=== PATIENT | female | born 1990 | race African-American/Black ===

== ENCOUNTER 2016-10-05 17:41 | Emergency (ER) | payer MEDICAID ==
[~2016-10-05] VITALS: Ht 167.6 cm; Wt 59.9 kg
[~2016-10-05 17:41] MED LIST: ACETAMINOPHEN-1 EAC2 ORAL; ACYCLOVIR30 GM TP; BACTRIM DS TAB1 EAC1 ORAL; CALCIUM500 M3 PO; CLINDAMYCIN HC150 MG ORAL; DIFLUCAN100 MG ORAL; FOLIC ACID1 M1 PO; HIBICLENS118 ML TP; HYDRALAZINE HCL10 MG ORAL; HYDROCODON-ACE1 EA15 ORAL; IBUPROFEN600 MG PO; LEVAQUIN500 MG ORAL; NKM; NORCO 5-325 TA1 EAC1 ORAL; NORCO 5-325 TA1 EACH ORAL; PERCOCET 7.5-31 EACH ORAL; TYLENOL EXTRA500 MG ORAL; VICODIN 5-5001 EACH PO
[2016-10-05 18:00] VITALS: BP 110/72
[2016-10-05 18:57] LABS: MEAN CORPUSCULAR HEMOGLOBIN 33.9 PG (27.0-31.0); MEAN CORPUSCULAR HGB CONC 33.4 G/DL (32.0-36.0); MEAN CORPUSCULAR VOLUME 101 FL (80-99); MEAN PLATELET VOLUME 6.3 FL (6.5-10.1); PLATELET COUNT 393 K/UL (150-450); RED BLOOD COUNT 2.73 M/UL (4.20-5.40); RED CELL DISTRIBUTION WIDTH 15.2 % (11.6-14.8); WHITE BLOOD COUNT 19.6 K/UL (4.8-10.8)
[2016-10-05 19:25] LABS: ANION GAP 15 (5-15); CALCIUM 9.2 mg/dL (8.6-10.2); CARBON DIOXIDE 24 mEQ/L (20-30); CHLORIDE 100 mEQ/L (98-107); CREATININE 0.4 mg/dL (0.5-0.9); GLOMERULAR FILTRATION RATE > 60 mL/min (>60); HEMOLYSIS 10; POTASSIUM 4.1 mEQ/L (3.4-4.9); SODIUM 139 mEQ/L (135-145)
[2016-10-05] MEDS ORDERED: Morphine Sulfate 4mg/ml Inj IVP ONE (19:45)
[2016-10-05 19:58] VITALS: BP 114/76
[2016-10-05] MEDS ORDERED: DiphenhydrAMINE 50mg/ml Inj IVP ONE (21:45)
[2016-10-05] MEDS ORDERED: HYDROmorphone 1mg/ml Carpuject IVP ONE (22:00)
--- NOTE | 2016-10-05 22:08 | Emergency Room Report ---
History of Present Illness General Chief Complaint: Pain Source: Patient Present Illness HPI 26-year-old female presents to emergency Department complaining of a sickle cell crisis. Patient reports 8/10 in severity pain in the right hips bilaterally x 5 days. 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 Home medications are not providing relief. Patient denies chest pain denies shortness of breath denies abdominal pain denies nausea, vomiting, fevers, chills. Patient states that she may be partially dehydrated which could be exacerbating her pain. Denies CP, Palpitations, LOC, AMS, dizziness, Changes in Vision, Sensation, paresthesias, or a sudden severe headache. Allergies: Coded Allergies: No Known Allergies (Unverified , 11/18/12) Patient History Past Medical History: see triage record Past Surgical History: none Pertinent Family History: none Last Menstrual Period: 09/26/16 Now: No Immunizations: UTD Reviewed Nursing Documentation: PMH: Agreed, PSxH: Agreed Nursing Documentation-PMH Past Medical History: No History, Except For Hx Cardiac Problems: No - sickle cell Hx Hypertension: No Hx Pacemaker: No Hx Cancer: No Hx Gastrointestinal Problems: No Hx Neurological Problems: No Hx Cerebrovascular Accident: No Hx Transient Ischemic Attacks: No Hx Dementia: No Hx Alzheimer's Disease: No Hx Parkinson's Disease: No Hx Meningitis: Yes Hx Encephalitis: No Hx Seizures: No Hx Epilepsy: No Hx Multiple Sclerosis: No Hx Cerebral Palsy: No Hx Amyotrophic Lat Sclerosis: No Hx Guillian-[place] Syndrome: No Hx Paralysis: No Hx Peripheral Neuropathy: No Hx Spinal Cord Injury: No Hx Head Trauma: No Hx Traumatic Brain Injury: No Hx Memory Loss: No Hx Concentration Difficulty: No Hx Speech Problem: No Hx Tremors: No Hx Vertigo: No Hx Dizziness: No Hx Syncope: No Hx Headaches: No Hx Aphasia: No Hx Dysphasia: No Hx Numbness: Yes Hx Weakness: No Hx Fatigue: No Hx Neurologic Surgery: No Hx Brain Shunt: No Review of Systems All Other Systems: negative except mentioned in HPI Physical Exam Vital Signs Date Time Temp Pulse Resp B/P Pulse Ox O2 Delivery O2 Flow Rate FiO2 10/05/16 17:55 98.4 88 14 110/72 99 Room Air Sp02 EP Interpretation: reviewed, normal General Appearance: no apparent distress, alert, GCS 15, non-toxic Head: normocephalic, atraumatic Eyes: bilateral eye PERRL, bilateral eye normal inspection ENT: hearing grossly normal, normal pharynx, no angioedema, normal voice Neck: full range of motion, supple/symm/no masses Respiratory: chest non-tender, lungs clear, normal breath sounds, speaking full sentences Cardiovascular #1: regular rate, rhythm, no edema Gastrointestinal: normal bowel sounds, non tender, soft, no guarding, no rebound Rectal: deferred Genitourinary: normal inspection, no CVA tenderness Musculoskeletal: back normal, gait/station normal, normal range of motion, non- tender, no calf tenderness Neurologic: alert, oriented x3, responsive, motor strength/tone normal, sensory intact, speech normal Psychiatric: judgement/insight normal, memory normal, mood/affect normal, no suicidal/homicidal ideation Reflexes: 4+ bicep (R), 4+ bicep (L), 4+ tricep (R), 4+ tricep (L), 4+ knee (R) , 4+ knee (L) Skin: normal color, no rash, warm/dry, well hydrated Lymphatic: no adenopathy Medical Decision Making PA Attestation Dr. Guidry is my supervising Physician whom patient management has been discussed with. Diagnostic Impression: Primary Impression: Sickle cell crisis ER Course Pt. presents to the ED c/o sickle cell pain in the bilateral hips x 5 Day(s) 05/04 in severity, sickle cell crisis. home medications are not working. Ddx considered but are not limited to Sickle cell crisis, Infection, Cardiac pathology, DVT, Fracture, Dislocation Vital signs: are WNL, pt. is afebrile H&PE are most consistent with Sickle cell crisis ORDERS: -CMP:see results attached. -CBC: elevated WBC at 19, however reviewed pt. previous laboratory results and this appears to be close to her baseline. -Reticulocyte count 7.6% ED INTERVENTIONS: - 2 liters NS for hydration. -6mg IV Morphine for pain - 1mg + 25mg benadryl / Dilaudid for pain DISCHARGE: At this time pt. is stable for d/c to home. Will provide printed patient care instructions, and any necessary prescriptions. Care plan and follow up instructions have been discussed with the patient prior to discharge. Labs Test 10/05/16 18:25 White Blood Count 19.6 K/UL (4.8-10.8) Red Blood Count 2.73 M/UL (4.20-5.40) Hemoglobin 9.2 G/DL (12.0-16.0) Hematocrit 27.7 % (37.0-47.0) Mean Corpuscular Volume 101 FL (80-99) Mean Corpuscular Hemoglobin 33.9 PG (27.0-31.0) Mean Corpuscular Hemoglobin Concent 33.4 G/DL (32.0-36.0) Red Cell Distribution Width 15.2 % (11.6-14.8) Platelet Count 393 K/UL (150-450) Mean Platelet Volume 6.3 FL (6.5-10.1) Neutrophils (%) (Auto) % (45.0-75.0) Lymphocytes (%) (Auto) % (20.0-45.0) Monocytes (%) (Auto) % (1.0-10.0) Eosinophils (%) (Auto) % (0.0-3.0) Basophils (%) (Auto) % (0.0-2.0) Erythrocyte Sedimentation Rate 31 MM/HR (0-20) Reticulocyte Count 7.6 % (0.0-2.0) Sodium Level 139 mEQ/L (135-145) Potassium Level 4.1 mEQ/L (3.4-4.9) Chloride Level 100 mEQ/L (98-107) Carbon Dioxide Level 24 mEQ/L (20-30) Anion Gap 15 (5-15) Blood Urea Nitrogen 5 mg/dL (7-23) Creatinine 0.4 mg/dL (0.5-0.9) Estimat Glomerular Filtration Rate > 60 mL/min (>60) Glucose Level 89 mg/dL (74-106) Calcium Level 9.2 mg/dL (8.6-10.2) Last Vital Signs Date Time Temp Pulse Resp B/P Pulse Ox O2 Delivery O2 Flow Rate FiO2 10/05/16 19:58 98.3 89 16 114/76 99 Room Air Disposition: HOME, SELF-CARE Condition: Stable Referrals: BELEN ALLEN M.D. (PCP) Additional Instructions: Take medications as directed. Follow up with PCP in 3-5 days Return sooner to ED if new symptoms occur, or current symptoms become worse. Nathaly Stewart Oct 05, 2016 22:08
[2016-10-05 22:41] LABS: BAND NEUTROPHILS % (MANUAL) 2 % (0-8); EOSINOPHILS % (MANUAL) 5 % (0-3); LYMPHOCYTES % (MANUAL) 31 % (20-45); NEUTROPHILS % (MANUAL) 55 % (45-75); TOTAL CELLS COUNTED 100
[2016-10-05 22:42] LABS: ANISOCYTOSIS 2+; BASOPHILS % (MANUAL) 0 % (0-2); HYPOCHROMASIA 2+; PLATELET ESTIMATE ADEQUATE; PLATELET MORPHOLOGY NORMAL; POLYCHROMASIA 1+
[2016-10-05 22:43] LABS: SCHISTOCYTES 1+; SICKLE CELLS 2+; TARGET CELLS 1+
[2016-10-05 23:13] VITALS: BP 109/71
[2016-10-05 23:40] VITALS: BP 109/71
== END 2016-10-05 23:40 | disposition home or self-care (01) ==
LOC: EMR 18:46
DX: D57.00 Hb-SS disease with crisis, unspecified (principal)
CPT/HCPCS: 36415; 80048; 85007; 85025; 85044; 85651; 96361; 96374; 96375; 99284; J1170; J1200; J2270

== ENCOUNTER 2016-10-17 01:25 | Emergency (ER) | payer MEDICAID ==
[~2016-10-17] VITALS: Ht 167.6 cm; Wt 59.9 kg
[2016-10-17 01:35] VITALS: BP 118/80
[2016-10-17] MEDS ORDERED: DiphenhydrAMINE 50mg/ml Inj IM ONE (01:45)
[2016-10-17 01:48] LABS: KETONES,URINE NEGATIVE (NEGATIVE); LEUKOCYTE ESTERASE ,URINE 3+ (NEGATIVE); NITRITE,URINE NEGATIVE (NEGATIVE); PH,URINE 8 (4.5-8.0); PROTEIN,URINE NEGATIVE (NEGATIVE); UROBILINOGEN,URINE 1 MG/DL (0.0-1.0)
[2016-10-17 01:55] LABS: APPEARANCE,URINE SLIGHTLY CLOUDY
[2016-10-17 01:56] LABS: BACTERIA,URINE MANY /HPF; RBC,URINE 0-2 /HPF (0 - 2); SQUAMOUS EPITHELIAL CELL,UR MANY /LPF (NONE/OCC); WBC,URINE 15-20 /HPF (0 - 2)
[2016-10-17] MEDS ORDERED: NITROFURANTOIN100 M2 ORAL (02:02)
[2016-10-17 02:11] VITALS: BP 122/83
--- NOTE | 2016-10-17 02:36 | Emergency Room Report ---
History of Present Illness General Chief Complaint: Pain Source: Patient Present Illness HPI 26 YO F endorses dysuria, polyuria for 2 days. Denies fever/chills, abd pain, nausea/vomiting, diarrhea, past surgical history. Endorses frequent UTI. Denies flank pain. Also c/o "whole body pain" and "I have sickle cell disease." She denies chest pain, SOB, fever/chills. States hasnt needed transfusion in a "long time." Per review of EMR, multiple visits to ED for similar complaints of "pain." Last was most recently a few weeks ago. Labs done showed stable H&H, stable retic count and elevated Leuks however patient appears to have chronically elevated leukocytosis on review of labs back a few years. Patient refused further lab tests and left ER per review of EMR from that note/visit. Allergies: Coded Allergies: No Known Allergies (Unverified , 11/18/12) Patient History Past Medical History: other - sickle cell disease Past Surgical History: none Pertinent Family History: none Social History: Denies: alcohol use, drug use, smoking Last Menstrual Period: Sep Now: No Immunizations: UTD Reviewed Nursing Documentation: PMH: Agreed, PSxH: Agreed Nursing Documentation-PMH Hx Cardiac Problems: No - sickle cell Hx Hypertension: No Hx Pacemaker: No Hx Cancer: No Hx Gastrointestinal Problems: No Hx Neurological Problems: No Hx Cerebrovascular Accident: No Hx Transient Ischemic Attacks: No Hx Dementia: No Hx Alzheimer's Disease: No Hx Parkinson's Disease: No Hx Meningitis: Yes Hx Encephalitis: No Hx Seizures: No Hx Epilepsy: No Hx Multiple Sclerosis: No Hx Cerebral Palsy: No Hx Amyotrophic Lat Sclerosis: No Hx Guillian-[place] Syndrome: No Hx Paralysis: No Hx Peripheral Neuropathy: No Hx Spinal Cord Injury: No Hx Head Trauma: No Hx Traumatic Brain Injury: No Hx Memory Loss: No Hx Concentration Difficulty: No Hx Speech Problem: No Hx Tremors: No Hx Vertigo: No Hx Dizziness: No Hx Syncope: No Hx Headaches: No Hx Aphasia: No Hx Dysphasia: No Hx Numbness: Yes Hx Weakness: No Hx Fatigue: No Hx Neurologic Surgery: No Hx Brain Shunt: No Review of Systems All Other Systems: negative except mentioned in HPI Physical Exam Vital Signs Date Time Temp Pulse Resp B/P Pulse Ox O2 Delivery O2 Flow Rate FiO2 10/17/16 01:27 98.8 96 19 112/79 96 Room Air Sp02 EP Interpretation: reviewed, normal General Appearance: normal inspection, well appearing, no apparent distress, alert Head: atraumatic ENT: normal ENT inspection, hearing grossly normal, normal voice Neck: normal inspection, full range of motion, supple, no bony tend Respiratory: normal inspection, lungs clear, normal breath sounds, no respiratory distress, no retraction, no wheezing Cardiovascular #1: regular rate, rhythm, no edema Gastrointestinal: normal inspection, normal bowel sounds, non tender, soft, no guarding, no hernia Genitourinary: no CVA tenderness Musculoskeletal: normal inspection, back normal, normal range of motion, Neil' s Sign negative Neurologic: normal inspection, alert, oriented x3, responsive, clinical education manager III-XII nml as tested, motor strength/tone normal, speech normal Psychiatric: normal inspection, judgement/insight normal, mood/affect normal Skin: normal inspection, normal color, no rash Medical Decision Making Diagnostic Impression: Primary Impression: UTI (urinary tract infection) Qualified Codes: N30.00 - Acute cystitis without hematuria Additional Impression: Pain ER Course 26 YO F with dysuria found to have UTI on UA. Not . VSS. Afebrile. No CVAT. Unlikely systemic infection/pyelo given well appearance. Patient states she has norco and PO dilaudid at home but doesnt take because "they make me feel nauseated" and "they are different from injected dialudid." Given multiple visits here for similar complaints and persistently stable laboratory analysis including recently I do not feel additional lab testing is warranted at this time. I also do not believe patient has acute chest syndrome given VSS, no systemic symptoms and lungs are CTAB Patient is amenable to IM dilaudid/benadryl with improvement in symptoms DC home with Rx Macrobid after initial dose given in ED Last Vital Signs Date Time Temp Pulse Resp B/P Pulse Ox O2 Delivery O2 Flow Rate FiO2 10/17/16 02:11 98.3 82 18 122/83 100 Room Air Status: improved Disposition: HOME, SELF-CARE Condition: Improved Scripts Nitrofurantoin Monohyd/M-Cryst* (MACROBID 100 MG*) 100 Mg Capsule 100 MG ORAL EVERY 12 HOURS for 7 Days, #13 CAP Prov: JOSE RIDLEY M.D. 1/23/17 Patient Instructions: Dysuria JOSE RIDLEY M.D. Oct 17, 2016 02:36
== END 2016-10-17 02:11 | disposition home or self-care (01) ==
LOC: EMR 01:53
DX: N30.00 Acute cystitis without hematuria (principal); Z86.61 Personal history of infections of the central nervous system; D57.1 Sickle-cell disease without crisis
CPT/HCPCS: 81003; 81025; 87086; 96372; 99283; J1170; J1200

== ENCOUNTER 2016-10-31 14:56 | Inpatient (IN) | payer MEDICAID ==
[~2016-10-31] VITALS: Ht 167.6 cm; Wt 60.3 kg
[~2016-10-31 14:56] MED LIST changes: +NITROFURANTOIN100 M2 ORAL
[2016-10-31] MEDS ORDERED: HYDREA500 MG PO (15:08)
--- NOTE | 2016-10-31 15:32 | Emergency Room Report ---
History of Present Illness General Chief Complaint: Pain Source: Patient Present Illness HPI Patient presents with complaints of total body pain Reports that she is having a'sickle flare' Denies any vomiting or diarrhea She has had decreased oral intake Pain is 8/10 diffuse in her arms legs Denies any fevers or chills as any photophobia Denies any recent trauma Allergies: Coded Allergies: No Known Allergies (Unverified , 11/18/12) Patient History Past Medical History: see triage record Pertinent Family History: none Last Menstrual Period: 10/28/2016 Reviewed Nursing Documentation: PMH: Agreed, PSxH: Agreed Nursing Documentation-PMH Past Medical History: No History, Except For Hx Hypertension: No Hx Pacemaker: No Hx Cancer: No Hx Gastrointestinal Problems: No Hx Neurological Problems: No Hx Cerebrovascular Accident: No Hx Transient Ischemic Attacks: No Hx Dementia: No Hx Alzheimer's Disease: No Hx Parkinson's Disease: No Hx Meningitis: Yes Hx Encephalitis: No Hx Seizures: No Hx Epilepsy: No Hx Multiple Sclerosis: No Hx Cerebral Palsy: No Hx Amyotrophic Lat Sclerosis: No Hx Guillian-[place] Syndrome: No Hx Paralysis: No Hx Peripheral Neuropathy: No Hx Spinal Cord Injury: No Hx Head Trauma: No Hx Traumatic Brain Injury: No Hx Memory Loss: No Hx Concentration Difficulty: No Hx Speech Problem: No Hx Tremors: No Hx Vertigo: No Hx Dizziness: No Hx Syncope: No Hx Headaches: No Hx Aphasia: No Hx Dysphasia: No Hx Numbness: Yes Hx Weakness: No Hx Fatigue: No Hx Neurologic Surgery: No Hx Brain Shunt: No Review of Systems All Other Systems: negative except mentioned in HPI Physical Exam Vital Signs Date Time Temp Pulse Resp B/P Pulse Ox O2 Delivery O2 Flow Rate FiO2 10/31/16 15:04 98.8 84 14 122/72 96 Room Air Sp02 EP Interpretation: reviewed, normal General Appearance: well appearing, no apparent distress Head: normocephalic, atraumatic Eyes: bilateral eye EOMI, bilateral eye PERRL ENT: hearing grossly normal, normal pharynx, TMs + canals normal, uvula midline Neck: full range of motion, supple, no meningismus, no bony tend Respiratory: lungs clear, normal breath sounds, no rhonchi, no respiratory distress, no retraction, no accessory muscle use Cardiovascular #1: normal peripheral pulses, regular rate, rhythm, no edema, no gallop, no JVD, no murmur Gastrointestinal: normal bowel sounds, non tender, soft, no mass, no organomegaly, non-distended, no guarding, no hernia, no pulsatile mass, no rebound Genitourinary: no CVA tenderness Musculoskeletal: normal inspection Neurologic: oriented x3, responsive, workers compensation claims analyst III-XII nml as tested, motor strength/ tone normal, sensory intact Psychiatric: mood/affect normal Skin: normal color, no rash, warm/dry, palpation normal Lymphatic: normal inspection, no adenopathy Medical Decision Making Diagnostic Impression: Primary Impression: Sickle cell disease Additional Impression: Sickle cell crisis ER Course Multiple differentials considered Patient has had previous sickle cell crisis and therefore blood work was initiated IV hydration Patient was provided with pain medication Patient's reticulocyte count is significantly elevated compared to previous And given the general evaluation and the patient's discomfort was admitted for further inpatient care Labs Test 10/31/16 15:27 11/01/16 05:35 White Blood Count 19.8 K/UL (4.8-10.8) 15.4 K/UL (4.8-10.8) Red Blood Count 2.35 M/UL (4.20-5.40) 1.93 M/UL (4.20-5.40) Hemoglobin 8.5 G/DL (12.0-16.0) 6.9 G/DL (12.0-16.0) Hematocrit 24.4 % (37.0-47.0) 19.7 % (37.0-47.0) Mean Corpuscular Volume 104 FL (80-99) 102 FL (80-99) Mean Corpuscular Hemoglobin 35.9 PG (27.0-31.0) 35.4 PG (27.0-31.0) Mean Corpuscular Hemoglobin Concent 34.7 G/DL (32.0-36.0) 34.9 G/DL (32.0-36.0) Red Cell Distribution Width 18.3 % (11.6-14.8) 19.1 % (11.6-14.8) Platelet Count 432 K/UL (150-450) 328 K/UL (150-450) Mean Platelet Volume 6.5 FL (6.5-10.1) 7.0 FL (6.5-10.1) Neutrophils (%) (Auto) % (45.0-75.0) % (45.0-75.0) Lymphocytes (%) (Auto) % (20.0-45.0) % (20.0-45.0) Monocytes (%) (Auto) % (1.0-10.0) % (1.0-10.0) Eosinophils (%) (Auto) % (0.0-3.0) % (0.0-3.0) Basophils (%) (Auto) % (0.0-2.0) % (0.0-2.0) Differential Total Cells Counted 100 100 Neutrophils % (Manual) 53 % (45-75) 57 % (45-75) Lymphocytes % (Manual) 33 % (20-45) 30 % (20-45) Monocytes % (Manual) 4 % (1-10) 6 % (1-10) Eosinophils % (Manual) 10 % (0-3) 7 % (0-3) Basophils % (Manual) 0 % (0-2) 0 % (0-2) Band Neutrophils 0 % (0-8) 0 % (0-8) Platelet Estimate Adequate Adequate Platelet Morphology Normal Normal Poikilocytosis 1+ 1+ Anisocytosis 2+ 2+ Macrocytosis 2+ 1+ Reticulocyte Count 14.1 % (0.0-2.0) Sodium Level 143 mEQ/L (135-145) 143 mEQ/L (135-145) Potassium Level 3.9 mEQ/L (3.4-4.9) 3.9 mEQ/L (3.4-4.9) Chloride Level 104 mEQ/L (98-107) 105 mEQ/L (98-107) Carbon Dioxide Level 25 mEQ/L (20-30) 26 mEQ/L (20-30) Anion Gap 14 (5-15) 12 (5-15) Blood Urea Nitrogen 4 mg/dL (7-23) 3 mg/dL (7-23) Creatinine 0.4 mg/dL (0.5-0.9) 0.5 mg/dL (0.5-0.9) Estimat Glomerular Filtration Rate > 60 mL/min (>60) > 60 mL/min (>60) Glucose Level 98 mg/dL (74-106) 108 mg/dL (74-106) Calcium Level 8.6 mg/dL (8.6-10.2) 8.1 mg/dL (8.6-10.2) Polychromasia 1+ Sickle Cells 1+ Total Bilirubin 1.9 mg/dL (0.0-1.2) Direct Bilirubin 0.3 mg/dL (0.1-0.3) Aspartate Amino Transf (AST/SGOT) 38 U/L (5-40) Alanine Aminotransferase (ALT/SGPT) 23 U/L (3-33) Alkaline Phosphatase 55 U/L (35-104) Lactate Dehydrogenase 276 U/L (135-230) Total Protein 6.0 g/dL (6.6-8.7) Albumin 3.7 g/dL (3.5-5.2) Globulin 2.3 g/dL Albumin/Globulin Ratio 1.6 (1.0-2.7) Rhythm Strip Diag. Results Rate: 77 Last Vital Signs Date Time Temp Pulse Resp B/P Pulse Ox O2 Delivery O2 Flow Rate FiO2 10/31/16 15:04 98.8 84 14 122/72 96 Room Air Status: improved Disposition: ADMITTED INPATIENT Condition: Serious REDDY AKERS D.O. Oct 31, 2016 15:32
[2016-10-31 15:47] LABS: MEAN CORPUSCULAR HEMOGLOBIN 35.9 PG (27.0-31.0); MEAN CORPUSCULAR HGB CONC 34.7 G/DL (32.0-36.0); MEAN CORPUSCULAR VOLUME 104 FL (80-99); MEAN PLATELET VOLUME 6.5 FL (6.5-10.1); PLATELET COUNT 432 K/UL (150-450); RED BLOOD COUNT 2.35 M/UL (4.20-5.40); RED CELL DISTRIBUTION WIDTH 18.3 % (11.6-14.8); WHITE BLOOD COUNT 19.8 K/UL (4.8-10.8)
[2016-10-31 16:00] LABS: ANION GAP 14 (5-15); CALCIUM 8.6 mg/dL (8.6-10.2); CARBON DIOXIDE 25 mEQ/L (20-30); CHLORIDE 104 mEQ/L (98-107); CREATININE 0.4 mg/dL (0.5-0.9); GLOMERULAR FILTRATION RATE > 60 mL/min (>60); HEMOLYSIS 34; POTASSIUM 3.9 mEQ/L (3.4-4.9); SODIUM 143 mEQ/L (135-145)
[2016-10-31 16:09] VITALS: BP 111/64
[2016-10-31] MEDS ORDERED: HYDROmorphone 1mg/NS 50ml IVPB 50 ML IV ONE (16:15)
[2016-10-31 17:47] LABS: RETICULOCYTE COUNT 14.1 % (0.0-2.0)
[2016-10-31 18:03] LABS: EOSINOPHILS % (MANUAL) 10 % (0-3); LYMPHOCYTES % (MANUAL) 33 % (20-45); NEUTROPHILS % (MANUAL) 53 % (45-75); TOTAL CELLS COUNTED 100
[2016-10-31 18:04] LABS: ANISOCYTOSIS 2+; MACROCYTES 2+; PLATELET MORPHOLOGY NORMAL; POIKILOCYTOSIS 1+
[2016-10-31 18:06] LABS: BAND NEUTROPHILS % (MANUAL) 0 % (0-8); BASOPHILS % (MANUAL) 0 % (0-2); PLATELET ESTIMATE ADEQUATE
[2016-10-31 19:57] VITALS: BP 122/72
[2016-10-31 20:00] VITALS: BP 122/72
[2016-10-31] MEDS ORDERED: Zolpidem 5mg tab ORAL PRN (20:45)
[2016-10-31] MEDS ORDERED: LORazepam Inj 2mg/ml 1ml IV PRN (20:45)
[2016-10-31] MEDS ORDERED: Miralax 17gm pkt ORAL PRN (20:45)
[2016-10-31] MEDS ORDERED: Mylanta II UD 30ml ORAL PRN (20:45)
[2016-10-31] MEDS: Heparin 5000 units/ml inj SUBQ SCH (21:14)
[2016-10-31] MEDS: DiphenhydrAMINE 50mg/ml Inj IVP PRN (22:11)
[2016-11-01] VITALS: BP 116/57
[2016-11-01] MEDS: DiphenhydrAMINE 50mg/ml Inj IVP PRN ×2 (03:18→07:52)
[2016-11-01 04:00] VITALS: BP 119/61
[2016-11-01 07:10] LABS: ALANINE AMINOTRANSFERASE 23 U/L (3-33); ALBUMIN/GLOBULIN RATIO 1.6 (1.0-2.7); ANION GAP 12 (5-15); ASPARTATE AMINO TRANSFERASE 38 U/L (5-40); CALCIUM 8.1 mg/dL (8.6-10.2); CARBON DIOXIDE 26 mEQ/L (20-30); CHLORIDE 105 mEQ/L (98-107); CREATININE 0.5 mg/dL (0.5-0.9); GLOMERULAR FILTRATION RATE > 60 mL/min (>60); HEMOLYSIS 12; LACTATE DEHYDROGENASE 276 U/L (135-230); POTASSIUM 3.9 mEQ/L (3.4-4.9); SODIUM 143 mEQ/L (135-145)
[2016-11-01 07:14] LABS: MEAN CORPUSCULAR HEMOGLOBIN 35.4 PG (27.0-31.0); MEAN CORPUSCULAR HGB CONC 34.9 G/DL (32.0-36.0); MEAN CORPUSCULAR VOLUME 102 FL (80-99); PLATELET COUNT 328 K/UL (150-450); RED BLOOD COUNT 1.93 M/UL (4.20-5.40); RED CELL DISTRIBUTION WIDTH 19.1 % (11.6-14.8); WHITE BLOOD COUNT 15.4 K/UL (4.8-10.8)
[2016-11-01 07:27] LABS: BILIRUBIN,DIRECT 0.3 mg/dL (0.1-0.3)
[2016-11-01] MEDS: Heparin 5000 units/ml inj SUBQ SCH ×2 (07:40→20:55)
[2016-11-01 08:00] LABS: BAND NEUTROPHILS % (MANUAL) 0 % (0-8); BASOPHILS % (MANUAL) 0 % (0-2); EOSINOPHILS % (MANUAL) 7 % (0-3); LYMPHOCYTES % (MANUAL) 30 % (20-45); MACROCYTES 1+; NEUTROPHILS % (MANUAL) 57 % (45-75); PLATELET ESTIMATE ADEQUATE; PLATELET MORPHOLOGY NORMAL; POLYCHROMASIA 1+; TOTAL CELLS COUNTED 100
[2016-11-01 08:01] LABS: ANISOCYTOSIS 2+; POIKILOCYTOSIS 1+
[2016-11-01 08:03] LABS: SICKLE CELLS 1+
[2016-11-01 08:30] VITALS: BP 119/68
--- NOTE | 2016-11-01 09:13 | General Progress Note ---
Assessment/Plan Assessment/Plan (1) Intractable pain (2) Sickle cell disease (3) Sickle cell crisis Assessment & Plan: We will continue Dilaudid 2-3mg IV Q3H PRN pain. Pt was d/w Dr. Acevedo and he concurred. Thank you for the courtesy of this consultation. Subjective Date patient seen: Nov 01, 2016 Time patient seen: 07:15 - am Allergies: Coded Allergies: No Known Allergies (Unverified , 11/18/12) Subjective Constitutional: Reports: weakness, Denies: chills, diaphoresis, fever, malaise , no symptoms, other HEENT: Denies: blurred vision, double vision, ear discharge, ear pain, eye pain , mouth pain, mouth swelling, no symptoms, nose congestion, nose pain, other, tearing, throat pain, throat swelling Cardiovascular: Denies: chest pain, edema, irregular heart rate, lightheadedness, no symptoms, other, palpitations, syncope Respiratory: Denies: SOB at rest, SOB with excertion, cough, no symptoms, orthopnea, other, shortness of breath, sputum, stridor, wheezing Gastrointestinal/Abdominal: Denies: abdomen distended, abdominal pain, black stools, blood in stool, constipated, diarrhea, difficulty swallowing, nausea, no symptoms, other, poor appetite, poor fluid intake, rectal bleeding, tarry stools, vomiting Genitourinary: Denies: burning, discharge, flank pain, frequency, hematuria, incontinence, no symptoms, other, pain, urgency Neurologic/Psychiatric: Reports: weakness, Denies: anxiety, depressed, emotional problems, headache, no symptoms, numbness, other, paresthesia, pre- existing deficit, seizure, tingling, tremors Endocrine: Denies: excessive sweating, flushing, increased hunger, increased thirst, increased urine, intolerance to cold, intolerance to heat, no symptoms, other, unexplained weight gain, unexplained weight loss Hematologic/Lymphatic: Denies: anemia, easy bleeding, easy bruising, no symptoms, other Subjective Pt is a known pt from prior admission with sickle cell disease in a crisis causing severe pain. The pt has been on Percocet as a outpt with no pain relief at home. Admitted under the care of Dr. Tim. Pain is severe and has been reduced with the Dilaudid 2-3mg IV Q3H PRN mod to severe pain. Objective Last 24 Hour Vital Signs Date Time Temp Pulse Resp B/P Pulse Ox O2 Delivery O2 Flow Rate FiO2 11/01/16 06:49 97.6 11/01/16 04:00 97.6 70 18 119/61 97 Room Air 11/01/16 00:00 97.7 72 18 116/57 96 Room Air 10/31/16 20:00 98.1 70 18 122/72 98 Room Air 10/31/16 19:57 98.1 70 18 122/72 98 Room Air 10/31/16 19:39 98.2 82 19 106/70 97 Room Air 10/31/16 16:56 98.2 10/31/16 16:09 98.2 81 17 111/64 96 Room Air 10/31/16 15:04 98.8 84 14 122/72 96 Room Air Intake and Output 10/31/16 11/01/16 19:00 07:00 Intake Total 2000 ml 875 ml Balance 2000 ml 875 ml Intake Oral 200 ml IV Total 2000 ml 675 ml # Voids 1 1 Laboratory Tests 10/31/16 15:27: White Blood Count 19.8H, Red Blood Count 2.35L, Hemoglobin 8.5L, Hematocrit 24.4L, Mean Corpuscular Volume 104H, Mean Corpuscular Hemoglobin 35.9H, Mean Corpuscular Hemoglobin Concent 34.7, Red Cell Distribution Width 18.3H, Platelet Count 432, Mean Platelet Volume 6.5, Neutrophils (%) (Auto) , Lymphocytes (%) (Auto) , Monocytes (%) (Auto) , Eosinophils (%) (Auto) , Basophils (%) (Auto) , Differential Total Cells Counted 100, Neutrophils % ( Manual) 53, Lymphocytes % (Manual) 33, Monocytes % (Manual) 4, Eosinophils % ( Manual) 10H, Basophils % (Manual) 0, Band Neutrophils 0, Platelet Estimate Adequate, Platelet Morphology Normal, Poikilocytosis 1+, Anisocytosis 2+, Macrocytosis 2+, Reticulocyte Count 14.1H, Sodium Level 143, Potassium Level 3.9 , Chloride Level 104, Carbon Dioxide Level 25, Anion Gap 14, Blood Urea Nitrogen 4L, Creatinine 0.4L, Estimat Glomerular Filtration Rate > 60, Glucose Level 98, Calcium Level 8.6 11/01/16 05:35: White Blood Count 15.4H, Red Blood Count 1.93L, Hemoglobin 6.9*L, Hematocrit 19.7L, Mean Corpuscular Volume 102H, Mean Corpuscular Hemoglobin 35.4H, Mean Corpuscular Hemoglobin Concent 34.9, Red Cell Distribution Width 19.1H, Platelet Count 328, Mean Platelet Volume 7.0, Neutrophils (%) (Auto) , Lymphocytes (%) (Auto) , Monocytes (%) (Auto) , Eosinophils (%) (Auto) , Basophils (%) (Auto) , Differential Total Cells Counted 100, Neutrophils % ( Manual) 57, Lymphocytes % (Manual) 30, Monocytes % (Manual) 6, Eosinophils % ( Manual) 7H, Basophils % (Manual) 0, Band Neutrophils 0, Platelet Estimate Adequate, Platelet Morphology Normal, Poikilocytosis 1+, Anisocytosis 2+, Macrocytosis 1+, Sodium Level 143, Potassium Level 3.9, Chloride Level 105, Carbon Dioxide Level 26, Anion Gap 12, Blood Urea Nitrogen 3L, Creatinine 0.5, Estimat Glomerular Filtration Rate > 60, Glucose Level 108H, Calcium Level 8.1L , Polychromasia 1+, Sickle Cells 1+H, Total Bilirubin 1.9H, Direct Bilirubin 0.3 , Aspartate Amino Transf (AST/SGOT) 38, Alanine Aminotransferase (ALT/SGPT) 23, Alkaline Phosphatase 55, Lactate Dehydrogenase 276H, Total Protein 6.0L, Albumin 3.7, Globulin 2.3, Albumin/Globulin Ratio 1.6 Height (Feet): 5 Height (Inches): 6.00 Weight (Pounds): 133 Objective General Appearance: no apparent distress, alert EENT: PERRL/EOMI, normal ENT inspection Neck: normal alignment, supple Cardiovascular: normal rate, regular rhythm Abdomen: non tender, soft Edema: no edema noted Arm (L), no edema noted Arm (R), no edema noted Leg (L), no edema noted Leg (R), no edema noted Pedal (L), no edema noted Pedal (R), no edema noted Generalized Neurologic: alert, oriented x 3 KOFFI JARA Nov 01, 2016 09:13
[2016-11-01 12:00] VITALS: BP 112/62
--- NOTE | 2016-11-01 15:19 | History and Physical ---
History of Present Illness General Date patient seen: Nov 01, 2016 Reason for Hospitalization: Pain Present Illness HPI 26 year old female with hx of sickle cell disease presented with complaints of total body pain Pain is 8/10 diffuse in her arms legs. she was anemic and admitted for treatment of her sickle cell crisis. Allergies: Coded Allergies: No Known Allergies (Unverified , 11/18/12) Medication History Scheduled Hydralazine Hcl* (Hydralazine Hcl*), 10 MG ORAL EVERY 8 HOURS, (Reported) Hydroxyurea* (Hydrea*), 500 MG PO DAILY, (Reported) Nitrofurantoin Monohyd/M-Cryst* (Macrobid 100 Mg*), 100 MG ORAL EVERY 12 HOURS No Known Medications* (NKM - No Known Medications*), 0 ., (Reported) No Known Medications* (NKM - No Known Medications*), 0 ., (Reported) Trimethoprim/Sulfamethoxazole 160/800* (Bactrim Ds Tablet*), 1 TAB ORAL TWICE A DAY Scheduled PRN Acetaminophen With Codeine (T#4) (Tylenol #4 Tab*), 1 TAB ORAL Q6H PRN for For Pain, (Reported) Acetaminophen With Codeine (T#4) (Tylenol #4 Tab*), 1 TAB ORAL Q6H PRN for For Pain Acetaminophen* (Tylenol Extra Strength*), 500 MG ORAL Q4HR PRN for Mild Pain/ Temp > 100.5, (Reported) Oxycodone Hcl/Acetaminophen 7.5-325 Mg (Percocet 7.5-325 Mg Tablet), 1 TAB ORAL Q4H PRN for For Pain, (Reported) Miscellaneous Medications Calcium Carbonate (Calcium), 500 MG PO, (Reported) Folic Acid (Folic Acid), 1 MG PO, (Reported) Patient History Healthcare decision maker Resuscitation status Full Code Advanced Directive on File Past Medical/Surgical History Past Medical/Surgical History: (1) Sickle cell disease (2) UTI (urinary tract infection) Review of Systems All Other Systems: negative except mentioned in HPI Physical Exam Lines, tubes and drains: peripheral HEENT: normocephalic, atraumatic Neck: non-tender, normal alignment Respiratory/Chest: chest wall non-tender, lungs clear Breasts: no masses Cardiovascular/Chest: normal peripheral pulses Abdomen: normal bowel sounds, non tender Last 24 Hour Vital Signs Date Time Temp Pulse Resp B/P Pulse Ox O2 Delivery O2 Flow Rate FiO2 11/01/16 12:58 97.6 11/01/16 12:00 97.7 99 19 112/62 91 Room Air 11/01/16 08:30 97.9 88 20 119/68 91 Room Air 11/01/16 06:49 97.6 11/01/16 04:00 97.6 70 18 119/61 97 Room Air 11/01/16 00:00 97.7 72 18 116/57 96 Room Air 10/31/16 20:00 98.1 70 18 122/72 98 Room Air 10/31/16 19:57 98.1 70 18 122/72 98 Room Air 10/31/16 19:39 98.2 82 19 106/70 97 Room Air 10/31/16 16:56 98.2 10/31/16 16:09 98.2 81 17 111/64 96 Room Air Intake and Output 10/31/16 11/01/16 19:00 07:00 Intake Total 2000 ml 875 ml Balance 2000 ml 875 ml Intake Oral 200 ml IV Total 2000 ml 675 ml # Voids 1 1 Laboratory Tests Test 10/31/16 15:27 11/01/16 05:35 White Blood Count 19.8 K/UL (4.8-10.8) H 15.4 K/UL (4.8-10.8) H Red Blood Count 2.35 M/UL (4.20-5.40) L 1.93 M/UL (4.20-5.40) L Hemoglobin 8.5 G/DL (12.0-16.0) L 6.9 G/DL (12.0-16.0) *L Hematocrit 24.4 % (37.0-47.0) L 19.7 % (37.0-47.0) L Mean Corpuscular Volume 104 FL (80-99) H 102 FL (80-99) H Mean Corpuscular Hemoglobin 35.9 PG (27.0-31.0) H 35.4 PG (27.0-31.0) H Mean Corpuscular Hemoglobin Concent 34.7 G/DL (32.0-36.0) 34.9 G/DL (32.0-36.0) Red Cell Distribution Width 18.3 % (11.6-14.8) H 19.1 % (11.6-14.8) H Platelet Count 432 K/UL (150-450) 328 K/UL (150-450) Mean Platelet Volume 6.5 FL (6.5-10.1) 7.0 FL (6.5-10.1) Neutrophils (%) (Auto) % (45.0-75.0) % (45.0-75.0) Lymphocytes (%) (Auto) % (20.0-45.0) % (20.0-45.0) Monocytes (%) (Auto) % (1.0-10.0) % (1.0-10.0) Eosinophils (%) (Auto) % (0.0-3.0) % (0.0-3.0) Basophils (%) (Auto) % (0.0-2.0) % (0.0-2.0) Differential Total Cells Counted 100 100 Neutrophils % (Manual) 53 % (45-75) 57 % (45-75) Lymphocytes % (Manual) 33 % (20-45) 30 % (20-45) Monocytes % (Manual) 4 % (1-10) 6 % (1-10) Eosinophils % (Manual) 10 % (0-3) H 7 % (0-3) H Basophils % (Manual) 0 % (0-2) 0 % (0-2) Band Neutrophils 0 % (0-8) 0 % (0-8) Platelet Estimate Adequate Adequate Platelet Morphology Normal Normal Poikilocytosis 1+ 1+ Anisocytosis 2+ 2+ Macrocytosis 2+ 1+ Reticulocyte Count 14.1 % (0.0-2.0) H Sodium Level 143 mEQ/L (135-145) 143 mEQ/L (135-145) Potassium Level 3.9 mEQ/L (3.4-4.9) 3.9 mEQ/L (3.4-4.9) Chloride Level 104 mEQ/L (98-107) 105 mEQ/L (98-107) Carbon Dioxide Level 25 mEQ/L (20-30) 26 mEQ/L (20-30) Anion Gap 14 (5-15) 12 (5-15) Blood Urea Nitrogen 4 mg/dL (7-23) L 3 mg/dL (7-23) L Creatinine 0.4 mg/dL (0.5-0.9) L 0.5 mg/dL (0.5-0.9) Estimat Glomerular Filtration Rate > 60 mL/min (>60) > 60 mL/min (>60) Glucose Level 98 mg/dL (74-106) 108 mg/dL (74-106) H Calcium Level 8.6 mg/dL (8.6-10.2) 8.1 mg/dL (8.6-10.2) L Polychromasia 1+ Sickle Cells 1+ H Total Bilirubin 1.9 mg/dL (0.0-1.2) H Direct Bilirubin 0.3 mg/dL (0.1-0.3) Aspartate Amino Transf (AST/SGOT) 38 U/L (5-40) Alanine Aminotransferase (ALT/SGPT) 23 U/L (3-33) Alkaline Phosphatase 55 U/L (35-104) Lactate Dehydrogenase 276 U/L (135-230) H Total Protein 6.0 g/dL (6.6-8.7) L Albumin 3.7 g/dL (3.5-5.2) Globulin 2.3 g/dL Albumin/Globulin Ratio 1.6 (1.0-2.7) Height (Feet): 5 Height (Inches): 6.00 Weight (Pounds): 133 Medications Current Medications Medications (Trade) Dose Ordered Sig/Marcellus Route PRN Reason Start Time Stop Time Status Last Admin Dose Admin Acetaminophen (Tylenol) 650 mg Q4H PRN ORAL fever 10/31/16 20:45 11/30/16 20:44 Al Hydroxide/Mg Hydroxide (Mylanta II) 30 ml Q6H PRN ORAL dyspepsia 10/31/16 20:45 11/30/16 20:44 Dextrose (Dextrose 50%) STAT PRN IV Hypoglycemia 10/31/16 20:45 11/30/16 20:44 Diphenhydramine HCl (Benadryl) 50 mg Q3H PRN IVP Itching 10/31/16 22:00 11/30/16 21:59 11/01/16 07:52 Heparin Sodium (Porcine) (Heparin 5000 units/ml) 5,000 units EVERY 12 HOURS SUBQ 10/31/16 21:00 11/30/16 20:59 2/6/17 21:14 Hydromorphone HCl (Dilaudid) 2 mg Q3H PRN IV pain 4-6 10/31/16 20:45 11/07/16 20:44 11/01/16 06:19 Hydromorphone HCl 3 mg 3 mg Q3H PRN IVP For Pain 7-10 10/31/16 20:45 11/07/16 20:44 11/01/16 12:28 Lorazepam (Ativan 2mg/ml 1ml) 0.5 mg Q4H PRN IV For Anxiety 10/31/16 20:45 11/07/16 20:44 Ondansetron HCl (Zofran) 4 mg Q6H PRN IVP Nausea & Vomiting 10/31/16 20:45 11/30/16 20:44 11/01/16 08:28 Polyethylene Glycol (Miralax) 17 gm HSPRN PRN ORAL Constipation 10/31/16 20:45 11/30/16 20:44 Sodium Chloride (0.45% NS 1000ml) 1,000 ml @ 75 mls/hr [id number] IV 10/31/16 21:30 11/30/16 21:29 11/01/16 12:00 Zolpidem Tartrate (Ambien) 5 mg HSPRN PRN ORAL Insomnia 10/31/16 20:45 11/30/16 20:44 Assessment/Plan Problem List: (1) Sickle cell crisis ICD Codes: D57.00 - Hb-SS disease with crisis, unspecified SNOMED: 402069495 (2) Intractable pain ICD Codes: R52 - Pain, unspecified SNOMED: 32804269 (3) Severe anemia ICD Codes: D64.9 - Anemia, unspecified SNOMED: 074907076 Assessment/Plan iv fluids pain management prbc prn check ldh BERNARDO YATES Nov 01, 2016 15:19
[2016-11-01 16:00] VITALS: BP 126/73
--- NOTE | 2016-11-01 18:31 | Consultation ---
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 Will follow HERMINIO HEADLEY Nov 01, 2016 18:31
[2016-11-01 20:00] VITALS: BP 125/68
[2016-11-01] MEDS ORDERED: Cefepime HCl 1 GM in D5W 55 ML IVPB SCH (20:00)
[2016-11-01] MEDS: Vancomycin 750mg/D5W 275ml IVPB SCH ×2 (22:35)
--- NOTE | 2016-11-01 22:37 | Consultation ---
DATE OF CONSULTATION: 11/01/2016 INFECTIOUS DISEASE CONSULTATION REQUESTING PHYSICIAN: Jt Tim M.D. REASON FOR CONSULTATION: Fever and leukocytosis. HISTORY OF PRESENT ILLNESS: This is a 26-year-old female with a history of sickle cell anemia admitted today with crisis, complaints of pain all over. Denies urinary symptoms, upper respiratory or lower respiratory symptoms. She has a history of recurrent skin infections, but denies active lesions, but she has evidence of low-grade fevers and leukocytosis. She is anemic at 6.9 with elevated LDH and total bilirubin. Blood cultures are pending as her chest x-ray. She is currently not receiving any antibiotics and ID now consulted to assist in management. PAST MEDICAL HISTORY: 1. Sickle cell disease. 2. History of recurrent UTIs. 3. History of recurrent staph infections. 4. Chronic leukocytosis. 5. Functional asplenia. PAST SURGICAL HISTORY: None. MEDICATIONS: 1. No antibiotics. 2. Subcutaneous heparin. 3. Intravenous fluids. ALLERGIES: No known drug allergies. SOCIAL HISTORY: The patient lives locally with family. FAMILY HISTORY: Noncontributory. REVIEW OF SYSTEMS: As per history of present illness. Ten systems reviewed, all pertinent positives and negatives noted. PHYSICAL EXAMINATION: GENERAL: No apparent distress. Nontoxic appearing. VITAL SIGNS: Maximum temperature 100.4 degrees, blood pressure 126/73, heart rate in the 90s, respiratory rate 22, and saturating 100% on room air. HEENT: No thrush. CARDIOVASCULAR: Regular rate and rhythm. No murmurs. PULMONARY: Clear to auscultation bilaterally. ABDOMEN: Bowel sounds present. Soft, nondistended, and nontender. EXTREMITIES: No edema. SKIN: No rash. NEUROLOGICAL: Alert and oriented x3, nonfocal. LABORATORY AND DIAGNOSTIC DATA: White blood cell count 15.4 decreased from 19.8 with a normal differential, hemoglobin 6.9, and platelets 328,000. Sodium 143, potassium 3.9, chloride 105, bicarbonate 26, BUN 30, and creatinine 0.5. AST 38, ALT 23, and alkaline phosphatase 55. Total bilirubin 1.9. Albumin 3.7. LDH 276. Microbiology, 11/01/2016, blood culture pending. Imaging, 11/01/2016, chest x-ray pending. ASSESSMENT: 1. Fever. 2. History of recurrent urinary tract infections, rule out recurrence. 3. History of right thigh methicillin resistant Staphylococcus aureus cellulitis and recurrent skin infections with no active lesions. 4. Chronic leukocytosis secondary to functional asplenia with no normal values and [employer]. 5. Sickle cell crisis, rule out infectious trigger. No localizing signs or symptoms of infection. LDH and total bilirubin were elevated. She is pending blood transfusion. 6. Functional asplenia. 7. No known drug allergies. 8. Full Code. PLAN: 1. Start empiric IV vancomycin and cefepime day #1. 2. Check urinalysis, urine culture and influenza screen. 3. Followup blood cultures. 4. Followup chest x-ray. 5. Monitor CBC and temperatures. 6. Monitor BMP. 7. Transfuse as needed and supportive care. Thank you. We will follow. Jaime Hearn M.D. DR: MARYA JOB#: [id number] CC: Rosa Murillo M.D. Arash Alborzi, M.D
[2016-11-01] MEDS: Cefepime HCl 1 GM in D5W 55 ML IVPB SCH (23:51)
[2016-11-02] VITALS: BP 118/65
[2016-11-02 00:23] LABS: APPEARANCE,URINE CLEAR; KETONES,URINE NEGATIVE (NEGATIVE); LEUKOCYTE ESTERASE ,URINE 2+ (NEGATIVE); NITRITE,URINE NEGATIVE (NEGATIVE); PH,URINE 6.5 (4.5-8.0); PROTEIN,URINE 2+ (NEGATIVE); UROBILINOGEN,URINE 1 MG/DL (0.0-1.0)
[2016-11-02 00:34] LABS: BACTERIA,URINE MODERATE /HPF; RBC,URINE 0-2 /HPF (0 - 2); SQUAMOUS EPITHELIAL CELL,UR FEW /LPF (NONE/OCC); WBC,URINE 0-2 /HPF (0 - 2)
[2016-11-02] MEDS: DiphenhydrAMINE 50mg/ml Inj IVP PRN ×2 (02:39→16:04)
[2016-11-02 04:00] VITALS: BP 114/61
[2016-11-02] MEDS: Vancomycin 750mg/D5W 275ml IVPB SCH ×4 (06:14→13:46)
[2016-11-02 08:25] VITALS: BP 128/72
--- NOTE | 2016-11-02 08:47 | Diagnostic Imaging Report ---
Indication: SOB, cough Technique: One view of the chest Comparison: May 20, 2016 Findings: There is right basilar and left retrocardiac consolidation. There is slight blunting of the right costophrenic angle, suspect small pleural effusion. The heart is borderline enlarged. Parenchymal findings are new since the prior study Impression: Bilateral basilar infiltrates versus edema Suspect small right-sided pleural effusion Borderline cardiomegaly
[2016-11-02] MEDS: Heparin 5000 units/ml inj SUBQ SCH ×2 (09:32→22:29)
[2016-11-02] MEDS ORDERED: 1/2 NS 1000ml IV ONE (11:16)
[2016-11-02 11:48] LABS: OTHERS PATHOLOGIST COMMENT
[2016-11-02] MEDS: Cefepime HCl 1 GM in D5W 55 ML IVPB SCH (11:54)
[2016-11-02 12:10] VITALS: BP 123/70
[2016-11-02 16:00] VITALS: BP 141/90
--- NOTE | 2016-11-02 17:23 | Pulmonology Progress Note ---
Assessment/Plan Problems: (1) Sickle cell crisis (2) Intractable pain (3) Severe anemia Assessment/Plan s/p blood transfusion feeling better ok to dc home Subjective ROS Limited/Unobtainable: No HEENT: Repors: no symptoms Allergies: Coded Allergies: No Known Allergies (Unverified , 11/18/12) Objective Last 24 Hour Vital Signs Date Time Temp Pulse Resp B/P Pulse Ox O2 Delivery O2 Flow Rate FiO2 11/02/16 16:00 99.3 115 23 141/90 100 Nasal Cannula 2.0 11/02/16 12:10 99.2 107 20 123/70 95 Room Air 11/02/16 08:25 97.7 105 20 128/72 95 Nasal Cannula 2.0 11/02/16 07:23 99.0 11/02/16 04:40 98.8 11/02/16 04:00 99.8 79 18 114/61 96 Room Air 11/02/16 00:00 100.2 118 18 118/65 96 Room Air 11/01/16 20:00 98.4 112 22 125/68 97 Nasal Cannula 2.0 Intake and Output 11/01/16 11/02/16 19:00 07:00 Intake Total 1185 ml 845 ml Balance 1185 ml 845 ml Intake Oral 360 ml 340 ml IV Total 825 ml 505 ml # Voids 1 1 General Appearance: WD/WN HEENT: normocephalic Respiratory/Chest: chest wall non-tender, lungs clear Cardiovascular: normal peripheral pulses, normal rate Abdomen: normal bowel sounds, soft, non tender Microbiology Date/Time Source Procedure Growth Status 11/02/16 00:00 Nasopharynx Influenza Types A,B Antigen (SHAWNA) - Final Complete Laboratory Tests 11/02/16 00:00: Urine Color Yellow, Urine Appearance Clear, Urine pH 6.5, Urine Specific [place] 1.005, Urine Protein 2+H, Urine Glucose (UA) Negative, Urine Ketones Negative, Urine Occult Blood 2+H, Urine Nitrite Negative, Urine Bilirubin Negative, Urine Urobilinogen 1H, Urine Leukocyte Esterase 2+H, Urine RBC 0-2, Urine WBC 0-2, Urine Squamous Epithelial Cells Few, Urine Bacteria ModerateH 11/02/16 05:50: Lactate Dehydrogenase 380H Current Medications Medications (Trade) Dose Ordered Sig/Marcellus Route PRN Reason Start Time Stop Time Status Last Admin Dose Admin Acetaminophen (Tylenol) 650 mg Q4H PRN ORAL fever 10/31/16 20:45 11/30/16 20:44 11/02/16 06:24 Al Hydroxide/Mg Hydroxide (Mylanta II) 30 ml Q6H PRN ORAL dyspepsia 10/31/16 20:45 11/30/16 20:44 Cefepime HCl/ Dextrose (Maxipime/D5W) 55 ml @ 110 mls/hr Q12HR@0000,1200 IVPB 11/02/16 00:00 11/09/16 00:00 11/02/16 11:54 Dextrose (Dextrose 50%) STAT PRN IV Hypoglycemia 10/31/16 20:45 11/30/16 20:44 Diphenhydramine HCl (Benadryl) 50 mg Q3H PRN IVP Itching 10/31/16 22:00 11/30/16 21:59 11/02/16 16:04 Heparin Sodium (Porcine) (Heparin 5000 units/ml) 5,000 units EVERY 12 HOURS SUBQ 10/31/16 21:00 11/30/16 20:59 11/02/16 09:32 Hydromorphone HCl (Dilaudid) 2 mg Q3H PRN IV pain 4-6 10/31/16 20:45 11/07/16 20:44 11/02/16 16:00 Hydromorphone HCl 3 mg 3 mg Q3H PRN IVP For Pain 7-10 10/31/16 20:45 11/07/16 20:44 11/02/16 06:15 Lorazepam (Ativan 2mg/ml 1ml) 0.5 mg Q4H PRN IV For Anxiety 10/31/16 20:45 11/07/16 20:44 Ondansetron HCl (Zofran) 4 mg Q6H PRN IVP Nausea & Vomiting 10/31/16 20:45 11/30/16 20:44 11/01/16 23:15 Polyethylene Glycol (Miralax) 17 gm HSPRN PRN ORAL Constipation 10/31/16 20:45 11/30/16 20:44 Sodium Chloride (0.45% NS 1000ml) 1,000 ml @ 75 mls/hr [id number] IV 10/31/16 21:30 11/30/16 21:29 11/02/16 06:14 Vancomycin HCl 750 mg/Dextrose 275 ml @ 183.708 mls/hr Q8HR IVPB 11/01/16 22:00 11/06/16 21:59 11/02/16 13:46 Vancomycin HCl 1 ea 1 ea DAILY PRN MISC Per rx protocol 11/01/16 18:45 12/01/16 18:44 Zolpidem Tartrate (Ambien) 5 mg HSPRN PRN ORAL Insomnia 10/31/16 20:45 11/30/16 20:44 BERNARDO YATES Nov 02, 2016 17:23
--- NOTE | 2016-11-02 18:18 | Infectious Diseases Prog Note ---
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 Will continue empiric IV vancomycin, cefepime d# 2 while still inpt pending final cultures - f/u cultures - monitor CBC, temperatures - monitor BMP - transfuse prn, supportive care Subjective Allergies: Coded Allergies: No Known Allergies (Unverified , 11/18/12) Subjective low grade fevers resolved. feels better for possible DC Objective Vital Signs Last 24 Hour Vital Signs Date Time Temp Pulse Resp B/P Pulse Ox O2 Delivery O2 Flow Rate FiO2 11/02/16 16:00 99.3 115 23 141/90 100 Nasal Cannula 2.0 11/02/16 12:10 99.2 107 20 123/70 95 Room Air 11/02/16 08:25 97.7 105 20 128/72 95 Nasal Cannula 2.0 11/02/16 07:23 99.0 11/02/16 04:40 98.8 11/02/16 04:00 99.8 79 18 114/61 96 Room Air 11/02/16 00:00 100.2 118 18 118/65 96 Room Air 11/01/16 20:00 98.4 112 22 125/68 97 Nasal Cannula 2.0 Height (Feet): 5 Height (Inches): 6.00 Weight (Pounds): 133 General Appearance: no acute distress Respiratory/Chest: no respiratory distress Cardiovascular: normal rate, regular rhythm Abdomen: normal bowel sounds, soft, non tender, non distended Microbiology Date/Time Source Procedure Growth Status 11/02/16 00:00 Nasopharynx Influenza Types A,B Antigen (SHAWNA) - Final Complete Laboratory Tests Test 11/02/16 00:00 11/02/16 05:50 Urine Color Yellow Urine Appearance Clear Urine pH 6.5 (4.5-8.0) Urine Specific [place] 1.005 (1.005-1.035) Urine Protein 2+ (NEGATIVE) H Urine Glucose (UA) Negative (NEGATIVE) Urine Ketones Negative (NEGATIVE) Urine Occult Blood 2+ (NEGATIVE) H Urine Nitrite Negative (NEGATIVE) Urine Bilirubin Negative (NEGATIVE) Urine Urobilinogen 1 MG/DL (0.0-1.0) H Urine Leukocyte Esterase 2+ (NEGATIVE) H Urine RBC 0-2 /HPF (0 - 2) Urine WBC 0-2 /HPF (0 - 2) Urine Squamous Epithelial Cells Few /LPF (NONE/OCC) Urine Bacteria Moderate /HPF (NONE) H Lactate Dehydrogenase 380 U/L (135-230) H Current Medications Medications (Trade) Dose Ordered Sig/Marcellus Route PRN Reason Start Time Stop Time Status Last Admin Dose Admin Acetaminophen (Tylenol) 650 mg Q4H PRN ORAL fever 10/31/16 20:45 11/30/16 20:44 11/02/16 06:24 Al Hydroxide/Mg Hydroxide (Mylanta II) 30 ml Q6H PRN ORAL dyspepsia 10/31/16 20:45 11/30/16 20:44 Cefepime HCl/ Dextrose (Maxipime/D5W) 55 ml @ 110 mls/hr Q12HR@0000,1200 IVPB 11/02/16 00:00 11/09/16 00:00 11/02/16 11:54 Dextrose (Dextrose 50%) STAT PRN IV Hypoglycemia 10/31/16 20:45 11/30/16 20:44 Diphenhydramine HCl (Benadryl) 50 mg Q3H PRN IVP Itching 10/31/16 22:00 11/30/16 21:59 11/02/16 16:04 Heparin Sodium (Porcine) (Heparin 5000 units/ml) 5,000 units EVERY 12 HOURS SUBQ 10/31/16 21:00 11/30/16 20:59 11/02/16 09:32 Hydromorphone HCl (Dilaudid) 2 mg Q3H PRN IV pain 4-6 10/31/16 20:45 11/07/16 20:44 11/02/16 16:00 Hydromorphone HCl 3 mg 3 mg Q3H PRN IVP For Pain 7-10 10/31/16 20:45 11/07/16 20:44 11/02/16 06:15 Lorazepam (Ativan 2mg/ml 1ml) 0.5 mg Q4H PRN IV For Anxiety 10/31/16 20:45 11/07/16 20:44 Ondansetron HCl (Zofran) 4 mg Q6H PRN IVP Nausea & Vomiting 10/31/16 20:45 11/30/16 20:44 11/01/16 23:15 Polyethylene Glycol (Miralax) 17 gm HSPRN PRN ORAL Constipation 10/31/16 20:45 11/30/16 20:44 Sodium Chloride (0.45% NS 1000ml) 1,000 ml @ 75 mls/hr [id number] IV 10/31/16 21:30 11/30/16 21:29 11/02/16 06:14 Vancomycin HCl 750 mg/Dextrose 275 ml @ 183.708 mls/hr Q8HR IVPB 11/01/16 22:00 11/06/16 21:59 11/02/16 13:46 Vancomycin HCl 1 ea 1 ea DAILY PRN MISC Per rx protocol 11/01/16 18:45 12/01/16 18:44 Zolpidem Tartrate (Ambien) 5 mg HSPRN PRN ORAL Insomnia 10/31/16 20:45 11/30/16 20:44 HERMINIO HEADLEY Nov 02, 2016 18:18
[2016-11-02 20:00] VITALS: BP 130/75
[2016-11-03] MEDS: Cefepime HCl 1 GM in D5W 55 ML IVPB SCH ×3 (00:06→23:47)
[2016-11-03] MEDS: DiphenhydrAMINE 50mg/ml Inj IVP PRN ×5 (00:33→20:31)
[2016-11-03 04:00] VITALS: BP 131/75
[2016-11-03 08:22] VITALS: BP 141/76
[2016-11-03] MEDS: Vancomycin 1250mg/D5W 275ml IVPB SCH ×6 (08:37→16:41)
[2016-11-03] MEDS: Heparin 5000 units/ml inj SUBQ SCH ×2 (08:42→20:32)
[2016-11-03 11:53] VITALS: BP 126/64
[2016-11-03 16:00] VITALS: BP 126/68
--- NOTE | 2016-11-03 18:02 | Infectious Diseases Prog Note ---
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 - no normal values in [employer] // Sickle cell crisis r/o infectious trigger - no localizing s/sx infection - elevated LDH, total bilirubin // hx of CT: ?Liver Masses and Rt Adnexal complex cystic mass // Functional asplenia // NKDA // Full Code PLAN: - continue empiric IV vancomycin, cefepime d# 3 - f/u cultures - monitor CBC, temperatures - CBC AM - monitor BMP - transfuse prn, supportive care Subjective Allergies: Coded Allergies: No Known Allergies (Unverified , 11/18/12) Subjective fevers improved, cultures NGTD Objective Vital Signs Last 24 Hour Vital Signs Date Time Temp Pulse Resp B/P Pulse Ox O2 Delivery O2 Flow Rate FiO2 11/03/16 16:00 99.5 108 18 126/68 94 Nasal Cannula 3.0 11/03/16 13:57 98.1 11/03/16 11:53 98.1 102 20 126/64 95 Nasal Cannula 2.0 11/03/16 10:26 99.5 11/03/16 08:22 99.5 119 20 141/76 95 Nasal Cannula 2.0 11/03/16 04:00 97.5 110 18 131/75 93 Nasal Cannula 2.0 11/02/16 20:46 99.2 11/02/16 20:00 101.7 126 18 130/75 80 Nasal Cannula 2.0 Height (Feet): 5 Height (Inches): 6.00 Weight (Pounds): 133 General Appearance: no acute distress Respiratory/Chest: no respiratory distress Cardiovascular: regular rhythm, tachycardia Abdomen: normal bowel sounds, soft, non tender, non distended Microbiology Date/Time Source Procedure Growth Status 11/01/16 16:15 Blood Blood Culture - Preliminary NO GROWTH AFTER 24 HOURS Resulted 11/01/16 16:00 Blood Blood Culture - Preliminary NO GROWTH AFTER 24 HOURS Resulted 11/02/16 00:00 Nasopharynx Influenza Types A,B Antigen (SHAWNA) - Final Complete 2/8/17 00:00 Urine,Clean Catch Urine Culture - Preliminary NO GROWTH AFTER 24 HOURS Resulted Laboratory Tests Test 11/02/16 21:00 11/03/16 05:45 Vancomycin Level Trough 3.6 ug/mL (5.0-12.0) L Lactate Dehydrogenase 555 U/L (135-230) H Current Medications Medications (Trade) Dose Ordered Sig/Marcellus Route PRN Reason Start Time Stop Time Status Last Admin Dose Admin Acetaminophen (Tylenol) 650 mg Q4H PRN ORAL fever 10/31/16 20:45 11/30/16 20:44 11/02/16 19:47 Al Hydroxide/Mg Hydroxide (Mylanta II) 30 ml Q6H PRN ORAL dyspepsia 10/31/16 20:45 11/30/16 20:44 Cefepime HCl 1 gm/ Dextrose 55 ml @ 110 mls/hr Q12HR@0000,1200 IVPB 11/02/16 00:00 11/09/16 00:00 11/03/16 11:39 Dextrose (Dextrose 50%) STAT PRN IV Hypoglycemia 10/31/16 20:45 11/30/16 20:44 Diphenhydramine HCl (Benadryl) 50 mg Q3H PRN IVP Itching 10/31/16 22:00 11/30/16 21:59 11/03/16 16:42 Heparin Sodium (Porcine) (Heparin 5000 units/ml) 5,000 units EVERY 12 HOURS SUBQ 10/31/16 21:00 11/30/16 20:59 11/03/16 08:42 Hydromorphone HCl (Dilaudid) 2 mg Q3H PRN IV pain 4-6 10/31/16 20:45 11/07/16 20:44 11/03/16 16:42 Hydromorphone HCl 3 mg 3 mg Q3H PRN IVP For Pain 7-10 10/31/16 20:45 11/07/16 20:44 11/03/16 09:56 Lorazepam (Ativan 2mg/ml 1ml) 0.5 mg Q4H PRN IV For Anxiety 10/31/16 20:45 11/07/16 20:44 Ondansetron HCl (Zofran) 4 mg Q6H PRN IVP Nausea & Vomiting 10/31/16 20:45 3/8/17 20:44 11/01/16 23:15 Polyethylene Glycol (Miralax) 17 gm HSPRN PRN ORAL Constipation 10/31/16 20:45 11/30/16 20:44 Sodium Chloride (0.45% NS 1000ml) 1,000 ml @ 75 mls/hr [id number] IV 10/31/16 21:30 11/30/16 21:29 11/03/16 14:00 Vancomycin HCl 1 ea 1 ea DAILY PRN MISC Per rx protocol 11/01/16 18:45 12/01/16 18:44 Vancomycin HCl/ Dextrose (Vancomycin/D5W) 275 ml @ 183.333 mls/hr Q8H IVPB 11/03/16 00:00 11/08/16 00:00 11/03/16 16:41 Zolpidem Tartrate (Ambien) 5 mg HSPRN PRN ORAL Insomnia 10/31/16 20:45 11/30/16 20:44 HERMINIO HEADLEY Nov 03, 2016 18:02
[2016-11-03 20:01] VITALS: BP 124/72
--- NOTE | 2016-11-03 23:27 | Pulmonology Progress Note ---
Assessment/Plan Problems: (1) Sickle cell crisis (2) Intractable pain (3) Severe anemia Assessment/Plan s/p blood transfusion feeling better ok to dc home Subjective ROS Limited/Unobtainable: No Constitutional: Reports: anorexia, fatigue Neurologic: Reports: weakness Allergies: Coded Allergies: No Known Allergies (Unverified , 11/18/12) Objective Last 24 Hour Vital Signs Date Time Temp Pulse Resp B/P Pulse Ox O2 Delivery O2 Flow Rate FiO2 11/03/16 20:01 99.1 111 19 124/72 93 Nasal Cannula 3.0 11/03/16 16:00 99.5 108 18 126/68 94 Nasal Cannula 3.0 11/03/16 13:57 98.1 11/03/16 11:53 98.1 102 20 126/64 95 Nasal Cannula 2.0 11/03/16 10:26 99.5 11/03/16 08:22 99.5 119 20 141/76 95 Nasal Cannula 2.0 11/03/16 04:00 97.5 110 18 131/75 93 Nasal Cannula 2.0 Intake and Output 11/02/16 11/03/16 19:00 07:00 Intake Total 1228 ml 1700 ml Balance 1228 ml 1700 ml Intake Oral 240 ml 950 ml IV Total 988 ml 750 ml # Voids 2 4 General Appearance: no acute distress HEENT: normocephalic, atraumatic, PERRL Respiratory/Chest: chest wall non-tender, decreased breath sounds Breasts: no masses Cardiovascular: normal peripheral pulses, normal rate, regular rhythm Abdomen: normal bowel sounds, soft, non tender, no organomegaly Genitourinary: normal external genitalia Skin: rash 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, no motor/sensory deficits Microbiology Date/Time Source Procedure Growth Status 11/01/16 16:15 Blood Blood Culture - Preliminary NO GROWTH AFTER 24 HOURS Resulted 11/01/16 16:00 Blood Blood Culture - Preliminary NO GROWTH AFTER 24 HOURS Resulted 11/02/16 00:00 Nasopharynx Influenza Types A,B Antigen (SHAWNA) - Final Complete 11/02/16 00:00 Urine,Clean Catch Urine Culture - Preliminary NO GROWTH AFTER 24 HOURS Resulted Laboratory Tests 11/03/16 05:45: Lactate Dehydrogenase 555H Current Medications Medications (Trade) Dose Ordered Sig/Marcellus Route PRN Reason Start Time Stop Time Status Last Admin Dose Admin Acetaminophen (Tylenol) 650 mg Q4H PRN ORAL fever 10/31/16 20:45 11/30/16 20:44 11/02/16 19:47 Al Hydroxide/Mg Hydroxide (Mylanta II) 30 ml Q6H PRN ORAL dyspepsia 10/31/16 20:45 11/30/16 20:44 Cefepime HCl 1 gm/ Dextrose 55 ml @ 110 mls/hr Q12HR@0000,1200 IVPB 11/02/16 00:00 11/09/16 00:00 11/03/16 11:39 Dextrose (Dextrose 50%) STAT PRN IV Hypoglycemia 10/31/16 20:45 11/30/16 20:44 Diphenhydramine HCl (Benadryl) 50 mg Q3H PRN IVP Itching 10/31/16 22:00 11/30/16 21:59 11/03/16 20:31 Heparin Sodium (Porcine) (Heparin 5000 units/ml) 5,000 units EVERY 12 HOURS SUBQ 10/31/16 21:00 11/30/16 20:59 11/03/16 20:32 Hydromorphone HCl (Dilaudid) 2 mg Q3H PRN IV pain 4-6 10/31/16 20:45 11/07/16 20:44 11/03/16 20:31 Hydromorphone HCl 3 mg 3 mg Q3H PRN IVP For Pain 7-10 10/31/16 20:45 11/07/16 20:44 11/03/16 09:56 Lorazepam (Ativan 2mg/ml 1ml) 0.5 mg Q4H PRN IV For Anxiety 10/31/16 20:45 11/07/16 20:44 Ondansetron HCl (Zofran) 4 mg Q6H PRN IVP Nausea & Vomiting 10/31/16 20:45 11/30/16 20:44 11/01/16 23:15 Polyethylene Glycol (Miralax) 17 gm HSPRN PRN ORAL Constipation 10/31/16 20:45 11/30/16 20:44 Sodium Chloride (0.45% NS 1000ml) 1,000 ml @ 75 mls/hr [id number] IV 10/31/16 21:30 11/30/16 21:29 11/03/16 20:17 Vancomycin HCl 1 ea 1 ea DAILY PRN MISC Per rx protocol 11/01/16 18:45 12/01/16 18:44 Vancomycin HCl/ Dextrose (Vancomycin/D5W) 275 ml @ 183.333 mls/hr Q8H IVPB 11/03/16 00:00 11/08/16 00:00 11/03/16 16:41 Zolpidem Tartrate (Ambien) 5 mg HSPRN PRN ORAL Insomnia 10/31/16 20:45 11/30/16 20:44 BERNARDO YATES Nov 03, 2016 23:27
[2016-11-04] VITALS: BP 114/67
[2016-11-04] MEDS: DiphenhydrAMINE 50mg/ml Inj IVP PRN ×5 (00:38→22:41)
[2016-11-04] MEDS: Vancomycin 1250mg/D5W 275ml IVPB SCH ×6 (01:24→18:38)
[2016-11-04 04:00] VITALS: BP 121/73
[2016-11-04 07:25] LABS: ALANINE AMINOTRANSFERASE 30 U/L (3-33); ALBUMIN/GLOBULIN RATIO 1.3 (1.0-2.7); ANION GAP 14 (5-15); ASPARTATE AMINO TRANSFERASE 38 U/L (5-40); CALCIUM 8.6 mg/dL (8.6-10.2); CARBON DIOXIDE 27 mEQ/L (20-30); CHLORIDE 101 mEQ/L (98-107); CREATININE 0.4 mg/dL (0.5-0.9); GLOMERULAR FILTRATION RATE > 60 mL/min (>60); HEMOLYSIS 12; MAGNESIUM 1.9 mg/dL (1.7-2.5); PHOSPHORUS 2.7 mg/dL (2.5-4.8); POTASSIUM 3.1 mEQ/L (3.4-4.9); SODIUM 142 mEQ/L (135-145); TOTAL PROTEIN 6.5 g/dL (6.6-8.7)
[2016-11-04 07:41] LABS: BILIRUBIN,DIRECT 0.7 mg/dL (0.1-0.3)
[2016-11-04 07:47] LABS: MEAN CORPUSCULAR HGB CONC 35.4 G/DL (32.0-36.0); MEAN CORPUSCULAR VOLUME 99 FL (80-99); PLATELET COUNT 261 K/UL (150-450); RED BLOOD COUNT 1.89 M/UL (4.20-5.40); RED CELL DISTRIBUTION WIDTH 23.4 % (11.6-14.8); WHITE BLOOD COUNT 21.2 K/UL (4.8-10.8)
[2016-11-04 08:00] VITALS: BP 110/71
[2016-11-04 09:18] LABS: ACANTHOCYTES 1+; ANISOCYTOSIS 2+; BAND NEUTROPHILS % (MANUAL) 2 % (0-8); EOSINOPHILS % (MANUAL) 2 % (0-3); LYMPHOCYTES % (MANUAL) 20 % (20-45); NEUTROPHILS % (MANUAL) 65 % (45-75); TOTAL CELLS COUNTED 100
[2016-11-04 09:19] LABS: BASOPHILS % (MANUAL) 0 % (0-2); PLATELET ESTIMATE ADEQUATE; PLATELET MORPHOLOGY NORMAL; POLYCHROMASIA 1+; SCHISTOCYTES 1+
[2016-11-04] MEDS: Heparin 5000 units/ml inj SUBQ SCH ×2 (09:57→20:43)
[2016-11-04 12:00] VITALS: BP 121/70
[2016-11-04] MEDS: Cefepime HCl 1 GM in D5W 55 ML IVPB SCH (12:09)
--- NOTE | 2016-11-04 15:58 | Infectious Diseases Prog Note ---
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 - no normal values in [employer] // Sickle cell crisis r/o infectious trigger - no localizing s/sx infection, Cx NGTD - elevated LDH, total bilirubin // hx of CT: ?Liver Masses and Rt Adnexal complex cystic mass // Functional asplenia // NKDA // Full Code PLAN: - continue empiric IV vancomycin, cefepime d# 4 / 5-7 - f/u cultures - monitor CBC, temperatures - monitor BMP - transfuse prn, supportive care Subjective Allergies: Coded Allergies: No Known Allergies (Unverified , 11/18/12) Subjective fevers improved, cultures NGTD Objective Vital Signs Last 24 Hour Vital Signs Date Time Temp Pulse Resp B/P Pulse Ox O2 Delivery O2 Flow Rate FiO2 11/04/16 14:39 98.8 11/04/16 12:00 98.8 98 19 121/70 95 Nasal Cannula 11/04/16 08:00 98.1 85 19 110/71 100 Nasal Cannula 11/04/16 04:00 99.5 102 18 121/73 96 Nasal Cannula 2.0 11/04/16 00:00 99.0 92 18 114/67 96 Nasal Cannula 2.0 11/03/16 20:01 99.1 111 19 124/72 93 Nasal Cannula 3.0 11/03/16 16:00 99.5 108 18 126/68 94 Nasal Cannula 3.0 Height (Feet): 5 Height (Inches): 6.00 Weight (Pounds): 133 General Appearance: no acute distress Respiratory/Chest: no respiratory distress Cardiovascular: normal rate, regular rhythm Abdomen: normal bowel sounds, soft, non tender, non distended Microbiology Date/Time Source Procedure Growth Status 11/01/16 16:15 Blood Blood Culture - Preliminary NO GROWTH AFTER 48 HOURS Resulted 11/01/16 16:00 Blood Blood Culture - Preliminary NO GROWTH AFTER 48 HOURS Resulted 11/02/16 00:00 Nasopharynx Influenza Types A,B Antigen (SHAWNA) - Final Complete 11/02/16 00:00 Urine,Clean Catch Urine Culture - Final NO GROWTH AFTER 48 HOURS Complete Laboratory Tests Test 11/04/16 05:25 11/04/16 12:00 White Blood Count 21.2 K/UL (4.8-10.8) H Red Blood Count 1.89 M/UL (4.20-5.40) L Hemoglobin 6.6 G/DL (12.0-16.0) *L Hematocrit 18.6 % (37.0-47.0) L Mean Corpuscular Volume 99 FL (80-99) Mean Corpuscular Hemoglobin 35.0 PG (27.0-31.0) H Mean Corpuscular Hemoglobin Concent 35.4 G/DL (32.0-36.0) Red Cell Distribution Width 23.4 % (11.6-14.8) H Platelet Count 261 K/UL (150-450) Mean Platelet Volume 6.0 FL (6.5-10.1) L Neutrophils (%) (Auto) % (45.0-75.0) Lymphocytes (%) (Auto) % (20.0-45.0) Monocytes (%) (Auto) % (1.0-10.0) Eosinophils (%) (Auto) % (0.0-3.0) Basophils (%) (Auto) % (0.0-2.0) Differential Total Cells Counted 100 Neutrophils % (Manual) 65 % (45-75) Lymphocytes % (Manual) 20 % (20-45) Monocytes % (Manual) 11 % (1-10) H Eosinophils % (Manual) 2 % (0-3) Basophils % (Manual) 0 % (0-2) Band Neutrophils 2 % (0-8) Platelet Estimate Adequate Platelet Morphology Normal Polychromasia 1+ Anisocytosis 2+ Acanthocytes 1+ Schistocytes 1+ Sodium Level 142 mEQ/L (135-145) Potassium Level 3.1 mEQ/L (3.4-4.9) L Chloride Level 101 mEQ/L (98-107) Carbon Dioxide Level 27 mEQ/L (20-30) Anion Gap 14 (5-15) Blood Urea Nitrogen 3 mg/dL (7-23) L Creatinine 0.4 mg/dL (0.5-0.9) L Estimat Glomerular Filtration Rate > 60 mL/min (>60) Glucose Level 87 mg/dL (74-106) Calcium Level 8.6 mg/dL (8.6-10.2) Phosphorus Level 2.7 mg/dL (2.5-4.8) Magnesium Level 1.9 mg/dL (1.7-2.5) Total Bilirubin 3.7 mg/dL (0.0-1.2) H Direct Bilirubin 0.7 mg/dL (0.1-0.3) H Aspartate Amino Transf (AST/SGOT) 38 U/L (5-40) Alanine Aminotransferase (ALT/SGPT) 30 U/L (3-33) Alkaline Phosphatase 71 U/L (35-104) Total Protein 6.5 g/dL (6.6-8.7) L Albumin 3.7 g/dL (3.5-5.2) Globulin 2.8 g/dL Albumin/Globulin Ratio 1.3 (1.0-2.7) Vancomycin Level Trough 45.6 ug/mL (5.0-12.0) H Current Medications Medications (Trade) Dose Ordered Sig/Marcellus Route PRN Reason Start Time Stop Time Status Last Admin Dose Admin Acetaminophen (Tylenol) 650 mg Q4H PRN ORAL fever 10/31/16 20:45 11/30/16 20:44 11/02/16 19:47 Al Hydroxide/Mg Hydroxide (Mylanta II) 30 ml Q6H PRN ORAL dyspepsia 10/31/16 20:45 11/30/16 20:44 Cefepime HCl 1 gm/ Dextrose 55 ml @ 110 mls/hr Q12HR@0000,1200 IVPB 11/02/16 00:00 11/09/16 00:00 11/04/16 12:09 Dextrose (Dextrose 50%) STAT PRN IV Hypoglycemia 10/31/16 20:45 11/30/16 20:44 Diphenhydramine HCl (Benadryl) 50 mg Q3H PRN IVP Itching 10/31/16 22:00 11/30/16 21:59 11/04/16 09:56 Heparin Sodium (Porcine) (Heparin 5000 units/ml) 5,000 units EVERY 12 HOURS SUBQ 10/31/16 21:00 11/30/16 20:59 11/04/16 09:57 Hydromorphone HCl (Dilaudid) 2 mg Q3H PRN IV pain 4-6 10/31/16 20:45 11/07/16 20:44 11/04/16 14:09 Hydromorphone HCl 3 mg 3 mg Q3H PRN IVP For Pain 7-10 10/31/16 20:45 11/07/16 20:44 11/04/16 06:46 Lorazepam (Ativan 2mg/ml 1ml) 0.5 mg Q4H PRN IV For Anxiety 10/31/16 20:45 11/07/16 20:44 Ondansetron HCl (Zofran) 4 mg Q6H PRN IVP Nausea & Vomiting 10/31/16 20:45 11/30/16 20:44 11/01/16 23:15 Polyethylene Glycol (Miralax) 17 gm HSPRN PRN ORAL Constipation 10/31/16 20:45 11/30/16 20:44 11/04/16 06:51 Sodium Chloride (0.45% NS 1000ml) 1,000 ml @ 75 mls/hr [id number] IV 10/31/16 21:30 11/30/16 21:29 11/03/16 20:17 Vancomycin HCl 1 ea 1 ea DAILY PRN MISC Per rx protocol 11/01/16 18:45 12/01/16 18:44 Vancomycin HCl/ Dextrose (Vancomycin/D5W) 275 ml @ 183.333 mls/hr Q8H IVPB 11/03/16 00:00 11/08/16 00:00 11/04/16 09:56 Zolpidem Tartrate (Ambien) 5 mg HSPRN PRN ORAL Insomnia 10/31/16 20:45 11/30/16 20:44 HERMINIO HEADLEY Nov 04, 2016 15:58
[2016-11-04 16:00] VITALS: BP 125/67
[2016-11-04 19:00] VITALS: BP 116/68
[2016-11-04] MEDS ORDERED: 1/2 NS 1000ml IV ONE (20:57)
[2016-11-04] MEDS ORDERED: Tubing Blood Filter IV ONE (20:57)
[2016-11-04] MEDS ORDERED: NS 550ML IV ONE (20:57)
[2016-11-04] MEDS ORDERED: Tubing IV Secondary IV ONE (20:57)
[2016-11-04] MEDS ORDERED: NS 275ml ONE (21:15)
--- NOTE | 2016-11-05 00:03 | Pulmonology Progress Note ---
Assessment/Plan Problems: (1) Sickle cell crisis (2) Intractable pain (3) Severe anemia Assessment/Plan s/p blood transfusion feeling better ok to dc home Subjective ROS Limited/Unobtainable: No Constitutional: Reports: anorexia, fatigue Neurologic: Reports: weakness Allergies: Coded Allergies: No Known Allergies (Unverified , 11/18/12) Objective Last 24 Hour Vital Signs Date Time Temp Pulse Resp B/P Pulse Ox O2 Delivery O2 Flow Rate FiO2 11/04/16 19:00 99.1 98 20 116/68 89 Room Air 11/04/16 16:00 98.2 105 20 125/67 87 Room Air 11/04/16 14:39 98.8 11/04/16 12:00 98.8 98 19 121/70 95 Nasal Cannula 11/04/16 08:00 98.1 85 19 110/71 100 Nasal Cannula 11/04/16 04:00 99.5 102 18 121/73 96 Nasal Cannula 2.0 Intake and Output 11/04/16 11/05/16 19:00 07:00 Intake Total 1095.0 ml 590.000 ml Balance 1095.0 ml 590.000 ml Intake Oral 240 ml 240 ml IV Total 855.0 ml 350.000 ml # Voids 1 4 General Appearance: no acute distress HEENT: normocephalic, atraumatic, PERRL Respiratory/Chest: chest wall non-tender, lungs clear, normal breath sounds Breasts: no masses Cardiovascular: normal peripheral pulses, normal rate, regular rhythm, no JVD Abdomen: normal bowel sounds, soft, non tender, no organomegaly Genitourinary: normal external genitalia Extremities: no cyanosis Skin: rash, lesions 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, no motor/sensory deficits Laboratory Tests 11/04/16 05:25: White Blood Count 21.2H, Red Blood Count 1.89L, Hemoglobin 6.6*L, Hematocrit 18.6L, Mean Corpuscular Volume 99, Mean Corpuscular Hemoglobin 35.0H, Mean Corpuscular Hemoglobin Concent 35.4, Red Cell Distribution Width 23.4H, Platelet Count 261, Mean Platelet Volume 6.0L, Neutrophils (%) (Auto) , Lymphocytes (%) (Auto) , Monocytes (%) (Auto) , Eosinophils (%) (Auto) , Basophils (%) (Auto) , Differential Total Cells Counted 100, Neutrophils % ( Manual) 65, Lymphocytes % (Manual) 20, Monocytes % (Manual) 11H, Eosinophils % ( Manual) 2, Basophils % (Manual) 0, Band Neutrophils 2, Platelet Estimate Adequate, Platelet Morphology Normal, Polychromasia 1+, Anisocytosis 2+, Acanthocytes 1+, Schistocytes 1+, Sodium Level 142, Potassium Level 3.1L, Chloride Level 101, Carbon Dioxide Level 27, Anion Gap 14, Blood Urea Nitrogen 3L, Creatinine 0.4L, Estimat Glomerular Filtration Rate > 60, Glucose Level 87, Calcium Level 8.6, Phosphorus Level 2.7, Magnesium Level 1.9, Total Bilirubin 3.7H, Direct Bilirubin 0.7H, Aspartate Amino Transf (AST/SGOT) 38, Alanine Aminotransferase (ALT/SGPT) 30, Alkaline Phosphatase 71, Total Protein 6.5L, Albumin 3.7, Globulin 2.8, Albumin/Globulin Ratio 1.3 11/04/16 12:00: Vancomycin Level Trough 45.6H Current Medications Medications (Trade) Dose Ordered Sig/Marcellus Route PRN Reason Start Time Stop Time Status Last Admin Dose Admin Acetaminophen (Tylenol) 650 mg Q4H PRN ORAL fever 10/31/16 20:45 11/30/16 20:44 11/02/16 19:47 Al Hydroxide/Mg Hydroxide (Mylanta II) 30 ml Q6H PRN ORAL dyspepsia 10/31/16 20:45 11/30/16 20:44 Cefepime HCl 1 gm/ Dextrose 55 ml @ 110 mls/hr Q12HR@0000,1200 IVPB 11/02/16 00:00 11/09/16 00:00 11/04/16 12:09 Dextrose (Dextrose 50%) STAT PRN IV Hypoglycemia 10/31/16 20:45 11/30/16 20:44 Diphenhydramine HCl (Benadryl) 50 mg Q3H PRN IVP Itching 10/31/16 22:00 11/30/16 21:59 11/04/16 22:41 Heparin Sodium (Porcine) (Heparin 5000 units/ml) 5,000 units EVERY 12 HOURS SUBQ 10/31/16 21:00 11/30/16 20:59 11/04/16 20:43 Hydromorphone HCl (Dilaudid) 2 mg Q3H PRN IV pain 4-6 10/31/16 20:45 11/07/16 20:44 11/04/16 14:09 Hydromorphone HCl 3 mg 3 mg Q3H PRN IVP For Pain 7-10 10/31/16 20:45 11/07/16 20:44 11/04/16 20:44 Lorazepam (Ativan 2mg/ml 1ml) 0.5 mg Q4H PRN IV For Anxiety 10/31/16 20:45 11/07/16 20:44 Ondansetron HCl (Zofran) 4 mg Q6H PRN IVP Nausea & Vomiting 10/31/16 20:45 11/30/16 20:44 11/01/16 23:15 Polyethylene Glycol (Miralax) 17 gm HSPRN PRN ORAL Constipation 10/31/16 20:45 11/30/16 20:44 11/04/16 06:51 Sodium Chloride (0.45% NS 1000ml) 1,000 ml @ 75 mls/hr [id number] IV 10/31/16 21:30 11/30/16 21:29 11/04/16 21:49 Vancomycin HCl 1 ea 1 ea DAILY PRN MISC Per rx protocol 11/01/16 18:45 12/01/16 18:44 Vancomycin HCl/ Dextrose (Vancomycin/D5W) 275 ml @ 183.333 mls/hr Q8H IVPB 11/03/16 00:00 11/08/16 00:00 11/04/16 18:38 Zolpidem Tartrate (Ambien) 5 mg HSPRN PRN ORAL Insomnia 10/31/16 20:45 11/30/16 20:44 BERNARDO YATES Nov 05, 2016 00:03
[2016-11-05 00:09] VITALS: BP 132/67
[2016-11-05] MEDS: Cefepime HCl 1 GM in D5W 55 ML IVPB SCH ×2 (00:13→11:16)
[2016-11-05 04:06] VITALS: BP 125/73
[2016-11-05] MEDS: DiphenhydrAMINE 50mg/ml Inj IVP PRN ×4 (05:30→20:52)
[2016-11-05] MEDS: Heparin 5000 units/ml inj SUBQ SCH ×2 (07:55→21:01)
[2016-11-05] MEDS: Vancomycin 1250mg/D5W 275ml IVPB SCH ×6 (07:56→17:47)
[2016-11-05 08:03] VITALS: BP 134/78
[2016-11-05 11:17] VITALS: BP 115/63
[2016-11-05 16:00] VITALS: BP 128/74
[2016-11-05 20:00] VITALS: BP 120/72
[2016-11-06] MEDS: Cefepime HCl 1 GM in D5W 55 ML IVPB SCH ×2 (00:01→12:09)
[2016-11-06] MEDS: DiphenhydrAMINE 50mg/ml Inj IVP PRN ×8 (00:01→22:51)
[2016-11-06 00:04] VITALS: BP 118/66
[2016-11-06 04:02] VITALS: BP 125/67
[2016-11-06] MEDS: Vancomycin 1250mg/D5W 275ml IVPB SCH ×4 (05:01→16:39)
[2016-11-06 06:33] LABS: MEAN CORPUSCULAR HEMOGLOBIN 33.7 PG (27.0-31.0); MEAN CORPUSCULAR HGB CONC 34.8 G/DL (32.0-36.0); MEAN CORPUSCULAR VOLUME 97 FL (80-99); MEAN PLATELET VOLUME 6.2 FL (6.5-10.1); PLATELET COUNT 315 K/UL (150-450); RED BLOOD COUNT 2.11 M/UL (4.20-5.40); RED CELL DISTRIBUTION WIDTH 22.6 % (11.6-14.8); WHITE BLOOD COUNT 19.2 K/UL (4.8-10.8)
[2016-11-06 06:51] LABS: ALANINE AMINOTRANSFERASE 26 U/L (3-33); ALBUMIN/GLOBULIN RATIO 1.2 (1.0-2.7); ASPARTATE AMINO TRANSFERASE 34 U/L (5-40); CALCIUM 8.4 mg/dL (8.6-10.2); CARBON DIOXIDE 28 mEQ/L (20-30); CHLORIDE 98 mEQ/L (98-107); CREATININE 0.4 mg/dL (0.5-0.9); CRP QUANT 6.5 mg/dL (< 0.5); GLOMERULAR FILTRATION RATE > 60 mL/min (>60); HEMOLYSIS 4; SODIUM 140 mEQ/L (135-145); TOTAL PROTEIN 6.4 g/dL (6.6-8.7)
[2016-11-06 06:57] LABS: ANION GAP 14 (5-15); POTASSIUM 2.8 mEQ/L (3.4-4.9)
[2016-11-06 07:15] LABS: BILIRUBIN,DIRECT 0.8 mg/dL (0.1-0.3)
[2016-11-06 08:00] VITALS: BP 118/67
[2016-11-06 08:40] LABS: ERYTHROCYTE SEDIMENTATION RATE 59 MM/HR (0-20)
[2016-11-06 09:50] LABS: ANISOCYTOSIS 2+; BAND NEUTROPHILS % (MANUAL) 0 % (0-8); BASOPHILS % (MANUAL) 0 % (0-2); EOSINOPHILS % (MANUAL) 2 % (0-3); HYPOCHROMASIA 1+; LYMPHOCYTES % (MANUAL) 17 % (20-45); NEUTROPHILS % (MANUAL) 71 % (45-75); NUCLEATED RED BLOOD CELLS 3 /100 WBC; PLATELET ESTIMATE ADEQUATE; PLATELET MORPHOLOGY NORMAL; POLYCHROMASIA 2+; TOTAL CELLS COUNTED 100
[2016-11-06 09:51] LABS: SICKLE CELLS 2+
[2016-11-06] MEDS: Heparin 5000 units/ml inj SUBQ SCH ×2 (09:59→20:32)
--- NOTE | 2016-11-06 10:42 | General Progress Note ---
Assessment/Plan Assessment/Plan (1) Intractable pain (2) Sickle cell disease (3) Sickle cell crisis Assessment & Plan: We will continue Dilaudid 2-3mg IV Q3H PRN pain. Pt was d/w Dr. Acevedo and he concurred. Subjective Date patient seen: Nov 06, 2016 Time patient seen: 08:45 - am Allergies: Coded Allergies: No Known Allergies (Unverified , 11/18/12) Subjective Constitutional: Reports: weakness, Denies: chills, diaphoresis, fever, malaise , no symptoms, other HEENT: Denies: blurred vision, double vision, ear discharge, ear pain, eye pain , mouth pain, mouth swelling, no symptoms, nose congestion, nose pain, other, tearing, throat pain, throat swelling Cardiovascular: Denies: chest pain, edema, irregular heart rate, lightheadedness, no symptoms, other, palpitations, syncope Respiratory: Denies: SOB at rest, SOB with excertion, cough, no symptoms, orthopnea, other, shortness of breath, sputum, stridor, wheezing Gastrointestinal/Abdominal: Denies: abdomen distended, abdominal pain, black stools, blood in stool, constipated, diarrhea, difficulty swallowing, nausea, no symptoms, other, poor appetite, poor fluid intake, rectal bleeding, tarry stools, vomiting Genitourinary: Denies: burning, discharge, flank pain, frequency, hematuria, incontinence, no symptoms, other, pain, urgency Neurologic/Psychiatric: Reports: weakness, Denies: anxiety, depressed, emotional problems, headache, no symptoms, numbness, other, paresthesia, pre- existing deficit, seizure, tingling, tremors Endocrine: Denies: excessive sweating, flushing, increased hunger, increased thirst, increased urine, intolerance to cold, intolerance to heat, no symptoms, other, unexplained weight gain, unexplained weight loss Hematologic/Lymphatic: Denies: anemia, easy bleeding, easy bruising, no symptoms, other Subjective Pt has been doing well tolerating the pain which has been reduced to a 5/10 in the medications. Objective Last 24 Hour Vital Signs Date Time Temp Pulse Resp B/P Pulse Ox O2 Delivery O2 Flow Rate FiO2 11/06/16 10:28 98.4 11/06/16 08:00 98.4 20 118/67 91 Room Air 11/06/16 06:37 98.7 11/06/16 04:02 98.7 98 20 125/67 97 Room Air 11/06/16 00:04 98.4 94 19 118/66 100 Room Air 11/05/16 20:00 99.1 104 20 120/72 91 Nasal Cannula 2.0 11/05/16 16:00 99.5 107 21 128/74 90 Nasal Cannula 2.0 11/05/16 11:17 99.3 105 18 115/63 95 Room Air Intake and Output 11/05/16 11/06/16 19:00 07:00 Intake Total 1435.0 ml 1850.000 ml Balance 1435.0 ml 1850.000 ml Intake Oral 480 ml 750 ml IV Total 955.0 ml 1100.000 ml # Voids 2 5 Laboratory Tests 11/05/16 23:35: Random Vancomycin Level 22.3 11/06/16 05:45: White Blood Count 19.2H, Red Blood Count 2.11L, Hemoglobin 7.1L, Hematocrit 20.4L, Mean Corpuscular Volume 97, Mean Corpuscular Hemoglobin 33.7H, Mean Corpuscular Hemoglobin Concent 34.8, Red Cell Distribution Width 22.6H, Platelet Count 315, Mean Platelet Volume 6.2L, Neutrophils (%) (Auto) , Lymphocytes (%) (Auto) , Monocytes (%) (Auto) , Eosinophils (%) (Auto) , Basophils (%) (Auto) , Differential Total Cells Counted 100, Neutrophils % ( Manual) 71, Lymphocytes % (Manual) 17L, Monocytes % (Manual) 10, Eosinophils % ( Manual) 2, Basophils % (Manual) 0, Band Neutrophils 0, Nucleated Red Blood Cells 3, Platelet Estimate Adequate, Platelet Morphology Normal, Polychromasia 2 +, Hypochromasia 1+, Anisocytosis 2+, Sickle Cells 2+H, Erythrocyte Sedimentation Rate 59H, Sodium Level 140, Potassium Level 2.8L, Chloride Level 98, Carbon Dioxide Level 28, Anion Gap 14, Blood Urea Nitrogen 3L, Creatinine 0.4L, Estimat Glomerular Filtration Rate > 60, Glucose Level 104, Calcium Level 8.4L, Phosphorus Level 4.0, Magnesium Level 2.0, Total Bilirubin 3.0H, Direct Bilirubin 0.8H, Aspartate Amino Transf (AST/SGOT) 34, Alanine Aminotransferase ( ALT/SGPT) 26, Alkaline Phosphatase 96, C-Reactive Protein, Quantitative 6.5H, Total Protein 6.4L, Albumin 3.5, Globulin 2.9, Albumin/Globulin Ratio 1.2 Height (Feet): 5 Height (Inches): 6.00 Weight (Pounds): 133 Objective General Appearance: no apparent distress, alert EENT: PERRL/EOMI, normal ENT inspection Neck: normal alignment, supple Cardiovascular: normal rate, regular rhythm Abdomen: non tender, soft Edema: no edema noted Arm (L), no edema noted Arm (R), no edema noted Leg (L), no edema noted Leg (R), no edema noted Pedal (L), no edema noted Pedal (R), no edema noted Generalized Neurologic: alert, oriented x 3 KOFFI JARA Nov 06, 2016 10:42
[2016-11-06 12:00] VITALS: BP 131/79
--- NOTE | 2016-11-06 12:16 | Infectious Diseases Prog Note ---
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 - no normal values in [employer] // Sickle cell crisis r/o infectious trigger - no localizing s/sx infection, Cx NGTD - elevated LDH, total bilirubin // hx of CT: ?Liver Masses and Rt Adnexal complex cystic mass // Functional asplenia // NKDA // Full Code PLAN: - continue empiric IV vancomycin, cefepime d# 6 / - f/u cultures - monitor CBC, temperatures - monitor BMP - transfuse prn, supportive care Subjective Allergies: Coded Allergies: No Known Allergies (Unverified , 11/18/12) Subjective feeling better Objective Vital Signs Last 24 Hour Vital Signs Date Time Temp Pulse Resp B/P Pulse Ox O2 Delivery O2 Flow Rate FiO2 11/06/16 10:28 98.4 11/06/16 08:00 98.4 20 118/67 91 Room Air 11/06/16 06:37 98.7 11/06/16 04:02 98.7 98 20 125/67 97 Room Air 11/06/16 00:04 98.4 94 19 118/66 100 Room Air 11/05/16 20:00 99.1 104 20 120/72 91 Nasal Cannula 2.0 11/05/16 16:00 99.5 107 21 128/74 90 Nasal Cannula 2.0 Height (Feet): 5 Height (Inches): 6.00 Weight (Pounds): 133 HEENT: anicteric Respiratory/Chest: chest wall non-tender Cardiovascular: regularly irregular Abdomen: no mass Laboratory Tests Test 11/05/16 23:35 11/06/16 05:45 Random Vancomycin Level 22.3 ug/mL White Blood Count 19.2 K/UL (4.8-10.8) H Red Blood Count 2.11 M/UL (4.20-5.40) L Hemoglobin 7.1 G/DL (12.0-16.0) L Hematocrit 20.4 % (37.0-47.0) L Mean Corpuscular Volume 97 FL (80-99) Mean Corpuscular Hemoglobin 33.7 PG (27.0-31.0) H Mean Corpuscular Hemoglobin Concent 34.8 G/DL (32.0-36.0) Red Cell Distribution Width 22.6 % (11.6-14.8) H Platelet Count 315 K/UL (150-450) Mean Platelet Volume 6.2 FL (6.5-10.1) L Neutrophils (%) (Auto) % (45.0-75.0) Lymphocytes (%) (Auto) % (20.0-45.0) Monocytes (%) (Auto) % (1.0-10.0) Eosinophils (%) (Auto) % (0.0-3.0) Basophils (%) (Auto) % (0.0-2.0) Differential Total Cells Counted 100 Neutrophils % (Manual) 71 % (45-75) Lymphocytes % (Manual) 17 % (20-45) L Monocytes % (Manual) 10 % (1-10) Eosinophils % (Manual) 2 % (0-3) Basophils % (Manual) 0 % (0-2) Band Neutrophils 0 % (0-8) Nucleated Red Blood Cells 3 /100 WBC Platelet Estimate Adequate Platelet Morphology Normal Polychromasia 2+ Hypochromasia 1+ Anisocytosis 2+ Sickle Cells 2+ H Erythrocyte Sedimentation Rate 59 MM/HR (0-20) H Sodium Level 140 mEQ/L (135-145) Potassium Level 2.8 mEQ/L (3.4-4.9) L Chloride Level 98 mEQ/L (98-107) Carbon Dioxide Level 28 mEQ/L (20-30) Anion Gap 14 (5-15) Blood Urea Nitrogen 3 mg/dL (7-23) L Creatinine 0.4 mg/dL (0.5-0.9) L Estimat Glomerular Filtration Rate > 60 mL/min (>60) Glucose Level 104 mg/dL (74-106) Calcium Level 8.4 mg/dL (8.6-10.2) L Phosphorus Level 4.0 mg/dL (2.5-4.8) Magnesium Level 2.0 mg/dL (1.7-2.5) Total Bilirubin 3.0 mg/dL (0.0-1.2) H Direct Bilirubin 0.8 mg/dL (0.1-0.3) H Aspartate Amino Transf (AST/SGOT) 34 U/L (5-40) Alanine Aminotransferase (ALT/SGPT) 26 U/L (3-33) Alkaline Phosphatase 96 U/L (35-104) C-Reactive Protein, Quantitative 6.5 mg/dL (< 0.5) H Total Protein 6.4 g/dL (6.6-8.7) L Albumin 3.5 g/dL (3.5-5.2) Globulin 2.9 g/dL Albumin/Globulin Ratio 1.2 (1.0-2.7) Current Medications Medications (Trade) Dose Ordered Sig/Marcellus Route PRN Reason Start Time Stop Time Status Last Admin Dose Admin Acetaminophen (Tylenol) 650 mg Q4H PRN ORAL fever 10/31/16 20:45 11/30/16 20:44 11/02/16 19:47 Al Hydroxide/Mg Hydroxide (Mylanta II) 30 ml Q6H PRN ORAL dyspepsia 10/31/16 20:45 11/30/16 20:44 Cefepime HCl 1 gm/ Dextrose 55 ml @ 110 mls/hr Q12HR@0000,1200 IVPB 11/02/16 00:00 11/09/16 00:00 11/06/16 12:09 Dextrose STAT PRN IV Hypoglycemia 10/31/16 20:45 11/30/16 20:44 Diphenhydramine HCl (Benadryl) 50 mg Q3H PRN IVP Itching 10/31/16 22:00 11/30/16 21:59 11/06/16 09:58 Heparin Sodium (Porcine) (Heparin 5000 units/ml) 5,000 units EVERY 12 HOURS SUBQ 10/31/16 21:00 11/30/16 20:59 11/06/16 09:59 Hydromorphone HCl (Dilaudid) 2 mg Q3H PRN IV pain 4-6 11/06/16 11:45 11/13/16 11:44 Hydromorphone HCl (Dilaudid) 3 mg Q3H PRN IVP For Pain 7-10 11/06/16 11:45 11/13/16 11:44 Lorazepam (Ativan 2mg/ml 1ml) 0.5 mg Q4H PRN IV For Anxiety 10/31/16 20:45 11/07/16 20:44 Ondansetron HCl (Zofran) 4 mg Q6H PRN IVP Nausea & Vomiting 10/31/16 20:45 11/30/16 20:44 11/01/16 23:15 Polyethylene Glycol (Miralax) 17 gm HSPRN PRN ORAL Constipation 10/31/16 20:45 11/30/16 20:44 11/04/16 06:51 Sodium Chloride (0.45% NS 1000ml) 1,000 ml @ 75 mls/hr [id number] IV 10/31/16 21:30 11/30/16 21:29 11/05/16 17:47 Vancomycin HCl 1 ea 1 ea DAILY PRN MISC Per rx protocol 11/01/16 18:45 12/01/16 18:44 Vancomycin HCl/ Dextrose (Vancomycin/D5W) 275 ml @ 183.333 mls/hr Q12H IVPB 11/06/16 05:00 11/08/16 04:59 11/06/16 05:01 Zolpidem Tartrate (Ambien) 5 mg HSPRN PRN ORAL Insomnia 10/31/16 20:45 11/30/16 20:44 RUI ROSS M.D. Nov 06, 2016 12:16
[2016-11-06 16:00] VITALS: BP_SYST 113; BP_SYST 118; BP_DIAS 58; BP_DIAS 67
[2016-11-06 20:00] VITALS: BP 124/73
[2016-11-07] VITALS: BP 125/74
[2016-11-07] MEDS: Cefepime HCl 1 GM in D5W 55 ML IVPB SCH ×3 (00:17→23:59)
[2016-11-07] MEDS: DiphenhydrAMINE 50mg/ml Inj IVP PRN ×6 (01:54→20:54)
[2016-11-07 04:00] VITALS: BP 122/73
[2016-11-07] MEDS: Vancomycin 1250mg/D5W 275ml IVPB SCH ×4 (05:00→17:12)
[2016-11-07 07:48] LABS: ALANINE AMINOTRANSFERASE 27 U/L (3-33); ANION GAP 13 (5-15); ASPARTATE AMINO TRANSFERASE 39 U/L (5-40); CALCIUM 8.6 mg/dL (8.6-10.2); CARBON DIOXIDE 29 mEQ/L (20-30); CHLORIDE 99 mEQ/L (98-107); CREATININE 0.5 mg/dL (0.5-0.9); GLOMERULAR FILTRATION RATE > 60 mL/min (>60); HEMOLYSIS 8; PHOSPHORUS 4.1 mg/dL (2.5-4.8); SODIUM 141 mEQ/L (135-145); TOTAL PROTEIN 6.7 g/dL (6.6-8.7)
[2016-11-07 07:53] LABS: MEAN CORPUSCULAR HEMOGLOBIN 32.7 PG (27.0-31.0); MEAN CORPUSCULAR HGB CONC 33.6 G/DL (32.0-36.0); MEAN CORPUSCULAR VOLUME 97 FL (80-99); MEAN PLATELET VOLUME 6.2 FL (6.5-10.1); PLATELET COUNT 315 K/UL (150-450); RED BLOOD COUNT 2.06 M/UL (4.20-5.40); RED CELL DISTRIBUTION WIDTH 21.5 % (11.6-14.8); WHITE BLOOD COUNT 14.8 K/UL (4.8-10.8)
[2016-11-07 07:59] LABS: BILIRUBIN,DIRECT 0.8 mg/dL (0.1-0.3)
[2016-11-07 08:00] VITALS: BP 112/56
[2016-11-07 08:02] LABS: INR 1.2 (0.9-1.1); PROTHROMBIN TIME 11.9 SEC (9.30-11.50)
[2016-11-07] MEDS: Heparin 5000 units/ml inj SUBQ SCH ×2 (08:07→21:00)
[2016-11-07 11:55] LABS: BASOPHILS % (MANUAL) 1 % (0-2); EOSINOPHILS % (MANUAL) 7 % (0-3); LYMPHOCYTES % (MANUAL) 20 % (20-45); NEUTROPHILS % (MANUAL) 62 % (45-75); NUCLEATED RED BLOOD CELLS 3 /100 WBC; TOTAL CELLS COUNTED 100
[2016-11-07 11:56] LABS: ANISOCYTOSIS 3+; BAND NEUTROPHILS % (MANUAL) 0 % (0-8); HYPOCHROMASIA 3+; PLATELET ESTIMATE ADEQUATE; PLATELET MORPHOLOGY NORMAL; POIKILOCYTOSIS 2+; POLYCHROMASIA 3+
[2016-11-07 12:00] VITALS: BP 114/52
--- NOTE | 2016-11-07 12:36 | Diagnostic Imaging Report ---
Indication: DYSPNEA Technique: One view of the chest Comparison: Q.2016 Findings: There is improved but persistent infiltrate at the right mid and lower lung. There is essentially resolved right-sided pleural effusion. Pleural fluid and atelectasis and consolidation all also improved on the left, although some disease persists. Impression: Improved but persistent bilateral pleural and parenchymal disease, as described, over 5 days
[2016-11-07] MEDS ORDERED: 1/2 NS 1000ml IV ONE (15:17)
[2016-11-07] MEDS ORDERED: Tubing IV Secondary IV ONE (15:17)
[2016-11-07 16:08] VITALS: BP 119/62
--- NOTE | 2016-11-07 16:25 | Infectious Diseases Prog Note ---
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 Ok to DC off of ABX from ID standpoint - monitor CBC, temperatures , re-culture if acute change - monitor BMP - transfuse prn, supportive care Subjective Allergies: Coded Allergies: No Known Allergies (Unverified , 11/18/12) Subjective fevers resolved, cultures negative Objective Vital Signs Last 24 Hour Vital Signs Date Time Temp Pulse Resp B/P Pulse Ox O2 Delivery O2 Flow Rate FiO2 11/07/16 16:08 98.4 91 22 119/62 90 Room Air 11/07/16 14:51 98.2 11/07/16 12:00 98.2 94 18 114/52 92 Room Air 11/07/16 08:00 98.4 99 18 112/56 95 Room Air 11/07/16 04:00 99.9 100 18 122/73 93 Nasal Cannula 2.0 11/07/16 00:00 99.1 99 18 125/74 93 Room Air 11/06/16 20:00 98.8 101 18 124/73 94 Nasal Cannula 2.0 Height (Feet): 5 Height (Inches): 6.00 Weight (Pounds): 133 General Appearance: no acute distress Respiratory/Chest: no respiratory distress Cardiovascular: normal rate, regular rhythm Abdomen: normal bowel sounds, soft, non tender, non distended Laboratory Tests Test 11/07/16 05:45 White Blood Count 14.8 K/UL (4.8-10.8) H Red Blood Count 2.06 M/UL (4.20-5.40) L Hemoglobin 6.7 G/DL (12.0-16.0) *L Hematocrit 20.0 % (37.0-47.0) L Mean Corpuscular Volume 97 FL (80-99) Mean Corpuscular Hemoglobin 32.7 PG (27.0-31.0) H Mean Corpuscular Hemoglobin Concent 33.6 G/DL (32.0-36.0) Red Cell Distribution Width 21.5 % (11.6-14.8) H Platelet Count 315 K/UL (150-450) Mean Platelet Volume 6.2 FL (6.5-10.1) L Neutrophils (%) (Auto) % (45.0-75.0) Lymphocytes (%) (Auto) % (20.0-45.0) Monocytes (%) (Auto) % (1.0-10.0) Eosinophils (%) (Auto) % (0.0-3.0) Basophils (%) (Auto) % (0.0-2.0) Differential Total Cells Counted 100 Neutrophils % (Manual) 62 % (45-75) Lymphocytes % (Manual) 20 % (20-45) Monocytes % (Manual) 10 % (1-10) Eosinophils % (Manual) 7 % (0-3) H Basophils % (Manual) 1 % (0-2) Band Neutrophils 0 % (0-8) Nucleated Red Blood Cells 3 /100 WBC Platelet Estimate Adequate Platelet Morphology Normal Polychromasia 3+ Hypochromasia 3+ Poikilocytosis 2+ Anisocytosis 3+ Prothrombin Time 11.9 SEC (9.30-11.50) H Prothromb Time International Ratio 1.2 (0.9-1.1) H Activated Partial Thromboplast Time 24 SEC (23-33) Sodium Level 141 mEQ/L (135-145) Potassium Level 3.0 mEQ/L (3.4-4.9) L Chloride Level 99 mEQ/L (98-107) Carbon Dioxide Level 29 mEQ/L (20-30) Anion Gap 13 (5-15) Blood Urea Nitrogen 3 mg/dL (7-23) L Creatinine 0.5 mg/dL (0.5-0.9) Estimat Glomerular Filtration Rate > 60 mL/min (>60) Glucose Level 102 mg/dL (74-106) Calcium Level 8.6 mg/dL (8.6-10.2) Phosphorus Level 4.1 mg/dL (2.5-4.8) Magnesium Level 2.0 mg/dL (1.7-2.5) Total Bilirubin 2.8 mg/dL (0.0-1.2) H Direct Bilirubin 0.8 mg/dL (0.1-0.3) H Aspartate Amino Transf (AST/SGOT) 39 U/L (5-40) Alanine Aminotransferase (ALT/SGPT) 27 U/L (3-33) Alkaline Phosphatase 108 U/L (35-104) H Total Protein 6.7 g/dL (6.6-8.7) Albumin 3.5 g/dL (3.5-5.2) Globulin 3.2 g/dL Albumin/Globulin Ratio 1.0 (1.0-2.7) Current Medications Medications (Trade) Dose Ordered Sig/Marcellus Route PRN Reason Start Time Stop Time Status Last Admin Dose Admin Acetaminophen (Tylenol) 650 mg Q4H PRN ORAL fever 10/31/16 20:45 11/30/16 20:44 11/02/16 19:47 Al Hydroxide/Mg Hydroxide (Mylanta II) 30 ml Q6H PRN ORAL dyspepsia 10/31/16 20:45 11/30/16 20:44 Cefepime HCl 1 gm/ Dextrose 55 ml @ 110 mls/hr Q12HR@0000,1200 IVPB 11/02/16 00:00 11/09/16 00:00 11/07/16 00:17 Dextrose STAT PRN IV Hypoglycemia 10/31/16 20:45 11/30/16 20:44 Diphenhydramine HCl (Benadryl) 50 mg Q3H PRN IVP Itching 10/31/16 22:00 11/30/16 21:59 11/07/16 14:21 Heparin Sodium (Porcine) (Heparin 5000 units/ml) 5,000 units EVERY 12 HOURS SUBQ 10/31/16 21:00 11/30/16 20:59 11/06/16 20:32 Hydromorphone HCl (Dilaudid) 2 mg Q3H PRN IV pain 4-6 11/06/16 11:45 11/13/16 11:44 Hydromorphone HCl (Dilaudid) 3 mg Q3H PRN IVP For Pain 7-10 11/06/16 11:45 11/13/16 11:44 11/07/16 14:21 Lorazepam (Ativan 2mg/ml 1ml) 0.5 mg Q4H PRN IV For Anxiety 10/31/16 20:45 11/07/16 20:44 Ondansetron HCl (Zofran) 4 mg Q6H PRN IVP Nausea & Vomiting 10/31/16 20:45 11/30/16 20:44 11/01/16 23:15 Polyethylene Glycol (Miralax) 17 gm HSPRN PRN ORAL Constipation 10/31/16 20:45 11/30/16 20:44 11/04/16 06:51 Sodium Chloride (0.45% NS 1000ml) 1,000 ml @ 75 mls/hr [id number] IV 10/31/16 21:30 11/30/16 21:29 11/07/16 00:17 Vancomycin HCl 1 ea 1 ea DAILY PRN MISC Per rx protocol 11/01/16 18:45 12/01/16 18:44 Vancomycin HCl/ Dextrose (Vancomycin/D5W) 275 ml @ 183.333 mls/hr Q12H IVPB 11/06/16 05:00 11/08/16 04:59 11/07/16 05:00 Zolpidem Tartrate (Ambien) 5 mg HSPRN PRN ORAL Insomnia 10/31/16 20:45 11/30/16 20:44 HERMINIO HEADLEY Nov 07, 2016 16:25
--- NOTE | 2016-11-07 17:41 | Pulmonology Progress Note ---
Assessment/Plan Problems: (1) Sickle cell crisis (2) Intractable pain (3) Severe anemia Assessment/Plan s/p blood transfusion feeling better ok to dc home Subjective ROS Limited/Unobtainable: No Constitutional: Reports: anorexia, fatigue Neurologic: Reports: weakness Musculoskeletal: Reports: pain, stiffness, swelling Allergies: Coded Allergies: No Known Allergies (Unverified , 11/18/12) Objective Last 24 Hour Vital Signs Date Time Temp Pulse Resp B/P Pulse Ox O2 Delivery O2 Flow Rate FiO2 11/07/16 16:08 98.4 91 22 119/62 90 Room Air 11/07/16 14:51 98.2 11/07/16 12:00 98.2 94 18 114/52 92 Room Air 11/07/16 08:00 98.4 99 18 112/56 95 Room Air 11/07/16 04:00 99.9 100 18 122/73 93 Nasal Cannula 2.0 11/07/16 00:00 99.1 99 18 125/74 93 Room Air 11/06/16 20:00 98.8 101 18 124/73 94 Nasal Cannula 2.0 Intake and Output 11/06/16 11/07/16 19:00 07:00 Intake Total 1410.000 ml 1562.333 ml Balance 1410.000 ml 1562.333 ml Intake Oral 480 ml 820 ml IV Total 930.000 ml 742.333 ml # Voids 2 4 General Appearance: no acute distress HEENT: normocephalic, atraumatic, PERRL Respiratory/Chest: chest wall non-tender, decreased breath sounds, accessory muscle use Breasts: no masses Cardiovascular: normal peripheral pulses, normal rate, regular rhythm, no JVD Abdomen: normal bowel sounds, soft, non tender, no organomegaly, non distended Genitourinary: normal external genitalia Extremities: no cyanosis Skin: no lesions, rash 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, no motor/sensory deficits Laboratory Tests 11/07/16 05:45: White Blood Count 14.8H, Red Blood Count 2.06L, Hemoglobin 6.7*L, Hematocrit 20.0L, Mean Corpuscular Volume 97, Mean Corpuscular Hemoglobin 32.7H, Mean Corpuscular Hemoglobin Concent 33.6, Red Cell Distribution Width 21.5H, Platelet Count 315, Mean Platelet Volume 6.2L, Neutrophils (%) (Auto) , Lymphocytes (%) (Auto) , Monocytes (%) (Auto) , Eosinophils (%) (Auto) , Basophils (%) (Auto) , Differential Total Cells Counted 100, Neutrophils % ( Manual) 62, Lymphocytes % (Manual) 20, Monocytes % (Manual) 10, Eosinophils % ( Manual) 7H, Basophils % (Manual) 1, Band Neutrophils 0, Nucleated Red Blood Cells 3, Platelet Estimate Adequate, Platelet Morphology Normal, Polychromasia 3 +, Hypochromasia 3+, Poikilocytosis 2+, Anisocytosis 3+, Prothrombin Time 11.9H , Prothromb Time International Ratio 1.2H, Activated Partial Thromboplast Time 24, Sodium Level 141, Potassium Level 3.0L, Chloride Level 99, Carbon Dioxide Level 29, Anion Gap 13, Blood Urea Nitrogen 3L, Creatinine 0.5, Estimat Glomerular Filtration Rate > 60, Glucose Level 102, Calcium Level 8.6, Phosphorus Level 4.1, Magnesium Level 2.0, Total Bilirubin 2.8H, Direct Bilirubin 0.8H, Aspartate Amino Transf (AST/SGOT) 39, Alanine Aminotransferase ( ALT/SGPT) 27, Alkaline Phosphatase 108H, Total Protein 6.7, Albumin 3.5, Globulin 3.2, Albumin/Globulin Ratio 1.0 Current Medications Medications (Trade) Dose Ordered Sig/Marcellus Route PRN Reason Start Time Stop Time Status Last Admin Dose Admin Acetaminophen (Tylenol) 650 mg Q4H PRN ORAL fever 10/31/16 20:45 11/30/16 20:44 11/02/16 19:47 Al Hydroxide/Mg Hydroxide (Mylanta II) 30 ml Q6H PRN ORAL dyspepsia 10/31/16 20:45 11/30/16 20:44 Cefepime HCl 1 gm/ Dextrose 55 ml @ 110 mls/hr Q12HR@0000,1200 IVPB 11/02/16 00:00 11/09/16 00:00 11/07/16 00:17 Dextrose STAT PRN IV Hypoglycemia 10/31/16 20:45 11/30/16 20:44 Diphenhydramine HCl (Benadryl) 50 mg Q3H PRN IVP Itching 10/31/16 22:00 11/30/16 21:59 11/07/16 14:21 Heparin Sodium (Porcine) (Heparin 5000 units/ml) 5,000 units EVERY 12 HOURS SUBQ 10/31/16 21:00 11/30/16 20:59 11/06/16 20:32 Hydromorphone HCl (Dilaudid) 2 mg Q3H PRN IV pain 4-6 11/06/16 11:45 11/13/16 11:44 Hydromorphone HCl (Dilaudid) 3 mg Q3H PRN IVP For Pain 7-10 11/06/16 11:45 11/13/16 11:44 11/07/16 14:21 Lorazepam (Ativan 2mg/ml 1ml) 0.5 mg Q4H PRN IV For Anxiety 10/31/16 20:45 11/07/16 20:44 Ondansetron HCl (Zofran) 4 mg Q6H PRN IVP Nausea & Vomiting 10/31/16 20:45 11/30/16 20:44 11/01/16 23:15 Polyethylene Glycol (Miralax) 17 gm HSPRN PRN ORAL Constipation 10/31/16 20:45 11/30/16 20:44 11/04/16 06:51 Sodium Chloride (0.45% NS 1000ml) 1,000 ml @ 75 mls/hr [id number] IV 10/31/16 21:30 11/30/16 21:29 11/07/16 00:17 Vancomycin HCl 1 ea 1 ea DAILY PRN MISC Per rx protocol 11/01/16 18:45 12/01/16 18:44 Vancomycin HCl/ Dextrose (Vancomycin/D5W) 275 ml @ 183.333 mls/hr Q12H IVPB 11/06/16 05:00 11/08/16 04:59 11/07/16 17:12 Zolpidem Tartrate (Ambien) 5 mg HSPRN PRN ORAL Insomnia 10/31/16 20:45 11/30/16 20:44 BERNARDO YATES Nov 07, 2016 17:41
[2016-11-07 20:10] VITALS: BP 123/73
[2016-11-08] VITALS: BP 121/70
[2016-11-08 04:00] VITALS: BP 123/72
[2016-11-08 08:34] VITALS: BP 128/73
[2016-11-08] MEDS: Heparin 5000 units/ml inj SUBQ SCH (09:00)
[2016-11-08 11:52] LABS: BASOPHILS % (AUTO) 0.6 % (0.0-2.0); EOSINOPHILS % (AUTO) 3.4 % (0.0-3.0); LYMPHOCYTES % (AUTO) 31.1 % (20.0-45.0); MEAN CORPUSCULAR HEMOGLOBIN 32.9 PG (27.0-31.0); MEAN CORPUSCULAR HGB CONC 35.1 G/DL (32.0-36.0); MEAN CORPUSCULAR VOLUME 94 FL (80-99); MEAN PLATELET VOLUME 6.3 FL (6.5-10.1); MONOCYTES % (AUTO) 8.4 % (1.0-10.0); NEUTROPHILS % (AUTO) 56.5 % (45.0-75.0); PLATELET COUNT 396 K/UL (150-450); RED BLOOD COUNT 2.57 M/UL (4.20-5.40); RED CELL DISTRIBUTION WIDTH 20.1 % (11.6-14.8); WHITE BLOOD COUNT 14.6 K/UL (4.8-10.8)
[2016-11-08 12:00] VITALS: BP 129/68
[2016-11-08] MEDS: Cefepime HCl 1 GM in D5W 55 ML IVPB SCH (12:31)
--- NOTE | 2016-11-08 13:24 | Infectious Diseases Prog Note ---
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 no new complaint Objective Vital Signs Last 24 Hour Vital Signs Date Time Temp Pulse Resp B/P Pulse Ox O2 Delivery O2 Flow Rate FiO2 11/08/16 12:00 98.6 88 18 129/68 94 Room Air 11/08/16 08:34 99.0 86 18 128/73 94 Room Air 11/08/16 04:00 98.4 93 18 123/72 90 Room Air 11/08/16 00:00 98.2 90 18 121/70 90 Room Air 11/07/16 20:10 98.4 90 22 123/73 94 Room Air 11/07/16 16:08 98.4 91 22 119/62 90 Room Air 11/07/16 14:51 98.2 Height (Feet): 5 Height (Inches): 6.00 Weight (Pounds): 133 General Appearance: no acute distress Respiratory/Chest: no respiratory distress Cardiovascular: normal rate, regular rhythm Abdomen: normal bowel sounds, soft, non tender, non distended Laboratory Tests Test 11/08/16 11:30 White Blood Count 14.6 K/UL (4.8-10.8) H Red Blood Count 2.57 M/UL (4.20-5.40) L Hemoglobin 8.4 G/DL (12.0-16.0) L Hematocrit 24.1 % (37.0-47.0) L Mean Corpuscular Volume 94 FL (80-99) Mean Corpuscular Hemoglobin 32.9 PG (27.0-31.0) H Mean Corpuscular Hemoglobin Concent 35.1 G/DL (32.0-36.0) Red Cell Distribution Width 20.1 % (11.6-14.8) H Platelet Count 396 K/UL (150-450) Mean Platelet Volume 6.3 FL (6.5-10.1) L Neutrophils (%) (Auto) 56.5 % (45.0-75.0) Lymphocytes (%) (Auto) 31.1 % (20.0-45.0) Monocytes (%) (Auto) 8.4 % (1.0-10.0) Eosinophils (%) (Auto) 3.4 % (0.0-3.0) H Basophils (%) (Auto) 0.6 % (0.0-2.0) Current Medications Medications (Trade) Dose Ordered Sig/Marcellus Route PRN Reason Start Time Stop Time Status Last Admin Dose Admin Acetaminophen (Tylenol) 650 mg Q4H PRN ORAL fever 10/31/16 20:45 11/30/16 20:44 11/02/16 19:47 Al Hydroxide/Mg Hydroxide (Mylanta II) 30 ml Q6H PRN ORAL dyspepsia 10/31/16 20:45 11/30/16 20:44 Cefepime HCl/ Dextrose (Maxipime/D5W) 55 ml @ 110 mls/hr Q12HR@0000,1200 IVPB 11/02/16 00:00 11/09/16 00:00 11/08/16 12:31 Dextrose STAT PRN IV Hypoglycemia 10/31/16 20:45 11/30/16 20:44 Diphenhydramine HCl 50 mg 50 mg Q3H PRN IVP Itching 10/31/16 22:00 11/30/16 21:59 11/07/16 20:54 Heparin Sodium (Porcine) (Heparin 5000 units/ml) 5,000 units EVERY 12 HOURS SUBQ 10/31/16 21:00 11/30/16 20:59 11/06/16 20:32 Hydromorphone HCl (Dilaudid) 2 mg Q3H PRN IV pain 4-6 11/06/16 11:45 11/13/16 11:44 11/08/16 11:05 Hydromorphone HCl (Dilaudid) 3 mg Q3H PRN IVP For Pain 7-10 11/06/16 11:45 11/13/16 11:44 11/08/16 00:01 Ondansetron HCl (Zofran) 4 mg Q6H PRN IVP Nausea & Vomiting 10/31/16 20:45 11/30/16 20:44 11/01/16 23:15 Polyethylene Glycol (Miralax) 17 gm HSPRN PRN ORAL Constipation 10/31/16 20:45 11/30/16 20:44 11/04/16 06:51 Sodium Chloride (0.45% NS 1000ml) 1,000 ml @ 75 mls/hr [id number] IV 10/31/16 21:30 11/30/16 21:29 11/07/16 18:47 Zolpidem Tartrate (Ambien) 5 mg HSPRN PRN ORAL Insomnia 10/31/16 20:45 11/30/16 20:44 HERMINIO HEADLEY Nov 08, 2016 13:24
[2016-11-08] MEDS: DiphenhydrAMINE 50mg/ml Inj IVP PRN (15:50)
[2016-11-08 16:00] VITALS: BP 124/68
--- NOTE | 2016-11-08 17:24 | Pulmonology Progress Note ---
Assessment/Plan Problems: (1) Sickle cell crisis (2) Intractable pain (3) Severe anemia Assessment/Plan s/p blood transfusion feeling better ok to dc home Subjective ROS Limited/Unobtainable: No Constitutional: Reports: anorexia, fatigue Neurologic: Reports: weakness Allergies: Coded Allergies: No Known Allergies (Unverified , 11/18/12) Objective Last 24 Hour Vital Signs Date Time Temp Pulse Resp B/P Pulse Ox O2 Delivery O2 Flow Rate FiO2 11/08/16 16:00 96.8 89 20 124/68 97 Room Air 11/08/16 12:00 98.6 88 18 129/68 94 Room Air 11/08/16 08:34 99.0 86 18 128/73 94 Room Air 11/08/16 04:00 98.4 93 18 123/72 90 Room Air 11/08/16 00:00 98.2 90 18 121/70 90 Room Air 11/07/16 20:10 98.4 90 22 123/73 94 Room Air Intake and Output 11/07/16 11/08/16 19:00 07:00 Intake Total 483.333 ml 1485 ml Balance 483.333 ml 1485 ml Intake Oral 780 ml IV Total 183.333 ml 705 ml Blood Product 300 ml # Voids 3 5 General Appearance: no acute distress HEENT: normocephalic, atraumatic, PERRL Respiratory/Chest: chest wall non-tender, lungs clear, normal breath sounds Breasts: no masses Cardiovascular: normal peripheral pulses, normal rate, regular rhythm, no gallop/murmur, no JVD Abdomen: normal bowel sounds, soft, non tender, no organomegaly, non distended Genitourinary: normal external genitalia Extremities: no cyanosis Skin: no rash, no ulcers 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, no motor/sensory deficits Laboratory Tests 11/08/16 11:30: White Blood Count 14.6H, Red Blood Count 2.57L, Hemoglobin 8.4L, Hematocrit 24.1L, Mean Corpuscular Volume 94, Mean Corpuscular Hemoglobin 32.9H, Mean Corpuscular Hemoglobin Concent 35.1, Red Cell Distribution Width 20.1H, Platelet Count 396, Mean Platelet Volume 6.3L, Neutrophils (%) (Auto) 56.5, Lymphocytes (%) (Auto) 31.1, Monocytes (%) (Auto) 8.4, Eosinophils (%) (Auto) 3.4H, Basophils (%) (Auto) 0.6 Current Medications Medications (Trade) Dose Ordered Sig/Marcellus Route PRN Reason Start Time Stop Time Status Last Admin Dose Admin Acetaminophen (Tylenol) 650 mg Q4H PRN ORAL fever 10/31/16 20:45 11/30/16 20:44 11/02/16 19:47 Al Hydroxide/Mg Hydroxide (Mylanta II) 30 ml Q6H PRN ORAL dyspepsia 10/31/16 20:45 11/30/16 20:44 Dextrose STAT PRN IV Hypoglycemia 10/31/16 20:45 11/30/16 20:44 Diphenhydramine HCl (Benadryl) 50 mg Q3H PRN IVP Itching 10/31/16 22:00 11/30/16 21:59 11/08/16 15:50 Heparin Sodium (Porcine) (Heparin 5000 units/ml) 5,000 units EVERY 12 HOURS SUBQ 10/31/16 21:00 11/30/16 20:59 11/06/16 20:32 Hydromorphone HCl (Dilaudid) 2 mg Q3H PRN IV pain 4-6 11/06/16 11:45 11/13/16 11:44 11/08/16 15:29 Hydromorphone HCl (Dilaudid) 3 mg Q3H PRN IVP For Pain 7-10 11/06/16 11:45 11/13/16 11:44 11/08/16 00:01 Ondansetron HCl (Zofran) 4 mg Q6H PRN IVP Nausea & Vomiting 10/31/16 20:45 11/30/16 20:44 11/01/16 23:15 Polyethylene Glycol (Miralax) 17 gm HSPRN PRN ORAL Constipation 10/31/16 20:45 11/30/16 20:44 11/04/16 06:51 Sodium Chloride (0.45% NS 1000ml) 1,000 ml @ 75 mls/hr [id number] IV 10/31/16 21:30 11/30/16 21:29 11/08/16 15:53 Zolpidem Tartrate (Ambien) 5 mg HSPRN PRN ORAL Insomnia 10/31/16 20:45 11/30/16 20:44 BERNARDO YATES Nov 08, 2016 17:24
[2016-11-08] MEDS ORDERED: 1/2 NS 1000ml IV ONE ×2 (17:56→19:19)
--- NOTE | 2016-11-10 13:26 | Discharge Summary ---
Discharge Summary Hospital Course Date of Admission Oct 31, 2016 at 18:37 Date of Discharge Nov 08, 2016 at 19:20 Admitting Diagnosis sickle cell crisis HPI Yudi Seals is a 26 year old female who was admitted on Oct 31, 2016 at 18: 37 for Sickle Cell Crisis Hospital Course [id number] Discharge Discharge Disposition Patient was discharged to Home (01) Discharge Diagnoses: Radha Morris NP Nov 10, 2016 13:26
--- NOTE | 2016-11-11 01:59 | Discharge Summary 2 SIG ---
DATE OF ADMISSION: 10/31/2016 DATE OF DISCHARGE: 11/08/2016 CONSULTANTS: 1. Jaime Hearn M.D. 2. Caity Acevedo M.D. BRIEF HOSPITAL COURSE: The patient is a 26-year-old female with history of sickle cell disease, presented with complaints of total body pain. She has diffuse pain 8/10 on her arms and legs. On evaluation, was found to be anemic and was admitted for the sickle cell crisis. She was given IV hydration and was given blood transfusion. Dr. Acevedo was consulted. The patient was given Dilaudid 2 to 3 mg IV q.[address] Hearn was consulted. The patient had fever and leukocytosis. She was given vancomycin and cefepime. Her fevers resolved. Urine and blood culture did not isolate any growth. Influenza A and B was negative. She received seven days of IV antibiotics and at the time of discharge, was taken off antibiotic treatment. She was eventually discharged home. FINAL DIAGNOSES: 1. Sickle cell crisis. 2. Acute anemia requiring blood transfusion. 3. Intractable pain. 4. Chronic leukocytosis secondary to functional asplenia. Jt Tim M.D. I have been assigned to dictate discharge summary on this account and I was not involved in the patient's management. Radha Morris N.P. DR: AMIE JOB#: [id number] CC:
--- NOTE | 2016-11-15 14:10 | Diagnostic Imaging Report ---
Indication: SOB Technique: One view of the chest Comparison: 11/01/2016 Findings: Interim increase in right basilar consolidation, now obscuring the right hemidiaphragm. Retrocardiac consolidation persists, is unchanged. Suspect small bilateral pleural effusions. Impression: Increasing right basilar infiltrate, consistent with pneumonia, over one day Persistent left retrocardiac consolidation Suspect small bilateral pleural effusions This agrees with the preliminary interpretation provided overnight by [facility] teleradiology service.
== END 2016-11-08 19:20 | disposition home or self-care (01) | DRG 662 ==
LOC: EMR 15:40 → 4W 18:37 → EDBEDREQ 18:55
PROC: 30233N1 Transfusion of Nonautologous Red Blood Cells into Peripheral Vein, Percutaneous Approach (ICD-10-PCS; principal; 2016-11-01)
DX: D57.00 Hb-SS disease with crisis, unspecified (principal); Q89.01 Asplenia (congenital); D64.9 Anemia, unspecified; Z87.440 Personal history of urinary (tract) infections; M79.605 Pain in left leg; M79.604 Pain in right leg; M79.602 Pain in left arm; M79.601 Pain in right arm; R50.9 Fever, unspecified; Z86.14 Personal history of Methicillin resistant Staphylococcus aureus infection; D72.829 Elevated white blood cell count, unspecified
CPT/HCPCS: 36415; 71010; 80048; 80053; 80202; 81001; 82248; 83615; 83735; 84100; 85007; 85025; 85044; 85610; 85651; 85730; 86140; 86710; 86850; 86900; 86901; 86920; 87040; 87086; J2405; J8499

== ENCOUNTER 2017-01-02 23:24 | Emergency (ER) | payer OTHER, MEDICAID ==
[~2017-01-02] VITALS: Ht 167.6 cm; Wt 57.2 kg
[~2017-01-02 23:24] MED LIST changes: +HYDREA500 MG PO
[2017-01-02] MEDS ORDERED: HYDROmorphone 1mg/ml Carpuject ONE (23:47)
[2017-01-02 23:52] VITALS: BP 113/58
[2017-01-02] MEDS ORDERED: AUGMENTIN 875-1 EAC1 ORAL (23:52)
--- NOTE | 2017-01-02 23:53 | Emergency Room Report ---
History of Present Illness General Chief Complaint: Pain Source: Patient Present Illness HPI Is a 26-year-old female with history of sickle cell. She presents with chief complaint of ear pain. Onset today. She also have congestion runny nose. Also for her sickle cell may be acting up because of it. Pain is 8/10. No fever or chills. Allergies: Coded Allergies: No Known Allergies (Unverified , 11/18/12) Patient History Past Medical History: see triage record, old chart reviewed Past Surgical History: other Pertinent Family History: none Social History: Denies: smoking Last Menstrual Period: 12/25/16 Now: No Immunizations: other Reviewed Nursing Documentation: PMH: Agreed, PSxH: Agreed Nursing Documentation-PMH Past Medical History: No History, Except For Hx Cardiac Problems: No - Sickle Cell Anemia Hx Hypertension: No Hx Pacemaker: No Hx Cancer: No Hx Gastrointestinal Problems: No Hx Neurological Problems: No Hx Cerebrovascular Accident: No Hx Transient Ischemic Attacks: No Hx Dementia: No Hx Alzheimer's Disease: No Hx Parkinson's Disease: No Hx Meningitis: No Hx Encephalitis: No Hx Seizures: No Hx Epilepsy: No Hx Multiple Sclerosis: No Hx Cerebral Palsy: No Hx Amyotrophic Lat Sclerosis: No Hx Guillian-Bartow Syndrome: No Hx Paralysis: No Hx Peripheral Neuropathy: No Hx Spinal Cord Injury: No Hx Head Trauma: No Hx Traumatic Brain Injury: No Hx Memory Loss: No Hx Concentration Difficulty: No Hx Speech Problem: No Hx Tremors: No Hx Vertigo: No Hx Dizziness: No Hx Syncope: No Hx Headaches: No Hx Aphasia: No Hx Dysphasia: No Hx Numbness: No Hx Weakness: No Hx Fatigue: No Hx Neurologic Surgery: No Hx Brain Shunt: No Review of Systems Eye: Denies: blurred vision, eye pain ENT: Reports: ear pain, Denies: nose congestion, throat swelling Respiratory: Denies: cough, shortness of breath Cardiovascular: Denies: chest pain, palpitations Gastrointestinal: Denies: abdominal pain, diarrhea, nausea, vomiting Musculoskeletal: Denies: back pain, joint pain Skin: Denies: rash Neurological: Denies: headache, numbness Endocrine: Denies: increased thirst, increased urine Hematologic/Lymphatic: Denies: easy bruising All Other Systems: negative except mentioned in HPI Physical Exam Vital Signs Date Time Temp Pulse Resp B/P Pulse Ox O2 Delivery O2 Flow Rate FiO2 01/02/17 23:28 98.1 93 16 113/58 97 Room Air vitals normal Sp02 EP Interpretation: reviewed, normal General Appearance: well appearing, no apparent distress, alert Head: normocephalic, atraumatic Eyes: bilateral eye EOMI, bilateral eye PERRL ENT: hearing grossly normal, normal pharynx, other - Left TM: She has bullous myringitis. Right TM dull. Neck: full range of motion, supple, no meningismus Respiratory: chest non-tender, lungs clear, normal breath sounds Cardiovascular #1: regular rate, rhythm, no murmur Gastrointestinal: normal bowel sounds, non tender, no mass, no organomegaly, no bruit, non-distended Musculoskeletal: back normal, gait/station normal, normal range of motion Psychiatric: mood/affect normal Skin: warm/dry Medical Decision Making Diagnostic Impression: Primary Impression: Sickle cell crisis Additional Impressions: URI (upper respiratory infection) Qualified Codes: J06.9 - Acute upper respiratory infection, unspecified; B97.89 - Other viral agents as the cause of diseases classified elsewhere Left otitis media with effusion ER Course Issue with viral illness competent by otitis media. She looks well. No evidence of sepsis, acute chest syndrome, pneumonia or other serious bacterial infection. We'll discharge home. Last Vital Signs Date Time Temp Pulse Resp B/P Pulse Ox O2 Delivery O2 Flow Rate FiO2 01/02/17 23:28 98.1 93 16 113/58 97 Room Air Status: improved Disposition: HOME, SELF-CARE Condition: Stable Scripts Amoxicillin/Potassium Clav 875-125* (AUGMENTIN 875-125 TABLET*) 1 Each Tablet 1 TAB ORAL TWICE A DAY, #14 TAB Prov: NENA PAT M.D. 01/02/17 Additional Instructions: Followup with your DrBrown in 2-3 days. Return if symptom worsen. NENA PAT M.D. Jan 02, 2017 23:53
[2017-01-03] MEDS ORDERED: HYDROmorphone 1mg/ml Carpuject IM ONE
[2017-01-03 00:05] VITALS: BP 110/54
== END 2017-01-03 00:06 | disposition home or self-care (01) ==
LOC: EMR 01-03 00:01
DX: H66.92 Otitis media, unspecified, left ear (principal); J06.9 Acute upper respiratory infection, unspecified; D57.00 Hb-SS disease with crisis, unspecified
CPT/HCPCS: 96372; 99283; J1170

== ENCOUNTER 2017-01-21 00:40 | Emergency (ER) | payer OTHER, MEDICAID ==
[~2017-01-21] VITALS: Ht 167.6 cm; Wt 57.6 kg
[~2017-01-21 00:40] MED LIST changes: +AUGMENTIN 875-1 EAC1 ORAL
[2017-01-21 00:58] VITALS: BP 116/73
[2017-01-21] MEDS ORDERED: HYDROmorphone 1 MG, DiphenhydrAMINE 25 MG in NS 55 ML IV ONE (01:15)
[2017-01-21] MEDS ORDERED: HYDROmorphone 1mg/ml Carpuject ONE (02:09)
[2017-01-21] MEDS ORDERED: DiphenhydrAMINE 50mg/ml Inj ONE (02:10)
[2017-01-21 02:58] VITALS: BP 112/69
[2017-01-21 02:59] LABS: BASOPHILS % (AUTO) 1.3 % (0.0-2.0); EOSINOPHILS % (AUTO) 4.3 % (0.0-3.0); LYMPHOCYTES % (AUTO) 37.7 % (20.0-45.0); MEAN CORPUSCULAR HEMOGLOBIN 34.3 PG (27.0-31.0); MEAN CORPUSCULAR HGB CONC 35.2 G/DL (32.0-36.0); MEAN CORPUSCULAR VOLUME 98 FL (80-99); MEAN PLATELET VOLUME 7.5 FL (6.5-10.1); NEUTROPHILS % (AUTO) 51.7 % (45.0-75.0); PLATELET COUNT 397 K/UL (150-450); RED CELL DISTRIBUTION WIDTH 17.8 % (11.6-14.8); WHITE BLOOD COUNT 17.6 K/UL (4.8-10.8)
[2017-01-21 03:13] LABS: ALANINE AMINOTRANSFERASE 24 U/L (3-33); ALBUMIN/GLOBULIN RATIO 1.3 (1.0-2.7); ANION GAP 18 (5-15); ASPARTATE AMINO TRANSFERASE 37 U/L (5-40); CALCIUM 9.1 mg/dL (8.6-10.2); CARBON DIOXIDE 21 mEQ/L (20-30); CHLORIDE 98 mEQ/L (98-107); CREATININE 0.5 mg/dL (0.5-0.9); GLOMERULAR FILTRATION RATE > 60 mL/min (>60); HEMOLYSIS 19; POTASSIUM 4.1 mEQ/L (3.4-4.9); SODIUM 137 mEQ/L (135-145); TOTAL PROTEIN 7.5 g/dL (6.6-8.7)
[2017-01-21 03:27] LABS: BILIRUBIN,DIRECT 0.3 mg/dL (0.1-0.3)
[2017-01-21] MEDS ORDERED: HYDROmorphone 2 MG, DiphenhydrAMINE 25 MG in NS 55 ML IV ONE (03:30)
--- NOTE | 2017-01-21 03:58 | Emergency Room Report ---
History of Present Illness General Chief Complaint: General Complaint Source: Patient Present Illness HPI Patient presents with complains of bodyache diffuse pain Reports history of sickle cell disease and feels she is having a flareup Denies any obvious chest pain she has increased nausea denies vomiting Denies any diarrhea Pain is 9/10 diffuse denies any focal findings denies any focal weakness Allergies: Coded Allergies: No Known Allergies (Unverified , 11/18/12) Patient History Past Medical History: see triage record Pertinent Family History: none Last Menstrual Period: 12/25/16 Now: No Reviewed Nursing Documentation: PMH: Agreed, PSxH: Agreed Nursing Documentation-PMH Past Medical History: No History, Except For Hx Hypertension: No Hx Pacemaker: No Hx Cancer: No Hx Gastrointestinal Problems: No Hx Neurological Problems: No Hx Cerebrovascular Accident: No Hx Transient Ischemic Attacks: No Hx Dementia: No Hx Alzheimer's Disease: No Hx Parkinson's Disease: No Hx Meningitis: No Hx Encephalitis: No Hx Seizures: No Hx Epilepsy: No Hx Multiple Sclerosis: No Hx Cerebral Palsy: No Hx Amyotrophic Lat Sclerosis: No Hx Guillian-[place] Syndrome: No Hx Paralysis: No Hx Peripheral Neuropathy: No Hx Spinal Cord Injury: No Hx Head Trauma: No Hx Traumatic Brain Injury: No Hx Memory Loss: No Hx Concentration Difficulty: No Hx Speech Problem: No Hx Tremors: No Hx Vertigo: No Hx Dizziness: No Hx Syncope: No Hx Headaches: No Hx Aphasia: No Hx Dysphasia: No Hx Numbness: No Hx Weakness: No Hx Fatigue: No Hx Neurologic Surgery: No Hx Brain Shunt: No Review of Systems All Other Systems: negative except mentioned in HPI Physical Exam Vital Signs Date Time Temp Pulse Resp B/P Pulse Ox O2 Delivery O2 Flow Rate FiO2 01/21/17 00:52 98.4 83 16 116/73 96 Room Air Sp02 EP Interpretation: reviewed, normal General Appearance: well appearing, no apparent distress Head: normocephalic, atraumatic Eyes: bilateral eye EOMI, bilateral eye PERRL ENT: hearing grossly normal, TMs + canals normal, uvula midline, dry mucus membranes Neck: full range of motion, supple, no meningismus, no bony tend Respiratory: lungs clear, normal breath sounds, no rhonchi, no respiratory distress, no retraction, no accessory muscle use Cardiovascular #1: normal peripheral pulses, regular rate, rhythm, no edema, no gallop, no JVD, no murmur Gastrointestinal: normal bowel sounds, non tender, soft, no mass, no organomegaly, non-distended, no guarding, no hernia, no pulsatile mass, no rebound Genitourinary: no CVA tenderness Musculoskeletal: normal inspection Neurologic: oriented x3, responsive, computer software engineer III-XII nml as tested, motor strength/ tone normal, sensory intact Psychiatric: mood/affect normal Skin: normal color, no rash, warm/dry, palpation normal Lymphatic: normal inspection, no adenopathy Medical Decision Making Diagnostic Impression: Primary Impression: Sickle cell crisis ER Course With the patient's history and examination, multiple differentials considered, including but not limited to , ectopic , ovarian torsion, gastritis, cholecystitis, pancreatitis, appendicitis Patient had IV hydration and pain medications provided At this time patient's reticulocyte count is elevated I felt the patient would benefit from further inpatient care however she reports that she feels significantly better does not want to be admitted to the hospital patient is fairly well into in with a diagnosis and past medical history at this time reports that she feels good enough to go home And will return with any changes Labs Test 01/21/17 02:07 White Blood Count 17.6 K/UL (4.8-10.8) Red Blood Count 2.70 M/UL (4.20-5.40) Hemoglobin 9.3 G/DL (12.0-16.0) Hematocrit 26.3 % (37.0-47.0) Mean Corpuscular Volume 98 FL (80-99) Mean Corpuscular Hemoglobin 34.3 PG (27.0-31.0) Mean Corpuscular Hemoglobin Concent 35.2 G/DL (32.0-36.0) Red Cell Distribution Width 17.8 % (11.6-14.8) Platelet Count 397 K/UL (150-450) Mean Platelet Volume 7.5 FL (6.5-10.1) Neutrophils (%) (Auto) 51.7 % (45.0-75.0) Lymphocytes (%) (Auto) 37.7 % (20.0-45.0) Monocytes (%) (Auto) 5.0 % (1.0-10.0) Eosinophils (%) (Auto) 4.3 % (0.0-3.0) Basophils (%) (Auto) 1.3 % (0.0-2.0) Reticulocyte Count 11.0 % (0.0-2.0) Sodium Level 137 mEQ/L (135-145) Potassium Level 4.1 mEQ/L (3.4-4.9) Chloride Level 98 mEQ/L (98-107) Carbon Dioxide Level 21 mEQ/L (20-30) Anion Gap 18 (5-15) Blood Urea Nitrogen 5 mg/dL (7-23) Creatinine 0.5 mg/dL (0.5-0.9) Estimat Glomerular Filtration Rate > 60 mL/min (>60) Glucose Level 88 mg/dL (74-106) Calcium Level 9.1 mg/dL (8.6-10.2) Total Bilirubin 1.9 mg/dL (0.0-1.2) Direct Bilirubin 0.3 mg/dL (0.1-0.3) Aspartate Amino Transf (AST/SGOT) 37 U/L (5-40) Alanine Aminotransferase (ALT/SGPT) 24 U/L (3-33) Alkaline Phosphatase 66 U/L (35-104) Total Protein 7.5 g/dL (6.6-8.7) Albumin 4.3 g/dL (3.5-5.2) Globulin 3.2 g/dL Albumin/Globulin Ratio 1.3 (1.0-2.7) Last Vital Signs Date Time Temp Pulse Resp B/P Pulse Ox O2 Delivery O2 Flow Rate FiO2 01/21/17 00:58 98.4 83 16 116/73 96 Room Air Status: improved Disposition: HOME, SELF-CARE Condition: Improved Referrals: [facility],REFERRING (PCP) Additional Instructions: Patient is provided with the discharge instructions notified to follow up with primary doctor in the next 2-3 days otherwise return to the er with any worsening symptoms. Please note that this report is being documented using DRAGON technology. This can lead to erroneous entry secondary to incorrect interpretation by the dictating instrument. REDDY AKERS D.O. Jan 21, 2017 03:58
[2017-01-21 04:58] VITALS: BP 105/73
[2017-01-21 05:13] VITALS: BP 105/73
== END 2017-01-21 05:13 | disposition home or self-care (01) ==
LOC: EMR 03:22
DX: D57.00 Hb-SS disease with crisis, unspecified (principal)
CPT/HCPCS: 36415; 80053; 82248; 85025; 85044; 96360; 96374; 96375; 99284; J1170; J1200

== ENCOUNTER 2017-01-31 06:48 | Emergency (ER) | payer OTHER, MEDICAID ==
[~2017-01-31] VITALS: Ht 167.6 cm; Wt 59.4 kg
--- NOTE | 2017-01-31 07:03 | Emergency Room Report ---
History of Present Illness General Chief Complaint: Pain Source: Patient Present Illness HPI Patient is a 27-year-old female with prior history of sickle cell disease. Patient presented for increased extremity pain. Patient had had similar symptoms with her previous exacerbations of sickle cell disease. The patient had been having pain for the past 3 days. Patient not been vomiting or having any fever.The patient reported having increased bilateral arm pain. She reports taking hydroxyurea as well as vitamins.Patient reported having been out of her medication for approximately 2 weeks. She reportedly had been to see pain management. Allergies: Coded Allergies: No Known Allergies (Unverified , 01/31/17) Patient History Past Medical History: see triage record Last Menstrual Period: 01/23/17 Now: No Reviewed Nursing Documentation: PMH: Agreed, PSxH: Agreed Nursing Documentation-PMH Past Medical History: No History, Except For Hx Hypertension: No Hx Pacemaker: No Hx Cancer: No Hx Gastrointestinal Problems: No Hx Neurological Problems: No Hx Cerebrovascular Accident: No Hx Transient Ischemic Attacks: No Hx Dementia: No Hx Alzheimer's Disease: No Hx Parkinson's Disease: No Hx Meningitis: No Hx Encephalitis: No Hx Seizures: No Hx Epilepsy: No Hx Multiple Sclerosis: No Hx Cerebral Palsy: No Hx Amyotrophic Lat Sclerosis: No Hx Guillian-[place] Syndrome: No Hx Paralysis: No Hx Peripheral Neuropathy: No Hx Spinal Cord Injury: No Hx Head Trauma: No Hx Traumatic Brain Injury: No Hx Memory Loss: No Hx Concentration Difficulty: No Hx Speech Problem: No Hx Tremors: No Hx Vertigo: No Hx Dizziness: No Hx Syncope: No Hx Headaches: No Hx Aphasia: No Hx Dysphasia: No Hx Numbness: No Hx Weakness: No Hx Fatigue: No Hx Neurologic Surgery: No Hx Brain Shunt: No Review of Systems All Other Systems: negative except mentioned in HPI Physical Exam Vital Signs Date Time Temp Pulse Resp B/P Pulse Ox O2 Delivery O2 Flow Rate FiO2 01/31/17 06:56 98.6 89 16 109/65 95 Room Air Sp02 EP Interpretation: reviewed, normal General Appearance: normal inspection, well appearing, no apparent distress, alert, GCS 15 Head: atraumatic ENT: normal ENT inspection, hearing grossly normal, normal voice Neck: normal inspection, full range of motion, supple, no bony tend Respiratory: normal inspection, lungs clear, normal breath sounds, no respiratory distress, no retraction, no wheezing Cardiovascular #1: regular rate, rhythm, no edema Gastrointestinal: normal inspection, normal bowel sounds, non tender, soft, no guarding, no hernia Genitourinary: no CVA tenderness Musculoskeletal: normal inspection, back normal, normal range of motion Neurologic: normal inspection, alert, oriented x3, responsive, investigative assistant III-XII nml as tested, speech normal Psychiatric: normal inspection, judgement/insight normal, mood/affect normal Skin: normal inspection, normal color, no rash Medical Decision Making Diagnostic Impression: Primary Impression: Sickle cell disease Additional Impression: UTI (urinary tract infection) ER Course Patient is a 27-year-old female presented after increased extremity pain. Patient prior history of sickle cell disease. Patient had been out of her pain medication for approximately 2 weeks. Patient was having increased pain to her extremities.Differential diagnosis included was not limited to sepsis, anemia, sickle cell crisis among others. The patient was noted to have some evidence of urinary tract infection on laboratory testing. She was given IV antibiotics for UTI. The patient was given pain medications and IV fluids with improvement in her pain. I laboratory testing showed improved white blood count from previous discharge. The patient is advised to follow up with primary care doctor in 1-2 days. Patient is advised to return if any worsening condition or if any changes in status that are concerning. Labs Test 01/31/17 07:10 White Blood Count 13.3 K/UL (4.8-10.8) Red Blood Count 2.75 M/UL (4.20-5.40) Hemoglobin 9.5 G/DL (12.0-16.0) Hematocrit 28.2 % (37.0-47.0) Mean Corpuscular Volume 102 FL (80-99) Mean Corpuscular Hemoglobin 34.4 PG (27.0-31.0) Mean Corpuscular Hemoglobin Concent 33.6 G/DL (32.0-36.0) Red Cell Distribution Width 19.9 % (11.6-14.8) Platelet Count 425 K/UL (150-450) Mean Platelet Volume 6.3 FL (6.5-10.1) Neutrophils (%) (Auto) 55.5 % (45.0-75.0) Lymphocytes (%) (Auto) 35.0 % (20.0-45.0) Monocytes (%) (Auto) 3.9 % (1.0-10.0) Eosinophils (%) (Auto) 4.6 % (0.0-3.0) Basophils (%) (Auto) 1.0 % (0.0-2.0) Reticulocyte Count 9.8 % (0.0-2.0) Urine Color Yellow Urine Appearance Clear Urine pH 7 (4.5-8.0) Urine Specific [place] 1.010 (1.005-1.035) Urine Protein Negative (NEGATIVE) Urine Glucose (UA) Negative (NEGATIVE) Urine Ketones Negative (NEGATIVE) Urine Occult Blood 1+ (NEGATIVE) Urine Nitrite Negative (NEGATIVE) Urine Bilirubin Negative (NEGATIVE) Urine Urobilinogen 4 MG/DL (0.0-1.0) Urine Leukocyte Esterase 1+ (NEGATIVE) Urine RBC 0-2 /HPF (0 - 2) Urine WBC 2-4 /HPF (0 - 2) Urine Squamous Epithelial Cells Few /LPF (NONE/OCC) Urine Bacteria Occasional /HPF (NONE) Urine HCG, Qualitative Negative Sodium Level 142 mEQ/L (135-145) Potassium Level 3.8 mEQ/L (3.4-4.9) Chloride Level 101 mEQ/L (98-107) Carbon Dioxide Level 26 mEQ/L (20-30) Anion Gap 15 (5-15) Blood Urea Nitrogen 3 mg/dL (7-23) Creatinine 0.5 mg/dL (0.5-0.9) Estimat Glomerular Filtration Rate > 60 mL/min (>60) Glucose Level 111 mg/dL (74-106) Calcium Level 9.2 mg/dL (8.6-10.2) Total Bilirubin 2.5 mg/dL (0.0-1.2) Direct Bilirubin 0.3 mg/dL (0.1-0.3) Aspartate Amino Transf (AST/SGOT) 25 U/L (5-40) Alanine Aminotransferase (ALT/SGPT) 17 U/L (3-33) Alkaline Phosphatase 67 U/L (35-104) Total Protein 7.3 g/dL (6.6-8.7) Albumin 4.3 g/dL (3.5-5.2) Globulin 3.0 g/dL Albumin/Globulin Ratio 1.4 (1.0-2.7) Last Vital Signs Date Time Temp Pulse Resp B/P Pulse Ox O2 Delivery O2 Flow Rate FiO2 01/31/17 06:56 98.6 89 16 109/65 95 Room Air Status: improved Disposition: HOME, SELF-CARE Condition: Stable Scripts Hydrocodone Bit/Acetaminophen 5-325* (NORCO 5-325 TABLET*) 1 Each Tablet 1 TAB ORAL Q4H Y for For Pain, #20 TAB Prov: Jr Kim 01/31/17 Cephalexin* (KEFLEX*) 500 Mg Capsule 500 MG ORAL Q6H, #20 CAP 0 Refills Prov: Jr Kim 01/31/17 Jr Kim January 31, 2017 07:03
[2017-01-31 07:13] VITALS: BP 111/67
[2017-01-31] MEDS ORDERED: Morphine Sulfate 4mg/ml Inj IVP ONE (07:15)
[2017-01-31 07:35] LABS: EOSINOPHILS % (AUTO) 4.6 % (0.0-3.0); MEAN CORPUSCULAR HEMOGLOBIN 34.4 PG (27.0-31.0); MEAN CORPUSCULAR HGB CONC 33.6 G/DL (32.0-36.0); MEAN CORPUSCULAR VOLUME 102 FL (80-99); MEAN PLATELET VOLUME 6.3 FL (6.5-10.1); MONOCYTES % (AUTO) 3.9 % (1.0-10.0); NEUTROPHILS % (AUTO) 55.5 % (45.0-75.0); PLATELET COUNT 425 K/UL (150-450); RED BLOOD COUNT 2.75 M/UL (4.20-5.40); RED CELL DISTRIBUTION WIDTH 19.9 % (11.6-14.8); WHITE BLOOD COUNT 13.3 K/UL (4.8-10.8)
[2017-01-31 07:46] LABS: KETONES,URINE NEGATIVE (NEGATIVE); LEUKOCYTE ESTERASE ,URINE 1+ (NEGATIVE); NITRITE,URINE NEGATIVE (NEGATIVE); PH,URINE 7 (4.5-8.0); PROTEIN,URINE NEGATIVE (NEGATIVE); UROBILINOGEN,URINE 4 MG/DL (0.0-1.0)
[2017-01-31 07:47] LABS: ALANINE AMINOTRANSFERASE 17 U/L (3-33); ALBUMIN/GLOBULIN RATIO 1.4 (1.0-2.7); ANION GAP 15 (5-15); ASPARTATE AMINO TRANSFERASE 25 U/L (5-40); CALCIUM 9.2 mg/dL (8.6-10.2); CARBON DIOXIDE 26 mEQ/L (20-30); CHLORIDE 101 mEQ/L (98-107); CREATININE 0.5 mg/dL (0.5-0.9); GLOMERULAR FILTRATION RATE > 60 mL/min (>60); HEMOLYSIS 22; POTASSIUM 3.8 mEQ/L (3.4-4.9); SODIUM 142 mEQ/L (135-145); TOTAL PROTEIN 7.3 g/dL (6.6-8.7)
[2017-01-31 07:53] LABS: APPEARANCE,URINE CLEAR
[2017-01-31 07:59] LABS: BILIRUBIN,DIRECT 0.3 mg/dL (0.1-0.3)
[2017-01-31 08:06] LABS: BACTERIA,URINE OCCASIONAL /HPF; RBC,URINE 0-2 /HPF (0 - 2); SQUAMOUS EPITHELIAL CELL,UR FEW /LPF (NONE/OCC)
[2017-01-31] MEDS ORDERED: Ketorolac 30mg Inj IV ONE (08:15)
[2017-01-31] MEDS ORDERED: cefTRIAXone 1 GM in NS 55 ML IVPB ONE (08:15)
[2017-01-31 08:20] LABS: RETICULOCYTE COUNT 9.8 % (0.0-2.0)
[2017-01-31 08:47] VITALS: BP 113/65
[2017-01-31] MEDS ORDERED: KEFLEX500 MG ORAL (08:48)
[2017-01-31] MEDS ORDERED: NORCO 5-325 TA1 EAC1 ORAL (08:48)
[2017-01-31 09:11] VITALS: BP 117/62
== END 2017-01-31 09:14 | disposition home or self-care (01) ==
LOC: EMR 07:09
DX: D57.00 Hb-SS disease with crisis, unspecified (principal); N39.0 Urinary tract infection, site not specified
CPT/HCPCS: 36415; 80053; 81001; 81025; 82248; 85025; 85044; 86850; 86900; 86901; 96374; 96375; 99284; J0696; J1885; J2270

== ENCOUNTER 2017-02-13 06:22 | Emergency (ER) | payer OTHER, MEDICAID ==
[~2017-02-13] VITALS: Ht 167.6 cm; Wt 59.4 kg
[~2017-02-13 06:22] MED LIST changes: +KEFLEX500 MG ORAL
--- NOTE | 2017-02-13 06:31 | Emergency Room Report ---
History of Present Illness General Chief Complaint: To Be Triaged Source: Patient, Medical Record Present Illness HPI 27YOF walk-in with 3 days of bilateral upper leg pain she associates with sickle cell pain. Denies associated fever/chills, rash, joint pain/swelling. Feels similar to previous sickle cell pain crises. Went to [facility] 3 days ago, "they didnt do anything." Has been taking 2x daily hydroxyurea and Mcdade PRN. Denies chest pain, SOB, cough, sick contacts. Has Digital Coordinator. Per EMR, multiple visits to ER for similar. Last few visits had stable labs, has not required admission. States last transfusion was October. Allergies: Coded Allergies: No Known Allergies (Unverified , 01/31/17) Patient History Past Medical History: other - sickle cell disease Past Surgical History: none Pertinent Family History: none Social History: Denies: alcohol use, drug use, smoking Now: No Immunizations: UTD Reviewed Nursing Documentation: PMH: Agreed, PSxH: Agreed Nursing Documentation-PMH Hx Hypertension: No Hx Pacemaker: No Hx Cancer: No Hx Gastrointestinal Problems: No Hx Neurological Problems: No Hx Cerebrovascular Accident: No Hx Transient Ischemic Attacks: No Hx Dementia: No Hx Alzheimer's Disease: No Hx Parkinson's Disease: No Hx Meningitis: No Hx Encephalitis: No Hx Seizures: No Hx Epilepsy: No Hx Multiple Sclerosis: No Hx Cerebral Palsy: No Hx Amyotrophic Lat Sclerosis: No Hx Guillian-[place] Syndrome: No Hx Paralysis: No Hx Peripheral Neuropathy: No Hx Spinal Cord Injury: No Hx Head Trauma: No Hx Traumatic Brain Injury: No Hx Memory Loss: No Hx Concentration Difficulty: No Hx Speech Problem: No Hx Tremors: No Hx Vertigo: No Hx Dizziness: No Hx Syncope: No Hx Headaches: No Hx Aphasia: No Hx Dysphasia: No Hx Numbness: No Hx Weakness: No Hx Fatigue: No Hx Neurologic Surgery: No Hx Brain Shunt: No Review of Systems All Other Systems: negative except mentioned in HPI Physical Exam Sp02 EP Interpretation: reviewed, abnormal General Appearance: normal inspection, well appearing, no apparent distress, alert, GCS 15, non-toxic, other - Well appearing, texting on cell phone Head: normocephalic, atraumatic Eyes: bilateral eye EOMI, bilateral eye PERRL ENT: normal ENT inspection, hearing grossly normal, normal voice Neck: normal inspection, full range of motion, supple, no bony tend Respiratory: normal inspection, lungs clear, normal breath sounds, no respiratory distress, no retraction, no wheezing Cardiovascular #1: normal peripheral pulses, no edema, tachycardia Gastrointestinal: normal inspection, normal bowel sounds, non tender, soft, no guarding, no hernia Genitourinary: no CVA tenderness Musculoskeletal: normal inspection, back normal, normal range of motion, Neil' s Sign negative Neurologic: normal inspection, alert, oriented x3, responsive, investment banking analyst III-XII nml as tested, motor strength/tone normal, speech normal Psychiatric: normal inspection, judgement/insight normal, mood/affect normal Skin: normal inspection, normal color, no rash Lymphatic: normal inspection, no adenopathy Medical Decision Making Diagnostic Impression: Primary Impression: Sickle cell crisis ER Course 27YOF presents with alleged painful crisis. VS notable for mild tachycardia, likely d/t pain Afebrile. No signs or symptoms of systemic illness CXR no infiltrate - low suspicion for acute chest syndrome Labs: Elevated Leuks - seen on every admission previously. Unlikely source of infection as no infiltrate/PNA on CXR, non-tender abdomen/pelvis. Patient refused to give urine for UA but asymptomatic. H&H stable. Retic count 9, lower than previous. LDH also c/w previous. Improved with IV analgesia Has Pain mgmt and Hem for followup Has enough Pain meds at home DC home Requested work note Rhythm Strip Diag. Results EP Interpretation: yes Rate: 93 Rhythm: NSR, no PVC's, no ectopy Chest X-Ray Diagnostic Results EP Interpretation: Yes Findings: no consolidation, no effusion, no pneumothorax, no acute cardiopulmonary disease Status: improved Disposition: HOME, SELF-CARE JOSE RIDLEY M.D. February 13, 2017 06:31
[2017-02-13] MEDS ORDERED: HYDROmorphone 1 MG, DiphenhydrAMINE 25 MG in NS 55 ML IVPB ONE (06:45)
[2017-02-13] MEDS ORDERED: NS 55 ML IV ONE (06:54)
[2017-02-13] MEDS ORDERED: HYDROmorphone 1mg/ml Carpuject ONE (06:54)
[2017-02-13] MEDS ORDERED: DiphenhydrAMINE 50mg/ml Inj ONE (06:54)
[2017-02-13 07:09] LABS: BASOPHILS % (AUTO) 1.6 % (0.0-2.0); EOSINOPHILS % (AUTO) 2.5 % (0.0-3.0); LYMPHOCYTES % (AUTO) 34.2 % (20.0-45.0); MEAN CORPUSCULAR HEMOGLOBIN 34.6 PG (27.0-31.0); MEAN CORPUSCULAR HGB CONC 35.3 G/DL (32.0-36.0); MEAN CORPUSCULAR VOLUME 98 FL (80-99); MEAN PLATELET VOLUME 6.7 FL (6.5-10.1); MONOCYTES % (AUTO) 7.1 % (1.0-10.0); NEUTROPHILS % (AUTO) 54.7 % (45.0-75.0); PLATELET COUNT 382 K/UL (150-450); RED BLOOD COUNT 2.62 M/UL (4.20-5.40); RED CELL DISTRIBUTION WIDTH 16.6 % (11.6-14.8); WHITE BLOOD COUNT 17.6 K/UL (4.8-10.8)
[2017-02-13 07:31] LABS: ALANINE AMINOTRANSFERASE 34 U/L (3-33); ALBUMIN/GLOBULIN RATIO 1.5 (1.0-2.7); ANION GAP 16 (5-15); ASPARTATE AMINO TRANSFERASE 43 U/L (5-40); CALCIUM 9.1 mg/dL (8.6-10.2); CARBON DIOXIDE 22 mEQ/L (20-30); CHLORIDE 101 mEQ/L (98-107); CREATININE 0.5 mg/dL (0.5-0.9); GLOMERULAR FILTRATION RATE > 60 mL/min (>60); HEMOLYSIS 9; POTASSIUM 3.8 mEQ/L (3.4-4.9); SODIUM 139 mEQ/L (135-145); TOTAL PROTEIN 7.5 g/dL (6.6-8.7)
[2017-02-13 07:58] LABS: RETICULOCYTE COUNT 9.3 % (0.0-2.0)
[2017-02-13 08:15] LABS: BILIRUBIN,DIRECT 0.3 mg/dL (0.1-0.3)
[2017-02-13 08:47] VITALS: BP 112/64
[2017-02-13 08:49] VITALS: BP 112/64
--- NOTE | 2017-02-13 10:49 | Diagnostic Imaging Report ---
Indication: PAIN Technique: One view of the chest Comparison: 11/07/2016 Findings: Lungs and pleural spaces are clear. Better inspiration currently. Normal heart size. Previously demonstrated perihilar opacities are no longer evident Impression: No acute process
== END 2017-02-13 08:49 | disposition home or self-care (01) ==
LOC: EMR 06:59
DX: D57.00 Hb-SS disease with crisis, unspecified (principal); R00.0 Tachycardia, unspecified; D72.829 Elevated white blood cell count, unspecified
CPT/HCPCS: 36415; 71010; 80053; 82248; 83615; 85025; 85044; 96374; 99284; J1170; J1200

== ENCOUNTER 2017-02-22 23:12 | Emergency (ER) | payer OTHER, MEDICAID ==
[~2017-02-22] VITALS: Ht 167.6 cm; Wt 57.6 kg
[2017-02-22] MEDS ORDERED: DILAUDID8 MG PO (23:35)
[2017-02-22] MEDS ORDERED: FOLIC ACID1 MG ORAL (23:37)
[2017-02-22] MEDS ORDERED: BENADRYL25 MG ORAL (23:37)
--- NOTE | 2017-02-22 23:52 | Emergency Room Report ---
History of Present Illness General Chief Complaint: Abdominal Pain Source: Patient Present Illness HPI Is a 27-year-old female with a history sickle cell with multiple and frequent ER visits for sickle cell crisis. She presents chief complaint abdominal pain and sickle cell crisis. Said she normally doesn't get abdominal pain. Pain is diffuse in nature. Onset was about 12 hours ago. One episode vomiting. No diarrhea. Pain is 10 out of 10. No fever or chills. Also with diffuse joint pain. Allergies: Coded Allergies: No Known Allergies (Unverified , 02/22/17) Patient History Past Medical History: see triage record, old chart reviewed Past Surgical History: other Pertinent Family History: none Social History: Denies: smoking Last Menstrual Period: 02/21/17 Now: No Immunizations: other Reviewed Nursing Documentation: PMH: Agreed, PSxH: Agreed Nursing Documentation-PMH Past Medical History: No History, Except For Hx Hypertension: No Hx Pacemaker: No Hx Cancer: No Hx Gastrointestinal Problems: No Hx Neurological Problems: No Hx Cerebrovascular Accident: No Hx Transient Ischemic Attacks: No Hx Dementia: No Hx Alzheimer's Disease: No Hx Parkinson's Disease: No Hx Meningitis: No Hx Encephalitis: No Hx Seizures: No Hx Epilepsy: No Hx Multiple Sclerosis: No Hx Cerebral Palsy: No Hx Amyotrophic Lat Sclerosis: No Hx Guillian-[place] Syndrome: No Hx Paralysis: No Hx Peripheral Neuropathy: No Hx Spinal Cord Injury: No Hx Head Trauma: No Hx Traumatic Brain Injury: No Hx Memory Loss: No Hx Concentration Difficulty: No Hx Speech Problem: No Hx Tremors: No Hx Vertigo: No Hx Dizziness: No Hx Syncope: No Hx Headaches: No Hx Aphasia: No Hx Dysphasia: No Hx Numbness: No Hx Weakness: No Hx Fatigue: No Hx Neurologic Surgery: No Hx Brain Shunt: No Review of Systems Eye: Denies: blurred vision, eye pain ENT: Denies: ear pain, nose congestion, throat swelling Respiratory: Denies: cough, shortness of breath Cardiovascular: Denies: chest pain, palpitations Gastrointestinal: Reports: abdominal pain, Denies: diarrhea, nausea, vomiting Musculoskeletal: Reports: back pain, joint pain Skin: Denies: rash Neurological: Denies: headache, numbness Endocrine: Denies: increased thirst, increased urine Hematologic/Lymphatic: Denies: easy bruising All Other Systems: negative except mentioned in HPI Physical Exam Vital Signs Date Time Temp Pulse Resp B/P Pulse Ox O2 Delivery O2 Flow Rate FiO2 02/22/17 23:31 98.1 84 16 105/63 96 vitals normal Sp02 EP Interpretation: reviewed, normal General Appearance: well appearing, no apparent distress, alert Head: normocephalic, atraumatic Eyes: bilateral eye EOMI, bilateral eye PERRL ENT: hearing grossly normal, normal pharynx Neck: full range of motion, supple, no meningismus Respiratory: chest non-tender, lungs clear, normal breath sounds Cardiovascular #1: regular rate, rhythm, no murmur Gastrointestinal: normal bowel sounds, no mass, no organomegaly, no bruit, non- distended, tenderness - Diffuse, decreased bowel sounds Musculoskeletal: back normal, gait/station normal, normal range of motion Neurologic: alert, oriented x3 Psychiatric: mood/affect normal Skin: warm/dry Medical Decision Making Diagnostic Impression: Primary Impression: Abdominal pain Qualified Codes: R10.84 - Generalized abdominal pain Additional Impressions: Opiate dependence Qualified Codes: F11.20 - Opioid dependence, uncomplicated Sickle cell crisis Severe anemia ER Course Patient with abdominal pain and sickle cell crisis. Hemoglobin is at baseline. She felt better now. No evidence of obstruction or acute abdomen. We'll discharge home. Lab Results Impression labs baseline CT/MRI/US Diagnostic Results CT/MRI/US Diagnostic Results : Imaging Test Ordered: ct abd/pelvis Impression Read by radiologist. No acute process. Last Vital Signs Date Time Temp Pulse Resp B/P Pulse Ox O2 Delivery O2 Flow Rate FiO2 02/22/17 23:31 98.1 84 16 105/63 96 Status: improved Disposition: HOME, SELF-CARE Condition: Stable Patient Instructions: Abdominal Pain, Adult Additional Instructions: Followup with your DrBrown in 7 days. Return if symptom worsen. NENA PAT M.D. February 22, 2017 23:52
[2017-02-22] MEDS ORDERED: Tubing IV Cassette IV ONE (23:59)
[2017-02-23] MEDS ORDERED: HYDROmorphone 1mg/ml Carpuject IVP ONE
[2017-02-23 00:27] LABS: BASOPHILS % (AUTO) 1.2 % (0.0-2.0); EOSINOPHILS % (AUTO) 4.2 % (0.0-3.0); LYMPHOCYTES % (AUTO) 44.1 % (20.0-45.0); MEAN CORPUSCULAR HGB CONC 34.9 G/DL (32.0-36.0); MEAN CORPUSCULAR VOLUME 100 FL (80-99); MEAN PLATELET VOLUME 7.3 FL (6.5-10.1); MONOCYTES % (AUTO) 5.5 % (1.0-10.0); PLATELET COUNT 351 K/UL (150-450); RED CELL DISTRIBUTION WIDTH 16.5 % (11.6-14.8); WHITE BLOOD COUNT 14.6 K/UL (4.8-10.8)
[2017-02-23 00:36] LABS: APPEARANCE,URINE CLEAR; KETONES,URINE NEGATIVE (NEGATIVE); LEUKOCYTE ESTERASE ,URINE 1+ (NEGATIVE); NITRITE,URINE NEGATIVE (NEGATIVE); PH,URINE 6.5 (4.5-8.0); PROTEIN,URINE NEGATIVE (NEGATIVE); UROBILINOGEN,URINE 4 MG/DL (0.0-1.0)
[2017-02-23 00:45] LABS: ALANINE AMINOTRANSFERASE 17 U/L (3-33); ALBUMIN/GLOBULIN RATIO 1.4 (1.0-2.7); ANION GAP 16 (5-15); ASPARTATE AMINO TRANSFERASE 29 U/L (5-40); CALCIUM 8.5 mg/dL (8.6-10.2); CARBON DIOXIDE 22 mEQ/L (20-30); CHLORIDE 106 mEQ/L (98-107); CREATININE 0.5 mg/dL (0.5-0.9); GLOMERULAR FILTRATION RATE > 60 mL/min (>60); HEMOLYSIS 16; LIPASE 34 U/L (< 60); POTASSIUM 3.7 mEQ/L (3.4-4.9); SODIUM 144 mEQ/L (135-145); TOTAL PROTEIN 6.7 g/dL (6.6-8.7)
[2017-02-23 00:48] VITALS: BP 101/61
[2017-02-23 00:55] LABS: RBC,URINE 0-2 /HPF (0 - 2); SQUAMOUS EPITHELIAL CELL,UR FEW /LPF (NONE/OCC); WBC,URINE 0-2 /HPF (0 - 2)
[2017-02-23 01:59] LABS: BILIRUBIN,DIRECT 0.3 mg/dL (0.1-0.3)
[2017-02-23 02:11] VITALS: BP 103/67
[2017-02-23 02:44] VITALS: BP 103/67
--- NOTE | 2017-02-23 11:09 | Diagnostic Imaging Report ---
Indication: Abdominal pain Technique: Spiral acquisitions obtained through the abdomen and pelvis. No oral contrast utilized, per emergency room physician request No IV contrast utilized, per referring physician request.. Multiplanar reconstructions were generated. Total dose length product 680 mGycm. CTDIvol(s) 12 mGy. Dose reduction achieved using automated exposure control Comparison: 02/09/2016 contrast study Findings: As previously, the liver is overall enlarged. It is diffusely hyperattenuating. Subtle areas of low attenuation are seen within the inferior right hepatic lobe. The largest of these measures approximately 3.2 cm in length, appears similar in size and shape to abnormality described on prior contrast CT. A second is seen slightly posterior and slightly lateral the larger lesion, measures approximately 15 mm diameter, and also evident previously and probably similar. Note that comparison is challenging, however, given the absence of IV contrast administration on the current exam. There is a 2.9 cm lesion in the lateral dome of the liver in segment 8, also similar to and corresponding to a lesion evident previously. There are scattered very subtle areas of hypoattenuation which are difficult compare on a lesion by lesion basis, again due to the lack of contrast currently and also the abundance of lesion seen on the previous study. The gallbladder is nondistended. There is no gross biliary ductal dilatation. No definite radiopaque gallstones. Lack of IV contrast limits assessment of the other solid organs. The pancreas is unremarkable. The spleen is small, perhaps even more so than on the prior study. Previously reported left adrenal nodule currently appears to be separate from the adrenal, perhaps slightly larger, currently measuring 12 mm long axis dimension, previously reported as 10 mm. Unremarkable right adrenal. The right kidney demonstrates multiple cysts, also evident previously. There are also subcentimeter low-attenuation right renal lesions which are too small to characterize.. There is a hyperdense lesion in the lower pole of the left kidney, measures approximately 13 mm in diameter. This demonstrates nonspecific attenuation. Review of prior MRI demonstrates that this does not enhance so most likely represents a hyperdense proteinaceous cyst. Previously demonstrated left upper pole cyst is much less conspicuous on current non-infused exam, may be slightly smaller. There are again demonstrated abundant prominent mesenteric root lymph nodes. Prominent para-aortic and pericaval nodes are again demonstrated, appearing less prominent than on the previous exam. Previously demonstrated complex right adnexal cystic mass is no longer evident. Lack of enteric contrast limits assessment of the GI tract. The appendix is normal. There is abundant retained fecal material. No evidence of diverticulosis or diverticulitis. No small bowel distention. No free or loculated intraperitoneal air is evident. There may be trace free pelvic cul-de-sac fluid again demonstrated, less abundant than previously. The distal esophagus, stomach, duodenum are unremarkable. The included lung bases are clear. A sclerotic focus is again demonstrated in the left sacral wing, appearing unchanged. Impression: Multiple low-attenuation liver lesions, not well characterized in the absence of IV contrast. These appear less abundant than on prior CT of 02/09/2016, although apparent decrease abundance could be related to the lack of IV contrast a few study. Lungs are visible appear comparable in size to the previous study. While possibly representing quiescent neoplastic deposits, and most likely represent either postinflammatory lesions or foci of active low-grade inflammation. Diffusely hypoattenuating liver, consistent with metal deposition, most likely hemachromatosis given history of sickle cell anemia 12 mm nodule, previously reported as coming off of the left ad -- renal, currently thought to be extra adrenal. There are slightly increased from prior study. Enlarging lymphadenopathy not excludable Note that the above findings were not described on the preliminary report. Dr. 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 Previously reported right adnexal cystic mass is no longer evident, most likely represented a cyst or follicle which has since involuted Bilateral renal cysts, also previously reported. Right renal low-attenuation lesions which are too small to characterize, most likely benign simple cyst. No further followup necessary Sclerotic left sacral wing lesion in retrospect evident previously and unchanged. Appearance consistent with a benign bone island. Given history of sickle cell anemia, old bone infarct is also a possibility Trace free pelvic fluid, most likely physiologic The remaining findings agree with the preliminary interpretation provided overnight by [facility] service. The CT scanner at [facility] is accredited by the [employer] and the scans are performed using protocols designed to limit radiation exposure to as low as reasonably achievable to attain images of sufficient resolution adequate for diagnostic evaluation.
== END 2017-02-23 02:45 | disposition home or self-care (01) ==
LOC: EMR 23:35
DX: R10.9 Unspecified abdominal pain (principal); F11.20 Opioid dependence, uncomplicated; D57.00 Hb-SS disease with crisis, unspecified
CPT/HCPCS: 36415; 74176; 80053; 80300; 81003; 81025; 82248; 83690; 85025; 96360; 96361; 96374; 96375; 99284; J1170; J2405

== ENCOUNTER 2017-02-25 20:26 | Emergency (ER) | payer OTHER, MEDICAID ==
[~2017-02-25] VITALS: Ht 167.6 cm; Wt 60.8 kg
[~2017-02-25 20:26] MED LIST changes: +BENADRYL25 MG ORAL; +DILAUDID8 MG PO; +FOLIC ACID1 MG ORAL
[2017-02-25] MEDS ORDERED: Morphine Sulfate 10mg/ml Inj IVP ONE (21:00)
[2017-02-25] MEDS ORDERED: DiphenhydrAMINE 50mg/ml Inj IVP ONE (21:00)
[2017-02-25 21:29] LABS: MEAN CORPUSCULAR HEMOGLOBIN 38.4 PG (27.0-31.0); MEAN CORPUSCULAR HGB CONC 38.7 G/DL (32.0-36.0); MEAN CORPUSCULAR VOLUME 99 FL (80-99); PLATELET COUNT 375 K/UL (150-450); RED BLOOD COUNT 2.19 M/UL (4.20-5.40); RED CELL DISTRIBUTION WIDTH 16.8 % (11.6-14.8)
[2017-02-25 21:30] LABS: WHITE BLOOD COUNT 23.3 K/UL (4.8-10.8)
[2017-02-25 21:34] LABS: ALANINE AMINOTRANSFERASE 20 U/L (3-33); ALBUMIN/GLOBULIN RATIO 1.5 (1.0-2.7); ANION GAP 15 (5-15); ASPARTATE AMINO TRANSFERASE 30 U/L (5-40); CARBON DIOXIDE 24 mEQ/L (20-30); CHLORIDE 103 mEQ/L (98-107); CREATININE 0.4 mg/dL (0.5-0.9); GLOMERULAR FILTRATION RATE > 60 mL/min (>60); HEMOLYSIS 4; POTASSIUM 3.9 mEQ/L (3.4-4.9); SODIUM 142 mEQ/L (135-145); TOTAL PROTEIN 6.9 g/dL (6.6-8.7)
[2017-02-25 21:48] LABS: RETICULOCYTE COUNT 7.6 % (0.0-2.0)
[2017-02-25 21:54] LABS: BILIRUBIN,DIRECT 0.3 mg/dL (0.1-0.3)
[2017-02-25 22:05] LABS: BASOPHILS % (MANUAL) 2 % (0-2); EOSINOPHILS % (MANUAL) 1 % (0-3); LYMPHOCYTES % (MANUAL) 16 % (20-45); NEUTROPHILS % (MANUAL) 79 % (45-75); NUCLEATED RED BLOOD CELLS 1 /100 WBC; TOTAL CELLS COUNTED 100
[2017-02-25 22:07] LABS: BAND NEUTROPHILS % (MANUAL) 0 % (0-8); PLATELET ESTIMATE ADEQUATE; POLYCHROMASIA 1+
[2017-02-25 22:08] LABS: ANISOCYTOSIS 2+; HYPOCHROMASIA 1+; PLATELET MORPHOLOGY NORMAL; SICKLE CELLS 1+
[2017-02-25] MEDS ORDERED: Albuterol ud Inhalation HHN ONE (22:30)
[2017-02-25 22:38] VITALS: BP 111/69
[2017-02-25] MEDS ORDERED: Ampicillin/Sulbactam Sod 3 GM in NS 110 ML IVPB ONE (23:00)
[2017-02-25] MEDS ORDERED: NS 110 ML ONE (23:05)
[2017-02-25] MEDS ORDERED: Unasyn 3gm Inj ONE (23:05)
[2017-02-25] MEDS ORDERED: Tubing IV Cassette IV ONE (23:05)
[2017-02-25] MEDS ORDERED: MULTIVITAMINS1 EAC2 ORAL (23:17)
[2017-02-25] MEDS ORDERED: CALCIUM500 M2 PO (23:17)
[2017-02-25 23:52] VITALS: BP 111/68
--- NOTE | 2017-02-26 00:35 | Emergency Room Report ---
History of Present Illness General Chief Complaint: Pain Present Illness HPI Patient is a 27-year-old female who presents after having increased bilateral arm pain. Patient stated that she was recently seen by Dr. neri Machado started on medications. Patient reported having increasedBilateral arm pain. The patient stated this did not feel like her usual sickle cell crisis. The patient had denied recent fever. Allergies: Coded Allergies: No Known Allergies (Unverified , 02/22/17) Patient History Last Menstrual Period: January Reviewed Nursing Documentation: PMH: Agreed, PSxH: Agreed Nursing Documentation-PMH Hx Hypertension: No Hx Pacemaker: No Hx Cancer: No Hx Gastrointestinal Problems: No Hx Neurological Problems: No Hx Cerebrovascular Accident: No Hx Transient Ischemic Attacks: No Hx Dementia: No Hx Alzheimer's Disease: No Hx Parkinson's Disease: No Hx Meningitis: No Hx Encephalitis: No Hx Seizures: No Hx Epilepsy: No Hx Multiple Sclerosis: No Hx Cerebral Palsy: No Hx Amyotrophic Lat Sclerosis: No Hx Guillian-[place] Syndrome: No Hx Paralysis: No Hx Peripheral Neuropathy: No Hx Spinal Cord Injury: No Hx Head Trauma: No Hx Traumatic Brain Injury: No Hx Memory Loss: No Hx Concentration Difficulty: No Hx Speech Problem: No Hx Tremors: No Hx Vertigo: No Hx Dizziness: No Hx Syncope: No Hx Headaches: No Hx Aphasia: No Hx Dysphasia: No Hx Numbness: No Hx Weakness: No Hx Fatigue: No Hx Neurologic Surgery: No Hx Brain Shunt: No Review of Systems All Other Systems: negative except mentioned in HPI Physical Exam Vital Signs Date Time Temp Pulse Resp B/P Pulse Ox O2 Delivery O2 Flow Rate FiO2 02/25/17 20:37 98.4 104 18 127/79 94 Room Air 02/25/17 22:55 21 Sp02 EP Interpretation: reviewed, normal General Appearance: normal inspection, well appearing, no apparent distress, alert, GCS 15 Head: atraumatic ENT: normal ENT inspection, hearing grossly normal, normal voice Neck: normal inspection, full range of motion, supple, no bony tend Respiratory: normal inspection, lungs clear, normal breath sounds, no respiratory distress, no retraction, no wheezing Cardiovascular #1: regular rate, rhythm, no edema Gastrointestinal: normal inspection, normal bowel sounds, non tender, soft, no guarding, no hernia Genitourinary: no CVA tenderness Musculoskeletal: normal inspection, back normal, normal range of motion Neurologic: normal inspection, alert, responsive, speech normal Psychiatric: normal inspection, judgement/insight normal, mood/affect normal Skin: normal inspection, normal color, no rash Medical Decision Making Diagnostic Impression: Primary Impression: Sickle cell crisis Additional Impression: Opiate dependence ER Course Patient presented for bilateral arm pain. Differential diagnoses included was not limited to sickle cell disease, pain crisis, severe anemia, aplastic crisis among others. Patient noted be afebrile. Patient was noted to have a markedly elevated white blood count compared to her baseline. Patient was empirically given IV antibiotics after blood cultures are obtained. Patient was discussed with Dr. Conteh at [facility] for transfer Labs Test 02/25/17 21:00 White Blood Count 23.3 K/UL (4.8-10.8) Red Blood Count 2.19 M/UL (4.20-5.40) Hemoglobin 8.4 G/DL (12.0-16.0) Hematocrit 21.7 % (37.0-47.0) Mean Corpuscular Volume 99 FL (80-99) Mean Corpuscular Hemoglobin 38.4 PG (27.0-31.0) Mean Corpuscular Hemoglobin Concent 38.7 G/DL (32.0-36.0) Red Cell Distribution Width 16.8 % (11.6-14.8) Platelet Count 375 K/UL (150-450) Mean Platelet Volume 6.0 FL (6.5-10.1) Neutrophils (%) (Auto) % (45.0-75.0) Lymphocytes (%) (Auto) % (20.0-45.0) Monocytes (%) (Auto) % (1.0-10.0) Eosinophils (%) (Auto) % (0.0-3.0) Basophils (%) (Auto) % (0.0-2.0) Differential Total Cells Counted 100 Neutrophils % (Manual) 79 % (45-75) Lymphocytes % (Manual) 16 % (20-45) Monocytes % (Manual) 2 % (1-10) Eosinophils % (Manual) 1 % (0-3) Basophils % (Manual) 2 % (0-2) Band Neutrophils 0 % (0-8) Nucleated Red Blood Cells 1 /100 WBC Platelet Estimate Adequate Platelet Morphology Normal Polychromasia 1+ Hypochromasia 1+ Anisocytosis 2+ Sickle Cells 1+ Reticulocyte Count 7.6 % (0.0-2.0) Sodium Level 142 mEQ/L (135-145) Potassium Level 3.9 mEQ/L (3.4-4.9) Chloride Level 103 mEQ/L (98-107) Carbon Dioxide Level 24 mEQ/L (20-30) Anion Gap 15 (5-15) Blood Urea Nitrogen 6 mg/dL (7-23) Creatinine 0.4 mg/dL (0.5-0.9) Estimat Glomerular Filtration Rate > 60 mL/min (>60) Glucose Level 94 mg/dL (74-106) Calcium Level 9.0 mg/dL (8.6-10.2) Total Bilirubin 1.6 mg/dL (0.0-1.2) Direct Bilirubin 0.3 mg/dL (0.1-0.3) Aspartate Amino Transf (AST/SGOT) 30 U/L (5-40) Alanine Aminotransferase (ALT/SGPT) 20 U/L (3-33) Alkaline Phosphatase 68 U/L (35-104) Total Protein 6.9 g/dL (6.6-8.7) Albumin 4.2 g/dL (3.5-5.2) Globulin 2.7 g/dL Albumin/Globulin Ratio 1.5 (1.0-2.7) Last Vital Signs Date Time Temp Pulse Resp B/P Pulse Ox O2 Delivery O2 Flow Rate FiO2 02/25/17 23:52 87 17 111/68 97 Room Air 02/25/17 22:55 21 02/25/17 22:38 98.8 Status: unchanged Disposition: XFER SHT-TRM HOSP Condition: Serious Referrals: NON PHYSICIAN (PCP) Jr Kim Feb 26, 2017 00:34
[2017-02-26 00:43] VITALS: BP 111/68
[2017-02-26 00:47] LABS: APPEARANCE,URINE CLEAR; KETONES,URINE NEGATIVE (NEGATIVE); LEUKOCYTE ESTERASE ,URINE NEGATIVE (NEGATIVE); NITRITE,URINE NEGATIVE (NEGATIVE); PH,URINE 7 (4.5-8.0); PROTEIN,URINE NEGATIVE (NEGATIVE); UROBILINOGEN,URINE NORMAL MG/DL (0.0-1.0)
[2017-02-26 01:20] LABS: BACTERIA,URINE OCCASIONAL /HPF; RBC,URINE 0-2 /HPF (0 - 2); SQUAMOUS EPITHELIAL CELL,UR FEW /LPF (NONE/OCC); WBC,URINE 0-2 /HPF (0 - 2)
--- NOTE | 2017-02-27 08:53 | Diagnostic Imaging Report ---
Indication: Dyspnea Comparison: 02/13/17 A single view chest radiograph was obtained. Findings: Cardiac silhouette is prominent. Pulmonary vascularity is appropriate. The diaphragmatic contour is smooth and costophrenic angles are sharp. No pleural effusions are identified. The bones are unremarkable. Impression: No acute findings. Cardiomegaly disproportionate to the patient's chronologic age. Further evaluation is recommended.
[2017-02-27 11:00] LABS: OTHERS PATHOLOGIST COMMENT
== END 2017-02-26 00:45 | disposition short-term general hospital (02) ==
LOC: EMR 21:00
DX: D57.00 Hb-SS disease with crisis, unspecified (principal); M79.601 Pain in right arm; F11.20 Opioid dependence, uncomplicated
CPT/HCPCS: 36415; 71010; 80053; 81001; 81003; 82248; 85007; 85025; 85044; 86850; 86900; 86901; 87040; 93005; 94640; 94664; 96360; 96374; 96375; 99285; J0295; J1200; J2270

== ENCOUNTER 2017-03-05 04:18 | Emergency (ER) | payer OTHER, MEDICAID ==
[~2017-03-05] VITALS: Ht 167.6 cm; Wt 60.8 kg
[~2017-03-05 04:18] MED LIST changes: +CALCIUM500 M2 PO; +MULTIVITAMINS1 EAC2 ORAL
--- NOTE | 2017-03-05 04:59 | Emergency Room Report ---
History of Present Illness General Chief Complaint: Pain Source: Patient Present Illness HPI Is a 27-year-old female with history sickle cell. She gets frequent sickle cell crisis. She comes here multiple time and of the hospital also. She presents with chief complaint of a rash to her lip. She was transferred from here to [facility] for pneumonia. After starting antibiotics she noticed a rash started 4 days ago. It was pimply nature and now is scabbed over. She also complaining of generalized pain from her sickle cell. pain is 8/10. Pain in her joints. And her back. No other complaint. Allergies: Coded Allergies: No Known Allergies (Unverified , 02/22/17) Patient History Past Medical History: see triage record, old chart reviewed Past Surgical History: other Pertinent Family History: none Social History: Denies: smoking Last Menstrual Period: 02/20/17 Now: No Immunizations: other Reviewed Nursing Documentation: PMH: Agreed, PSxH: Agreed Nursing Documentation-PM Past Medical History: No History, Except For Hx Hypertension: No Hx Pacemaker: No Hx Cancer: No Hx Gastrointestinal Problems: No Hx Neurological Problems: No Hx Cerebrovascular Accident: No Hx Transient Ischemic Attacks: No Hx Dementia: No Hx Alzheimer's Disease: No Hx Parkinson's Disease: No Hx Meningitis: No Hx Encephalitis: No Hx Seizures: No Hx Epilepsy: No Hx Multiple Sclerosis: No Hx Cerebral Palsy: No Hx Amyotrophic Lat Sclerosis: No Hx Guillian-[place] Syndrome: No Hx Paralysis: No Hx Peripheral Neuropathy: No Hx Spinal Cord Injury: No Hx Head Trauma: No Hx Traumatic Brain Injury: No Hx Memory Loss: No Hx Concentration Difficulty: No Hx Speech Problem: No Hx Tremors: No Hx Vertigo: No Hx Dizziness: No Hx Syncope: No Hx Headaches: No Hx Aphasia: No Hx Dysphasia: No Hx Numbness: No Hx Weakness: No Hx Fatigue: No Hx Neurologic Surgery: No Hx Brain Shunt: No Review of Systems Eye: Denies: blurred vision, eye pain ENT: Denies: ear pain, nose congestion, throat swelling Respiratory: Denies: cough, shortness of breath Cardiovascular: Denies: chest pain, palpitations Gastrointestinal: Denies: abdominal pain, diarrhea, nausea, vomiting Musculoskeletal: Denies: back pain, joint pain Skin: Denies: rash Neurological: Denies: headache, numbness Endocrine: Denies: increased thirst, increased urine Hematologic/Lymphatic: Denies: easy bruising All Other Systems: negative except mentioned in HPI Physical Exam Vital Signs Date Time Temp Pulse Resp B/P Pulse Ox O2 Delivery O2 Flow Rate FiO2 03/05/17 04:25 98.4 106 16 122/78 99 Room Air vitals unremarkable Sp02 EP Interpretation: reviewed, normal General Appearance: well appearing, no apparent distress, alert Head: normocephalic, atraumatic Eyes: bilateral eye EOMI, bilateral eye PERRL ENT: hearing grossly normal, normal pharynx, other - She has a cold sore to the left bottom lip medially. It started scabbed over. 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 No evidence of systemic spread. We'll discharge home. I see no need for IV or labs drawn this patient. She is walking around very comfortably. Chest X-Ray Diagnostic Results Chest X-Ray Ordered: No Last Vital Signs Date Time Temp Pulse Resp B/P Pulse Ox O2 Delivery O2 Flow Rate FiO2 03/05/17 04:25 98.4 106 16 122/78 99 Room Air Status: unchanged Disposition: HOME, SELF-CARE Condition: Stable Additional Instructions: Followup with your at [facility] within a week for medication and return if symptom worsen. NENA PAT M.D. Mar 05, 2017 04:59
[2017-03-05 05:00] VITALS: BP 111/65
[2017-03-05] MEDS ORDERED: Norco 5mg/325mg tab ORAL ONE (05:00)
[2017-03-05 05:08] VITALS: BP 111/65
== END 2017-03-05 05:08 | disposition home or self-care (01) ==
LOC: EMR 05:01
DX: D57.00 Hb-SS disease with crisis, unspecified (principal); B00.1 Herpesviral vesicular dermatitis
CPT/HCPCS: 99283

== ENCOUNTER 2017-03-31 11:31 | Emergency (ER) | payer OTHER, MEDICAID ==
[~2017-03-31] VITALS: Ht 167.6 cm; Wt 56.7 kg
[2017-03-31 11:50] VITALS: BP 120/70
[2017-03-31] MEDS ORDERED: HYDROmorphone 1mg/ml Carpuject IVP ONE ×2 (12:00→13:00)
[2017-03-31 12:10] LABS: MEAN CORPUSCULAR HEMOGLOBIN 35.1 PG (27.0-31.0); MEAN CORPUSCULAR HGB CONC 34.1 G/DL (32.0-36.0); MEAN CORPUSCULAR VOLUME 103 FL (80-99); MEAN PLATELET VOLUME 6.8 FL (6.5-10.1); PLATELET COUNT 330 K/UL (150-450); RED BLOOD COUNT 2.52 M/UL (4.20-5.40); RED CELL DISTRIBUTION WIDTH 15.1 % (11.6-14.8); WHITE BLOOD COUNT 20.6 K/UL (4.8-10.8)
[2017-03-31 12:23] LABS: INR 1.1 (0.9-1.1); PROTHROMBIN TIME 11.7 SEC (9.30-11.50)
--- NOTE | 2017-03-31 12:23 | Diagnostic Imaging Report ---
Indication: Dyspnea Comparison: 02/25/17 A single view chest radiograph was obtained. Findings: The heart is enlarged. Lungs are clear. Bones are unremarkable. Impression: Cardiomegaly.
[2017-03-31 12:27] LABS: TROPONIN I < 0.30 ng/mL (<=0.30)
[2017-03-31 12:30] LABS: ALANINE AMINOTRANSFERASE 32 U/L (3-33); ALBUMIN/GLOBULIN RATIO 1.6 (1.0-2.7); ANION GAP 12 (5-15); ASPARTATE AMINO TRANSFERASE 28 U/L (5-40); CALCIUM 9.3 mg/dL (8.6-10.2); CARBON DIOXIDE 24 mEQ/L (20-30); CHLORIDE 106 mEQ/L (98-107); CREATININE 0.5 mg/dL (0.5-0.9); GLOMERULAR FILTRATION RATE > 60 mL/min (>60); HEMOLYSIS 6; POTASSIUM 3.2 mEQ/L (3.4-4.9); SODIUM 142 mEQ/L (135-145); TOTAL PROTEIN 7.1 g/dL (6.6-8.7)
[2017-03-31] MEDS ORDERED: DiphenhydrAMINE 50mg/ml Inj IVP ONE ×2 (12:30→14:00)
[2017-03-31 12:41] LABS: CKMB < 1.5 ng/mL (< 3.8)
[2017-03-31 12:52] LABS: BILIRUBIN,DIRECT 0.3 mg/dL (0.1-0.3)
[2017-03-31 12:54] LABS: RETICULOCYTE COUNT 13.3 % (0.0-2.0)
--- NOTE | 2017-03-31 13:14 | Emergency Room Report ---
History of Present Illness General Chief Complaint: Pain Source: Patient Present Illness HPI 27-year-old female presents ED for evaluation. Patient states she's having pain in all of her extremities times one week. She went water skiing proximally one week ago and fell into the water. States she's been having persistent pain since. Has history of sickle cell. Believes she may be having a pain crisis. Pain is an 8/10, sharp, nonradiating. Did not have any medication at this time. Denies fevers or chills. Denies chest pain or shortness of breath. No other aggravating or relieving factors. Denies any other associated symptoms Allergies: Coded Allergies: No Known Allergies (Unverified , 02/22/17) Patient History Past Medical History: none Past Surgical History: none Pertinent Family History: none Social History: Denies: alcohol use, drug use, smoking Now: No Immunizations: UTD Reviewed Nursing Documentation: PMH: Agreed, PSxH: Agreed Nursing Documentation-PMH Hx Hypertension: No Hx Pacemaker: No Hx Cancer: No Hx Gastrointestinal Problems: No Hx Neurological Problems: No Hx Cerebrovascular Accident: No Hx Transient Ischemic Attacks: No Hx Dementia: No Hx Alzheimer's Disease: No Hx Parkinson's Disease: No Hx Meningitis: No Hx Encephalitis: No Hx Seizures: No Hx Epilepsy: No Hx Multiple Sclerosis: No Hx Cerebral Palsy: No Hx Amyotrophic Lat Sclerosis: No Hx Guillian-[place] Syndrome: No Hx Paralysis: No Hx Peripheral Neuropathy: No Hx Spinal Cord Injury: No Hx Head Trauma: No Hx Traumatic Brain Injury: No Hx Memory Loss: No Hx Concentration Difficulty: No Hx Speech Problem: No Hx Tremors: No Hx Vertigo: No Hx Dizziness: No Hx Syncope: No Hx Headaches: No Hx Aphasia: No Hx Dysphasia: No Hx Numbness: No Hx Weakness: No Hx Fatigue: No Hx Neurologic Surgery: No Hx Brain Shunt: No Review of Systems All Other Systems: negative except mentioned in HPI Physical Exam Vital Signs Date Time Temp Pulse Resp B/P Pulse Ox O2 Delivery O2 Flow Rate FiO2 03/31/17 11:36 98.2 98 20 120/70 95 Room Air Sp02 EP Interpretation: reviewed, normal General Appearance: no apparent distress, alert, GCS 15, non-toxic Head: normocephalic, atraumatic Eyes: bilateral eye PERRL, bilateral eye normal inspection ENT: hearing grossly normal, normal pharynx, no angioedema, normal voice Neck: full range of motion, supple/symm/no masses Respiratory: chest non-tender, lungs clear, normal breath sounds, speaking full sentences Cardiovascular #1: regular rate, rhythm, no edema Cardiovascular #2: 2+ carotid (R), 2+ carotid (L), 2+ radial (R), 2+ radial (L) , 2+ dorsalis pedis (R), 2+ dorsalis pedis (L) Gastrointestinal: normal bowel sounds, non tender, soft, non-distended, no guarding, no rebound Rectal: deferred Genitourinary: normal inspection, no CVA tenderness Musculoskeletal: back normal, gait/station normal, normal range of motion, non- tender Neurologic: alert, oriented x3, responsive, motor strength/tone normal, sensory intact, speech normal Psychiatric: judgement/insight normal, memory normal, mood/affect normal, no suicidal/homicidal ideation Reflexes: 3+ bicep (R), 3+ bicep (L), 3+ tricep (R), 3+ tricep (L), 3+ knee (R) , 3+ knee (L) Skin: normal color, no rash, warm/dry, well hydrated Lymphatic: no adenopathy Medical Decision Making Diagnostic Impression: Primary Impression: Sickle cell disease Qualified Codes: D57.00 - Hb-SS disease with crisis, unspecified Additional Impressions: Leukocytosis Qualified Codes: D72.829 - Elevated white blood cell count, unspecified Opiate dependence Qualified Codes: F11.29 - Opioid dependence with unspecified opioid-induced disorder ER Course Hospital Course 27-year-old F presents ED complaining of generalized body pain, h/o sickle cell Differential diagnoses include: AL/unstable angina, sickle cell crisis, sepsis, UTI, pneumonia Clinical course Patient placed on stretcher. 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 After initial history and physical I ordered labs, IV fluids and pain medications Labs-there is significant leukocytosis however unchanged from previous visits. Hemoglobin is stable. Electrolytes okay, retic count elevated On reassessment pain is improved. Given leukocytosis and elevated reticulocyte count I offered patient option for admission. Patient states she prefers to be discharged at this time Diagnosis - sickle cell disease, leukocytosis, opioid dependence Stable and discharged to home. Followup with PMD. Return to ED if symptoms recur or worsen Labs Test 03/31/17 11:55 White Blood Count 20.6 K/UL (4.8-10.8) Red Blood Count 2.52 M/UL (4.20-5.40) Hemoglobin 8.8 G/DL (12.0-16.0) Hematocrit 25.9 % (37.0-47.0) Mean Corpuscular Volume 103 FL (80-99) Mean Corpuscular Hemoglobin 35.1 PG (27.0-31.0) Mean Corpuscular Hemoglobin Concent 34.1 G/DL (32.0-36.0) Red Cell Distribution Width 15.1 % (11.6-14.8) Platelet Count 330 K/UL (150-450) Mean Platelet Volume 6.8 FL (6.5-10.1) Neutrophils (%) (Auto) % (45.0-75.0) Lymphocytes (%) (Auto) % (20.0-45.0) Monocytes (%) (Auto) % (1.0-10.0) Eosinophils (%) (Auto) % (0.0-3.0) Basophils (%) (Auto) % (0.0-2.0) Reticulocyte Count 13.3 % (0.0-2.0) Prothrombin Time 11.7 SEC (9.30-11.50) Prothromb Time International Ratio 1.1 (0.9-1.1) Activated Partial Thromboplast Time 23 SEC (23-33) Sodium Level 142 mEQ/L (135-145) Potassium Level 3.2 mEQ/L (3.4-4.9) Chloride Level 106 mEQ/L (98-107) Carbon Dioxide Level 24 mEQ/L (20-30) Anion Gap 12 (5-15) Blood Urea Nitrogen 3 mg/dL (7-23) Creatinine 0.5 mg/dL (0.5-0.9) Estimat Glomerular Filtration Rate > 60 mL/min (>60) Glucose Level 120 mg/dL (74-106) Calcium Level 9.3 mg/dL (8.6-10.2) Total Bilirubin 1.4 mg/dL (0.0-1.2) Direct Bilirubin 0.3 mg/dL (0.1-0.3) Aspartate Amino Transf (AST/SGOT) 28 U/L (5-40) Alanine Aminotransferase (ALT/SGPT) 32 U/L (3-33) Alkaline Phosphatase 68 U/L (35-104) Lactate Dehydrogenase 240 U/L (135-230) Total Creatine Kinase 58 U/L (26-140) Creatine Kinase MB < 1.5 ng/mL (< 3.8) Creatine Kinase MB Relative Index Troponin I < 0.30 ng/mL (<=0.30) Total Protein 7.1 g/dL (6.6-8.7) Albumin 4.4 g/dL (3.5-5.2) Globulin 2.7 g/dL Albumin/Globulin Ratio 1.6 (1.0-2.7) EKG Diagnostic Results Rate: normal Rhythm: NSR ST Segments: no acute changes ASA given to the pt in ED: No Rhythm Strip Diag. Results EP Interpretation: yes Rhythm: NSR, no PVC's, no ectopy Chest X-Ray Diagnostic Results Chest X-Ray Diagnostic Results : Chest X-Ray Ordered: Yes # of Views/Limited/Complete: 1 View Indication: Shortness of Breath EP Interpretation: No Interpretation: no consolidation, no effusion, no pneumothorax, no acute cardiopulmonary disease, other - cardiomegaly Impression: No acute disease Last Vital Signs Date Time Temp Pulse Resp B/P Pulse Ox O2 Delivery O2 Flow Rate FiO2 03/31/17 12:39 97.8 03/31/17 11:50 20 120/70 95 Room Air 03/31/17 11:36 98 Status: improved Disposition: HOME, SELF-CARE Condition: Stable Referrals: [facility] (PCP) SP HAMMOND M.D. Mar 31, 2017 13:14
[2017-03-31 13:39] LABS: ANISOCYTOSIS 1+; BAND NEUTROPHILS % (MANUAL) 0 % (0-8); BASOPHILS % (MANUAL) 0 % (0-2); EOSINOPHILS % (MANUAL) 5 % (0-3); LYMPHOCYTES % (MANUAL) 35 % (20-45); NEUTROPHILS % (MANUAL) 53 % (45-75); PLATELET ESTIMATE ADEQUATE; PLATELET MORPHOLOGY NORMAL; TOTAL CELLS COUNTED 100
[2017-03-31 13:40] LABS: HYPOCHROMASIA 1+; MACROCYTES 1+; POLYCHROMASIA 2+; SICKLE CELLS 1+
[2017-03-31 14:39] VITALS: BP 114/70
[2017-03-31 14:41] VITALS: BP 114/70
[2017-04-02 07:42] LABS: OTHERS PATHOLOGIST COMMENT
== END 2017-03-31 14:10 | disposition home or self-care (01) ==
LOC: EMR 12:15
DX: D57.00 Hb-SS disease with crisis, unspecified (principal); D72.829 Elevated white blood cell count, unspecified; F11.29 Opioid dependence with unspecified opioid-induced disorder; I51.7 Cardiomegaly
CPT/HCPCS: 36415; 71010; 80053; 82248; 82550; 82553; 83615; 84484; 85007; 85025; 85044; 85610; 85730; 86850; 86870; 86900; 86901; 93005; 96361; 96374; 96375; 99284; J1170; J1200

== ENCOUNTER 2017-04-18 13:26 | Inpatient (IN) | payer MEDICAID, OTHER ==
[~2017-04-18] VITALS: Ht 167.6 cm; Wt 56.7 kg
[2017-04-18 14:00] VITALS: BP 112/67
[2017-04-18] MEDS ORDERED: Morphine Sulfate 4mg/ml Inj IVP ONE (14:30)
[2017-04-18 14:55] LABS: BASOPHILS % (AUTO) 1.3 % (0.0-2.0); EOSINOPHILS % (AUTO) 5.5 % (0.0-3.0); LYMPHOCYTES % (AUTO) 37.6 % (20.0-45.0); MEAN CORPUSCULAR HEMOGLOBIN 33.7 PG (27.0-31.0); MEAN CORPUSCULAR HGB CONC 33.2 G/DL (32.0-36.0); MEAN CORPUSCULAR VOLUME 101 FL (80-99); MONOCYTES % (AUTO) 5.9 % (1.0-10.0); NEUTROPHILS % (AUTO) 49.7 % (45.0-75.0); PLATELET COUNT 454 K/UL (150-450); RED BLOOD COUNT 2.38 M/UL (4.20-5.40); RED CELL DISTRIBUTION WIDTH 15.1 % (11.6-14.8); WHITE BLOOD COUNT 16.5 K/UL (4.8-10.8)
[2017-04-18 14:58] LABS: APPEARANCE,URINE CLEAR; KETONES,URINE NEGATIVE (NEGATIVE); LEUKOCYTE ESTERASE ,URINE 1+ (NEGATIVE); NITRITE,URINE NEGATIVE (NEGATIVE); PH,URINE 6.5 (4.5-8.0); PROTEIN,URINE 2+ (NEGATIVE); UROBILINOGEN,URINE 1 MG/DL (0.0-1.0)
[2017-04-18 15:10] LABS: ALANINE AMINOTRANSFERASE 22 U/L (3-33); ALBUMIN/GLOBULIN RATIO 1.6 (1.0-2.7); ANION GAP 9 (5-15); ASPARTATE AMINO TRANSFERASE 40 U/L (5-40); CALCIUM 9.2 mg/dL (8.6-10.2); CARBON DIOXIDE 26 mEQ/L (20-30); CHLORIDE 104 mEQ/L (98-107); CREATININE 0.5 mg/dL (0.5-0.9); GLOMERULAR FILTRATION RATE > 60 mL/min (>60); HEMOLYSIS 13; POTASSIUM 3.9 mEQ/L (3.4-4.9); SODIUM 139 mEQ/L (135-145); TOTAL PROTEIN 6.9 g/dL (6.6-8.7); TROPONIN I < 0.30 ng/mL (<=0.30)
--- NOTE | 2017-04-18 15:15 | Emergency Room Report ---
History of Present Illness General Chief Complaint: Pain Source: Patient Present Illness HPI This patient has a history of sickle cell disease. The patient states that she developed allover body pain 6 days ago. She states that this is consistent with her sickle cell crises. She states that she was seen at an urgent care last night. She was going to be admitted and undergo blood transfusion but she declined and decided to come here for admission instead. He does not have localized pain. She states she is allover body pain. She denies fever or chills. She denies congestion or shortness of breath. She has no other complaints. Allergies: Coded Allergies: No Known Allergies (Unverified , 02/22/17) Patient History Past Medical History: see triage record, other - SCD Social History: Reports: drug use Last Menstrual Period: 03/25/17 Now: No : 0 Para: 0 Reviewed Nursing Documentation: PMH: Agreed, PSxH: Agreed Nursing Documentation-PMH Past Medical History: No History, Except For Hx Hypertension: No Hx Pacemaker: No Hx Cancer: No Hx Gastrointestinal Problems: No Hx Neurological Problems: No Hx Cerebrovascular Accident: No Hx Transient Ischemic Attacks: No Hx Dementia: No Hx Alzheimer's Disease: No Hx Parkinson's Disease: No Hx Meningitis: No Hx Encephalitis: No Hx Seizures: No Hx Epilepsy: No Hx Multiple Sclerosis: No Hx Cerebral Palsy: No Hx Amyotrophic Lat Sclerosis: No Hx [place] Syndrome: No Hx Paralysis: No Hx Peripheral Neuropathy: No Hx Spinal Cord Injury: No Hx Head Trauma: No Hx Traumatic Brain Injury: No Hx Memory Loss: No Hx Concentration Difficulty: No Hx Speech Problem: No Hx Tremors: No Hx Vertigo: No Hx Dizziness: No Hx Syncope: No Hx Headaches: No Hx Aphasia: No Hx Dysphasia: No Hx Numbness: No Hx Weakness: No Hx Fatigue: No Hx Neurologic Surgery: No Hx Brain Shunt: No Review of Systems All Other Systems: negative except mentioned in HPI Physical Exam Vital Signs Date Time Temp Pulse Resp B/P Pulse Ox O2 Delivery O2 Flow Rate FiO2 04/18/17 13:43 98.4 90 14 112/67 97 Room Air Sp02 EP Interpretation: reviewed, normal General Appearance: no apparent distress, alert, GCS 15, non-toxic Head: normocephalic, atraumatic Eyes: bilateral eye PERRL, bilateral eye normal inspection ENT: hearing grossly normal, normal pharynx, no angioedema, normal voice Neck: full range of motion, supple/symm/no masses Respiratory: chest non-tender, lungs clear, normal breath sounds, speaking full sentences Cardiovascular #1: regular rate, rhythm, no edema Gastrointestinal: normal bowel sounds, non tender, soft, non-distended, no guarding, no rebound Rectal: deferred Musculoskeletal: back normal, normal range of motion Neurologic: alert, oriented x3, responsive, motor strength/tone normal, sensory intact, speech normal Psychiatric: judgement/insight normal, memory normal, mood/affect normal, no suicidal/homicidal ideation Skin: normal color, no rash, warm/dry, well hydrated Medical Decision Making Diagnostic Impression: Primary Impression: Sickle cell crisis ER Course This patient presents with sickle cell crises. She was given IV fluids and pain medications and admitted for further evaluation and treatment. Labs Test 04/18/17 14:40 White Blood Count 16.5 K/UL (4.8-10.8) Red Blood Count 2.38 M/UL (4.20-5.40) Hemoglobin 8.0 G/DL (12.0-16.0) Hematocrit 24.1 % (37.0-47.0) Mean Corpuscular Volume 101 FL (80-99) Mean Corpuscular Hemoglobin 33.7 PG (27.0-31.0) Mean Corpuscular Hemoglobin Concent 33.2 G/DL (32.0-36.0) Red Cell Distribution Width 15.1 % (11.6-14.8) Platelet Count 454 K/UL (150-450) Mean Platelet Volume 6.0 FL (6.5-10.1) Neutrophils (%) (Auto) 49.7 % (45.0-75.0) Lymphocytes (%) (Auto) 37.6 % (20.0-45.0) Monocytes (%) (Auto) 5.9 % (1.0-10.0) Eosinophils (%) (Auto) 5.5 % (0.0-3.0) Basophils (%) (Auto) 1.3 % (0.0-2.0) Prothrombin Time 11.1 SEC (9.30-11.50) Prothromb Time International Ratio 1.1 (0.9-1.1) Activated Partial Thromboplast Time 22 SEC (23-33) Urine Color Yellow Urine Appearance Clear Urine pH 6.5 (4.5-8.0) Urine Specific [place] 1.010 (1.005-1.035) Urine Protein 2+ (NEGATIVE) Urine Glucose (UA) Negative (NEGATIVE) Urine Ketones Negative (NEGATIVE) Urine Occult Blood 4+ (NEGATIVE) Urine Nitrite Negative (NEGATIVE) Urine Bilirubin Negative (NEGATIVE) Urine Urobilinogen 1 MG/DL (0.0-1.0) Urine Leukocyte Esterase 1+ (NEGATIVE) Urine RBC 2-4 /HPF (0 - 2) Urine WBC 2-4 /HPF (0 - 2) Urine Squamous Epithelial Cells Few /LPF (NONE/OCC) Urine Bacteria Few /HPF (NONE) Sodium Level 139 mEQ/L (135-145) Potassium Level 3.9 mEQ/L (3.4-4.9) Chloride Level 104 mEQ/L (98-107) Carbon Dioxide Level 26 mEQ/L (20-30) Anion Gap 9 (5-15) Blood Urea Nitrogen 5 mg/dL (7-23) Creatinine 0.5 mg/dL (0.5-0.9) Estimat Glomerular Filtration Rate > 60 mL/min (>60) Glucose Level 89 mg/dL (74-106) Calcium Level 9.2 mg/dL (8.6-10.2) Total Bilirubin 1.5 mg/dL (0.0-1.2) Aspartate Amino Transf (AST/SGOT) 40 U/L (5-40) Alanine Aminotransferase (ALT/SGPT) 22 U/L (3-33) Alkaline Phosphatase 67 U/L (35-104) Total Creatine Kinase 857 U/L (26-140) Creatine Kinase MB 1.8 ng/mL (< 3.8) Creatine Kinase MB Relative Index 0.2 Troponin I < 0.30 ng/mL (<=0.30) Total Protein 6.9 g/dL (6.6-8.7) Albumin 4.3 g/dL (3.5-5.2) Globulin 2.6 g/dL Albumin/Globulin Ratio 1.6 (1.0-2.7) Urine Opiates Screen Positive (NEGATIVE) Urine Barbiturates Screen Negative (NEGATIVE) Phencyclidine (PCP) Screen Negative (NEGATIVE) Urine Amphetamines Screen Negative (NEGATIVE) Urine Benzodiazepines Screen Negative (NEGATIVE) Urine Cocaine Screen Negative (NEGATIVE) Urine Marijuana (THC) Screen Negative (NEGATIVE) EKG Diagnostic Results Rate: normal Rhythm: NSR ST Segments: other Other Impression NSST Rhythm Strip Diag. Results EP Interpretation: yes Rate: 70 Rhythm: NSR, no PVC's, no ectopy Last Vital Signs Date Time Temp Pulse Resp B/P Pulse Ox O2 Delivery O2 Flow Rate FiO2 04/18/17 14:00 98.4 14 112/67 97 Room Air 04/18/17 13:43 90 Referrals: IPA,REFERRING (PCP) PAL DURÁN D.O. Apr 18, 2017 15:15
[2017-04-18 15:16] LABS: BACTERIA,URINE FEW /HPF; INR 1.1 (0.9-1.1); PROTHROMBIN TIME 11.1 SEC (9.30-11.50); SQUAMOUS EPITHELIAL CELL,UR FEW /LPF (NONE/OCC)
[2017-04-18 15:20] LABS: CKMB 1.8 ng/mL (< 3.8)
[2017-04-18 15:41] LABS: BILIRUBIN,DIRECT 0.3 mg/dL (0.1-0.3)
[2017-04-18 16:14] VITALS: BP 97/64
[2017-04-18] MEDS ORDERED: Zolpidem 5mg tab ORAL PRN (16:15)
[2017-04-18] MEDS ORDERED: LORazepam Inj 2mg/ml 1ml IV PRN (16:15)
[2017-04-18] MEDS ORDERED: Mylanta II UD 30ml ORAL PRN (16:15)
[2017-04-18] MEDS ORDERED: Miralax 17gm pkt ORAL PRN (16:15)
[2017-04-18] MEDS: DiphenhydrAMINE 50mg/ml Inj IVP PRN (19:49)
[2017-04-18] MEDS: Heparin 5000 units/ml inj SUBQ SCH (20:34)
[2017-04-18 20:36] VITALS: BP 110/62
--- NOTE | 2017-04-18 22:57 | History and Physical ---
History of Present Illness General Date patient seen: Apr 18, 2017 Reason for Hospitalization: Pain Present Illness HPI 27 year old female with history of sickle cell disease presented to ER with CC of allover body pain 6 days ago, this is consistent with her sickle cell crises. She states that she was seen at an urgent care last night. She was going to be admitted and undergo blood transfusion but she declined and decided to come here for admission instead. He does not have localized pain. She states she is allover body pain. She denies fever or chills. She denies congestion or shortness of breath. She has no other complaints. Allergies: Coded Allergies: No Known Allergies (Unverified , 02/22/17) Medication History Scheduled Calcium Carbonate (Calcium), 500 MG PO DAILY, (Reported) Folic Acid* (Folic Acid*), 1 MG ORAL DAILY, (Reported) Hydralazine Hcl* (Hydralazine Hcl*), 10 MG ORAL EVERY 8 HOURS, (Reported) Hydroxyurea* (Hydrea*), 500 MG PO DAILY, (Reported) Multivitamins* (Multivitamins*), 1 TAB ORAL DAILY, (Reported) Scheduled PRN Diphenhydramine Hcl* (Benadryl*), 25 MG ORAL Q6H PRN for Itching, (Reported) Miscellaneous Medications Hydromorphone Hcl (Dilaudid), 2 MG PO, (Reported) Patient History Healthcare decision maker Resuscitation status Advanced Directive on File Past Medical/Surgical History Past Medical/Surgical History: (1) Sickle cell disease Review of Systems All Other Systems: negative except mentioned in HPI Physical Exam General Appearance: WD/WN Lines, tubes and drains: peripheral HEENT: normocephalic, atraumatic Neck: non-tender, normal alignment Respiratory/Chest: chest wall non-tender, lungs clear Breasts: no masses Cardiovascular/Chest: normal peripheral pulses, normal rate Abdomen: normal bowel sounds, non tender Genitourinary/Rectal: normal genital exam Extremities: normal range of motion Skin Exam: normal pigmentation Last 24 Hour Vital Signs Date Time Temp Pulse Resp B/P Pulse Ox O2 Delivery O2 Flow Rate FiO2 04/18/17 20:36 97.5 76 18 110/62 96 Room Air 04/18/17 20:19 97.8 04/18/17 17:16 97.8 75 14 97/64 97 Room Air 04/18/17 16:16 97.8 04/18/17 16:14 97.8 75 14 97 Room Air 04/18/17 14:00 98.4 14 97 Room Air 04/18/17 13:43 98.4 90 14 97 Room Air Laboratory Tests Test 04/18/17 14:40 White Blood Count 16.5 K/UL (4.8-10.8) H Red Blood Count 2.38 M/UL (4.20-5.40) L Hemoglobin 8.0 G/DL (12.0-16.0) L Hematocrit 24.1 % (37.0-47.0) L Mean Corpuscular Volume 101 FL (80-99) H Mean Corpuscular Hemoglobin 33.7 PG (27.0-31.0) H Mean Corpuscular Hemoglobin Concent 33.2 G/DL (32.0-36.0) Red Cell Distribution Width 15.1 % (11.6-14.8) H Platelet Count 454 K/UL (150-450) H Mean Platelet Volume 6.0 FL (6.5-10.1) L Neutrophils (%) (Auto) 49.7 % (45.0-75.0) Lymphocytes (%) (Auto) 37.6 % (20.0-45.0) Monocytes (%) (Auto) 5.9 % (1.0-10.0) Eosinophils (%) (Auto) 5.5 % (0.0-3.0) H Basophils (%) (Auto) 1.3 % (0.0-2.0) Prothrombin Time 11.1 SEC (9.30-11.50) Prothromb Time International Ratio 1.1 (0.9-1.1) Activated Partial Thromboplast Time 22 SEC (23-33) L Urine Color Yellow Urine Appearance Clear Urine pH 6.5 (4.5-8.0) Urine Specific [place] 1.010 (1.005-1.035) Urine Protein 2+ (NEGATIVE) H Urine Glucose (UA) Negative (NEGATIVE) Urine Ketones Negative (NEGATIVE) Urine Occult Blood 4+ (NEGATIVE) H Urine Nitrite Negative (NEGATIVE) Urine Bilirubin Negative (NEGATIVE) Urine Urobilinogen 1 MG/DL (0.0-1.0) H Urine Leukocyte Esterase 1+ (NEGATIVE) H Urine RBC 2-4 /HPF (0 - 2) H Urine WBC 2-4 /HPF (0 - 2) Urine Squamous Epithelial Cells Few /LPF (NONE/OCC) Urine Bacteria Few /HPF (NONE) Sodium Level 139 mEQ/L (135-145) Potassium Level 3.9 mEQ/L (3.4-4.9) Chloride Level 104 mEQ/L (98-107) Carbon Dioxide Level 26 mEQ/L (20-30) Anion Gap 9 (5-15) Blood Urea Nitrogen 5 mg/dL (7-23) L Creatinine 0.5 mg/dL (0.5-0.9) Estimat Glomerular Filtration Rate > 60 mL/min (>60) Glucose Level 89 mg/dL (74-106) Calcium Level 9.2 mg/dL (8.6-10.2) Total Bilirubin 1.5 mg/dL (0.0-1.2) H Direct Bilirubin 0.3 mg/dL (0.1-0.3) Aspartate Amino Transf (AST/SGOT) 40 U/L (5-40) Alanine Aminotransferase (ALT/SGPT) 22 U/L (3-33) Alkaline Phosphatase 67 U/L (35-104) Total Creatine Kinase 857 U/L (26-140) H Creatine Kinase MB 1.8 ng/mL (< 3.8) Creatine Kinase MB Relative Index 0.2 Troponin I < 0.30 ng/mL (<=0.30) Total Protein 6.9 g/dL (6.6-8.7) Albumin 4.3 g/dL (3.5-5.2) Globulin 2.6 g/dL Albumin/Globulin Ratio 1.6 (1.0-2.7) Urine Opiates Screen Positive (NEGATIVE) H Urine Barbiturates Screen Negative (NEGATIVE) Phencyclidine (PCP) Screen Negative (NEGATIVE) Urine Amphetamines Screen Negative (NEGATIVE) Urine Benzodiazepines Screen Negative (NEGATIVE) Urine Cocaine Screen Negative (NEGATIVE) Urine Marijuana (THC) Screen Negative (NEGATIVE) Height (Feet): 5 Height (Inches): 6.00 Weight (Pounds): 125 Medications Current Medications Medications (Trade) Dose Ordered Sig/Marcellus Route PRN Reason Start Time Stop Time Status Last Admin Dose Admin Acetaminophen (Tylenol) 650 mg Q4H PRN ORAL fever 04/18/17 16:15 05/18/17 16:14 Al Hydroxide/Mg Hydroxide (Mylanta II) 30 ml Q6H PRN ORAL dyspepsia 04/18/17 16:15 05/18/17 16:14 Dextrose (Dextrose 50%) STAT PRN IV Hypoglycemia 04/18/17 16:15 05/18/17 16:14 Diphenhydramine HCl (Benadryl) 25 mg Q6H PRN IVP Itching 04/18/17 19:30 05/18/17 19:29 04/18/17 19:49 Heparin Sodium (Porcine) (Heparin 5000 units/ml) 5,000 units EVERY 12 HOURS SUBQ 04/18/17 21:00 05/18/17 20:59 Hydromorphone HCl (Dilaudid) 2 mg Q3H PRN IV pain 4-6 04/18/17 16:15 04/25/17 16:14 04/18/17 22:51 Hydromorphone HCl 3 mg 3 mg Q3H PRN IVP For Pain 7-10 04/18/17 16:15 04/25/17 16:14 Lorazepam (Ativan 2mg/ml 1ml) 0.5 mg Q4H PRN IV For Anxiety 04/18/17 16:15 04/25/17 16:14 Ondansetron HCl (Zofran) 4 mg Q6H PRN IVP Nausea & Vomiting 04/18/17 16:15 05/18/17 16:14 Polyethylene Glycol (Miralax) 17 gm HSPRN PRN ORAL Constipation 04/18/17 16:15 05/18/17 16:14 Sodium Chloride (0.45% NS 1000ml) 1,000 ml @ 75 mls/hr [id number] IV 04/18/17 18:00 05/18/17 17:59 04/18/17 18:34 Zolpidem Tartrate (Ambien) 5 mg HSPRN PRN ORAL Insomnia 04/18/17 16:15 05/18/17 16:14 Assessment/Plan Problem List: (1) Severe anemia ICD Codes: D64.9 - Anemia, unspecified SNOMED: 313935979 (2) Sickle cell disease ICD Codes: D57.1 - Sickle-cell disease without crisis SNOMED: 403790417 Assessment/Plan iv fluids prn analgesics Hematology evaluation pain management f/u wbc, bilirubin and LDH BERNARDO YATES Apr 18, 2017 22:57
[2017-04-18 23:53] VITALS: BP 121/65
[2017-04-19] MEDS: DiphenhydrAMINE 50mg/ml Inj IVP PRN ×4 (03:21→21:24)
[2017-04-19 04:00] VITALS: BP 115/67
[2017-04-19 06:52] LABS: MEAN CORPUSCULAR HGB CONC 35.2 G/DL (32.0-36.0); MEAN CORPUSCULAR VOLUME 99 FL (80-99); PLATELET COUNT 402 K/UL (150-450); RED BLOOD COUNT 2.05 M/UL (4.20-5.40); RED CELL DISTRIBUTION WIDTH 17.4 % (11.6-14.8); WHITE BLOOD COUNT 18.7 K/UL (4.8-10.8)
[2017-04-19 07:10] LABS: ALANINE AMINOTRANSFERASE 18 U/L (3-33); ALBUMIN/GLOBULIN RATIO 1.4 (1.0-2.7); ANION GAP 9 (5-15); ASPARTATE AMINO TRANSFERASE 34 U/L (5-40); CALCIUM 8.7 mg/dL (8.6-10.2); CARBON DIOXIDE 26 mEQ/L (20-30); CHLORIDE 106 mEQ/L (98-107); CREATININE 0.4 mg/dL (0.5-0.9); GLOMERULAR FILTRATION RATE > 60 mL/min (>60); HEMOLYSIS 8; LACTATE DEHYDROGENASE 362 U/L (135-230); POTASSIUM 4.2 mEQ/L (3.4-4.9); SODIUM 141 mEQ/L (135-145); TOTAL PROTEIN 6.7 g/dL (6.6-8.7)
[2017-04-19 07:24] LABS: BILIRUBIN,DIRECT 0.3 mg/dL (0.1-0.3)
[2017-04-19 07:49] LABS: EOSINOPHILS % (MANUAL) 4 % (0-3); LYMPHOCYTES % (MANUAL) 37 % (20-45); NEUTROPHILS % (MANUAL) 54 % (45-75); TOTAL CELLS COUNTED 100
[2017-04-19 07:50] LABS: BAND NEUTROPHILS % (MANUAL) 0 % (0-8); BASOPHILS % (MANUAL) 0 % (0-2); PLATELET ESTIMATE ADEQUATE; PLATELET MORPHOLOGY NORMAL
[2017-04-19 07:51] LABS: MACROCYTES 1+; SICKLE CELLS 2+
[2017-04-19 08:00] VITALS: BP 113/67
--- NOTE | 2017-04-19 08:31 | General Progress Note ---
Assessment/Plan Assessment/Plan (1) Intractable pain (2) Sickle cell disease (3) Sickle cell crisis We will continue Dilaudid 2-3mg IV Q3H PRN pain. Pt was d/w Dr. Acevedo and he concurred. Subjective Date patient seen: Apr 19, 2017 Time patient seen: 07:30 - am Allergies: Coded Allergies: No Known Allergies (Unverified , 02/22/17) Subjective Constitutional: Reports: weakness, Denies: chills, diaphoresis, fever, malaise , no symptoms, other HEENT: Denies: blurred vision, double vision, ear discharge, ear pain, eye pain , mouth pain, mouth swelling, no symptoms, nose congestion, nose pain, other, tearing, throat pain, throat swelling Cardiovascular: Denies: chest pain, edema, irregular heart rate, lightheadedness, no symptoms, other, palpitations, syncope Respiratory: Denies: SOB at rest, SOB with excertion, cough, no symptoms, orthopnea, other, shortness of breath, sputum, stridor, wheezing Gastrointestinal/Abdominal: Denies: abdomen distended, abdominal pain, black stools, blood in stool, constipated, diarrhea, difficulty swallowing, nausea, no symptoms, other, poor appetite, poor fluid intake, rectal bleeding, tarry stools, vomiting Genitourinary: Denies: burning, discharge, flank pain, frequency, hematuria, incontinence, no symptoms, other, pain, urgency Neurologic/Psychiatric: Reports: weakness, Denies: anxiety, depressed, emotional problems, headache, no symptoms, numbness, other, paresthesia, pre- existing deficit, seizure, tingling, tremors Endocrine: Denies: excessive sweating, flushing, increased hunger, increased thirst, increased urine, intolerance to cold, intolerance to heat, no symptoms, other, unexplained weight gain, unexplained weight loss Hematologic/Lymphatic: Denies: anemia, easy bleeding, easy bruising, no symptoms, other Subjective Pt is a known patient from prior admission and was admitted under the care of Dr. Tim due to sickle cell crisis. She is on Dilaudid 2-3mg IV Q3H PRN and is tolerating pain well. Objective Last 24 Hour Vital Signs Date Time Temp Pulse Resp B/P Pulse Ox O2 Delivery O2 Flow Rate FiO2 04/19/17 06:55 97.6 04/19/17 04:00 97.6 98 20 115/67 96 Room Air 04/18/17 23:53 97.6 85 20 121/65 96 Room Air 04/18/17 20:36 97.5 76 18 110/62 96 Room Air 04/18/17 17:16 97.8 75 14 97/64 97 Room Air 04/18/17 16:16 97.8 04/18/17 16:14 97.8 75 14 97/64 97 Room Air 04/18/17 14:00 98.4 14 112/67 97 Room Air 04/18/17 13:43 98.4 90 14 112/67 97 Room Air Intake and Output 04/18/17 04/19/17 19:00 07:00 Intake Total 2000 ml 825 ml Balance 2000 ml 825 ml Intake IV Total 2000 ml 825 ml # Voids 3 Laboratory Tests 04/18/17 14:40: White Blood Count 16.5H, Red Blood Count 2.38L, Hemoglobin 8.0L, Hematocrit 24.1L, Mean Corpuscular Volume 101H, Mean Corpuscular Hemoglobin 33.7H, Mean Corpuscular Hemoglobin Concent 33.2, Red Cell Distribution Width 15.1H, Platelet Count 454H, Mean Platelet Volume 6.0L, Neutrophils (%) (Auto) 49.7, Lymphocytes (%) (Auto) 37.6, Monocytes (%) (Auto) 5.9, Eosinophils (%) (Auto) 5.5H, Basophils (%) (Auto) 1.3, Prothrombin Time 11.1, Prothromb Time International Ratio 1.1, Activated Partial Thromboplast Time 22L, Urine Color Yellow, Urine Appearance Clear, Urine pH 6.5, Urine Specific [place] 1.010, Urine Protein 2+H, Urine Glucose (UA) Negative, Urine Ketones Negative, Urine Occult Blood 4+H, Urine Nitrite Negative, Urine Bilirubin Negative, Urine Urobilinogen 1H, Urine Leukocyte Esterase 1+H, Urine RBC 2-4H, Urine WBC 2-4, Urine Squamous Epithelial Cells Few, Urine Bacteria Few, Sodium Level 139, Potassium Level 3.9, Chloride Level 104, Carbon Dioxide Level 26, Anion Gap 9, Blood Urea Nitrogen 5L, Creatinine 0.5, Estimat Glomerular Filtration Rate > 60 , Glucose Level 89, Calcium Level 9.2, Total Bilirubin 1.5H, Direct Bilirubin 0.3, Aspartate Amino Transf (AST/SGOT) 40, Alanine Aminotransferase (ALT/SGPT) 22, Alkaline Phosphatase 67, Total Creatine Kinase 857H, Creatine Kinase MB 1.8 , Creatine Kinase MB Relative Index 0.2, Troponin I < 0.30, Total Protein 6.9, Albumin 4.3, Globulin 2.6, Albumin/Globulin Ratio 1.6, Urine Opiates Screen PositiveH, Urine Barbiturates Screen Negative, Phencyclidine (PCP) Screen Negative, Urine Amphetamines Screen Negative, Urine Benzodiazepines Screen Negative, Urine Cocaine Screen Negative, Urine Marijuana (THC) Screen Negative 04/19/17 05:20: Sodium Level 141, Potassium Level 4.2, Chloride Level 106, Carbon Dioxide Level 26, Anion Gap 9, Blood Urea Nitrogen 4L, Creatinine 0.4L, Estimat Glomerular Filtration Rate > 60, Glucose Level 85, Calcium Level 8.7, Total Bilirubin 2.1H , Direct Bilirubin 0.3, Aspartate Amino Transf (AST/SGOT) 34, Alanine Aminotransferase (ALT/SGPT) 18, Alkaline Phosphatase 66, Total Protein 6.7, Albumin 4.0, Globulin 2.7, Albumin/Globulin Ratio 1.4, Lactate Dehydrogenase 362H 04/19/17 05:25: White Blood Count 18.7H, Red Blood Count 2.05L, Hemoglobin 7.2L, Hematocrit 20.3L, Mean Corpuscular Volume 99, Mean Corpuscular Hemoglobin 35.0H, Mean Corpuscular Hemoglobin Concent 35.2, Red Cell Distribution Width 17.4H, Platelet Count 402, Mean Platelet Volume 6.0L, Neutrophils (%) (Auto) , Lymphocytes (%) (Auto) , Monocytes (%) (Auto) , Eosinophils (%) (Auto) , Basophils (%) (Auto) , Differential Total Cells Counted 100, Neutrophils % ( Manual) 54, Lymphocytes % (Manual) 37, Monocytes % (Manual) 5, Eosinophils % ( Manual) 4H, Basophils % (Manual) 0, Band Neutrophils 0, Platelet Estimate Adequate, Platelet Morphology Normal, Macrocytosis 1+, Sickle Cells 2+H, Reticulocyte Count [Pending] Height (Feet): 5 Height (Inches): 6.00 Weight (Pounds): 125 Objective General Appearance: no apparent distress, alert EENT: PERRL/EOMI, normal ENT inspection Neck: normal alignment, supple Cardiovascular: normal rate, regular rhythm Abdomen: non tender, soft Edema: no edema noted Arm (L), no edema noted Arm (R), no edema noted Leg (L), no edema noted Leg (R), no edema noted Pedal (L), no edema noted Pedal (R), no edema noted Generalized Neurologic: alert, oriented x 3 KOFFI JARA Apr 19, 2017 08:31
[2017-04-19] MEDS: Heparin 5000 units/ml inj SUBQ SCH ×2 (09:00→20:07)
[2017-04-19 11:39] VITALS: BP 108/72
--- NOTE | 2017-04-19 14:43 | Cardiology Report ---
APPROVED REPORT EKG Measurement Heart [id number] Normal sinus rhythm Nonspecific ST abnormality Abnormal ECG
[2017-04-19 15:34] VITALS: BP 112/54
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
--- NOTE | 2017-04-19 18:39 | Pulmonology Progress Note ---
Assessment/Plan Problems: (1) Severe anemia (2) Sickle cell disease Assessment/Plan iv fluids check LDH, prbc today Subjective ROS Limited/Unobtainable: No Constitutional: Reports: no symptoms HEENT: Repors: no symptoms Respiratory: Reports: no symptoms Allergies: Coded Allergies: No Known Allergies (Unverified , 02/22/17) Objective Last 24 Hour Vital Signs Date Time Temp Pulse Resp B/P Pulse Ox O2 Delivery O2 Flow Rate FiO2 04/19/17 15:34 97.9 99 18 112/54 98 Nasal Cannula 2.0 04/19/17 11:39 98.1 87 20 108/72 88 Room Air 04/19/17 08:00 98.1 72 18 113/67 90 Room Air 04/19/17 06:55 97.6 04/19/17 04:00 97.6 98 20 115/67 96 Room Air 04/18/17 23:53 97.6 85 20 121/65 96 Room Air 04/18/17 20:36 97.5 76 18 110/62 96 Room Air Intake and Output 04/18/17 04/19/17 19:00 07:00 Intake Total 2000 ml 825 ml Balance 2000 ml 825 ml Intake IV Total 2000 ml 825 ml # Voids 3 General Appearance: WD/WN HEENT: normocephalic, atraumatic Respiratory/Chest: chest wall non-tender, lungs clear Breasts: no masses Cardiovascular: normal peripheral pulses Abdomen: normal bowel sounds, soft, non tender Genitourinary: normal external genitalia Extremities: no cyanosis Skin: no rash Neurologic/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 II-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 grossly normal Lymphatic: no neck adenopathy Laboratory Tests 04/19/17 05:20: Sodium Level 141, Potassium Level 4.2, Chloride Level 106, Carbon Dioxide Level 26, Anion Gap 9, Blood Urea Nitrogen 4L, Creatinine 0.4L, Estimat Glomerular Filtration Rate > 60, Glucose Level 85, Calcium Level 8.7, Total Bilirubin 2.1H , Direct Bilirubin 0.3, Aspartate Amino Transf (AST/SGOT) 34, Alanine Aminotransferase (ALT/SGPT) 18, Alkaline Phosphatase 66, Lactate Dehydrogenase 362H, Total Protein 6.7, Albumin 4.0, Globulin 2.7, Albumin/Globulin Ratio 1.4 04/19/17 05:25: White Blood Count 18.7H, Red Blood Count 2.05L, Hemoglobin 7.2L, Hematocrit 20.3L, Mean Corpuscular Volume 99, Mean Corpuscular Hemoglobin 35.0H, Mean Corpuscular Hemoglobin Concent 35.2, Red Cell Distribution Width 17.4H, Platelet Count 402, Mean Platelet Volume 6.0L, Neutrophils (%) (Auto) , Lymphocytes (%) (Auto) , Monocytes (%) (Auto) , Eosinophils (%) (Auto) , Basophils (%) (Auto) , Differential Total Cells Counted 100, Neutrophils % ( Manual) 54, Lymphocytes % (Manual) 37, Monocytes % (Manual) 5, Eosinophils % ( Manual) 4H, Basophils % (Manual) 0, Band Neutrophils 0, Platelet Estimate Adequate, Platelet Morphology Normal, Macrocytosis 1+, Sickle Cells 2+H, Reticulocyte Count 8.4H Current Medications Medications (Trade) Dose Ordered Sig/Marcellus Route PRN Reason Start Time Stop Time Status Last Admin Dose Admin Acetaminophen (Tylenol) 650 mg Q4H PRN ORAL fever 04/18/17 16:15 05/18/17 16:14 Al Hydroxide/Mg Hydroxide (Mylanta II) 30 ml Q6H PRN ORAL dyspepsia 04/18/17 16:15 05/18/17 16:14 Dextrose (Dextrose 50%) STAT PRN IV Hypoglycemia 04/18/17 16:15 05/18/17 16:14 Diphenhydramine HCl (Benadryl) 25 mg Q6H PRN IVP Itching 04/18/17 19:30 05/18/17 19:29 04/19/17 15:24 Heparin Sodium (Porcine) (Heparin 5000 units/ml) 5,000 units EVERY 12 HOURS SUBQ 04/18/17 21:00 05/18/17 20:59 Hydromorphone HCl (Dilaudid) 2 mg Q3H PRN IV pain 4-6 04/18/17 16:15 04/25/17 16:14 04/19/17 18:24 Hydromorphone HCl 3 mg 3 mg Q3H PRN IVP For Pain 7-10 04/18/17 16:15 04/25/17 16:14 Lorazepam (Ativan 2mg/ml 1ml) 0.5 mg Q4H PRN IV For Anxiety 04/18/17 16:15 04/25/17 16:14 Ondansetron HCl (Zofran) 4 mg Q6H PRN IVP Nausea & Vomiting 04/18/17 16:15 05/18/17 16:14 Polyethylene Glycol (Miralax) 17 gm HSPRN PRN ORAL Constipation 04/18/17 16:15 05/18/17 16:14 Sodium Chloride (0.45% NS 1000ml) 1,000 ml @ 75 mls/hr [id number] IV 04/18/17 18:00 05/18/17 17:59 04/19/17 15:24 Zolpidem Tartrate (Ambien) 5 mg HSPRN PRN ORAL Insomnia 04/18/17 16:15 05/18/17 16:14 BERNARDO YATES Apr 19, 2017 18:39
[2017-04-19 20:00] VITALS: BP 118/54
[2017-04-20] VITALS (10 sets, daily range): BP systolic 100–128; BP diastolic 55–74
--- NOTE | 2017-04-20 02:16 | Consultation ---
DATE OF CONSULTATION: 04/19/2017 ekHEMATOLOGY/ONCOLOGY CONSULTATION CONSULTING PHYSICIAN: Nakul Gonzalez M.D. REQUESTING PHYSICIAN: Jt Tim M.D. REASON FOR CONSULTATION: Evaluation of sickle cell disease. IDENTIFICATION DATA: Dear Dr. Tim, The patient is a pleasant 27-year-old female with past medical history significant for sickle cell disease with frequent exacerbations. Her account resolution analyst is at [facility] on Dr. [place]o [place]. Her presentation is consistent with sickle cell crisis. Usually, it is to several days, currently on Dilaudid and on spirometer, presented to the urgent care initially. Today slight improvement. PAST MEDICAL HISTORY: Sickle cell disease with crisis. PAST SURGICAL HISTORY: None noted. MEDICATIONS: , hydralazine, hydroxyurea, and multivitamin. ALLERGIES: No known drug allergies. FAMILY HISTORY: Noncontributory besides sickle cell disease. REVIEW OF SYSTEMS: Constitutional: No fevers, chills, or night sweats. Skin: No rashes, bumps, or itching. HEENT: No headache, hearing, or vision changes. Breasts: No lumps, pain, or discharge Pulmonary: No cough, sputum, or shortness of breath. Cardiovascular: No chest pain, tightness, or palpitations. Gastrointestinal: No nausea, vomiting, or diarrhea. Genitourinary: No dysuria, frequency, or urgency. Musculoskeletal: No joint swelling, muscle pain, or trauma. PHYSICAL EXAMINATION: GENERAL: The patient is in no distress. VITAL SIGNS: Temperature is 98 degrees Fahrenheit, pulse of 75, respiratory rate 12, blood pressure 110/62, and pulse oximetry 96% on room air. PULMONARY: Decreased breath sounds. CARDIOVASCULAR: Regular rate. No S3 or S4. ABDOMEN: Soft, nontender, and nondistended. EXTREMITIES: There is 1+ edema. LABORATORY DATA: WBC 18.7, hemoglobin 7.2, hematocrit 20, and platelet count 402,000 with reticulocyte count 8.4. BUN of 4 and creatinine 0.4. INR of 1.1. ASSESSMENT: 1. Sickle cell crisis. 2. Elevated LDH as well as reticulocyte count 8.4. 3. Elevated bilirubin of 2.1 today. Continue to closely monitor. I have started the patient on Dilaudid, spirometer, and pain medications. 4. 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 Continue to closely monitor. 5. Leukocytosis secondary to sickle cell inflammatory state. No evidence of infection at the moment. 6. History of sickle cell disease and is on hydroxyurea. She sees her primary account resolution analyst on the outside. 7. Reticulocytosis. 8. Pain management. I greatly appreciate consultation. Nakul Gonzalez M.D. DR: LILY JOB#: [id number] CC:
[2017-04-20] MEDS: DiphenhydrAMINE 50mg/ml Inj IVP PRN ×4 (03:29→23:51)
[2017-04-20 07:19] LABS: MEAN CORPUSCULAR HEMOGLOBIN 35.5 PG (27.0-31.0); MEAN CORPUSCULAR HGB CONC 35.2 G/DL (32.0-36.0); MEAN CORPUSCULAR VOLUME 101 FL (80-99); MEAN PLATELET VOLUME 6.3 FL (6.5-10.1); PLATELET COUNT 400 K/UL (150-450); RED BLOOD COUNT 1.95 M/UL (4.20-5.40); RED CELL DISTRIBUTION WIDTH 20.1 % (11.6-14.8); WHITE BLOOD COUNT 18.6 K/UL (4.8-10.8)
[2017-04-20 07:43] LABS: ALANINE AMINOTRANSFERASE 26 U/L (3-33); ALBUMIN/GLOBULIN RATIO 1.5 (1.0-2.7); ANION GAP 8 (5-15); ASPARTATE AMINO TRANSFERASE 50 U/L (5-40); CALCIUM 8.6 mg/dL (8.6-10.2); CARBON DIOXIDE 27 mEQ/L (20-30); CHLORIDE 103 mEQ/L (98-107); CREATININE 0.4 mg/dL (0.5-0.9); GLOMERULAR FILTRATION RATE > 60 mL/min (>60); HEMOLYSIS 17; LACTATE DEHYDROGENASE 325 U/L (135-230); POTASSIUM 4.1 mEQ/L (3.4-4.9); SODIUM 138 mEQ/L (135-145); TOTAL PROTEIN 6.5 g/dL (6.6-8.7)
[2017-04-20 07:44] LABS: MAGNESIUM 1.8 mg/dL (1.7-2.5); PHOSPHORUS 4.3 mg/dL (2.5-4.8)
[2017-04-20 07:55] LABS: BILIRUBIN,DIRECT 0.4 mg/dL (0.1-0.3)
--- NOTE | 2017-04-20 08:41 | General Progress Note ---
Assessment/Plan Assessment/Plan (1) Intractable pain (2) Sickle cell disease (3) Sickle cell crisis We will continue Dilaudid. Pt was d/w Dr. Acevedo and he concurred. Subjective Date patient seen: Apr 20, 2017 Time patient seen: 07:15 - am Allergies: Coded Allergies: No Known Allergies (Unverified , 02/22/17) Subjective Constitutional: Reports: weakness, Denies: chills, diaphoresis, fever, malaise , no symptoms, other HEENT: Denies: blurred vision, double vision, ear discharge, ear pain, eye pain , mouth pain, mouth swelling, no symptoms, nose congestion, nose pain, other, tearing, throat pain, throat swelling Cardiovascular: Denies: chest pain, edema, irregular heart rate, lightheadedness, no symptoms, other, palpitations, syncope Respiratory: Denies: SOB at rest, SOB with excertion, cough, no symptoms, orthopnea, other, shortness of breath, sputum, stridor, wheezing Gastrointestinal/Abdominal: Denies: abdomen distended, abdominal pain, black stools, blood in stool, constipated, diarrhea, difficulty swallowing, nausea, no symptoms, other, poor appetite, poor fluid intake, rectal bleeding, tarry stools, vomiting Genitourinary: Denies: burning, discharge, flank pain, frequency, hematuria, incontinence, no symptoms, other, pain, urgency Neurologic/Psychiatric: Reports: weakness, Denies: anxiety, depressed, emotional problems, headache, no symptoms, numbness, other, paresthesia, pre- existing deficit, seizure, tingling, tremors Endocrine: Denies: excessive sweating, flushing, increased hunger, increased thirst, increased urine, intolerance to cold, intolerance to heat, no symptoms, other, unexplained weight gain, unexplained weight loss Hematologic/Lymphatic: Denies: anemia, easy bleeding, easy bruising, no symptoms, other Subjective Pt continues to have pain tolerated on the medication. She is comfortable at this time. Objective Last 24 Hour Vital Signs Date Time Temp Pulse Resp B/P Pulse Ox O2 Delivery O2 Flow Rate FiO2 04/20/17 06:54 97.9 04/20/17 04:39 93 Nasal Cannula 04/20/17 04:00 97.9 102 20 110/59 91 Room Air 04/20/17 01:28 98 Room Air 04/20/17 00:00 98.2 103 18 103/55 90 Room Air 04/19/17 21:26 99.9 04/19/17 20:00 100.0 107 20 118/54 92 Room Air 04/19/17 15:34 97.9 99 18 112/54 98 Nasal Cannula 2.0 04/19/17 11:39 98.1 87 20 108/72 88 Room Air Intake and Output 04/19/17 04/20/17 19:00 07:00 Intake Total 1425 ml 1260 ml Balance 1425 ml 1260 ml Intake Oral 600 ml 360 ml IV Total 825 ml 900 ml # Voids 3 2 Laboratory Tests 04/20/17 06:25: White Blood Count 18.6H, Red Blood Count 1.95L, Hemoglobin 6.9*L, Hematocrit 19.7L, Mean Corpuscular Volume 101H, Mean Corpuscular Hemoglobin 35.5H, Mean Corpuscular Hemoglobin Concent 35.2, Red Cell Distribution Width 20.1H, Platelet Count 400, Mean Platelet Volume 6.3L, Neutrophils (%) (Auto) , Lymphocytes (%) (Auto) , Monocytes (%) (Auto) , Eosinophils (%) (Auto) , Basophils (%) (Auto) , Neutrophils % (Manual) [Pending], Lymphocytes % (Manual) [Pending], Platelet Estimate [Pending], Platelet Morphology [Pending], Sodium Level 138, Potassium Level 4.1, Chloride Level 103, Carbon Dioxide Level 27, Anion Gap 8, Blood Urea Nitrogen 4L, Creatinine 0.4L, Estimat Glomerular Filtration Rate > 60, Glucose Level 90, Calcium Level 8.6, Phosphorus Level 4.3 , Magnesium Level 1.8, Total Bilirubin 2.1H, Direct Bilirubin 0.4H, Aspartate Amino Transf (AST/SGOT) 50H, Alanine Aminotransferase (ALT/SGPT) 26, Alkaline Phosphatase 70, Lactate Dehydrogenase 325H, Total Protein 6.5L, Albumin 3.9, Globulin 2.6, Albumin/Globulin Ratio 1.5 Height (Feet): 5 Height (Inches): 6.00 Weight (Pounds): 125 Objective General Appearance: no apparent distress, alert EENT: PERRL/EOMI, normal ENT inspection Neck: normal alignment, supple Cardiovascular: normal rate, regular rhythm Abdomen: non tender, soft Edema: no edema noted Arm (L), no edema noted Arm (R), no edema noted Leg (L), no edema noted Leg (R), no edema noted Pedal (L), no edema noted Pedal (R), no edema noted Generalized Neurologic: alert, oriented x 3 KOFFI JARA Apr 20, 2017 08:41
[2017-04-20] MEDS: Heparin 5000 units/ml inj SUBQ SCH ×2 (09:00→20:54)
[2017-04-20 10:20] LABS: BASOPHILS % (MANUAL) 1 % (0-2); EOSINOPHILS % (MANUAL) 9 % (0-3); LYMPHOCYTES % (MANUAL) 25 % (20-45); NEUTROPHILS % (MANUAL) 60 % (45-75); NUCLEATED RED BLOOD CELLS 2 /100 WBC; TOTAL CELLS COUNTED 100
[2017-04-20 10:21] LABS: ANISOCYTOSIS 2+; BAND NEUTROPHILS % (MANUAL) 0 % (0-8); PLATELET ESTIMATE ADEQUATE; PLATELET MORPHOLOGY NORMAL; POIKILOCYTOSIS 2+
[2017-04-20 10:22] LABS: SICKLE CELLS 2+
[2017-04-20] MEDS ORDERED: NS 275ml ONE (17:29)
[2017-04-20] MEDS ORDERED: 1/2 NS 1000ml IV ONE (17:29)
[2017-04-20] MEDS ORDERED: Tubing Blood Filter IV ONE (17:29)
--- NOTE | 2017-04-20 18:52 | General Progress Note ---
Progress Note Progress Note Doctors Note for Yudi Seals has been hospitalized for an acute illness from 04-18 to 11/22. She might return to her work on 04/24/17. Bernardo Tim MD Attending Physician BERNARDO TIM Apr 20, 2017 18:52
--- NOTE | 2017-04-20 18:53 | Pulmonology Progress Note ---
Assessment/Plan Problems: (1) Severe anemia (2) Sickle cell disease Assessment/Plan received blood today iv fluids check LDH, dc home in am Subjective ROS Limited/Unobtainable: No Constitutional: Reports: no symptoms HEENT: Repors: no symptoms Respiratory: Reports: no symptoms Cardiovascular: Reports: no symptoms Allergies: Coded Allergies: No Known Allergies (Unverified , 02/22/17) Objective Last 24 Hour Vital Signs Date Time Temp Pulse Resp B/P Pulse Ox O2 Delivery O2 Flow Rate FiO2 04/20/17 16:38 99.0 98 21 112/69 90 Room Air 04/20/17 14:00 98.2 100 21 115/70 99 Nasal Cannula 2.0 04/20/17 12:00 98.4 93 20 114/64 98 Nasal Cannula 2.0 04/20/17 11:52 98.2 96 23 116/64 99 Nasal Cannula 2.0 04/20/17 11:45 98.2 04/20/17 11:45 18 110/63 100 Nasal Cannula 2.0 04/20/17 08:15 98.1 104 22 100/59 95 Nasal Cannula 2.0 04/20/17 06:54 97.9 04/20/17 04:39 93 Nasal Cannula 04/20/17 04:00 97.9 102 20 110/59 91 Room Air 04/20/17 01:28 98 Room Air 04/20/17 00:00 98.2 103 18 103/55 90 Room Air 04/19/17 21:26 99.9 04/19/17 20:00 100.0 107 20 118/54 92 Room Air Intake and Output 04/19/17 04/20/17 19:00 07:00 Intake Total 1425 ml 1260 ml Balance 1425 ml 1260 ml Intake Oral 600 ml 360 ml IV Total 825 ml 900 ml # Voids 3 2 General Appearance: WD/WN HEENT: normocephalic, mucous membranes moist Respiratory/Chest: chest wall non-tender, lungs clear Abdomen: normal bowel sounds, soft, non tender Genitourinary: normal external genitalia Laboratory Tests 04/20/17 06:25: White Blood Count 18.6H, Red Blood Count 1.95L, Hemoglobin 6.9*L, Hematocrit 19.7L, Mean Corpuscular Volume 101H, Mean Corpuscular Hemoglobin 35.5H, Mean Corpuscular Hemoglobin Concent 35.2, Red Cell Distribution Width 20.1H, Platelet Count 400, Mean Platelet Volume 6.3L, Neutrophils (%) (Auto) , Lymphocytes (%) (Auto) , Monocytes (%) (Auto) , Eosinophils (%) (Auto) , Basophils (%) (Auto) , Differential Total Cells Counted 100, Neutrophils % ( Manual) 60, Lymphocytes % (Manual) 25, Monocytes % (Manual) 5, Eosinophils % ( Manual) 9H, Basophils % (Manual) 1, Band Neutrophils 0, Nucleated Red Blood Cells 2, Platelet Estimate Adequate, Platelet Morphology Normal, Poikilocytosis 2+, Anisocytosis 2+, Sickle Cells 2+H, Sodium Level 138, Potassium Level 4.1, Chloride Level 103, Carbon Dioxide Level 27, Anion Gap 8, Blood Urea Nitrogen 4L , Creatinine 0.4L, Estimat Glomerular Filtration Rate > 60, Glucose Level 90, Calcium Level 8.6, Phosphorus Level 4.3, Magnesium Level 1.8, Total Bilirubin 2.1H, Direct Bilirubin 0.4H, Aspartate Amino Transf (AST/SGOT) 50H, Alanine Aminotransferase (ALT/SGPT) 26, Alkaline Phosphatase 70, Lactate Dehydrogenase 325H, Total Protein 6.5L, Albumin 3.9, Globulin 2.6, Albumin/Globulin Ratio 1.5 Current Medications Medications (Trade) Dose Ordered Sig/Marcellus Route PRN Reason Start Time Stop Time Status Last Admin Dose Admin Acetaminophen (Tylenol) 650 mg Q4H PRN ORAL fever 04/18/17 16:15 05/18/17 16:14 04/19/17 20:27 Al Hydroxide/Mg Hydroxide (Mylanta II) 30 ml Q6H PRN ORAL dyspepsia 04/18/17 16:15 05/18/17 16:14 Dextrose (Dextrose 50%) STAT PRN IV Hypoglycemia 04/18/17 16:15 05/18/17 16:14 Diphenhydramine HCl (Benadryl) 25 mg Q6H PRN IVP Itching 04/18/17 19:30 05/18/17 19:29 04/20/17 17:26 Heparin Sodium (Porcine) (Heparin 5000 units/ml) 5,000 units EVERY 12 HOURS SUBQ 04/18/17 21:00 05/18/17 20:59 Hydromorphone HCl (Dilaudid) 2 mg Q3H PRN IV pain 4-6 04/18/17 16:15 04/25/17 16:14 04/20/17 17:29 Hydromorphone HCl 3 mg 3 mg Q3H PRN IVP For Pain 7-10 04/18/17 16:15 04/25/17 16:14 Lorazepam (Ativan 2mg/ml 1ml) 0.5 mg Q4H PRN IV For Anxiety 04/18/17 16:15 04/25/17 16:14 Ondansetron HCl (Zofran) 4 mg Q6H PRN IVP Nausea & Vomiting 04/18/17 16:15 05/18/17 16:14 Polyethylene Glycol (Miralax) 17 gm HSPRN PRN ORAL Constipation 04/18/17 16:15 05/18/17 16:14 Sodium Chloride (0.45% NS 1000ml) 1,000 ml @ 75 mls/hr [id number] IV 04/18/17 18:00 05/18/17 17:59 04/20/17 04:36 Zolpidem Tartrate (Ambien) 5 mg HSPRN PRN ORAL Insomnia 04/18/17 16:15 05/18/17 16:14 BERNARDO YATES Apr 20, 2017 18:53
--- NOTE | 2017-04-20 22:29 | General Progress Note ---
Assessment/Plan Assessment/Plan #. Sickle cell crisis. Elevated LDH as well as reticulocyte count 8.4. #. Hyperbilirubinemia. Elevated bilirubin of 2.1 Continue to closely monitor. I have started the patient on Dilaudid, spirometer, and pain medications. #. 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 Continue to closely monitor. --> was transfused today, check hgb in am #. Leukocytosis secondary to sickle cell inflammatory state. No evidence of infection at the moment. --> pt had fevers today, continue to monitor. #. History of sickle cell disease and is on hydroxyurea. 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 #. Reticulocytosis. #. Pain management Subjective Constitutional: Reports: no symptoms HEENT: Reports: no symptoms Cardiovascular: Reports: no symptoms Respiratory: Reports: no symptoms Gastrointestinal/Abdominal: Reports: no symptoms Genitourinary: Reports: no symptoms Neurologic/Psychiatric: Reports: no symptoms Endocrine: Reports: no symptoms Hematologic/Lymphatic: Reports: anemia Allergies: Coded Allergies: No Known Allergies (Unverified , 02/22/17) Subjective s/p blood transfusion, had fevers today Objective Last 24 Hour Vital Signs Date Time Temp Pulse Resp B/P Pulse Ox O2 Delivery O2 Flow Rate FiO2 04/20/17 20:11 98.2 105 19 128/74 92 Room Air 04/20/17 16:38 99.0 98 21 112/69 90 Room Air 04/20/17 14:00 98.2 100 21 115/70 99 Nasal Cannula 2.0 04/20/17 12:00 98.4 93 20 114/64 98 Nasal Cannula 2.0 04/20/17 11:52 98.2 96 23 116/64 99 Nasal Cannula 2.0 04/20/17 11:45 98.2 04/20/17 11:45 18 110/63 100 Nasal Cannula 2.0 04/20/17 08:15 98.1 104 22 100/59 95 Nasal Cannula 2.0 04/20/17 06:54 97.9 04/20/17 04:39 93 Nasal Cannula 04/20/17 04:00 97.9 102 20 110/59 91 Room Air 04/20/17 01:28 98 Room Air 04/20/17 00:00 98.2 103 18 103/55 90 Room Air Intake and Output 04/19/17 04/20/17 19:00 07:00 Intake Total 1425 ml 1260 ml Balance 1425 ml 1260 ml Intake Oral 600 ml 360 ml IV Total 825 ml 900 ml # Voids 3 2 Laboratory Tests 04/20/17 06:25: White Blood Count 18.6H, Red Blood Count 1.95L, Hemoglobin 6.9*L, Hematocrit 19.7L, Mean Corpuscular Volume 101H, Mean Corpuscular Hemoglobin 35.5H, Mean Corpuscular Hemoglobin Concent 35.2, Red Cell Distribution Width 20.1H, Platelet Count 400, Mean Platelet Volume 6.3L, Neutrophils (%) (Auto) , Lymphocytes (%) (Auto) , Monocytes (%) (Auto) , Eosinophils (%) (Auto) , Basophils (%) (Auto) , Differential Total Cells Counted 100, Neutrophils % ( Manual) 60, Lymphocytes % (Manual) 25, Monocytes % (Manual) 5, Eosinophils % ( Manual) 9H, Basophils % (Manual) 1, Band Neutrophils 0, Nucleated Red Blood Cells 2, Platelet Estimate Adequate, Platelet Morphology Normal, Poikilocytosis 2+, Anisocytosis 2+, Sickle Cells 2+H, Sodium Level 138, Potassium Level 4.1, Chloride Level 103, Carbon Dioxide Level 27, Anion Gap 8, Blood Urea Nitrogen 4L , Creatinine 0.4L, Estimat Glomerular Filtration Rate > 60, Glucose Level 90, Calcium Level 8.6, Phosphorus Level 4.3, Magnesium Level 1.8, Total Bilirubin 2.1H, Direct Bilirubin 0.4H, Aspartate Amino Transf (AST/SGOT) 50H, Alanine Aminotransferase (ALT/SGPT) 26, Alkaline Phosphatase 70, Lactate Dehydrogenase 325H, Total Protein 6.5L, Albumin 3.9, Globulin 2.6, Albumin/Globulin Ratio 1.5 Height (Feet): 5 Height (Inches): 6.00 Weight (Pounds): 125 General Appearance: mild distress EENT: PERRL/EOMI Neck: non-tender Cardiovascular: normal rate Respiratory/Chest: chest wall non-tender Extremities: normal range of motion Edema: no edema noted Pedal (L), no edema noted Pedal (R) 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
[2017-04-21 04:00] VITALS: BP 118/66
[2017-04-21] MEDS: DiphenhydrAMINE 50mg/ml Inj IVP PRN ×3 (06:19→18:49)
[2017-04-21 08:00] VITALS: BP 115/64
[2017-04-21] MEDS: Heparin 5000 units/ml inj SUBQ SCH ×2 (08:41→21:00)
--- NOTE | 2017-04-21 08:54 | General Progress Note ---
Assessment/Plan Assessment/Plan (1) Intractable pain (2) Sickle cell disease (3) Sickle cell crisis We will continue Dilaudid. Pt was d/w Dr. Acevedo and he concurred. Subjective Date patient seen: Apr 21, 2017 Time patient seen: 07:15 - am Allergies: Coded Allergies: No Known Allergies (Unverified , 02/22/17) Subjective Constitutional: Reports: weakness, Denies: chills, diaphoresis, fever, malaise , no symptoms, other HEENT: Denies: blurred vision, double vision, ear discharge, ear pain, eye pain , mouth pain, mouth swelling, no symptoms, nose congestion, nose pain, other, tearing, throat pain, throat swelling Cardiovascular: Denies: chest pain, edema, irregular heart rate, lightheadedness, no symptoms, other, palpitations, syncope Respiratory: Denies: SOB at rest, SOB with excertion, cough, no symptoms, orthopnea, other, shortness of breath, sputum, stridor, wheezing Gastrointestinal/Abdominal: Denies: abdomen distended, abdominal pain, black stools, blood in stool, constipated, diarrhea, difficulty swallowing, nausea, no symptoms, other, poor appetite, poor fluid intake, rectal bleeding, tarry stools, vomiting Genitourinary: Denies: burning, discharge, flank pain, frequency, hematuria, incontinence, no symptoms, other, pain, urgency Neurologic/Psychiatric: Reports: weakness, Denies: anxiety, depressed, emotional problems, headache, no symptoms, numbness, other, paresthesia, pre- existing deficit, seizure, tingling, tremors Endocrine: Denies: excessive sweating, flushing, increased hunger, increased thirst, increased urine, intolerance to cold, intolerance to heat, no symptoms, other, unexplained weight gain, unexplained weight loss Hematologic/Lymphatic: Denies: anemia, easy bleeding, easy bruising, no symptoms, other Subjective Pt reports that her pain has been tolerated well on the Dilaudid and is at a moderate level. Objective Last 24 Hour Vital Signs Date Time Temp Pulse Resp B/P Pulse Ox O2 Delivery O2 Flow Rate FiO2 04/21/17 08:00 97.8 90 20 115/64 91 Room Air 04/21/17 04:00 98.2 88 18 118/66 95 Room Air 04/20/17 23:58 98.0 100 19 126/70 96 Nasal Cannula 2.0 04/20/17 20:11 98.2 105 19 128/74 92 Room Air 04/20/17 16:38 99.0 98 21 112/69 90 Room Air 04/20/17 14:00 98.2 100 21 115/70 99 Nasal Cannula 2.0 04/20/17 12:00 98.4 93 20 114/64 98 Nasal Cannula 2.0 04/20/17 11:52 98.2 96 23 116/64 99 Nasal Cannula 2.0 04/20/17 11:45 98.2 04/20/17 11:45 18 110/63 100 Nasal Cannula 2.0 Intake and Output 04/20/17 04/21/17 19:00 07:00 Intake Total 1200 ml 1350 ml Balance 1200 ml 1350 ml Intake Oral 200 ml 600 ml IV Total 750 ml 750 ml Blood Product 250 ml # Voids 3 3 Laboratory Tests 04/21/17 06:15: Lactate Dehydrogenase 344H Height (Feet): 5 Height (Inches): 6.00 Weight (Pounds): 125 Objective General Appearance: no apparent distress, alert EENT: PERRL/EOMI, normal ENT inspection Neck: normal alignment, supple Cardiovascular: normal rate, regular rhythm Abdomen: non tender, soft Edema: no edema noted Arm (L), no edema noted Arm (R), no edema noted Leg (L), no edema noted Leg (R), no edema noted Pedal (L), no edema noted Pedal (R), no edema noted Generalized Neurologic: alert, oriented x 3 KOFFI JARA Apr 21, 2017 08:54
[2017-04-21 11:22] LABS: WHITE BLOOD COUNT 11.1 K/UL (4.8-10.8)
[2017-04-21 11:23] LABS: MEAN CORPUSCULAR HGB CONC 34.2 G/DL (32.0-36.0); MEAN CORPUSCULAR VOLUME 97 FL (80-99); MEAN PLATELET VOLUME 6.3 FL (6.5-10.1); PLATELET COUNT 368 K/UL (150-450); RED BLOOD COUNT 2.13 M/UL (4.20-5.40); RED CELL DISTRIBUTION WIDTH 22.2 % (11.6-14.8)
[2017-04-21 11:53] LABS: ANISOCYTOSIS 2+; BAND NEUTROPHILS % (MANUAL) 0 % (0-8); BASOPHILS % (MANUAL) 0 % (0-2); EOSINOPHILS % (MANUAL) 4 % (0-3); HYPOCHROMASIA 1+; LYMPHOCYTES % (MANUAL) 37 % (20-45); NEUTROPHILS % (MANUAL) 51 % (45-75); NUCLEATED RED BLOOD CELLS 2 /100 WBC; PLATELET ESTIMATE ADEQUATE; PLATELET MORPHOLOGY NORMAL; POLYCHROMASIA 2+; SICKLE CELLS 2+; TOTAL CELLS COUNTED 100
[2017-04-21 12:00] VITALS: BP 125/66
[2017-04-21 16:00] VITALS: BP 116/62
--- NOTE | 2017-04-21 18:46 | General Progress Note ---
Assessment/Plan Assessment/Plan #. Sickle cell crisis. Elevated LDH as well as reticulocyte count 8.4. #. Hyperbilirubinemia. Elevated bilirubin of 2.1 Continue to closely monitor. I have started the patient on Dilaudid, spirometer, and pain medications. #. 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 Continue to closely monitor. --> pt is to receive another unit prbc later today #. Leukocytosis secondary to sickle cell inflammatory state. No evidence of infection at the moment. -->fevers have resolved #. History of sickle cell disease and is on hydroxyurea. 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 #. Reticulocytosis. #. Pain management Subjective Allergies: Coded Allergies: No Known Allergies (Unverified , 02/22/17) Subjective pain is better with dilaudid, pt needs blood, to receive later today Objective Last 24 Hour Vital Signs Date Time Temp Pulse Resp B/P Pulse Ox O2 Delivery O2 Flow Rate FiO2 04/21/17 16:00 98.6 88 18 116/62 97 Nasal Cannula 2.0 04/21/17 12:00 98.2 93 20 125/66 96 Nasal Cannula 2.0 04/21/17 08:00 97.8 90 20 115/64 91 Room Air 04/21/17 04:00 98.2 88 18 118/66 95 Room Air 04/20/17 23:58 98.0 100 19 126/70 96 Nasal Cannula 2.0 04/20/17 20:11 98.2 105 19 128/74 92 Room Air Intake and Output 04/20/17 04/21/17 19:00 07:00 Intake Total 1200 ml 1350 ml Balance 1200 ml 1350 ml Intake Oral 200 ml 600 ml IV Total 750 ml 750 ml Blood Product 250 ml # Voids 3 3 Laboratory Tests 04/21/17 06:15: White Blood Count 11.1H, Red Blood Count 2.13L, Hemoglobin 7.0L, Hematocrit 20.5L, Mean Corpuscular Volume 97, Mean Corpuscular Hemoglobin 33.0H, Mean Corpuscular Hemoglobin Concent 34.2, Red Cell Distribution Width 22.2H, Platelet Count 368, Mean Platelet Volume 6.3L, Neutrophils (%) (Auto) , Lymphocytes (%) (Auto) , Monocytes (%) (Auto) , Eosinophils (%) (Auto) , Basophils (%) (Auto) , Differential Total Cells Counted 100, Neutrophils % ( Manual) 51, Lymphocytes % (Manual) 37, Monocytes % (Manual) 8, Eosinophils % ( Manual) 4H, Basophils % (Manual) 0, Band Neutrophils 0, Nucleated Red Blood Cells 2, Platelet Estimate Adequate, Platelet Morphology Normal, Polychromasia 2 +, Hypochromasia 1+, Anisocytosis 2+, Sickle Cells 2+H, Lactate Dehydrogenase 344H Height (Feet): 5 Height (Inches): 6.00 Weight (Pounds): 125 General Appearance: no apparent distress EENT: PERRL/EOMI Neck: normal alignment Cardiovascular: normal peripheral pulses Respiratory/Chest: chest wall non-tender Edema: no edema noted Pedal (L), no edema noted Pedal (R) Edema: trace edema 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
--- NOTE | 2017-04-21 19:58 | Pulmonology Progress Note ---
Assessment/Plan Problems: (1) Severe anemia (2) Sickle cell disease Assessment/Plan received blood today iv fluids check LDH, dc home itoday after blood transfusion Subjective ROS Limited/Unobtainable: No Constitutional: Reports: no symptoms HEENT: Repors: no symptoms Respiratory: Reports: no symptoms Allergies: Coded Allergies: No Known Allergies (Unverified , 02/22/17) Objective Last 24 Hour Vital Signs Date Time Temp Pulse Resp B/P Pulse Ox O2 Delivery O2 Flow Rate FiO2 04/21/17 16:00 98.6 88 18 116/62 97 Nasal Cannula 2.0 04/21/17 12:00 98.2 93 20 125/66 96 Nasal Cannula 2.0 04/21/17 08:00 97.8 90 20 115/64 91 Room Air 04/21/17 04:00 98.2 88 18 118/66 95 Room Air 04/20/17 23:58 98.0 100 19 126/70 96 Nasal Cannula 2.0 04/20/17 20:11 98.2 105 19 128/74 92 Room Air Intake and Output 04/20/17 04/21/17 19:00 07:00 Intake Total 1200 ml 1350 ml Balance 1200 ml 1350 ml Intake Oral 200 ml 600 ml IV Total 750 ml 750 ml Blood Product 250 ml # Voids 3 3 Objective General Appearance: WD/WN HEENT: normocephalic Respiratory/Chest: chest wall non-tender, lungs clear Breasts: no masses Cardiovascular: normal peripheral pulses Abdomen: normal bowel sounds, soft, non tender Genitourinary: normal external genitalia Skin: no rash General Appearance: WD/WN HEENT: normocephalic Laboratory Tests 04/21/17 06:15: White Blood Count 11.1H, Red Blood Count 2.13L, Hemoglobin 7.0L, Hematocrit 20.5L, Mean Corpuscular Volume 97, Mean Corpuscular Hemoglobin 33.0H, Mean Corpuscular Hemoglobin Concent 34.2, Red Cell Distribution Width 22.2H, Platelet Count 368, Mean Platelet Volume 6.3L, Neutrophils (%) (Auto) , Lymphocytes (%) (Auto) , Monocytes (%) (Auto) , Eosinophils (%) (Auto) , Basophils (%) (Auto) , Differential Total Cells Counted 100, Neutrophils % ( Manual) 51, Lymphocytes % (Manual) 37, Monocytes % (Manual) 8, Eosinophils % ( Manual) 4H, Basophils % (Manual) 0, Band Neutrophils 0, Nucleated Red Blood Cells 2, Platelet Estimate Adequate, Platelet Morphology Normal, Polychromasia 2 +, Hypochromasia 1+, Anisocytosis 2+, Sickle Cells 2+H, Lactate Dehydrogenase 344H Current Medications Medications (Trade) Dose Ordered Sig/Marcellus Route PRN Reason Start Time Stop Time Status Last Admin Dose Admin Acetaminophen (Tylenol) 650 mg Q4H PRN ORAL fever 04/18/17 16:15 05/18/17 16:14 04/19/17 20:27 Al Hydroxide/Mg Hydroxide (Mylanta II) 30 ml Q6H PRN ORAL dyspepsia 04/18/17 16:15 05/18/17 16:14 Dextrose (Dextrose 50%) STAT PRN IV Hypoglycemia 04/18/17 16:15 05/18/17 16:14 Diphenhydramine HCl (Benadryl) 25 mg Q6H PRN IVP Itching 04/18/17 19:30 05/18/17 19:29 04/21/17 18:49 Heparin Sodium (Porcine) (Heparin 5000 units/ml) 5,000 units EVERY 12 HOURS SUBQ 04/18/17 21:00 05/18/17 20:59 Hydromorphone HCl (Dilaudid) 2 mg Q3H PRN IV pain 4-6 04/18/17 16:15 04/25/17 16:14 04/21/17 18:49 Hydromorphone HCl 3 mg 3 mg Q3H PRN IVP For Pain 7-10 04/18/17 16:15 04/25/17 16:14 Lorazepam (Ativan 2mg/ml 1ml) 0.5 mg Q4H PRN IV For Anxiety 04/18/17 16:15 04/25/17 16:14 Ondansetron HCl (Zofran) 4 mg Q6H PRN IVP Nausea & Vomiting 04/18/17 16:15 05/18/17 16:14 Polyethylene Glycol (Miralax) 17 gm HSPRN PRN ORAL Constipation 04/18/17 16:15 05/18/17 16:14 Sodium Chloride (0.45% NS 1000ml) 1,000 ml @ 75 mls/hr [id number] IV 04/18/17 18:00 05/18/17 17:59 04/21/17 18:50 Zolpidem Tartrate (Ambien) 5 mg HSPRN PRN ORAL Insomnia 04/18/17 16:15 05/18/17 16:14 BERNARDO YATES Apr 21, 2017 19:58
[2017-04-21 20:00] VITALS: BP 117/61
[2017-04-22] VITALS: BP 114/60
[2017-04-22] MEDS: DiphenhydrAMINE 50mg/ml Inj IVP PRN ×2 (01:56→08:36)
[2017-04-22 04:00] VITALS: BP 129/56
[2017-04-22 08:45] VITALS: BP 147/97
[2017-04-22] MEDS: Heparin 5000 units/ml inj SUBQ SCH (09:00)
[2017-04-22] MEDS ORDERED: NS 275ml ONE (09:46)
[2017-04-22] MEDS ORDERED: 1/2 NS 1000ml IV ONE (09:46)
[2017-04-22] MEDS ORDERED: Tubing Blood Filter IV ONE (09:46)
--- NOTE | 2017-04-22 16:48 | Pulmonology Progress Note ---
Assessment/Plan Problems: (1) Severe anemia (2) Sickle cell disease Assessment/Plan received blood yesterday iv fluid improving dc home i with f/u with primary Subjective ROS Limited/Unobtainable: No Allergies: Coded Allergies: No Known Allergies (Unverified , 02/22/17) Objective Last 24 Hour Vital Signs Date Time Temp Pulse Resp B/P Pulse Ox O2 Delivery O2 Flow Rate FiO2 04/22/17 09:06 98.2 04/22/17 08:45 98.2 95 22 147/97 98 Room Air 04/22/17 04:00 97.0 84 20 129/56 98 Nasal Cannula 2.0 04/22/17 00:00 98.2 88 19 114/60 96 Nasal Cannula 2.0 04/21/17 20:00 98.2 98 21 117/61 94 Nasal Cannula 2.0 Intake and Output 04/21/17 04/22/17 19:00 07:00 Intake Total 900 ml 1650 ml Balance 900 ml 1650 ml Intake Oral 500 ml IV Total 900 ml 750 ml Blood Product 250 ml Other 150 ml # Voids 3 6 Objective General Appearance: WD/WN HEENT: normocephalic Respiratory/Chest: chest wall non-tender, lungs clear Breasts: no masses Cardiovascular: normal peripheral pulses Abdomen: normal bowel sounds, soft, non tender Genitourinary: normal external genitalia Skin: no rash BERNARDO YATES Apr 22, 2017 16:48
--- NOTE | 2017-04-23 11:44 | General Progress Note ---
Assessment/Plan Assessment/Plan #. Sickle cell crisis. Elevated LDH as well as reticulocyte count 8.4. #. Hyperbilirubinemia. Elevated bilirubin of 2.1 Continue to closely monitor. I have started the patient on Dilaudid, spirometer, and pain medications. #. 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 Continue to closely monitor. --> received multiple tranfusions --> follow up with pcp #. Leukocytosis secondary to sickle cell inflammatory state. No evidence of infection at the moment. -->fevers have resolved #. History of sickle cell disease and is on hydroxyurea. 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 #. Reticulocytosis. #. Pain management Subjective Date patient seen: Apr 22, 2017 Constitutional: Reports: no symptoms HEENT: Reports: no symptoms Cardiovascular: Reports: no symptoms Respiratory: Reports: no symptoms Gastrointestinal/Abdominal: Reports: no symptoms Genitourinary: Reports: no symptoms Neurologic/Psychiatric: Reports: no symptoms Endocrine: Reports: no symptoms Hematologic/Lymphatic: Reports: no symptoms Allergies: Coded Allergies: No Known Allergies (Unverified , 02/22/17) Subjective received prbc, refused heparin, dc home Objective Intake and Output 04/22/17 04/23/17 19:00 07:00 Intake Total 410 ml Balance 410 ml Intake Oral 260 ml IV Total 150 ml # Voids 1 Height (Feet): 5 Height (Inches): 6.00 Weight (Pounds): 125 General Appearance: no apparent distress EENT: normal ENT inspection Neck: normal alignment Cardiovascular: normal peripheral pulses Respiratory/Chest: chest wall non-tender Neurologic: oriented x 3 Skin: warm/dry Nakul Gonzalez Apr 23, 2017 11:44
--- NOTE | 2017-04-25 06:58 | Discharge Summary ---
Discharge Summary Hospital Course Date of Admission Apr 18, 2017 at 16:02 Date of Discharge Apr 22, 2017 at 10:45 Admitting Diagnosis sickle cell crisis HPI Yudi Seals is a 27 year old female who was admitted on Apr 18, 2017 at 16: 02 for Sickle Cell Crisis Hospital Course dc summary #[id number] Discharge Medications Continued Medications: Calcium Carbonate (Calcium) 500 Mg Tablet 500 MG PO DAILY, TAB Diphenhydramine Hcl* (Benadryl*) 25 Mg Capsule 25 MG ORAL Q6H PRN for Itching, CAP Folic Acid* (Folic Acid*) 1 Mg Tablet 1 MG ORAL DAILY, TAB Hydralazine Hcl* (Hydralazine Hcl*) 10 Mg Tablet 10 MG ORAL EVERY 8 HOURS, TAB Hydromorphone Hcl (Dilaudid) 8 Mg Tablet 2 MG PO, TAB Hydroxyurea* (Hydrea*) 500 Mg Capsule 500 MG PO DAILY, CAP Multivitamins* (Multivitamins*) 1 Each Tablet 1 TAB ORAL DAILY, TAB 0 Refills Discharge Condition Upon Discharge: stable Discharge Disposition Patient was discharged to Home (01) Discharge Diagnoses: Discharge Instructions Discharge Instructions Special Instructions I have been assigned to complete a D/C Summary on this account. I was not involved in the patient management Reema Jewell NP ([facility]) Apr 25, 2017 06:58
--- NOTE | 2017-04-25 10:01 | Discharge Summary 2 SIG ---
DATE OF ADMISSION: 04/18/2017 DATE OF DISCHARGE: 04/22/2017 REASON FOR ADMISSION: 27-year-old female with known history of sickle cell disease, presented to emergency room with a complaint of generalized weakness and generalized body pain, started six days ago. The patient reported that her symptoms were consistent with those experienced with previous sickle cell crises The patient denied fever and chills. She denied chest pain, shortness of breath, congestion, or abdominal pain. Workup in the emergency room revealed WBC- 16.5. No fever. Pulse oximetry was stable on room air. Hemoglobin -8.0 and hematocrit-24.1. Total bilirubin - 1.5. The patient was admitted for further management. ADMITTING DIAGNOSES: 1. Sickle cell crisis. 2. 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 3. Pain. 4. Leukocytosis. HOSPITAL STAY: The patient was admitted. The patient was started on the generous IV fluids. Supplemental oxygen provided to keep oxygen saturation above 92%. Pulmonary toilet was provided as needed. Pain management was addressed, managed and controlled. Hematology evaluation was requested. According to loss prevention operations manager, the patient had sickle cell crisis. Continue hydroxyurea along with the folic acid. The patient was transfused with two units of packed red blood cells for hemoglobin -6.9 and hematocrit- 19.7. According to loss prevention operations manager, leukocytosis was secondary to sickle cell inflammatory state and there was no evidence of infection. Fever resolved. LDH, bilirubin, and WBC were closely monitored. WBC down to 11.1. LDH and bilirubin still elevated. Pain was controlled. The patient was stable fro discharge, follow up with outpatient loss prevention operations manager. DISCHARGE DIAGNOSES: 1. Sickle cell crisis. 2. Severe anemia secondary to sickle cell crisis. 3. Status post blood transfusion. 4. Leukocytosis (secondary to sickle cell inflammatory state). 5. Hyperbilirubinemia. DISCHARGE MEDICATIONS: See medication reconciliation list. DISCHARGE INSTRUCTIONS: The patient was discharged home. Follow up with outpatient loss prevention operations manager. Jt Tim M.D. I have been assigned to dictate discharge summary on this account and I was not involved in the patient's management. Reema Jewell N.P. ([place]anchtein) DR: NICOLÁS JOB#: [id number] CC: URBAN
== END 2017-04-22 10:45 | disposition home or self-care (01) | DRG 662 ==
LOC: EMR 14:53 → EDBEDREQ 15:17 → 4W 16:02 → EDBEDREQ 16:59
DX: D57.00 Hb-SS disease with crisis, unspecified (principal)
CPT/HCPCS: 36415; 71010; 80053; 80300; 81001; 82248; 82550; 82553; 83615; 83735; 84100; 84484; 85007; 85025; 85044; 85610; 85730; 86850; 86870; 86880; 86900; 86901; 86904; 86920; 93005

== ENCOUNTER 2017-05-13 23:47 | Emergency (ER) | payer MEDICAID, OTHER ==
[~2017-05-13] VITALS: Ht 165.1 cm; Wt 54.4 kg
[2017-05-14] MEDS ORDERED: DiphenhydrAMINE 50mg/ml Inj IVP ONE (00:30)
[2017-05-14 00:55] VITALS: BP 120/80
[2017-05-14 01:01] LABS: BASOPHILS % (AUTO) 1.3 % (0.0-2.0); EOSINOPHILS % (AUTO) 3.6 % (0.0-3.0); LYMPHOCYTES % (AUTO) 31.2 % (20.0-45.0); MEAN CORPUSCULAR HEMOGLOBIN 34.1 PG (27.0-31.0); MEAN CORPUSCULAR HGB CONC 35.7 G/DL (32.0-36.0); MEAN CORPUSCULAR VOLUME 96 FL (80-99); MEAN PLATELET VOLUME 6.9 FL (6.5-10.1); MONOCYTES % (AUTO) 5.3 % (1.0-10.0); NEUTROPHILS % (AUTO) 58.7 % (45.0-75.0); PLATELET COUNT 454 K/UL (150-450); RED BLOOD COUNT 2.86 M/UL (4.20-5.40); RED CELL DISTRIBUTION WIDTH 15.8 % (11.6-14.8); WHITE BLOOD COUNT 15.4 K/UL (4.8-10.8)
[2017-05-14 01:15] LABS: ALANINE AMINOTRANSFERASE 22 U/L (3-33); ALBUMIN/GLOBULIN RATIO 1.3 (1.0-2.7); ANION GAP 13 (5-15); ASPARTATE AMINO TRANSFERASE 32 U/L (5-40); CALCIUM 9.5 mg/dL (8.6-10.2); CARBON DIOXIDE 24 mEQ/L (20-30); CHLORIDE 105 mEQ/L (98-107); CREATININE 0.5 mg/dL (0.5-0.9); GLOMERULAR FILTRATION RATE > 60 mL/min (>60); HEMOLYSIS 3; POTASSIUM 3.7 mEQ/L (3.4-4.9); SODIUM 142 mEQ/L (135-145); TOTAL PROTEIN 7.8 g/dL (6.6-8.7)
[2017-05-14 01:34] LABS: BILIRUBIN,DIRECT 0.3 mg/dL (0.1-0.3)
[2017-05-14 02:06] VITALS: BP 110/70
[2017-05-14 02:06] LABS: RETICULOCYTE COUNT 5.9 % (0.0-2.0)
--- NOTE | 2017-05-14 04:05 | Emergency Room Report ---
History of Present Illness General Chief Complaint: General Complaint Source: Patient Present Illness [facility] This is a 27-year-old female who presented after increased generalized body pain. Patient prior history of sickle cell disease. Patient had been taking her medications reportedly. Patient usually takes hydroxyurea. Patient states she is followed by Dr. Baker. The patient had the recent hospitalization which was transfused 2 units of blood. She denies any fever. She had not been vomiting she reports having generalized body pain. Allergies: Coded Allergies: No Known Allergies (Unverified , 02/22/17) Patient History Past Medical History: see triage record Now: No Reviewed Nursing Documentation: PMH: Agreed, PSxH: Agreed Nursing Documentation-PMH Hx Cardiac Problems: No Hx Hypertension: No Hx Pacemaker: No Hx Cancer: No Hx Gastrointestinal Problems: No Hx Neurological Problems: No Hx Cerebrovascular Accident: No Hx Transient Ischemic Attacks: No Hx Dementia: No Hx Alzheimer's Disease: No Hx Parkinson's Disease: No Hx Meningitis: No Hx Encephalitis: No Hx Seizures: No Hx Epilepsy: No Hx Multiple Sclerosis: No Hx Cerebral Palsy: No Hx Amyotrophic Lat Sclerosis: No Hx [place] Syndrome: No Hx Paralysis: No Hx Peripheral Neuropathy: No Hx Spinal Cord Injury: No Hx Head Trauma: No Hx Traumatic Brain Injury: No Hx Memory Loss: No Hx Concentration Difficulty: No Hx Speech Problem: No Hx Tremors: No Hx Vertigo: No Hx Dizziness: No Hx Syncope: No Hx Headaches: No Hx Aphasia: No Hx Dysphasia: No Hx Numbness: No Hx Weakness: No Hx Fatigue: No Hx Neurologic Surgery: No Hx Brain Shunt: No Review of Systems All Other Systems: negative except mentioned in HPI Physical Exam Vital Signs Date Time Temp Pulse Resp B/P Pulse Ox O2 Delivery O2 Flow Rate FiO2 05/14/17 00:19 97.9 86 16 110/70 98 Room Air Sp02 EP Interpretation: reviewed, normal General Appearance: normal inspection, well appearing, no apparent distress, alert, GCS 15 Head: atraumatic ENT: normal ENT inspection, hearing grossly normal, normal voice Neck: normal inspection, full range of motion, supple, no bony tend Respiratory: normal inspection, lungs clear, normal breath sounds, no respiratory distress, no retraction, no wheezing Cardiovascular #1: regular rate, rhythm, no edema Gastrointestinal: normal inspection, normal bowel sounds, non tender, soft, no guarding, no hernia Genitourinary: no CVA tenderness Musculoskeletal: normal inspection, back normal, normal range of motion Neurologic: normal inspection, alert, oriented x3, responsive, acute care certified nursing assistant III-XII nml as tested, speech normal Psychiatric: normal inspection, judgement/insight normal, mood/affect normal Skin: normal inspection, normal color, no rash Medical Decision Making Diagnostic Impression: Primary Impression: Sickle cell disease ER Course Patient presented for sickle cell pain. Differential diagnosis included but was not limited to have sickle cell pain crisis, aplastic crisis, sequestration , osteomyelitis, acute chest syndrome among others. Because of complexity of patient's case laboratory testing and imaging studies were ordered. The patient does not appear in any acute distress. The patient given IV pain medications and IV fluids.The patient's hemoglobin is adequate. And patient's white blood count been chronically elevated. Patient was noted to have improvement in her pain. Patient was discharged home. She is advised followup with her primary care physician for further evaluation. Labs Test 05/14/17 00:35 White Blood Count 15.4 K/UL (4.8-10.8) Red Blood Count 2.86 M/UL (4.20-5.40) Hemoglobin 9.8 G/DL (12.0-16.0) Hematocrit 27.3 % (37.0-47.0) Mean Corpuscular Volume 96 FL (80-99) Mean Corpuscular Hemoglobin 34.1 PG (27.0-31.0) Mean Corpuscular Hemoglobin Concent 35.7 G/DL (32.0-36.0) Red Cell Distribution Width 15.8 % (11.6-14.8) Platelet Count 454 K/UL (150-450) Mean Platelet Volume 6.9 FL (6.5-10.1) Neutrophils (%) (Auto) 58.7 % (45.0-75.0) Lymphocytes (%) (Auto) 31.2 % (20.0-45.0) Monocytes (%) (Auto) 5.3 % (1.0-10.0) Eosinophils (%) (Auto) 3.6 % (0.0-3.0) Basophils (%) (Auto) 1.3 % (0.0-2.0) Reticulocyte Count 5.9 % (0.0-2.0) Sodium Level 142 mEQ/L (135-145) Potassium Level 3.7 mEQ/L (3.4-4.9) Chloride Level 105 mEQ/L (98-107) Carbon Dioxide Level 24 mEQ/L (20-30) Anion Gap 13 (5-15) Blood Urea Nitrogen 8 mg/dL (7-23) Creatinine 0.5 mg/dL (0.5-0.9) Estimat Glomerular Filtration Rate > 60 mL/min (>60) Glucose Level 103 mg/dL (74-106) Calcium Level 9.5 mg/dL (8.6-10.2) Total Bilirubin 1.5 mg/dL (0.0-1.2) Direct Bilirubin 0.3 mg/dL (0.1-0.3) Aspartate Amino Transf (AST/SGOT) 32 U/L (5-40) Alanine Aminotransferase (ALT/SGPT) 22 U/L (3-33) Alkaline Phosphatase 78 U/L (35-104) Total Protein 7.8 g/dL (6.6-8.7) Albumin 4.5 g/dL (3.5-5.2) Globulin 3.3 g/dL Albumin/Globulin Ratio 1.3 (1.0-2.7) Last Vital Signs Date Time Temp Pulse Resp B/P Pulse Ox O2 Delivery O2 Flow Rate FiO2 05/14/17 02:06 82 16 110/70 98 Room Air 05/14/17 00:55 97.8 Status: improved Disposition: HOME, SELF-CARE Condition: Stable Referrals: [facility] (PCP) Patient Instructions: Sickle Cell Anemia, Adult Jr Kim May 14, 2017 04:05
== END 2017-05-14 02:09 | disposition home or self-care (01) ==
LOC: EMR 05-14 00:35
DX: D57.00 Hb-SS disease with crisis, unspecified (principal)
CPT/HCPCS: 36415; 80053; 82248; 85025; 85044; 86850; 86870; 86900; 86901; 96374; 96375; 99284; J1170; J1200

== ENCOUNTER 2017-05-31 22:16 | Emergency (ER) | payer OTHER, MEDICAID ==
[~2017-05-31] VITALS: Ht 167.6 cm; Wt 61.2 kg
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
[2017-05-31 23:00] LABS: BASOPHILS % (AUTO) 0.9 % (0.0-2.0); EOSINOPHILS % (AUTO) 4.9 % (0.0-3.0); LYMPHOCYTES % (AUTO) 38.1 % (20.0-45.0); MEAN CORPUSCULAR HEMOGLOBIN 34.6 PG (27.0-31.0); MEAN CORPUSCULAR HGB CONC 35.1 G/DL (32.0-36.0); MEAN CORPUSCULAR VOLUME 99 FL (80-99); MEAN PLATELET VOLUME 6.1 FL (6.5-10.1); MONOCYTES % (AUTO) 5.8 % (1.0-10.0); NEUTROPHILS % (AUTO) 50.3 % (45.0-75.0); PLATELET COUNT 389 K/UL (150-450); RED BLOOD COUNT 2.59 M/UL (4.20-5.40); RED CELL DISTRIBUTION WIDTH 17.1 % (11.6-14.8); WHITE BLOOD COUNT 15.1 K/UL (4.8-10.8)
[2017-05-31 23:19] LABS: ANION GAP 12 (5-15); CALCIUM 9.1 mg/dL (8.6-10.2); CARBON DIOXIDE 23 mEQ/L (20-30); CHLORIDE 105 mEQ/L (98-107); CREATININE 0.5 mg/dL (0.5-0.9); GLOMERULAR FILTRATION RATE > 60 mL/min (>60); HEMOLYSIS 70; POTASSIUM 3.7 mEQ/L (3.4-4.9); SODIUM 140 mEQ/L (135-145)
[2017-05-31 23:45] VITALS: BP 108/69
[2017-05-31 23:47] LABS: RETICULOCYTE COUNT 2.5 % (0.0-2.0)
[2017-06-01] MEDS ORDERED: Norco 10mg/325mg tab ORAL ONE (00:15)
[2017-06-01 00:25] VITALS: BP 108/69
== END 2017-06-01 00:25 | disposition home or self-care (01) ==
LOC: EMR 22:40
DX: M79.1 Myalgia (principal); F11.20 Opioid dependence, uncomplicated
CPT/HCPCS: 36415; 80048; 85025; 85044; 99283

== ENCOUNTER 2017-06-14 06:51 | Emergency (ER) | payer MEDICAID ==
[~2017-06-14] VITALS: Ht 167.6 cm; Wt 59.0 kg
[2017-06-14 06:59] VITALS: BP 143/97
[2017-06-14] MEDS ORDERED: Morphine Sulfate 10mg/ml Inj IVP ONE (07:00)
[2017-06-14] MEDS ORDERED: DiphenhydrAMINE 50mg/ml Inj IVP ONE (07:00)
--- NOTE | 2017-06-14 07:07 | Emergency Room Report ---
History of Present Illness General Chief Complaint: Pain Source: Patient Present Illness HPI Patient is a 27-year-old female brought in myself after increased pain. Patient reported having increased pain to her extremities. Patient prior history of sickle cell disease she had been followed by hematology. Patient reports having severe pain. The patient reports being left-handed dominant. She states that she has been having increased pain to her upper extremities especially her right side. She denies any pain to her hands or numbness or weakness to her extremities. She denies recent trauma she denies drinking alcohol. Allergies: Coded Allergies: No Known Allergies (Unverified , 02/22/17) Patient History Past Medical History: see triage record Last Menstrual Period: May Reviewed Nursing Documentation: PMH: Agreed, PSxH: Agreed Nursing Documentation-PMH Hx Cardiac Problems: No - sickle cell Hx Hypertension: No Hx Pacemaker: No Hx Cancer: No Hx Gastrointestinal Problems: No Hx Neurological Problems: No Hx Cerebrovascular Accident: No Hx Transient Ischemic Attacks: No Hx Dementia: No Hx Alzheimer's Disease: No Hx Parkinson's Disease: No Hx Meningitis: No Hx Encephalitis: No Hx Seizures: No Hx Epilepsy: No Hx Multiple Sclerosis: No Hx Cerebral Palsy: No Hx Amyotrophic Lat Sclerosis: No Hx Guillian-[place] Syndrome: No Hx Paralysis: No Hx Peripheral Neuropathy: No Hx Spinal Cord Injury: No Hx Head Trauma: No Hx Traumatic Brain Injury: No Hx Memory Loss: No Hx Concentration Difficulty: No Hx Speech Problem: No Hx Tremors: No Hx Vertigo: No Hx Dizziness: No Hx Syncope: No Hx Headaches: No Hx Aphasia: No Hx Dysphasia: No Hx Numbness: No Hx Weakness: No Hx Fatigue: No Hx Neurologic Surgery: No Hx Brain Shunt: No Review of Systems All Other Systems: negative except mentioned in HPI Physical Exam Vital Signs Date Time Temp Pulse Resp B/P (MAP) Pulse Ox O2 Delivery O2 Flow Rate FiO2 06/14/17 06:59 98.4 97 18 143/97 96 Room Air Sp02 EP Interpretation: reviewed, normal General Appearance: normal inspection, well appearing, alert, GCS 15, non-toxic , mild distress Head: atraumatic ENT: normal ENT inspection, hearing grossly normal, normal voice Neck: normal inspection, full range of motion, supple, no bony tend Respiratory: normal inspection, lungs clear, normal breath sounds, no respiratory distress, no retraction, no wheezing Cardiovascular #1: regular rate, rhythm, no edema Gastrointestinal: normal inspection, normal bowel sounds, non tender, soft, no guarding, no hernia Genitourinary: no CVA tenderness Musculoskeletal: normal inspection, back normal, normal range of motion Neurologic: normal inspection, alert, oriented x3, responsive, water supply 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 Differential diagnosis included was not limited to sickle cell pain crisis, sepsis, aplastic crisis, osteomyelitis among others.Because of complexity of patient's case laboratory testing and imaging studies were ordered.I laboratory testing was notable for elevated white blood count. X-ray of the right upper extremity to use interpreted by me showed normal bony alignment without evident fracture or dislocation. The patient was given IV morphine for pain as well as IV fluids. Laboratory studies were notable for elevated white blood count white blood count 21,000. The patient was noted to have adequate hemoglobin. Patient was discussed with [facility]. The patient agreed to the transfer. The case number is [id number]. The patient currently stable for transfer Labs Test 06/14/17 07:10 White Blood Count 21.0 K/UL (4.8-10.8) Red Blood Count 2.69 M/UL (4.20-5.40) Hemoglobin 9.4 G/DL (12.0-16.0) Hematocrit 26.2 % (37.0-47.0) Mean Corpuscular Volume 98 FL (80-99) Mean Corpuscular Hemoglobin 35.1 PG (27.0-31.0) Mean Corpuscular Hemoglobin Concent 36.0 G/DL (32.0-36.0) Red Cell Distribution Width 16.9 % (11.6-14.8) Platelet Count 470 K/UL (150-450) Mean Platelet Volume 6.1 FL (6.5-10.1) Neutrophils (%) (Auto) % (45.0-75.0) Lymphocytes (%) (Auto) % (20.0-45.0) Monocytes (%) (Auto) % (1.0-10.0) Eosinophils (%) (Auto) % (0.0-3.0) Basophils (%) (Auto) % (0.0-2.0) Sodium Level 140 mEQ/L (135-145) Potassium Level 3.6 mEQ/L (3.4-4.9) Chloride Level 102 mEQ/L (98-107) Carbon Dioxide Level 26 mEQ/L (20-30) Anion Gap 12 (5-15) Blood Urea Nitrogen 3 mg/dL (7-23) Creatinine 0.4 mg/dL (0.5-0.9) Estimat Glomerular Filtration Rate > 60 mL/min (>60) Glucose Level 95 mg/dL (74-106) Calcium Level 8.8 mg/dL (8.6-10.2) Total Bilirubin 1.8 mg/dL (0.0-1.2) Direct Bilirubin 0.3 mg/dL (0.1-0.3) Aspartate Amino Transf (AST/SGOT) 14 U/L (5-40) Alanine Aminotransferase (ALT/SGPT) 12 U/L (3-33) Alkaline Phosphatase 62 U/L (35-104) Total Protein 6.8 g/dL (6.6-8.7) Albumin 4.3 g/dL (3.5-5.2) Globulin 2.5 g/dL Albumin/Globulin Ratio 1.7 (1.0-2.7) Last Vital Signs Date Time Temp Pulse Resp B/P (MAP) Pulse Ox O2 Delivery O2 Flow Rate FiO2 06/14/17 06:59 98.4 97 18 143/97 96 Room Air Status: improved Disposition: [facility] Condition: Serious Jr Kim Jun 14, 2017 07:07
[2017-06-14 07:22] LABS: MEAN CORPUSCULAR HEMOGLOBIN 35.1 PG (27.0-31.0); MEAN CORPUSCULAR VOLUME 98 FL (80-99); MEAN PLATELET VOLUME 6.1 FL (6.5-10.1); PLATELET COUNT 470 K/UL (150-450); RED BLOOD COUNT 2.69 M/UL (4.20-5.40); RED CELL DISTRIBUTION WIDTH 16.9 % (11.6-14.8)
[2017-06-14] MEDS ORDERED: HYDREA500 MG PO (07:24)
[2017-06-14 07:34] LABS: ALANINE AMINOTRANSFERASE 12 U/L (3-33); ALBUMIN/GLOBULIN RATIO 1.7 (1.0-2.7); ANION GAP 12 (5-15); ASPARTATE AMINO TRANSFERASE 14 U/L (5-40); CALCIUM 8.8 mg/dL (8.6-10.2); CARBON DIOXIDE 26 mEQ/L (20-30); CHLORIDE 102 mEQ/L (98-107); CREATININE 0.4 mg/dL (0.5-0.9); GLOMERULAR FILTRATION RATE > 60 mL/min (>60); HEMOLYSIS 4; POTASSIUM 3.6 mEQ/L (3.4-4.9); SODIUM 140 mEQ/L (135-145); TOTAL PROTEIN 6.8 g/dL (6.6-8.7)
[2017-06-14 07:52] LABS: BILIRUBIN,DIRECT 0.3 mg/dL (0.1-0.3)
[2017-06-14 08:33] LABS: BAND NEUTROPHILS % (MANUAL) 0 % (0-8); BASOPHILS % (MANUAL) 0 % (0-2); EOSINOPHILS % (MANUAL) 9 % (0-3); LYMPHOCYTES % (MANUAL) 46 % (20-45); NEUTROPHILS % (MANUAL) 39 % (45-75); PLATELET ESTIMATE ADEQUATE; TOTAL CELLS COUNTED 100
[2017-06-14 08:34] LABS: ANISOCYTOSIS 2+; PLATELET MORPHOLOGY NORMAL
[2017-06-14 08:35] LABS: MACROCYTES 1+; SICKLE CELLS 1+
[2017-06-14 08:53] VITALS: BP 120/81
[2017-06-14] MEDS ORDERED: Morphine Sulfate 4mg/ml Inj IVP ONE (09:00)
[2017-06-14 09:07] LABS: RETICULOCYTE COUNT 3.5 % (0.0-2.0)
[2017-06-14 09:46] VITALS: BP 120/81
--- NOTE | 2017-06-14 09:57 | Diagnostic Imaging Report ---
Indications: PAIN Technique: Two views of the right humerus Comparison: None Findings: No acute fractures. No dislocations. No radiopaque foreign body. Impression: Negative
== END 2017-06-14 09:46 | disposition short-term general hospital (02) ==
LOC: EMR 07:30
DX: D57.00 Hb-SS disease with crisis, unspecified (principal); F11.20 Opioid dependence, uncomplicated
CPT/HCPCS: 36415; 73060; 80053; 82248; 85007; 85025; 85044; 86850; 86900; 86901; 96361; 96374; 96375; 96376; 99285; J1200; J2270

== ENCOUNTER 2017-07-24 11:43 | Emergency (ER) | payer MEDICAID ==
[~2017-07-24] VITALS: Ht 167.6 cm; Wt 59.0 kg
[2017-07-24 11:53] VITALS: BP 125/69
[2017-07-24] MEDS ORDERED: DiphenhydrAMINE 50mg/ml Inj IVP ONE (12:00)
[2017-07-24] MEDS ORDERED: HYDROmorphone 1mg/ml Carpuject IVP ONE (12:00)
[2017-07-24 12:29] LABS: APPEARANCE,URINE SLIGHTLY CLOUDY; BILIRUBIN, URINE NEGATIVE (NEGATIVE); GLUCOSE, URINE (UA) NEGATIVE (NEGATIVE); KETONES,URINE NEGATIVE (NEGATIVE); LEUKOCYTE ESTERASE ,URINE 2+ (NEGATIVE); NITRITE,URINE NEGATIVE (NEGATIVE); PH,URINE 6 (4.5-8.0); PROTEIN,URINE 1+ (NEGATIVE); UROBILINOGEN,URINE 1 MG/DL (0.0-1.0)
[2017-07-24 12:37] LABS: BASOPHILS % (AUTO) 1.4 % (0.0-2.0); EOSINOPHILS % (AUTO) 3.3 % (0.0-3.0); HEMATOCRIT 23.4 % (37.0-47.0); HEMOGLOBIN 8.3 G/DL (12.0-16.0); LYMPHOCYTES % (AUTO) 26.1 % (20.0-45.0); MEAN CORPUSCULAR VOLUME 98 FL (80-99); MONOCYTES % (AUTO) 6.5 % (1.0-10.0); NEUTROPHILS % (AUTO) 62.7 % (45.0-75.0); PLATELET COUNT 436 K/UL (150-450); RED BLOOD COUNT 2.38 M/UL (4.20-5.40); RED CELL DISTRIBUTION WIDTH 17.1 % (11.6-14.8); WHITE BLOOD COUNT 13.4 K/UL (4.8-10.8)
[2017-07-24 12:38] LABS: COLOR,URINE YELLOW
[2017-07-24 12:48] LABS: INR 1.1 (0.9-1.1)
[2017-07-24 13:00] LABS: ALANINE AMINOTRANSFERASE 52 U/L (12-78); ALBUMIN 4.2 G/DL (3.4-5.0); ALBUMIN/GLOBULIN RATIO 1.2 (1.0-2.7); ALKALINE PHOSPHATASE 90 U/L (46-116); ANION GAP 10 mmol/L (5-15); ASPARTATE AMINO TRANSFERASE 40 U/L (15-37); BILIRUBIN,DIRECT 0.4 MG/DL (0.0-0.3); BILIRUBIN,TOTAL 2.3 MG/DL (0.2-1.0); BLOOD UREA NITROGEN 3 mg/dL (7-18); CARBON DIOXIDE 25 MMOL/L (21-32); CHLORIDE 104 MMOL/L (98-107); CREATININE 0.5 MG/DL (0.55-1.30); POTASSIUM 3.2 MMOL/L (3.5-5.1); SODIUM 139 MMOL/L (136-145)
[2017-07-24 13:04] VITALS: BP 117/70
[2017-07-24 13:56] VITALS: BP 117/70
--- NOTE | 2017-07-25 14:48 | Emergency Room Report ---
History of Present Illness General Chief Complaint: Pain Source: Patient Present Illness HPI 27-year-old female presents ED complaining of body pain and arm and leg pain times one day. Patient states she has history of sickle cell disease and states she is having a crisis. Pain is sharp, 10 out of 10, nonradiating. No fevers or chills. No cough. Denies chest pain or shortness of breath. No other aggravating relieving factors. Denies any other associated symptoms Allergies: Coded Allergies: No Known Allergies (Unverified , 02/22/17) Patient History Past Medical History: none Past Surgical History: none Pertinent Family History: none Social History: Denies: smoking, alcohol use, drug use Now: No Immunizations: UTD Reviewed Nursing Documentation: PMH: Agreed, PSxH: Agreed Nursing Documentation-PMH Past Medical History: No History, Except For Hx Cardiac Problems: No - sickle cell Hx Hypertension: No Hx Pacemaker: No Hx Cancer: No Hx Gastrointestinal Problems: No Hx Neurological Problems: No Hx Cerebrovascular Accident: No Hx Transient Ischemic Attacks: No Hx Dementia: No Hx Alzheimer's Disease: No Hx Parkinson's Disease: No Hx Meningitis: No Hx Encephalitis: No Hx Seizures: No Hx Epilepsy: No Hx Multiple Sclerosis: No Hx Cerebral Palsy: No Hx Amyotrophic Lat Sclerosis: No Hx Guillian-[place] Syndrome: No Hx Paralysis: No Hx Peripheral Neuropathy: No Hx Spinal Cord Injury: No Hx Head Trauma: No Hx Traumatic Brain Injury: No Hx Memory Loss: No Hx Concentration Difficulty: No Hx Speech Problem: No Hx Tremors: No Hx Vertigo: No Hx Dizziness: No Hx Syncope: No Hx Headaches: No Hx Aphasia: No Hx Dysphasia: No Hx Numbness: No Hx Weakness: No Hx Fatigue: No Hx Neurologic Surgery: No Hx Brain Shunt: No Review of Systems All Other Systems: negative except mentioned in HPI Physical Exam Vital Signs Date Time Temp Pulse Resp B/P (MAP) Pulse Ox O2 Delivery O2 Flow Rate FiO2 07/24/17 11:45 98.2 108 16 119/74 94 Room Air Sp02 EP Interpretation: reviewed, normal General Appearance: no apparent distress, alert, GCS 15, non-toxic Head: normocephalic, atraumatic Eyes: bilateral eye normal inspection, bilateral eye PERRL ENT: hearing grossly normal, normal pharynx, no angioedema, normal voice Neck: full range of motion, supple/symm/no masses Respiratory: chest non-tender, lungs clear, normal breath sounds, speaking full sentences Cardiovascular #1: regular rate, rhythm, no edema Cardiovascular #2: 2+ carotid (R), 2+ carotid (L), 2+ radial (R), 2+ radial (L) , 2+ dorsalis pedis (R), 2+ dorsalis pedis (L) Gastrointestinal: normal bowel sounds, non tender, soft, non-distended, no guarding, no rebound Rectal: deferred Genitourinary: normal inspection, no CVA tenderness Musculoskeletal: back normal, gait/station normal, normal range of motion, non- tender Neurologic: alert, oriented x3, responsive, motor strength/tone normal, sensory intact, speech normal Psychiatric: judgement/insight normal, memory normal, mood/affect normal, no suicidal/homicidal ideation Reflexes: 3+ bicep (R), 3+ bicep (L), 3+ tricep (R), 3+ tricep (L), 3+ knee (R) , 3+ knee (L) Skin: normal color, no rash, warm/dry, well hydrated Lymphatic: no adenopathy Medical Decision Making Diagnostic Impression: Primary Impression: Sickle cell disease Qualified Codes: D57.1 - Sickle-cell disease without crisis ER Course Hospital Course 27-year-old M presents ED complaining of generalized body pain, h/o sickle cell Differential diagnoses include: MT/unstable angina, sickle cell crisis, sepsis, UTI, pneumonia Clinical course Patient placed on stretcher. After initial history and physical I ordered labs , IV fluids, pain medications Labs-no leukocytosis noted, hemoglobin/hematocrit stable, electrolytes okay, retic count and LDH mildly elevated I reviewed labs from previous visits and labs were markedly improved. Patient states she feels better and wishes to be discharged Diagnosis - sickle cell anemia Stable and discharged to home. Followup with PMD. Return to ED if symptoms recur or worsen Labs Test 07/24/17 12:20 White Blood Count 13.4 K/UL (4.8-10.8) Red Blood Count 2.38 M/UL (4.20-5.40) Hemoglobin 8.3 G/DL (12.0-16.0) Hematocrit 23.4 % (37.0-47.0) Mean Corpuscular Volume 98 FL (80-99) Mean Corpuscular Hemoglobin 35.1 PG (27.0-31.0) Mean Corpuscular Hemoglobin Concent 35.6 G/DL (32.0-36.0) Red Cell Distribution Width 17.1 % (11.6-14.8) Platelet Count 436 K/UL (150-450) Mean Platelet Volume 6.6 FL (6.5-10.1) Neutrophils (%) (Auto) 62.7 % (45.0-75.0) Lymphocytes (%) (Auto) 26.1 % (20.0-45.0) Monocytes (%) (Auto) 6.5 % (1.0-10.0) Eosinophils (%) (Auto) 3.3 % (0.0-3.0) Basophils (%) (Auto) 1.4 % (0.0-2.0) Reticulocyte Count 13.9 % (0.0-2.0) Prothrombin Time 12.0 SEC (9.30-11.50) Prothromb Time International Ratio 1.1 (0.9-1.1) Activated Partial Thromboplast Time 23 SEC (23-33) Urine Color Yellow Urine Appearance Slightly cloudy Urine pH 6 (4.5-8.0) Urine Specific [place] 1.010 (1.005-1.035) Urine Protein 1+ (NEGATIVE) Urine Glucose (UA) Negative (NEGATIVE) Urine Ketones Negative (NEGATIVE) Urine Occult Blood Negative (NEGATIVE) Urine Nitrite Negative (NEGATIVE) Urine Bilirubin Negative (NEGATIVE) Urine Urobilinogen 1 MG/DL (0.0-1.0) Urine Leukocyte Esterase 2+ (NEGATIVE) Urine RBC 0-2 /HPF (0 - 2) Urine WBC 2-4 /HPF (0 - 2) Urine Squamous Epithelial Cells Moderate /LPF (NONE/OCC) Urine Bacteria Few /HPF (NONE) Urine HCG, Qualitative Negative Sodium Level 139 MMOL/L (136-145) Potassium Level 3.2 MMOL/L (3.5-5.1) Chloride Level 104 MMOL/L (98-107) Carbon Dioxide Level 25 MMOL/L (21-32) Anion Gap 10 mmol/L (5-15) Blood Urea Nitrogen 3 mg/dL (7-18) Creatinine 0.5 MG/DL (0.55-1.30) Estimat Glomerular Filtration Rate > 60 mL/min (>60) Glucose Level 117 MG/DL (74-106) Calcium Level 9.0 MG/DL (8.5-10.1) Total Bilirubin 2.3 MG/DL (0.2-1.0) Direct Bilirubin 0.4 MG/DL (0.0-0.3) Aspartate Amino Transf (AST/SGOT) 40 U/L (15-37) Alanine Aminotransferase (ALT/SGPT) 52 U/L (12-78) Alkaline Phosphatase 90 U/L (46-116) Lactate Dehydrogenase 314 U/L (81-234) Total Protein 7.6 G/DL (6.4-8.2) Albumin 4.2 G/DL (3.4-5.0) Globulin 3.4 g/dL Albumin/Globulin Ratio 1.2 (1.0-2.7) Last Vital Signs Date Time Temp Pulse Resp B/P (MAP) Pulse Ox O2 Delivery O2 Flow Rate FiO2 07/24/17 13:56 98.3 86 16 117/70 96 Room Air Status: improved Disposition: HOME, SELF-CARE Condition: Stable Referrals: [facility] (PCP) Patient Instructions: Sickle Cell Anemia, Adult, [id number] SP HAMMOND M.D. Jul 25, 2017 14:48
== END 2017-07-24 13:59 | disposition home or self-care (01) ==
LOC: EMR 12:36
DX: D57.00 Hb-SS disease with crisis, unspecified (principal)
CPT/HCPCS: 36415; 80053; 81003; 81025; 82248; 83615; 85025; 85044; 85610; 85730; 86850; 86900; 86901; 96361; 96374; 96375; 99284; J1170; J1200

== ENCOUNTER 2017-08-16 21:22 | Emergency (ER) | payer MEDICAID ==
[~2017-08-16] VITALS: Ht 167.6 cm; Wt 61.2 kg
[2017-08-16 21:40] VITALS: BP 117/72
[2017-08-16] MEDS ORDERED: KEFLEX500 MG ORAL (21:44)
[2017-08-16] MEDS ORDERED: PREDNISONE20 MG ORAL (21:44)
[2017-08-16] MEDS ORDERED: DIPHENHYDRAMINE25 M1 ORAL (21:44)
[2017-08-16] MEDS ORDERED: Cephalexin 500mg cap ORAL ONE (21:45)
[2017-08-16] MEDS ORDERED: DiphenhydrAMINE 50mg/ml Inj IM ONE (21:45)
[2017-08-16 23:00] VITALS: BP 125/78
--- NOTE | 2017-08-17 01:39 | Emergency Room Report ---
History of Present Illness General Chief Complaint: Allergic Reaction Source: Patient Present Illness HPI 27-year-old female presents ED for evaluation. Patient states she has swelling to her right arm x1 day. Believes she was bitten by an insect. Notes swelling. Denies any fevers or chills. Denies pain. Denies tongue swelling or throat swelling. Difficulty breathing. No other aggravating relieving factors. Denies any other associated symptoms Allergies: Coded Allergies: No Known Allergies (Unverified , 02/22/17) Patient History Past Medical History: none Past Surgical History: none Pertinent Family History: none Social History: Denies: smoking, alcohol use, drug use Last Menstrual Period: 08/04/17 Now: No : 0 Para: 0 Immunizations: UTD Reviewed Nursing Documentation: PMH: Agreed, PSxH: Agreed Nursing Documentation-PMH Hx Cardiac Problems: No - sickle cell Hx Hypertension: No Hx Pacemaker: No Hx Cancer: No Hx Gastrointestinal Problems: No Hx Neurological Problems: No Hx Cerebrovascular Accident: No Hx Transient Ischemic Attacks: No Hx Dementia: No Hx Alzheimer's Disease: No Hx Parkinson's Disease: No Hx Meningitis: No Hx Encephalitis: No Hx Seizures: No Hx Epilepsy: No Hx Multiple Sclerosis: No Hx Cerebral Palsy: No Hx Amyotrophic Lat Sclerosis: No Hx Guillian-[place] Syndrome: No Hx Paralysis: No Hx Peripheral Neuropathy: No Hx Spinal Cord Injury: No Hx Head Trauma: No Hx Traumatic Brain Injury: No Hx Memory Loss: No Hx Concentration Difficulty: No Hx Speech Problem: No Hx Tremors: No Hx Vertigo: No Hx Dizziness: No Hx Syncope: No Hx Headaches: No Hx Aphasia: No Hx Dysphasia: No Hx Numbness: No Hx Weakness: No Hx Fatigue: No Hx Neurologic Surgery: No Hx Brain Shunt: No Review of Systems All Other Systems: negative except mentioned in HPI Physical Exam Vital Signs Date Time Temp Pulse Resp B/P (MAP) Pulse Ox O2 Delivery O2 Flow Rate FiO2 08/16/17 21:23 98.1 92 14 126/86 96 Room Air Sp02 EP Interpretation: reviewed, normal General Appearance: no apparent distress, alert, GCS 15, non-toxic Head: normocephalic Eyes: bilateral eye normal inspection, bilateral eye PERRL ENT: hearing grossly normal, normal pharynx, no angioedema, normal voice Neck: full range of motion, supple/symm/no masses Respiratory: normal inspection Cardiovascular #1: normal inspection Gastrointestinal: normal inspection Rectal: deferred Genitourinary: no CVA tenderness Musculoskeletal: swelling - R arm Neurologic: alert, oriented x3, responsive, motor strength/tone normal, sensory intact, speech normal Psychiatric: normal inspection Skin: normal inspection Lymphatic: normal inspection Medical Decision Making Diagnostic Impression: Primary Impression: Allergic reaction Qualified Codes: T78.40XA - Allergy, unspecified, initial encounter Additional Impression: Insect bite Qualified Codes: W57.XXXA - Bitten or stung by nonvenomous insect and other nonvenomous arthropods, initial encounter ER Course Hospital Course 27-year-old female presents to ED with redness, swelling to right arm Differential diagnoses include: Cellulitis, dermatitis, insect bite, abscess Clinical course Patient placed on stretcher. After initial history, physical exam reveals a young female in no acute distress. On exam there is a site for mild erythema and induration to the right forearm. There is no fluctuance. There is no tenderness. There is no tongue swelling, no stridor, no signs of impending airway. Clinical findings consistent with a insect bite with the possible bacterial superinfection. reassurance given given benedryl, prednisone in ED. Diagnosis - bug bite, allergic reaction stable and discharged to home with prescription for prednisone, Benadryl, Keflex. Instructed to followup with PMD. Instructed return to ED if symptoms recur or worsen Last Vital Signs Date Time Temp Pulse Resp B/P (MAP) Pulse Ox O2 Delivery O2 Flow Rate FiO2 08/16/17 23:00 98.1 69 16 125/78 96 Room Air Status: improved Disposition: HOME, SELF-CARE Condition: Improved Scripts Diphenhydramine Hcl* (DIPHENHYDRAMINE HCL*) 25 Mg Capsule 25 MG ORAL Q6H Y for Itching, #30 CAP 0 Refills Prov: SP HAMMOND M.D. 08/16/17 Prednisone* (PREDNISONE*) 20 Mg Tablet 40 MG ORAL DAILY, #10 TAB Prov: SP HAMMOND M.D. 08/16/17 Cephalexin* (KEFLEX*) 500 Mg Capsule 500 MG ORAL Q6H, #28 CAP 0 Refills Prov: SP HAMMOND M.D. 08/16/17 Referrals: [facility] (PCP) Patient Instructions: Hammad [id number] SP HAMMOND M.D. Aug 17, 2017 01:39
== END 2017-08-16 23:00 | disposition home or self-care (01) ==
LOC: EMR 21:50
DX: T78.40XA Allergy, unspecified, initial encounter (principal); X58.XXXA Exposure to other specified factors, initial encounter; M79.89 Other specified soft tissue disorders; S40.861A Insect bite (nonvenomous) of right upper arm, initial encounter; W57.XXXA Bitten or stung by nonvenomous insect and other nonvenomous arthropods, initial encounter
CPT/HCPCS: 96372; 99284; J1200

== ENCOUNTER 2017-08-25 20:57 | Emergency (ER) | payer MEDICAID ==
[~2017-08-25] VITALS: Ht 167.6 cm; Wt 61.2 kg
[~2017-08-25 20:57] MED LIST changes: +DIPHENHYDRAMINE25 M1 ORAL; +PREDNISONE20 MG ORAL
[2017-08-25] MEDS: Morphine Sulfate 4mg/ml Inj IVP ONE ×2 (21:30→23:36)
[2017-08-25] MEDS: DiphenhydrAMINE 50mg/ml Inj IVP ONE (21:31)
[2017-08-25 21:38] VITALS: BP 118/66
[2017-08-25 21:40] LABS: BASOPHILS % (AUTO) 1.6 % (0.0-2.0); EOSINOPHILS % (AUTO) 3.6 % (0.0-3.0); LYMPHOCYTES % (AUTO) 45.6 % (20.0-45.0); MEAN CORPUSCULAR HEMOGLOBIN 35.7 PG (27.0-31.0); MEAN CORPUSCULAR HGB CONC 34.6 G/DL (32.0-36.0); MEAN CORPUSCULAR VOLUME 103 FL (80-99); MEAN PLATELET VOLUME 6.1 FL (6.5-10.1); MONOCYTES % (AUTO) 5.8 % (1.0-10.0); NEUTROPHILS % (AUTO) 43.4 % (45.0-75.0); PLATELET COUNT 429 K/UL (150-450); RED BLOOD COUNT 2.23 M/UL (4.20-5.40); RED CELL DISTRIBUTION WIDTH 16.2 % (11.6-14.8); WHITE BLOOD COUNT 17.1 K/UL (4.8-10.8)
[2017-08-25 21:54] LABS: ANION GAP 8 mmol/L (5-15); CALCIUM 8.6 MG/DL (8.5-10.1); CARBON DIOXIDE 25 MMOL/L (21-32); CHLORIDE 109 MMOL/L (98-107); CREATININE 0.5 MG/DL (0.55-1.30); GLOMERULAR FILTRATION RATE > 60 mL/min (>60); POTASSIUM 3.5 MMOL/L (3.5-5.1); SODIUM 142 MMOL/L (136-145)
[2017-08-25 22:04] LABS: ALANINE AMINOTRANSFERASE 50 U/L (12-78); ALBUMIN/GLOBULIN RATIO 1.3 (1.0-2.7); ASPARTATE AMINO TRANSFERASE 50 U/L (15-37); TOTAL PROTEIN 7.7 G/DL (6.4-8.2)
[2017-08-25 22:06] LABS: BILIRUBIN,DIRECT 0.4 MG/DL (0.0-0.3)
[2017-08-25 22:11] LABS: RETICULOCYTE COUNT 11.4 % (0.0-2.0)
[2017-08-25 23:27] LABS: APPEARANCE,URINE CLEAR; KETONES,URINE NEGATIVE (NEGATIVE); LEUKOCYTE ESTERASE ,URINE 1+ (NEGATIVE); NITRITE,URINE NEGATIVE (NEGATIVE); PH,URINE 6 (4.5-8.0); PROTEIN,URINE 1+ (NEGATIVE); UROBILINOGEN,URINE 1 MG/DL (0.0-1.0)
[2017-08-25 23:39] LABS: RBC,URINE 0-2 /HPF (0 - 2); SQUAMOUS EPITHELIAL CELL,UR OCCASIONAL /LPF (NONE/OCC)
[2017-08-25 23:50] VITALS: BP 115/54
[2017-08-25 23:53] VITALS: BP 115/54
--- NOTE | 2017-08-26 01:13 | Emergency Room Report ---
History of Present Illness General Chief Complaint: Pain Source: Patient Present Illness HPI Patient is a 27-year-old female who presented after increased upper extremity pain. The patient prior history of sickle cell disease. She had reportedly been taking her medications. Patient stated that she had not been having any fever. She denies any recent illness. Patient had been having intermittent episodes. The patient had multiple previous visits to this facility. Allergies: Coded Allergies: KETAMINE (Verified Allergy, Unknown, 08/25/17) Patient History Past Medical History: see triage record Last Menstrual Period: 3 weeks ago Now: No Reviewed Nursing Documentation: PMH: Agreed, PSxH: Agreed Nursing Documentation-PMH Past Medical History: No Stated History Hx Cardiac Problems: No - sickle cell Hx Hypertension: No Hx Pacemaker: No Hx Cancer: No Hx Gastrointestinal Problems: No Hx Neurological Problems: No Hx Cerebrovascular Accident: No Hx Transient Ischemic Attacks: No Hx Dementia: No Hx Alzheimer's Disease: No Hx Parkinson's Disease: No Hx Meningitis: No Hx Encephalitis: No Hx Seizures: No Hx Epilepsy: No Hx Multiple Sclerosis: No Hx Cerebral Palsy: No Hx Amyotrophic Lat Sclerosis: No Hx Guillian-[place] Syndrome: No Hx Paralysis: No Hx Peripheral Neuropathy: No Hx Spinal Cord Injury: No Hx Head Trauma: No Hx Traumatic Brain Injury: No Hx Memory Loss: No Hx Concentration Difficulty: No Hx Speech Problem: No Hx Tremors: No Hx Vertigo: No Hx Dizziness: No Hx Syncope: No Hx Headaches: No Hx Aphasia: No Hx Dysphasia: No Hx Numbness: No Hx Weakness: No Hx Fatigue: No Hx Neurologic Surgery: No Hx Brain Shunt: No Review of Systems All Other Systems: negative except mentioned in HPI Physical Exam Vital Signs Date Time Temp Pulse Resp B/P (MAP) Pulse Ox O2 Delivery O2 Flow Rate FiO2 08/25/17 21:04 98.2 109 15 121/73 98 08/25/17 21:38 Room Air Sp02 EP Interpretation: reviewed, normal General Appearance: normal inspection, well appearing, no apparent distress, alert, GCS 15 Head: atraumatic ENT: normal ENT inspection, hearing grossly normal, normal voice Neck: normal inspection, full range of motion, supple, no bony tend Respiratory: normal inspection, lungs clear, normal breath sounds, no respiratory distress, no retraction, no wheezing Cardiovascular #1: regular rate, rhythm, no edema Gastrointestinal: normal inspection, normal bowel sounds, non tender, soft, no guarding, no hernia Genitourinary: no CVA tenderness Musculoskeletal: normal inspection, back normal, normal range of motion Neurologic: normal inspection, alert, oriented x3, responsive, 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 Differential diagnosis included but was not limited to have sickle cell pain crisis, aplastic crisis, sequestration , osteomyelitis, acute chest syndrome among others. Because of complexity of patient's case laboratory testing and imaging studies were ordered. The patient noted to have adequate hemoglobin. Patient's white count is moderately elevated in this is consistent patient's previous episodes of sickle cell pain. The patient started on IV pain medications as well as IV fluids. She reports having improvement in her symptoms.The patient is advised to follow up with primary care doctor in 1-2 days. Patient is advised to return if any worsening condition or if any changes in status that are concerning. Labs Test 08/25/17 21:26 08/25/17 23:18 White Blood Count 17.1 K/UL (4.8-10.8) Red Blood Count 2.23 M/UL (4.20-5.40) Hemoglobin 8.0 G/DL (12.0-16.0) Hematocrit 23.0 % (37.0-47.0) Mean Corpuscular Volume 103 FL (80-99) Mean Corpuscular Hemoglobin 35.7 PG (27.0-31.0) Mean Corpuscular Hemoglobin Concent 34.6 G/DL (32.0-36.0) Red Cell Distribution Width 16.2 % (11.6-14.8) Platelet Count 429 K/UL (150-450) Mean Platelet Volume 6.1 FL (6.5-10.1) Neutrophils (%) (Auto) 43.4 % (45.0-75.0) Lymphocytes (%) (Auto) 45.6 % (20.0-45.0) Monocytes (%) (Auto) 5.8 % (1.0-10.0) Eosinophils (%) (Auto) 3.6 % (0.0-3.0) Basophils (%) (Auto) 1.6 % (0.0-2.0) Reticulocyte Count 11.4 % (0.0-2.0) Sodium Level 142 MMOL/L (136-145) Potassium Level 3.5 MMOL/L (3.5-5.1) Chloride Level 109 MMOL/L (98-107) Carbon Dioxide Level 25 MMOL/L (21-32) Anion Gap 8 mmol/L (5-15) Blood Urea Nitrogen 8 mg/dL (7-18) Creatinine 0.5 MG/DL (0.55-1.30) Estimat Glomerular Filtration Rate > 60 mL/min (>60) Glucose Level 106 MG/DL (74-106) Calcium Level 8.6 MG/DL (8.5-10.1) Total Bilirubin 1.9 MG/DL (0.2-1.0) Direct Bilirubin 0.4 MG/DL (0.0-0.3) Aspartate Amino Transf (AST/SGOT) 50 U/L (15-37) Alanine Aminotransferase (ALT/SGPT) 50 U/L (12-78) Alkaline Phosphatase 70 U/L (46-116) Total Protein 7.7 G/DL (6.4-8.2) Albumin 4.3 G/DL (3.4-5.0) Globulin 3.4 g/dL Albumin/Globulin Ratio 1.3 (1.0-2.7) Urine Color Yellow Urine Appearance Clear Urine pH 6 (4.5-8.0) Urine Specific [place] 1.010 (1.005-1.035) Urine Protein 1+ (NEGATIVE) Urine Glucose (UA) Negative (NEGATIVE) Urine Ketones Negative (NEGATIVE) Urine Occult Blood Negative (NEGATIVE) Urine Nitrite Negative (NEGATIVE) Urine Bilirubin Negative (NEGATIVE) Urine Urobilinogen 1 MG/DL (0.0-1.0) Urine Leukocyte Esterase 1+ (NEGATIVE) Urine RBC 0-2 /HPF (0 - 2) Urine WBC 2-4 /HPF (0 - 2) Urine Squamous Epithelial Cells Occasional /LPF Urine Bacteria None /HPF (NONE) Urine HCG, Qualitative Negative Last Vital Signs Date Time Temp Pulse Resp B/P (MAP) Pulse Ox O2 Delivery O2 Flow Rate FiO2 08/25/17 23:53 98.2 92 18 115/54 96 Room Air Status: improved Disposition: HOME, SELF-CARE Condition: Stable Referrals: [facility] (PCP) Patient Instructions: Sickle Cell Anemia, Adult Jr Kim Aug 26, 2017 01:13
== END 2017-08-25 23:53 | disposition home or self-care (01) ==
LOC: EMR 21:23
DX: D57.00 Hb-SS disease with crisis, unspecified (principal)
CPT/HCPCS: 36415; 80053; 81003; 81025; 82248; 85025; 85044; 86850; 86900; 86901; 96374; 96375; 99284; J1200; J2270

== ENCOUNTER 2017-09-05 16:04 | Emergency (ER) | payer MEDICAID ==
[~2017-09-05] VITALS: Ht 167.6 cm; Wt 61.2 kg
[2017-09-05] MEDS ORDERED: KEFLEX500 MG ORAL (16:56)
[2017-09-05 17:00] VITALS: BP 112/76
--- NOTE | 2017-09-05 17:05 | Emergency Room Report ---
History of Present Illness General Chief Complaint: Skin Rash/Abscess Source: Patient Present Illness HPI Patient is 27-year-old female with a prior history of sickle cell disease. Patient reported having increased pain and swollen area to the area below her chin. The patient had noticed a lesion below her lip which had become more uncomfortable. The patient had denies any fever. She denies any systemic pain this time. Patient has no allergies antibiotics Allergies: Coded Allergies: KETAMINE (Verified Allergy, Unknown, 08/25/17) Patient History Past Medical History: see triage record Last Menstrual Period: 08/28/17 Now: No : 0 Reviewed Nursing Documentation: PMH: Agreed, PSxH: Agreed Nursing Documentation-PMH Past Medical History: No History, Except For Hx Cardiac Problems: No - sickle cell Hx Hypertension: No Hx Pacemaker: No Hx Cancer: No Hx Gastrointestinal Problems: No Hx Neurological Problems: No Hx Cerebrovascular Accident: No Hx Transient Ischemic Attacks: No Hx Dementia: No Hx Alzheimer's Disease: No Hx Parkinson's Disease: No Hx Meningitis: No Hx Encephalitis: No Hx Seizures: No Hx Epilepsy: No Hx Multiple Sclerosis: No Hx Cerebral Palsy: No Hx Amyotrophic Lat Sclerosis: No Hx Guillian-[place] Syndrome: No Hx Paralysis: No Hx Peripheral Neuropathy: No Hx Spinal Cord Injury: No Hx Head Trauma: No Hx Traumatic Brain Injury: No Hx Memory Loss: No Hx Concentration Difficulty: No Hx Speech Problem: No Hx Tremors: No Hx Vertigo: No Hx Dizziness: No Hx Syncope: No Hx Headaches: No Hx Aphasia: No Hx Dysphasia: No Hx Numbness: No Hx Weakness: No Hx Fatigue: No Hx Neurologic Surgery: No Hx Brain Shunt: No Review of Systems All Other Systems: negative except mentioned in HPI Physical Exam Vital Signs Date Time Temp Pulse Resp B/P (MAP) Pulse Ox O2 Delivery O2 Flow Rate FiO2 09/05/17 16:20 98.2 92 18 110/72 95 Room Air General Appearance: well appearing, no apparent distress, alert, GCS 15 Head: normocephalic, atraumatic ENT: hearing grossly normal, normal voice Neck: full range of motion, supple Respiratory: no respiratory distress, speaking full sentences Cardiovascular #1: normal inspection Gastrointestinal: normal inspection Musculoskeletal: no calf tenderness Neurologic: normal gait Psychiatric: mood/affect normal Skin: other - small lesion to chin with honey colored crust Medical Decision Making Diagnostic Impression: Primary Impression: Skin infection ER Course Patient presented for skin rash. Differential diagnosis included was not limited to impetigo, herpes labialis, lymphoma, submandibular infection among others Patient's benign exam and does not appear to require any further imaging or laboratory testing at this time. The patient appears to have some lymphadenopathy. This is appears to be related to a skin infection. The patient was given prescription for Keflex. The patient is advised to follow up with primary care doctor in 1-2 days. Patient is advised to return if any worsening condition or if any changes in status that are concerning. Last Vital Signs Date Time Temp Pulse Resp B/P (MAP) Pulse Ox O2 Delivery O2 Flow Rate FiO2 09/05/17 16:20 98.2 92 18 110/72 95 Room Air Status: improved Disposition: HOME, SELF-CARE Condition: Stable Scripts Cephalexin* (KEFLEX*) 500 Mg Capsule 500 MG ORAL Q6H, #28 CAP 0 Refills Prov: Jr Kim 09/05/17 Patient Instructions: Impetigo, Adult Jr Kim Sep 05, 2017 17:05
== END 2017-09-05 17:00 | disposition home or self-care (01) ==
LOC: EMR 17:00
DX: L08.9 Local infection of the skin and subcutaneous tissue, unspecified (principal); D57.1 Sickle-cell disease without crisis
CPT/HCPCS: 99283

== ENCOUNTER 2017-09-09 02:01 | Emergency (ER) | payer MEDICAID ==
[~2017-09-09] VITALS: Ht 167.6 cm; Wt 61.2 kg
[2017-09-09 02:37] VITALS: BP 120/73
--- NOTE | 2017-09-09 02:44 | Emergency Room Report ---
History of Present Illness General Chief Complaint: Abdominal Pain Source: Patient Present Illness HPI Is a 27-year-old female with a history of sickle cell. She's been here numerous times for sickle cell disease in crisis. Patient is out of her Dilaudid. She presents with generalized body pain and joint pain. Is typical for her. No fever chills but no nausea no vomiting. Pain is 10 out of 10. No fever chills but no nausea no vomiting. Allergies: Coded Allergies: KETAMINE (Verified Allergy, Unknown, 08/25/17) Patient History Past Medical History: see triage record, old chart reviewed Past Surgical History: other Pertinent Family History: none Social History: Denies: smoking Last Menstrual Period: Aug Now: No Immunizations: other Reviewed Nursing Documentation: PMH: Agreed, PSxH: Agreed Nursing Documentation-PMH Hx Cardiac Problems: No - sickle cell Hx Hypertension: No Hx Pacemaker: No Hx Cancer: No Hx Gastrointestinal Problems: No Hx Neurological Problems: No Hx Cerebrovascular Accident: No Hx Transient Ischemic Attacks: No Hx Dementia: No Hx Alzheimer's Disease: No Hx Parkinson's Disease: No Hx Meningitis: No Hx Encephalitis: No Hx Seizures: No Hx Epilepsy: No Hx Multiple Sclerosis: No Hx Cerebral Palsy: No Hx Amyotrophic Lat Sclerosis: No Hx Guillian-[place] Syndrome: No Hx Paralysis: No Hx Peripheral Neuropathy: No Hx Spinal Cord Injury: No Hx Head Trauma: No Hx Traumatic Brain Injury: No Hx Memory Loss: No Hx Concentration Difficulty: No Hx Speech Problem: No Hx Tremors: No Hx Vertigo: No Hx Dizziness: No Hx Syncope: No Hx Headaches: No Hx Aphasia: No Hx Dysphasia: No Hx Numbness: No Hx Weakness: No Hx Fatigue: No Hx Neurologic Surgery: No Hx Brain Shunt: No Review of Systems Eye: Denies: eye pain, blurred vision ENT: Denies: ear pain, nose congestion, throat swelling Respiratory: Denies: cough, shortness of breath Cardiovascular: Denies: chest pain, palpitations Gastrointestinal: Denies: abdominal pain, diarrhea, nausea, vomiting Musculoskeletal: Denies: back pain, joint pain Skin: Denies: rash Neurological: Denies: headache, numbness Endocrine: Denies: increased thirst, increased urine Hematologic/Lymphatic: Denies: easy bruising All Other Systems: negative except mentioned in HPI Physical Exam Vital Signs Date Time Temp Pulse Resp B/P (MAP) Pulse Ox O2 Delivery O2 Flow Rate FiO2 09/09/17 02:06 97.9 87 16 120/73 96 Room Air vitals normal Sp02 EP Interpretation: reviewed, normal General Appearance: well appearing, no apparent distress, alert Head: normocephalic, atraumatic Eyes: bilateral eye PERRL, bilateral eye EOMI ENT: hearing grossly normal, normal pharynx Neck: full range of motion, supple, no meningismus Respiratory: chest non-tender, lungs clear, normal breath sounds Cardiovascular #1: regular rate, rhythm, no murmur Gastrointestinal: normal bowel sounds, non tender, no mass, no organomegaly, no bruit, non-distended Musculoskeletal: back normal, gait/station normal, normal range of motion Psychiatric: mood/affect normal Skin: warm/dry Medical Decision Making Diagnostic Impression: Primary Impression: Opiate dependence Qualified Codes: F11.20 - Opioid dependence, uncomplicated Additional Impression: Sickle cell crisis ER Course Patient with exacerbation of chronic pain. She looks well. We'll discharge home. Last Vital Signs Date Time Temp Pulse Resp B/P (MAP) Pulse Ox O2 Delivery O2 Flow Rate FiO2 09/09/17 02:37 97.9 87 16 120/73 96 Room Air Status: improved Disposition: HOME, SELF-CARE Condition: Stable Referrals: [facility] (PCP) Additional Instructions: Followup with your DrBrown for refill your medication. Followup within 2-3 days. Return if symptom worsen. NENA PAT M.D. Sep 09, 2017 02:44
[2017-09-09] MEDS ORDERED: HYDROmorphone 1mg/ml Carpuject IM ONE (02:45)
[2017-09-09 02:51] VITALS: BP 120/73
== END 2017-09-09 02:51 | disposition home or self-care (01) ==
LOC: EMR 02:33
DX: D57.00 Hb-SS disease with crisis, unspecified (principal); F11.20 Opioid dependence, uncomplicated
CPT/HCPCS: 96372; 99283; J1170

== ENCOUNTER 2017-09-19 03:21 | Emergency (ER) | payer MEDICAID ==
[~2017-09-19] VITALS: Ht 167.6 cm; Wt 61.2 kg
[2017-09-19] MEDS ORDERED: DiphenhydrAMINE 50mg/ml Inj IVP ONE ×2 (03:45→06:45)
[2017-09-19] MEDS ORDERED: HYDROmorphone 1mg/ml Carpuject IVP ONE (03:45)
--- NOTE | 2017-09-19 03:47 | Emergency Room Report ---
History of Present Illness General Chief Complaint: Pain Source: Patient Present Illness HPI The patient presents with bilateral leg pain. She was on a trampoline earlier. She has felt feverish. She has some diarrhea which has been brown in color without any blood or melena. She's not vomiting. She ran out of her Dilaudid 2 mg on [place]. The pain is 10/10 at this time, constant, more in joints , aching, not radiating. She is a history of sickle cell anemia. LNMP 08/28 - normal for her. No URI sy, cough, chest pain, dyspnea, headache, dizziness. She was last seen 09/09. She had also run out of her Dilaudid at that time. Allergies: Coded Allergies: KETAMINE (Verified Allergy, Unknown, 08/25/17) Patient History Past Medical History: see triage record, old chart reviewed Social History: Reports: smoking Social History Narrative lives at home Last Menstrual Period: 08/28/17 Now: No : 0 Para: 0 Reviewed Nursing Documentation: PMH: Agreed, PSxH: Agreed Nursing Documentation-PMH Hx Hypertension: No Hx Pacemaker: No Hx Cancer: No Hx Gastrointestinal Problems: No Hx Neurological Problems: No Hx Cerebrovascular Accident: No Hx Transient Ischemic Attacks: No Hx Dementia: No Hx Alzheimer's Disease: No Hx Parkinson's Disease: No Hx Meningitis: No Hx Encephalitis: No Hx Seizures: No Hx Epilepsy: No Hx Multiple Sclerosis: No Hx Cerebral Palsy: No Hx Amyotrophic Lat Sclerosis: No Hx Guillian-[place] Syndrome: No Hx Paralysis: No Hx Peripheral Neuropathy: No Hx Spinal Cord Injury: No Hx Head Trauma: No Hx Traumatic Brain Injury: No Hx Memory Loss: No Hx Concentration Difficulty: No Hx Speech Problem: No Hx Tremors: No Hx Vertigo: No Hx Dizziness: No Hx Syncope: No Hx Headaches: No Hx Aphasia: No Hx Dysphasia: No Hx Numbness: No Hx Weakness: No Hx Fatigue: No Hx Neurologic Surgery: No Hx Brain Shunt: No Review of Systems All Other Systems: negative except mentioned in HPI Physical Exam Vital Signs Date Time Temp Pulse Resp B/P (MAP) Pulse Ox O2 Delivery O2 Flow Rate FiO2 09/19/17 03:26 99.3 135 14 128/67 97 Room Air Sp02 EP Interpretation: reviewed, normal General Appearance: well appearing, no apparent distress, GCS 15 Head: normocephalic Eyes: bilateral eye normal inspection, bilateral eye scleral icterus ENT: moist mucus membranes Neck: supple Respiratory: lungs clear, normal breath sounds Cardiovascular #1: tachycardia Cardiovascular #2: 2+ radial (R) Gastrointestinal: normal inspection, normal bowel sounds, non tender, no mass, non-distended Musculoskeletal: back normal, gait/station normal, normal range of motion, tender - le Neurologic: alert, oriented x3, grossly normal Psychiatric: mood/affect normal Skin: normal inspection, warm/dry Medical Decision Making Diagnostic Impression: Primary Impression: Sickle-cell disease with pain Additional Impression: Opiate dependence Qualified Codes: F11.29 - Opioid dependence with unspecified opioid-induced disorder ER Course Patient with sickle cell presents with bilateral leg pain. She is also tachycardic. Differential includes acute sickle cell crisis, drug-seeking behavior, dehydration, chest crisis, sepsis amongst others. Evaluation with EKG , chest x-ray and labs. She will receive IV hydration and analgesia. Labs fairly consistent with prior. Leukocytosis, anemia, high retic, high bili. Patient resting well after doses of pain meds. Asking for more pain medicine. Tachycardia improved. Offered to either admit the patient or follow with her following up with her MD today. She will see her MD today. The patient is stable for outpatient observation and treatment. Laboratory Tests Test 09/19/17 04:30 White Blood Count 22.6 K/UL (4.8-10.8) *H Red Blood Count 2.30 M/UL (4.20-5.40) L Hemoglobin 7.9 G/DL (12.0-16.0) L Hematocrit 23.1 % (37.0-47.0) L Mean Corpuscular Volume 100 FL (80-99) H Mean Corpuscular Hemoglobin 34.4 PG (27.0-31.0) H Mean Corpuscular Hemoglobin Concent 34.3 G/DL (32.0-36.0) Red Cell Distribution Width 14.9 % (11.6-14.8) H Platelet Count 430 K/UL (150-450) Mean Platelet Volume 6.5 FL (6.5-10.1) Neutrophils (%) (Auto) % (45.0-75.0) Lymphocytes (%) (Auto) % (20.0-45.0) Monocytes (%) (Auto) % (1.0-10.0) Eosinophils (%) (Auto) % (0.0-3.0) Basophils (%) (Auto) % (0.0-2.0) Neutrophils % (Manual) Pending Lymphocytes % (Manual) Pending Platelet Estimate Pending Platelet Morphology Pending Reticulocyte Count 10.7 % (0.0-2.0) H Sodium Level 141 MMOL/L (136-145) Potassium Level 3.3 MMOL/L (3.5-5.1) L Chloride Level 105 MMOL/L (98-107) Carbon Dioxide Level 25 MMOL/L (21-32) Anion Gap 11 mmol/L (5-15) Blood Urea Nitrogen 3 mg/dL (7-18) L Creatinine 0.4 MG/DL (0.55-1.30) L Estimate Glomerular Filtration Rate > 60 mL/min (>60) Glucose Level 90 MG/DL (74-106) Calcium Level 7.7 MG/DL (8.5-10.1) L Total Bilirubin 2.5 MG/DL (0.2-1.0) H Direct Bilirubin 0.4 MG/DL (0.0-0.3) H Aspartate Amino Transferase (AST) 46 U/L (15-37) H Alanine Aminotransferase (ALT) 54 U/L (12-78) Alkaline Phosphatase 89 U/L (46-116) Lactate Dehydrogenase 357 U/L (81-234) H Total Creatine Kinase 39 U/L (26-308) Troponin I 0.000 ng/mL (0.000-0.056) Pro-B-Type Natriuretic Peptide 66 pg/mL (0-125) Total Protein 8.3 G/DL (6.4-8.2) H Albumin 4.2 G/DL (3.4-5.0) Globulin 4.1 g/dL Albumin/Globulin Ratio 1.0 (1.0-2.7) EKG Diagnostic Results Rate: tachycardiac ST Segments: no acute changes Rhythm Strip Diag. Results EP Interpretation: yes Rhythm: no PVC's, no ectopy, other - Sinus tachycardia Last Vital Signs Date Time Temp Pulse Resp B/P (MAP) Pulse Ox O2 Delivery O2 Flow Rate FiO2 09/19/17 08:04 98.5 82 17 111/70 99 Room Air Status: improved Disposition: HOME, SELF-CARE Condition: Improved Uziel Ruggiero M.D. Sep 19, 2017 03:47
[2017-09-19] MEDS ORDERED: Ketorolac 30mg Inj IV ONE (04:00)
[2017-09-19 04:51] LABS: MEAN CORPUSCULAR HEMOGLOBIN 34.4 PG (27.0-31.0); MEAN CORPUSCULAR HGB CONC 34.3 G/DL (32.0-36.0); MEAN CORPUSCULAR VOLUME 100 FL (80-99); MEAN PLATELET VOLUME 6.5 FL (6.5-10.1); PLATELET COUNT 430 K/UL (150-450); RED CELL DISTRIBUTION WIDTH 14.9 % (11.6-14.8)
[2017-09-19 05:02] LABS: WHITE BLOOD COUNT 22.6 K/UL (4.8-10.8)
[2017-09-19 05:07] LABS: ANION GAP 11 mmol/L (5-15); CALCIUM 7.7 MG/DL (8.5-10.1); CARBON DIOXIDE 25 MMOL/L (21-32); CHLORIDE 105 MMOL/L (98-107); CREATININE 0.4 MG/DL (0.55-1.30); GLOMERULAR FILTRATION RATE > 60 mL/min (>60); POTASSIUM 3.3 MMOL/L (3.5-5.1); SODIUM 141 MMOL/L (136-145)
[2017-09-19 05:49] LABS: ALANINE AMINOTRANSFERASE 54 U/L (12-78); ASPARTATE AMINO TRANSFERASE 46 U/L (15-37); LACTATE DEHYDROGENASE 357 U/L (81-234); TOTAL PROTEIN 8.3 G/DL (6.4-8.2)
[2017-09-19 06:00] LABS: BILIRUBIN,DIRECT 0.4 MG/DL (0.0-0.3)
[2017-09-19] MEDS ORDERED: Hydromorphone 0.5mg/0.5ml inj IVP ONE (06:45)
[2017-09-19 06:57] LABS: RETICULOCYTE COUNT 10.7 % (0.0-2.0)
[2017-09-19] MEDS ORDERED: oxyCODONE HCL/Acetaminophen 5/325mg ORAL ONE (07:30)
[2017-09-19 07:51] LABS: ANISOCYTOSIS 1+; BAND NEUTROPHILS % (MANUAL) 0 % (0-8); BASOPHILS % (MANUAL) 0 % (0-2); EOSINOPHILS % (MANUAL) 0 % (0-3); HYPOCHROMASIA 1+; LYMPHOCYTES % (MANUAL) 31 % (20-45); MACROCYTES 1+; NEUTROPHILS % (MANUAL) 61 % (45-75); PLATELET ESTIMATE ADEQUATE; PLATELET MORPHOLOGY NORMAL; POLYCHROMASIA 1+; SICKLE CELLS 1+; TOTAL CELLS COUNTED 100
[2017-09-19 08:04] VITALS: BP 111/70
--- NOTE | 2017-09-19 12:14 | Diagnostic Imaging Report ---
Indication: Dyspnea Comparison: 04/18/2017 A single view chest radiograph was obtained. Findings: Cardiomediastinal appearance is within normal limits for age. Pulmonary vascularity is appropriate. The diaphragmatic contour is smooth and costophrenic angles are sharp. No pleural effusions are identified. The bones are unremarkable. Impression: No acute findings
--- NOTE | 2017-10-03 00:23 | Cardiology Report ---
APPROVED REPORT EKG Measurement Heart [id number] N[address] and T wave abnormality Abnormal ECG
== END 2017-09-19 08:04 | disposition home or self-care (01) ==
LOC: EMR 03:35
DX: D57.00 Hb-SS disease with crisis, unspecified (principal); F11.20 Opioid dependence, uncomplicated; M79.605 Pain in left leg; M79.604 Pain in right leg; R00.0 Tachycardia, unspecified
CPT/HCPCS: 36415; 71010; 80053; 82248; 82550; 83615; 83880; 84484; 85007; 85025; 85044; 93005; 96361; 96374; 96375; 96376; 99284; J1170; J1200; J1885; J2405

== ENCOUNTER 2017-09-24 00:53 | Emergency (ER) | payer MEDICAID ==
[~2017-09-24] VITALS: Ht 167.6 cm; Wt 61.2 kg
[2017-09-24 01:05] VITALS: BP 123/68
[2017-09-24] MEDS ORDERED: Hydromorphone 0.5mg/0.5ml inj ONE (01:11)
[2017-09-24] MEDS ORDERED: HYDROmorphone 1mg/ml Carpuject IM ONE ×2 (01:15→01:30)
[2017-09-24] MEDS ORDERED: DiphenhydrAMINE 50mg/ml Inj IM ONE (01:30)
[2017-09-24] MEDS ORDERED: TAMIFLU75 MG ORAL (01:54)
[2017-09-24] MEDS ORDERED: HYDROCODON-ACE1 EA15 ORAL (01:54)
--- NOTE | 2017-09-24 01:55 | Emergency Room Report ---
History of Present Illness General Chief Complaint: Pain Source: Patient Present Illness HPI Is a 27-year-old female with history of sickle cell. She presents with chief complaint sickle cell crisis. Has been ongoing for 2 days. She also has a runny nose congestion and fever. She was here 4 days ago with sickle cell pain. Her sister is also here for the same thing. Allergies: Coded Allergies: KETAMINE (Verified Allergy, Unknown, 08/25/17) Patient History Past Medical History: see triage record, old chart reviewed Past Surgical History: other Pertinent Family History: none Social History: Denies: smoking Last Menstrual Period: 08/28/17 Now: No Immunizations: other Reviewed Nursing Documentation: PMH: Agreed, PSxH: Agreed Nursing Documentation-PMH Hx Hypertension: No Hx Pacemaker: No Hx Cancer: No Hx Gastrointestinal Problems: No Hx Neurological Problems: No Hx Cerebrovascular Accident: No Hx Transient Ischemic Attacks: No Hx Dementia: No Hx Alzheimer's Disease: No Hx Parkinson's Disease: No Hx Meningitis: No Hx Encephalitis: No Hx Seizures: No Hx Epilepsy: No Hx Multiple Sclerosis: No Hx Cerebral Palsy: No Hx Amyotrophic Lat Sclerosis: No Hx Guillian-[place] Syndrome: No Hx Paralysis: No Hx Peripheral Neuropathy: No Hx Spinal Cord Injury: No Hx Head Trauma: No Hx Traumatic Brain Injury: No Hx Memory Loss: No Hx Concentration Difficulty: No Hx Speech Problem: No Hx Tremors: No Hx Vertigo: No Hx Dizziness: No Hx Syncope: No Hx Headaches: No Hx Aphasia: No Hx Dysphasia: No Hx Numbness: No Hx Weakness: No Hx Fatigue: No Hx Neurologic Surgery: No Hx Brain Shunt: No Review of Systems Eye: Denies: eye pain, blurred vision ENT: Reports: nose congestion, throat pain, throat swelling, Denies: ear pain Respiratory: Reports: cough, Denies: shortness of breath Cardiovascular: Denies: chest pain, palpitations Gastrointestinal: Denies: abdominal pain, diarrhea, nausea, vomiting Musculoskeletal: Denies: back pain, joint pain Skin: Denies: rash Neurological: Denies: headache, numbness Endocrine: Denies: increased thirst, increased urine Hematologic/Lymphatic: Denies: easy bruising All Other Systems: negative except mentioned in HPI Physical Exam Vital Signs Date Time Temp Pulse Resp B/P (MAP) Pulse Ox O2 Delivery O2 Flow Rate FiO2 09/24/17 00:56 98.1 106 12 121/70 96 Room Air vitals normal Sp02 EP Interpretation: reviewed, normal General Appearance: well appearing, no apparent distress, alert Head: normocephalic, atraumatic Eyes: bilateral eye PERRL, bilateral eye EOMI ENT: hearing grossly normal, normal pharynx Neck: full range of motion, supple, no meningismus Respiratory: chest non-tender, lungs clear, normal breath sounds Cardiovascular #1: regular rate, rhythm, no murmur Gastrointestinal: normal bowel sounds, non tender, no mass, no organomegaly, no bruit, non-distended Musculoskeletal: back normal, gait/station normal, normal range of motion Psychiatric: mood/affect normal Skin: warm/dry Medical Decision Making Diagnostic Impression: Primary Impression: Sickle cell crisis Additional Impressions: Opiate dependence Qualified Codes: F11.20 - Opioid dependence, uncomplicated Influenza-like illness ER Course Patient with respiratory influenza-like illness exacerbating or sickle cell. She is otherwise stable. No evidence of blastic crisis. No evidence of bacterial infection. We'll discharge home. Last Vital Signs Date Time Temp Pulse Resp B/P (MAP) Pulse Ox O2 Delivery O2 Flow Rate FiO2 09/24/17 01:05 98.1 78 12 123/68 98 Room Air Status: improved Disposition: HOME, SELF-CARE Condition: Stable Scripts Hydrocodone/Acetaminophen 5-325* (HYDROCODONE/ACETAMINOPHEN 5-325*) 1 Each Tablet 1 TAB ORAL Q6H Y for For Pain, #15 TAB 0 Refills Prov: NENA PAT M.D. 09/24/17 Oseltamivir Phosphate (Tamiflu) 75 Mg Capsule 75 MG ORAL TWICE A DAY, #10 CAP Prov: NENA PAT M.D. 09/24/17 Additional Instructions: Followup with your DrBrown in 3-5 days for refill your medication. Return if symptom worsen. NENA PAT M.D. Sep 24, 2017 01:55
[2017-09-24 02:00] VITALS: BP 122/64
[2017-09-24 02:15] VITALS: BP 122/64
== END 2017-09-24 02:15 | disposition home or self-care (01) ==
LOC: EMR 01:30
DX: D57.00 Hb-SS disease with crisis, unspecified (principal); F11.20 Opioid dependence, uncomplicated; J11.1 Influenza due to unidentified influenza virus with other respiratory manifestations
CPT/HCPCS: 96372; 99284; J1170; J1200

== ENCOUNTER 2017-09-28 01:20 | Emergency (ER) | payer MEDICAID ==
[~2017-09-28] VITALS: Ht 167.6 cm; Wt 61.2 kg
[~2017-09-28 01:20] MED LIST changes: +TAMIFLU75 MG ORAL
--- NOTE | 2017-09-28 02:47 | Emergency Room Report ---
History of Present Illness General Chief Complaint: Pain Present Illness HPI Is a 27-year-old female well-known to me. She has a sickle cell with frequent ER visit. She came in complaining of generalized pain. She found out I was on and decided to leave without waiting too long. I did not see the patient. Allergies: Coded Allergies: KETAMINE (Verified Allergy, Unknown, 08/25/17) Patient History Last Menstrual Period: sep Nursing Documentation-PMH Hx Hypertension: No Hx Pacemaker: No Hx Cancer: No Hx Gastrointestinal Problems: No Hx Neurological Problems: No Hx Cerebrovascular Accident: No Hx Transient Ischemic Attacks: No Hx Dementia: No Hx Alzheimer's Disease: No Hx Parkinson's Disease: No Hx Meningitis: No Hx Encephalitis: No Hx Seizures: No Hx Epilepsy: No Hx Multiple Sclerosis: No Hx Cerebral Palsy: No Hx Amyotrophic Lat Sclerosis: No Hx Guillian-[place] Syndrome: No Hx Paralysis: No Hx Peripheral Neuropathy: No Hx Spinal Cord Injury: No Hx Head Trauma: No Hx Traumatic Brain Injury: No Hx Memory Loss: No Hx Concentration Difficulty: No Hx Speech Problem: No Hx Tremors: No Hx Vertigo: No Hx Dizziness: No Hx Syncope: No Hx Headaches: No Hx Aphasia: No Hx Dysphasia: No Hx Numbness: No Hx Weakness: No Hx Fatigue: No Hx Neurologic Surgery: No Hx Brain Shunt: No Physical Exam Vital Signs Date Time Temp Pulse Resp B/P (MAP) Pulse Ox O2 Delivery O2 Flow Rate FiO2 09/28/17 01:35 98.1 93 16 111/72 96 Room Air Medical Decision Making Diagnostic Impression: Primary Impression: Sickle cell crisis Additional Impression: Sickle-cell disease with pain ER Course I did not see the patient. Last Vital Signs Date Time Temp Pulse Resp B/P (MAP) Pulse Ox O2 Delivery O2 Flow Rate FiO2 09/28/17 01:35 98.1 93 16 111/72 96 Room Air Status: unchanged Disposition: LEFT W/OUT BEING SEEN NENA PAT M.D. Sep 28, 2017 02:47
[2017-09-28 05:05] VITALS: BP 111/72
== END 2017-09-28 05:05 | disposition left against medical advice (07) ==
LOC: EMR 02:50
DX: D57.00 Hb-SS disease with crisis, unspecified (principal); Z53.21 Procedure and treatment not carried out due to patient leaving prior to being seen by health care provider
CPT/HCPCS: 99281; 99283

== ENCOUNTER 2017-09-28 08:37 | Emergency (ER) | payer MEDICAID ==
[~2017-09-28] VITALS: Ht 167.6 cm; Wt 61.2 kg
[2017-09-28] MEDS ORDERED: Tylenol #3 tab (300mg/30mg) ORAL ONE (09:15)
[2017-09-28 09:28] VITALS: BP 113/71
--- NOTE | 2017-09-28 09:30 | Emergency Room Report ---
History of Present Illness General Chief Complaint: Pain Source: Patient Present Illness HPI [id number] walks in with 2-3 days of leg pain. States "im in Sickle cell painful crisis." She denies any trauma the legs. Denies any fever chills. States this is her usual pain from known sickle cell. Frequent visits here for similar complaint. The patient registered and came to ER at same time as her sister also for sickle cell pain Denies chest pain, shortness of breath, cough, fever chills patient requesting IV Dilaudid 8 she has Dilaudid and [place] at home but ran out of both. Next primary care followup is October 03. Allergies: Coded Allergies: KETAMINE (Verified Allergy, Unknown, 08/25/17) Patient History Past Medical History: other - SCD' Past Surgical History: none Pertinent Family History: none Social History: Denies: smoking, alcohol use, drug use Last Menstrual Period: 09/24/18 Now: No : 0 Immunizations: UTD Reviewed Nursing Documentation: PMH: Agreed, PSxH: Agreed Nursing Documentation-PMH Hx Hypertension: No Hx Pacemaker: No Hx Cancer: No Hx Gastrointestinal Problems: No Hx Neurological Problems: No Hx Cerebrovascular Accident: No Hx Transient Ischemic Attacks: No Hx Dementia: No Hx Alzheimer's Disease: No Hx Parkinson's Disease: No Hx Meningitis: No Hx Encephalitis: No Hx Seizures: No Hx Epilepsy: No Hx Multiple Sclerosis: No Hx Cerebral Palsy: No Hx Amyotrophic Lat Sclerosis: No Hx Guillian-[place] Syndrome: No Hx Paralysis: No Hx Peripheral Neuropathy: No Hx Spinal Cord Injury: No Hx Head Trauma: No Hx Traumatic Brain Injury: No Hx Memory Loss: No Hx Concentration Difficulty: No Hx Speech Problem: No Hx Tremors: No Hx Vertigo: No Hx Dizziness: No Hx Syncope: No Hx Headaches: No Hx Aphasia: No Hx Dysphasia: No Hx Numbness: No Hx Weakness: No Hx Fatigue: No Hx Neurologic Surgery: No Hx Brain Shunt: No Review of Systems All Other Systems: negative except mentioned in HPI Physical Exam Vital Signs Date Time Temp Pulse Resp B/P (MAP) Pulse Ox O2 Delivery O2 Flow Rate FiO2 09/28/17 08:51 98.2 92 18 113/71 98 Room Air Sp02 EP Interpretation: reviewed, normal General Appearance: normal inspection, well appearing, no apparent distress, alert, GCS 15, non-toxic Head: normocephalic, atraumatic Eyes: bilateral eye PERRL, bilateral eye EOMI ENT: normal ENT inspection, hearing grossly normal, normal pharynx, no angioedema, normal voice, TMs + canals normal, uvula midline, moist mucus membranes Neck: normal inspection, full range of motion, supple, thyroid normal, no meningismus, no bony tend Respiratory: normal inspection, lungs clear, normal breath sounds, no rhonchi, no respiratory distress, no retraction, no accessory muscle use, no wheezing, speaking full sentences Cardiovascular #1: regular rate, rhythm, no edema, no JVD, normal capillary refill Gastrointestinal: normal inspection, normal bowel sounds, non tender, soft, no mass, no peritonitis, non-distended, no guarding, no hernia, no pulsatile mass Genitourinary: no CVA tenderness Musculoskeletal: normal inspection, back normal, normal range of motion, no calf tenderness, pelvis stable, Neil's Sign negative Neurologic: normal inspection, alert, oriented x3, responsive, paid search analyst III-XII nml as tested, motor strength/tone normal, cerebellar normal, normal gait, speech normal Psychiatric: normal inspection, judgement/insight normal, mood/affect normal, no suicidal/homicidal ideation, no delusions Skin: normal inspection, normal color, no rash Lymphatic: normal inspection, no adenopathy Medical Decision Making Diagnostic Impression: Primary Impression: Sickle-cell disease with pain ER Course 27-year-old female with chronic leg pain Known sickle cell anemia. vital Signs stable, afebrile I offered Tylenol with Codeine, patient agreed however when nurse went to prescribe patient refused medication and walked out Patient did not sign discharge papers Last Vital Signs Date Time Temp Pulse Resp B/P (MAP) Pulse Ox O2 Delivery O2 Flow Rate FiO2 09/28/17 08:51 98.2 92 18 113/71 98 Room Air Status: improved Disposition: HOME, SELF-CARE Condition: Improved Referrals: NON PHYSICIAN (PCP) Patient Instructions: Chronic Pain Additional Instructions: - Follow up with your doctor on Oct 03 to ensure you have enough pain medication JOSE RIDLEY M.D. Sep 28, 2017 09:30
[2017-09-28 09:33] VITALS: BP 113/71
== END 2017-09-28 09:36 | disposition home or self-care (01) ==
LOC: EMR 09:10
DX: M79.605 Pain in left leg (principal); D57.1 Sickle-cell disease without crisis; G89.29 Other chronic pain
CPT/HCPCS: 99282

== ENCOUNTER 2017-12-02 07:54 | Emergency (ER) | payer MEDICAID ==
[~2017-12-02] VITALS: Ht 167.6 cm; Wt 61.2 kg
[2017-12-02 08:21] VITALS: BP 117/73
[2017-12-02] MEDS ORDERED: Aspirin Baby 81mg ORAL ONE (08:45)
[2017-12-02] MEDS ORDERED: oxyCODONE HCL/Acetaminophen 5/325mg ORAL ONE (08:45)
--- NOTE | 2017-12-02 09:06 | Emergency Room Report ---
History of Present Illness General Chief Complaint: Pain Source: Patient Present Illness HPI 27yo f complains of midsternal sharp nonradiating chest pain, with associated nausea but no vomiting She denies fevers, hemoptysis, syncope, but does report body aches all over as well that she attributes to her sickle cell pain crisis She reports she does not usually get chest pain with this however, she does request IV Dilaudid as that usually helps all of her pain anywhere She reports her symptoms started yesterday Allergies: Coded Allergies: KETAMINE (Verified Allergy, Unknown, 08/25/17) Patient History Past Medical History: see triage record Last Menstrual Period: 11/23/17 Now: No : 0 Para: 0 Reviewed Nursing Documentation: PMH: Agreed, PSxH: Agreed Nursing Documentation-PMH Hx Hypertension: No Hx Pacemaker: No Hx Cancer: No Hx Gastrointestinal Problems: No Hx Neurological Problems: No Hx Cerebrovascular Accident: No Hx Transient Ischemic Attacks: No Hx Dementia: No Hx Alzheimer's Disease: No Hx Parkinson's Disease: No Hx Meningitis: No Hx Encephalitis: No Hx Seizures: No Hx Epilepsy: No Hx Multiple Sclerosis: No Hx Cerebral Palsy: No Hx Amyotrophic Lat Sclerosis: No Hx Guillian-[place] Syndrome: No Hx Paralysis: No Hx Peripheral Neuropathy: No Hx Spinal Cord Injury: No Hx Head Trauma: No Hx Traumatic Brain Injury: No Hx Memory Loss: No Hx Concentration Difficulty: No Hx Speech Problem: No Hx Tremors: No Hx Vertigo: No Hx Dizziness: No Hx Syncope: No Hx Headaches: No Hx Aphasia: No Hx Dysphasia: No Hx Numbness: No Hx Weakness: No Hx Fatigue: No Hx Neurologic Surgery: No Hx Brain Shunt: No Review of Systems All Other Systems: negative except mentioned in HPI Physical Exam Vital Signs Date Time Temp Pulse Resp B/P (MAP) Pulse Ox O2 Delivery O2 Flow Rate FiO2 12/02/17 08:11 98.7 86 18 135/82 95 Room Air 98.8 Sp02 EP Interpretation: reviewed, normal General Appearance: no apparent distress, alert, non-toxic Head: normocephalic Eyes: bilateral eye normal inspection, bilateral eye PERRL, bilateral eye EOMI ENT: normal ENT inspection, hearing grossly normal, normal pharynx, no angioedema, normal voice, moist mucus membranes Neck: normal inspection, full range of motion, supple, supple/symm/no masses Respiratory: chest non-tender, lungs clear, normal breath sounds, chest symmetrical, palpation of chest normal Cardiovascular #1: normal peripheral pulses, regular rate, rhythm Cardiovascular #2: 2+ radial (R), 2+ radial (L) Gastrointestinal: normal inspection, non tender, soft, no mass, no guarding, no rebound Rectal: deferred Genitourinary: normal inspection, no CVA tenderness Musculoskeletal: back normal, gait/station normal, normal range of motion, non- tender, no calf tenderness, Neil's Sign negative Neurologic: alert, responsive, supervisor char house III-XII nml as tested, motor strength/tone normal, sensory intact, speech normal Psychiatric: judgement/insight normal, memory normal, mood/affect normal, no suicidal/homicidal ideation Skin: normal color, no rash, warm/dry, normal turgor Lymphatic: no adenopathy Medical Decision Making Reaction to Intervention: Improved Diagnostic Impression: Primary Impression: Sickle cell crisis ER Course 27yo f presented with sickle cell pain, as well as chest pain She had elevated d-dimer but normal labs otherwise other than leukocytosis Chest x-ray was clear EKG unremarkable, cardiac enzymes negative Her pain seemed to be more diffuse and more sickle cell type pain, I did not have a strong suspicion for ACS However I did want to complete the PE workup but patient decided that she did not want to get this study She requested IV Dilaudid, which I did not give her, but I offered her stronger pain meds in the form of morphine and more Percocet She already did received 2 Percocets here However she did not want to have any more tests and left AGAINST MEDICAL ADVICE after I explained the risks of pulmonary embolism Which include and permanent neurologic dysfunction secondary to cardiac arrest She understands that she is welcome to return if she changes her mind and wants to get further workup EKG Diagnostic Results EKG Time: 08:45 EP Interpretation: no st-t changes or TWI's Rate: normal Rhythm: NSR ST Segments: no acute changes ASA given to the pt in ED: Yes Rhythm Strip Diag. Results EP Interpretation: yes Rate: 75 Rhythm: NSR, no PVC's, no ectopy Chest X-Ray Diagnostic Results Chest X-Ray Diagnostic Results : Chest X-Ray Ordered: Yes # of Views/Limited/Complete: 1 View Indication: Chest Pain EP Interpretation: Yes PA Xray: Interpretation reviewed, by supervising MD Interpretation: no consolidation, no effusion, no pneumothorax, no acute cardiopulmonary disease Impression: No acute disease Electronically Signed by: John Paul Shelton MD Last Vital Signs Date Time Temp Pulse Resp B/P (MAP) Pulse Ox O2 Delivery O2 Flow Rate FiO2 12/02/17 08:59 98.7 12/02/17 08:21 88 19 117/73 100 Room Air Disposition: AGAINST MEDICAL ADVICE Condition: Stable Referrals: [facility] (PCP) JOHN PAUL SHELTON M.D Dec 02, 2017 09:06
[2017-12-02 09:11] LABS: BASOPHILS % (AUTO) 1.3 % (0.0-2.0); EOSINOPHILS % (AUTO) 4.6 % (0.0-3.0); HEMATOCRIT 27.6 % (37.0-47.0); HEMOGLOBIN 9.3 G/DL (12.0-16.0); LYMPHOCYTES % (AUTO) 37.7 % (20.0-45.0); MEAN CORPUSCULAR VOLUME 100 FL (80-99); MONOCYTES % (AUTO) 5.4 % (1.0-10.0); PLATELET COUNT 333 K/UL (150-450); RED BLOOD COUNT 2.76 M/UL (4.20-5.40); RED CELL DISTRIBUTION WIDTH 17.6 % (11.6-14.8); WHITE BLOOD COUNT 12.5 K/UL (4.8-10.8)
[2017-12-02 09:12] LABS: APPEARANCE,URINE CLEAR; BILIRUBIN, URINE NEGATIVE (NEGATIVE); COLOR,URINE PALE YELLOW; GLUCOSE, URINE (UA) NEGATIVE (NEGATIVE); KETONES,URINE NEGATIVE (NEGATIVE); LEUKOCYTE ESTERASE ,URINE 1+ (NEGATIVE); NITRITE,URINE NEGATIVE (NEGATIVE); PH,URINE 6.5 (4.5-8.0); PROTEIN,URINE 1+ (NEGATIVE); UROBILINOGEN,URINE NORMAL MG/DL (0.0-1.0)
[2017-12-02 09:21] LABS: ANION GAP 8 mmol/L (5-15); BLOOD UREA NITROGEN 4 mg/dL (7-18); CARBON DIOXIDE 27 MMOL/L (21-32); CHLORIDE 105 MMOL/L (98-107); CREATININE 0.5 MG/DL (0.55-1.30); POTASSIUM 3.5 MMOL/L (3.5-5.1); SODIUM 140 MMOL/L (136-145)
[2017-12-02 09:47] LABS: ALANINE AMINOTRANSFERASE 28 U/L (12-78); ALBUMIN/GLOBULIN RATIO 1.1 (1.0-2.7); ALKALINE PHOSPHATASE 73 U/L (46-116); ASPARTATE AMINO TRANSFERASE 21 U/L (15-37); BILIRUBIN,TOTAL 1.5 MG/DL (0.2-1.0)
[2017-12-02 09:50] LABS: BILIRUBIN,DIRECT 0.3 MG/DL (0.0-0.3)
--- NOTE | 2017-12-02 09:55 | Diagnostic Imaging Report ---
Indication: Chest pain Technique: AP chest Comparison: 09/19/2017 Findings: Cardiac silhouette appears prominent. There is no consolidation or pleural effusion. Osseous structures demonstrate no acute abnormality. Impression: No acute cardiopulmonary disease. Apparent cardiomegaly and further evaluation recommended.
[2017-12-02 10:00] VITALS: BP 104/61
[2017-12-02 11:40] VITALS: BP 115/68
--- NOTE | 2017-12-03 16:28 | Cardiology Report ---
APPROVED REPORT EKG Measurement Heart [id number] ID [id number] Normal sinus rhythm Nonspecific ST and T wave abnormality Inc RBBB Abnormal ECG
== END 2017-12-02 11:47 | disposition left against medical advice (07) ==
LOC: EMR 08:18
DX: D57.00 Hb-SS disease with crisis, unspecified (principal)
CPT/HCPCS: 36415; 71045; 80053; 81003; 81025; 82248; 84484; 85025; 85044; 85379; 93005; 99283

== ENCOUNTER 2017-12-28 21:32 | Emergency (ER) | payer MEDICAID ==
[~2017-12-28] VITALS: Ht 167.6 cm; Wt 61.2 kg
[2017-12-28] MEDS ORDERED: DILAUDID1 MG/1 ML PO (21:40)
--- NOTE | 2017-12-28 21:52 | Emergency Room Report ---
History of Present Illness General Chief Complaint: Pain Source: Patient Present Illness HPI 27-year-old female with sickle cell disease, multiple visits to the ER, presenting with generalized sickle cell pain, also right wrist swelling. States that she woke up the right wrist swollen 2 days ago. Slightly painful. Not warm. No fever no chills. No chest pain or shortness of breath. States that she takes pain medication at home and her next appointment with her PCP is on January 03 Allergies: Coded Allergies: KETAMINE (Verified Allergy, Unknown, 08/25/17) Patient History Past Medical History: see triage record Past Surgical History: none Pertinent Family History: none Last Menstrual Period: 11/22/17 Now: No : 0 Para: 0 Reviewed Nursing Documentation: PMH: Agreed; PSxH: Agreed Nursing Documentation-PMH Past Medical History: No History, Except For Hx Hypertension: No Hx Pacemaker: No Hx Cancer: No Hx Gastrointestinal Problems: No Hx Neurological Problems: No Hx Cerebrovascular Accident: No Hx Transient Ischemic Attacks: No Hx Dementia: No Hx Alzheimer's Disease: No Hx Parkinson's Disease: No Hx Meningitis: No Hx Encephalitis: No Hx Seizures: No Hx Epilepsy: No Hx Multiple Sclerosis: No Hx Cerebral Palsy: No Hx Amyotrophic Lat Sclerosis: No Hx Guillian-[place] Syndrome: No Hx Paralysis: No Hx Peripheral Neuropathy: No Hx Spinal Cord Injury: No Hx Head Trauma: No Hx Traumatic Brain Injury: No Hx Memory Loss: No Hx Concentration Difficulty: No Hx Speech Problem: No Hx Tremors: No Hx Vertigo: No Hx Dizziness: No Hx Syncope: No Hx Headaches: No Hx Aphasia: No Hx Dysphasia: No Hx Numbness: No Hx Weakness: No Hx Fatigue: No Hx Neurologic Surgery: No Hx Brain Shunt: No Review of Systems All Other Systems: negative except mentioned in HPI Physical Exam Vital Signs Date Time Temp Pulse Resp B/P (MAP) Pulse Ox O2 Delivery O2 Flow Rate FiO2 12/28/17 21:36 98.2 83 14 124/59 97 Room Air 98.2 Sp02 EP Interpretation: reviewed, normal General Appearance: normal inspection, well appearing, no apparent distress, alert, GCS 15, non-toxic, other - calm, Cooperative, speaking complete sentences , not in pain Head: normocephalic, atraumatic Eyes: bilateral eye normal inspection, bilateral eye PERRL, bilateral eye EOMI ENT: normal ENT inspection, normal pharynx, normal voice, moist mucus membranes Neck: normal inspection, full range of motion, supple Respiratory: normal inspection, lungs clear, normal breath sounds, no respiratory distress, no retraction, no wheezing, speaking full sentences, chest symmetrical Cardiovascular #1: normal inspection, regular rate, rhythm, no edema, normal capillary refill Cardiovascular #2: 2+ radial (R), 2+ radial (L) Gastrointestinal: normal inspection, non tender, soft, non-distended, no guarding Musculoskeletal: other - Right wrist with some mild edema, mildly tender to palpation, joint is not warm, full range of motion of extremities, medial ulnar radial nerve is intact Neurologic: normal inspection, alert, oriented x3, responsive, motor strength/ tone normal, sensory intact, normal gait, speech normal Psychiatric: normal inspection, judgement/insight normal, memory normal Skin: normal inspection, normal color, no rash, warm/dry, well hydrated, normal turgor Procedures Splinting Splinting : Consent: Verbal Location: R wrist Pre-Made Type: JOSHUA wrap Pre-Proc Neuro Vasc Exam: normal Post-Proc Neuro Vasc Exam: normal Patient Tolerated: Well Complications: None Medical Decision Making Diagnostic Impression: Primary Impression: Sickle-cell disease with pain Additional Impression: Wrist swelling ER Course 27-year-old female with history of sickle cell disease, multiple visits to the ER for sickle cell pain, also with right wrist swelling for 2 days DDX: Chronic sickle cell pain, also with right wrist swelling, contusion, fracture, sickle cell Plan: X-ray ER course: X-ray negative, patient place with Joshua wrap Patient is nontoxic-appearing, not in any pain, vital signs are normal Disposition: Patient is to be discharged home Patient has an appointment with her PCP on January 03 for follow-up for her pain medication Patient educated to rest, ice, and elevate extremity and to avoid vigorous activity. Strict precautions discussed with patient on when to return to the emergency room including increased redness or swelling joints, increased pain/swelling of extremity, fever or chills, which could indicate severe illness. Please note that this Emergency Department Report was dictated using [employer] wire drawer technology software, occasionally this can lead to erroneous entry secondary to interpretation by the dictation equipment. Xray ordered: Right wrist 3 view Indication: Pain EP Interpretation: Yes Interpretation: No dislocation, no soft tissue swelling, no fractures Impression: No acute disease Electronically signed by Clotilde Burgos MD Last Vital Signs Date Time Temp Pulse Resp B/P (MAP) Pulse Ox O2 Delivery O2 Flow Rate FiO2 12/28/17 21:36 98.2 83 14 124/59 97 Room Air 98.2 Disposition: HOME, SELF-CARE Condition: Improved Clotilde Burgos M.D. Dec 28, 2017 21:52
[2017-12-28 21:56] VITALS: BP 124/59
[2017-12-28 22:53] VITALS: BP 110/59
--- NOTE | 2017-12-29 11:16 | Diagnostic Imaging Report ---
Clinical Indication:Pain Technique: 3 views of the right wrist Comparison: None Findings: No acute fractures. No dislocations. The joint spaces are preserved. There is questionably a small cyst within the capitate. Impression: No acute process
== END 2017-12-28 22:52 | disposition home or self-care (01) ==
LOC: EMR 21:55
DX: D57.00 Hb-SS disease with crisis, unspecified (principal); M79.89 Other specified soft tissue disorders
CPT/HCPCS: 99283

== ENCOUNTER 2018-01-23 00:32 | Emergency (ER) | payer MEDICAID ==
[~2018-01-23] VITALS: Ht 167.6 cm; Wt 62.1 kg
[~2018-01-23 00:32] MED LIST changes: +DILAUDID1 MG/1 ML PO
[2018-01-23 00:52] VITALS: BP 122/78
--- NOTE | 2018-01-23 00:59 | Emergency Room Report ---
History of Present Illness General Chief Complaint: Chest Pain Source: Patient Present Illness HPI This is a 27-year-old female with a history of sickle cell. She comes here frequently as well as [place]. She was just at [place] was [place] 2 days ago. She presents with chief complaint of sickle cell pain. She is out of her Dilaudid at home. She scheduled to see her feed in worker next week. No nausea no vomiting. Pain is diffuse in nature. 10 out of 10. No fever or chills. She is being treated for UTI. Allergies: Coded Allergies: KETAMINE (Verified Allergy, Unknown, 08/25/17) Patient History Past Medical History: see triage record, old chart reviewed Past Surgical History: other Pertinent Family History: none Social History: Denies: smoking Last Menstrual Period: December Now: No Immunizations: other Reviewed Nursing Documentation: PMH: Agreed; PSxH: Agreed Nursing Documentation-PMH Hx Hypertension: No Hx Pacemaker: No Hx Cancer: No Hx Gastrointestinal Problems: No Hx Neurological Problems: No Hx Cerebrovascular Accident: No Hx Transient Ischemic Attacks: No Hx Dementia: No Hx Alzheimer's Disease: No Hx Parkinson's Disease: No Hx Meningitis: No Hx Encephalitis: No Hx Seizures: No Hx Epilepsy: No Hx Multiple Sclerosis: No Hx Cerebral Palsy: No Hx Amyotrophic Lat Sclerosis: No Hx Guillian-[place] Syndrome: No Hx Paralysis: No Hx Peripheral Neuropathy: No Hx Spinal Cord Injury: No Hx Head Trauma: No Hx Traumatic Brain Injury: No Hx Memory Loss: No Hx Concentration Difficulty: No Hx Speech Problem: No Hx Tremors: No Hx Vertigo: No Hx Dizziness: No Hx Syncope: No Hx Headaches: No Hx Aphasia: No Hx Dysphasia: No Hx Numbness: No Hx Weakness: No Hx Fatigue: No Hx Neurologic Surgery: No Hx Brain Shunt: No Review of Systems Eye: Denies: eye pain, blurred vision ENT: Denies: ear pain, nose congestion, throat swelling Respiratory: Denies: cough, shortness of breath Cardiovascular: Denies: chest pain, palpitations Gastrointestinal: Denies: abdominal pain, diarrhea, nausea, vomiting Musculoskeletal: Reports: back pain, joint pain Skin: Denies: rash Neurological: Denies: headache, numbness Endocrine: Denies: increased thirst, increased urine Hematologic/Lymphatic: Denies: easy bruising All Other Systems: negative except mentioned in HPI Physical Exam Vital Signs Date Time Temp Pulse Resp B/P (MAP) Pulse Ox O2 Delivery O2 Flow Rate FiO2 01/23/18 00:34 98.8 108 18 120/75 93 Room Air 98.8 vitals normal Sp02 EP Interpretation: reviewed, normal General Appearance: well appearing, no apparent distress, alert Head: normocephalic, atraumatic Eyes: bilateral eye PERRL, bilateral eye EOMI ENT: hearing grossly normal, normal pharynx Neck: full range of motion, supple, no meningismus Respiratory: chest non-tender, lungs clear, normal breath sounds Cardiovascular #1: regular rate, rhythm, no murmur Gastrointestinal: normal bowel sounds, non tender, no mass, no organomegaly, no bruit, non-distended Musculoskeletal: back normal, gait/station normal, normal range of motion Psychiatric: mood/affect normal Skin: warm/dry Medical Decision Making Diagnostic Impression: Primary Impression: Sickle-cell disease with pain Additional Impressions: Severe anemia Opiate dependence Qualified Codes: F11.20 - Opioid dependence, uncomplicated ER Course Patient presents with her typical sickle cell pain. No evidence of acute chest syndrome. No evidence of infection. We'll discharge home. Last Vital Signs Date Time Temp Pulse Resp B/P (MAP) Pulse Ox O2 Delivery O2 Flow Rate FiO2 01/23/18 00:52 108 18 Room Air 01/23/18 00:52 98.8 122/78 95 98.8 Status: improved Disposition: HOME, SELF-CARE Condition: Stable Additional Instructions: Follow-up with your feed in worker for refill on your pain medication. Return if symptom worsen. NENA PAT M.D. January 23, 2018 00:59
== END 2018-01-23 01:10 | disposition home or self-care (01) ==
LOC: EMR 00:45
DX: D57.00 Hb-SS disease with crisis, unspecified (principal); F11.20 Opioid dependence, uncomplicated; D64.9 Anemia, unspecified
CPT/HCPCS: 96372; 99283; J1170

== ENCOUNTER 2018-02-16 01:35 | Emergency (ER) | payer MEDICAID ==
[~2018-02-16] VITALS: Ht 167.6 cm; Wt 62.1 kg
[2018-02-16] MEDS ORDERED: DiphenhydrAMINE 50mg/ml Inj IVP ONE (02:00)
[2018-02-16] MEDS ORDERED: Morphine Sulfate 10mg/ml Inj IVP ONE (02:00)
[2018-02-16 02:22] LABS: BASOPHILS % (AUTO) 1.1 % (0.0-2.0); EOSINOPHILS % (AUTO) 3.8 % (0.0-3.0); LYMPHOCYTES % (AUTO) 35.7 % (20.0-45.0); MEAN CORPUSCULAR VOLUME 94 FL (80-99); MONOCYTES % (AUTO) 5.4 % (1.0-10.0); NEUTROPHILS % (AUTO) 54.1 % (45.0-75.0); PLATELET COUNT 496 K/UL (150-450); RED BLOOD COUNT 2.44 M/UL (4.20-5.40); RED CELL DISTRIBUTION WIDTH 14.8 % (11.6-14.8); WHITE BLOOD COUNT 17.2 K/UL (4.8-10.8)
[2018-02-16 02:34] LABS: ANION GAP 9 mmol/L (5-15); BLOOD UREA NITROGEN 1 mg/dL (7-18); CALCIUM 8.6 MG/DL (8.5-10.1); CARBON DIOXIDE 27 MMOL/L (21-32); CHLORIDE 107 MMOL/L (98-107); CREATININE 0.5 MG/DL (0.55-1.30); POTASSIUM 3.3 MMOL/L (3.5-5.1); SODIUM 143 MMOL/L (136-145)
[2018-02-16] MEDS ORDERED: DOXYCYCLINE MO100 MG ORAL (03:14)
[2018-02-16] MEDS ORDERED: Morphine Sulfate 4mg/ml Inj IVP ONE (03:15)
[2018-02-16] MEDS ORDERED: cefTRIAXone 1 GM in NS 55 ML IVPB ONE (03:15)
--- NOTE | 2018-02-16 03:15 | Emergency Room Report ---
History of Present Illness General Chief Complaint: Pain Source: Patient Present Illness HPI This is a 28-year-old female well-known to me. She has a history of sickle cell disease and has been here frequently as well as [place]. She presents with chief complaint of left knee pain. Onset tonight. She said she woke up with swelling and redness to her left knee. Painful to walk. Painful to move it. No trauma. No fever chills but no nausea no vomiting. Pain is 10 out of 10. Making her sickle cell worse. Allergies: Coded Allergies: KETAMINE (Verified Allergy, Unknown, 02/16/18) Patient History Past Medical History: see triage record, old chart reviewed Past Surgical History: other Pertinent Family History: none Social History: Denies: smoking Last Menstrual Period: 01/2018 Now: No Immunizations: UTD, other Reviewed Nursing Documentation: PMH: Agreed; PSxH: Agreed Nursing Documentation-PMH Hx Hypertension: No Hx Pacemaker: No Hx Cancer: No Hx Gastrointestinal Problems: No Hx Neurological Problems: No Hx Cerebrovascular Accident: No Hx Transient Ischemic Attacks: No Hx Dementia: No Hx Alzheimer's Disease: No Hx Parkinson's Disease: No Hx Meningitis: No Hx Encephalitis: No Hx Seizures: No Hx Epilepsy: No Hx Multiple Sclerosis: No Hx Cerebral Palsy: No Hx Amyotrophic Lat Sclerosis: No Hx Guillian-[place] Syndrome: No Hx Paralysis: No Hx Peripheral Neuropathy: No Hx Spinal Cord Injury: No Hx Head Trauma: No Hx Traumatic Brain Injury: No Hx Memory Loss: No Hx Concentration Difficulty: No Hx Speech Problem: No Hx Tremors: No Hx Vertigo: No Hx Dizziness: No Hx Syncope: No Hx Headaches: No Hx Aphasia: No Hx Dysphasia: No Hx Numbness: No Hx Weakness: No Hx Fatigue: No Hx Neurologic Surgery: No Hx Brain Shunt: No Review of Systems Eye: Denies: eye pain, blurred vision ENT: Denies: ear pain, nose congestion, throat swelling Respiratory: Denies: cough, shortness of breath Cardiovascular: Denies: chest pain, palpitations Gastrointestinal: Denies: abdominal pain, diarrhea, nausea, vomiting Musculoskeletal: Reports: joint pain; Denies: back pain Skin: Denies: rash Neurological: Denies: headache, numbness Endocrine: Denies: increased thirst, increased urine Hematologic/Lymphatic: Denies: easy bruising All Other Systems: negative except mentioned in HPI Physical Exam Vital Signs Date Time Temp Pulse Resp B/P (MAP) Pulse Ox O2 Delivery O2 Flow Rate FiO2 02/16/18 01:42 98.3 95 16 120/77 94 Room Air 98.2 vitals normal Sp02 EP Interpretation: reviewed, normal General Appearance: well appearing, no apparent distress, alert Head: normocephalic, atraumatic Eyes: bilateral eye PERRL, bilateral eye EOMI ENT: hearing grossly normal, normal pharynx Neck: full range of motion, supple, no meningismus Respiratory: chest non-tender, lungs clear, normal breath sounds Cardiovascular #1: regular rate, rhythm, no murmur Gastrointestinal: normal bowel sounds, non tender, no mass, no organomegaly, no bruit, non-distended Musculoskeletal: back normal, normal range of motion, tender - Left knee: There is diffuse tenderness with mild edema. She still able to bend her knee fully. Warm to the touch. Mild redness. No obvious trauma but there is a small puncture wound to the lateral aspect of the knee. No active bleeding. Pulses normal. Neurologic: alert, oriented x3 Psychiatric: mood/affect normal Skin: warm/dry Procedures Additional Procedure Procedure Narrative Procedure: Arthrocentesis Indication: Pain, rule out septic joint Description: I placed an Joshua wrap to her thigh. I put the knee at a 45 angle. Area cleaned with chlorhexidine and then Betadine. Local anesthetic with 1% lidocaine without epinephrine. Total of 2 mL injected. Using an 18-gauge needle I aspirated straw color synovial fluid from the knee. There was only small amount of fluid. No complications. Patient tolerated procedure without a problem. Medical Decision Making Diagnostic Impression: Primary Impression: Sickle cell crisis Additional Impressions: Cellulitis of left knee Severe anemia ER Course Patient presents with early cellulitis of the left knee. No evidence of any septic joint. Denies any abscess. Does appear to be superficial. The nidus may be a small puncture wound to the lateral aspect of the knee. Her white count is chronically elevated when she is in pain. Hemoglobin is stable We'll discharge home with antibiotics after dose given here. Lab Results Impression labs unremarkable Last Vital Signs Date Time Temp Pulse Resp B/P (MAP) Pulse Ox O2 Delivery O2 Flow Rate FiO2 02/16/18 02:14 98.3 02/16/18 01:42 95 16 120/77 94 Room Air Status: improved Disposition: HOME, SELF-CARE Condition: Stable Scripts Doxycycline Monohydrate* (DOXYCYCLINE MONOHYDRATE*) 100 Mg Capsule 100 MG ORAL Q12H, #14 CAP 0 Refills Prov: NENA PAT M.D. 02/16/18 Referrals: [facility] (PCP) Additional Instructions: Follow-up with your [place] doctor in 2 days for recheck. Return if symptom worsen. NENA PAT M.D. February 16, 2018 03:15
[2018-02-16 03:30] VITALS: BP 110/66
[2018-02-16 04:14] VITALS: BP 110/66
== END 2018-02-16 04:10 | disposition home or self-care (01) ==
LOC: EMR 01:40
DX: D57.00 Hb-SS disease with crisis, unspecified (principal); L03.116 Cellulitis of left lower limb; D64.9 Anemia, unspecified
CPT/HCPCS: 20610; 36415; 80048; 85025; 85044; 87070; 87205; 96374; 96375; 99283; J0696; J1200; J2270

== ENCOUNTER 2018-02-26 12:19 | Emergency (ER) | payer MEDICAID, OTHER ==
[~2018-02-26] VITALS: Ht 167.6 cm; Wt 62.1 kg
[~2018-02-26 12:19] MED LIST changes: +DOXYCYCLINE MO100 MG ORAL
[2018-02-26 12:49] VITALS: BP 118/77
[2018-02-26] MEDS ORDERED: DiphenhydrAMINE 50mg/ml Inj IVP ONE ×2 (13:00→15:45)
[2018-02-26] MEDS ORDERED: Hydromorphone 0.5mg/0.5ml inj IVP ONE ×2 (13:00→15:45)
[2018-02-26 13:46] LABS: APPEARANCE,URINE SLIGHTLY CLOUDY; BILIRUBIN, URINE NEGATIVE (NEGATIVE); COLOR,URINE PALE YELLOW; GLUCOSE, URINE (UA) NEGATIVE (NEGATIVE); KETONES,URINE NEGATIVE (NEGATIVE); LEUKOCYTE ESTERASE ,URINE 2+ (NEGATIVE); NITRITE,URINE NEGATIVE (NEGATIVE); PH,URINE 8 (4.5-8.0); PROTEIN,URINE NEGATIVE (NEGATIVE); UROBILINOGEN,URINE 1 MG/DL (0.0-1.0)
[2018-02-26 13:50] LABS: BASOPHILS % (AUTO) 1.2 % (0.0-2.0); EOSINOPHILS % (AUTO) 5.2 % (0.0-3.0); HEMATOCRIT 25.1 % (37.0-47.0); HEMOGLOBIN 8.5 G/DL (12.0-16.0); LYMPHOCYTES % (AUTO) 38.8 % (20.0-45.0); MEAN CORPUSCULAR VOLUME 98 FL (80-99); MONOCYTES % (AUTO) 4.5 % (1.0-10.0); NEUTROPHILS % (AUTO) 50.4 % (45.0-75.0); PLATELET COUNT 342 K/UL (150-450); RED BLOOD COUNT 2.55 M/UL (4.20-5.40); RED CELL DISTRIBUTION WIDTH 14.7 % (11.6-14.8); WHITE BLOOD COUNT 13.3 K/UL (4.8-10.8)
[2018-02-26 13:55] LABS: INR 1.1 (0.9-1.1)
--- NOTE | 2018-02-26 13:56 | Emergency Room Report ---
History of Present Illness General Chief Complaint: Pain Source: Patient Present Illness HPI Patient presents with increased right upper arm pain. She was working last night and the pain gradually increased through the night. She also has swelling in the upper arm in that area. She denies any numbness. She's had no fevers or chills. She does complain about generalized body aches which suggest exacerbation of sickle cell. She has Dilaudid at home. She denies any fevers or chills. She's not coughing. Pain in upper arm rated 9/10 aching and burning , constant and worse with palpation. No dysuria, vaginal bleeding. Her last period was normal. She denies any depression. She denies trauma or pressure injury. She had an IV there with recent treatment. No recent transfusions. 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) Last Menstrual Period: 02/12/18 Now: No : 0 Reviewed Nursing Documentation: PMH: Agreed; PSxH: Agreed Nursing Documentation-PMH Past Medical History: No History, Except For Hx Hypertension: No Hx Pacemaker: No Hx Cancer: No Hx Gastrointestinal Problems: No Hx Neurological Problems: No Hx Cerebrovascular Accident: No Hx Transient Ischemic Attacks: No Hx Dementia: No Hx Alzheimer's Disease: No Hx Parkinson's Disease: No Hx Meningitis: No Hx Encephalitis: No Hx Seizures: No Hx Epilepsy: No Hx Multiple Sclerosis: No Hx Cerebral Palsy: No Hx Amyotrophic Lat Sclerosis: No Hx Guillian-[place] Syndrome: No Hx Paralysis: No Hx Peripheral Neuropathy: No Hx Spinal Cord Injury: No Hx Head Trauma: No Hx Traumatic Brain Injury: No Hx Memory Loss: No Hx Concentration Difficulty: No Hx Speech Problem: No Hx Tremors: No Hx Vertigo: No Hx Dizziness: No Hx Syncope: No Hx Headaches: No Hx Aphasia: No Hx Dysphasia: No Hx Numbness: No Hx Weakness: No Hx Fatigue: No Hx Neurologic Surgery: No Hx Brain Shunt: No Review of Systems All Other Systems: negative except mentioned in HPI Physical Exam Vital Signs Date Time Temp Pulse Resp B/P (MAP) Pulse Ox O2 Delivery O2 Flow Rate FiO2 02/26/18 12:39 98.4 80 18 118/77 95 Room Air 98.4 Sp02 EP Interpretation: reviewed, normal General Appearance: well appearing, no apparent distress, GCS 15 Head: normocephalic Eyes: bilateral eye PERRL, bilateral eye scleral icterus ENT: moist mucus membranes Neck: supple Respiratory: chest non-tender, lungs clear, normal breath sounds Cardiovascular #1: regular rate, rhythm Cardiovascular #2: 2+ radial (R) Gastrointestinal: normal inspection, normal bowel sounds, non tender, no mass, non-distended Musculoskeletal: back normal, gait/station normal, normal range of motion Neurologic: alert, oriented x3, grossly normal Psychiatric: mood/affect normal Skin: normal color, other - erythema and warmth R upper arm with induration without abscess Medical Decision Making Diagnostic Impression: Primary Impression: Cellulitis of right upper arm Additional Impression: Sickle cell anemia 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 This is says site where she had an IV before. Differential is the DVT, cellulitis amongst others. She also has total body pain and frequently is here with exacerbation of sickle cell. Evaluation will be with labs and ultrasound of the upper arm. In addition a chest x-ray will be obtained. The patient be treated with IV analgesia. US without DVT. Edema seen. Labs with leukocytosis (usual for patient) anemia , elevated retic and LDH. Dx - cellulitis. Antibiotics ordered. Requested toradol. Due to co-morbidity, IV antibiotics indicated. Discussed with Dr. Novoa who accepts patient. Laboratory Tests Test 02/26/18 13:15 White Blood Count 13.3 K/UL (4.8-10.8) H Red Blood Count 2.55 M/UL (4.20-5.40) L Hemoglobin 8.5 G/DL (12.0-16.0) L Hematocrit 25.1 % (37.0-47.0) L Mean Corpuscular Volume 98 FL (80-99) Mean Corpuscular Hemoglobin 33.3 PG (27.0-31.0) H Mean Corpuscular Hemoglobin Concent 33.8 G/DL (32.0-36.0) Red Cell Distribution Width 14.7 % (11.6-14.8) Platelet Count 342 K/UL (150-450) Mean Platelet Volume 6.4 FL (6.5-10.1) L Neutrophils (%) (Auto) 50.4 % (45.0-75.0) Lymphocytes (%) (Auto) 38.8 % (20.0-45.0) Monocytes (%) (Auto) 4.5 % (1.0-10.0) Eosinophils (%) (Auto) 5.2 % (0.0-3.0) H Basophils (%) (Auto) 1.2 % (0.0-2.0) Reticulocyte Count 6.0 % (0.0-2.0) H Prothrombin Time 11.4 SEC (9.30-11.50) Prothrombin Time INR 1.1 (0.9-1.1) PTT 25 SEC (23-33) Urine Color Pale yellow Urine Appearance Slightly cloudy Urine pH 8 (4.5-8.0) Urine Specific [place] 1.010 (1.005-1.035) Urine Protein Negative (NEGATIVE) Urine Glucose (UA) Negative (NEGATIVE) Urine Ketones Negative (NEGATIVE) Urine Occult Blood Negative (NEGATIVE) Urine Nitrite Negative (NEGATIVE) Urine Bilirubin Negative (NEGATIVE) Urine Urobilinogen 1 MG/DL (0.0-1.0) H Urine Leukocyte Esterase 2+ (NEGATIVE) H Urine RBC 0-2 /HPF (0 - 2) Urine WBC 2-4 /HPF (0 - 2) Urine Squamous Epithelial Cells Few /LPF (NONE/OCC) Urine Bacteria Few /HPF (NONE) Urine HCG, Qualitative Negative (NEGATIVE) Sodium Level 142 MMOL/L (136-145) Potassium Level 4.3 MMOL/L (3.5-5.1) Chloride Level 106 MMOL/L (98-107) Carbon Dioxide Level 27 MMOL/L (21-32) Anion Gap 9 mmol/L (5-15) Blood Urea Nitrogen 3 mg/dL (7-18) L Creatinine 0.4 MG/DL (0.55-1.30) L Estimate Glomerular Filtration Rate > 60 mL/min (>60) Glucose Level 80 MG/DL (74-106) Calcium Level 8.8 MG/DL (8.5-10.1) Total Bilirubin 1.3 MG/DL (0.2-1.0) H Direct Bilirubin 0.3 MG/DL (0.0-0.3) Aspartate Amino Transferase (AST) 28 U/L (15-37) Alanine Aminotransferase (ALT) 30 U/L (12-78) Alkaline Phosphatase 68 U/L (46-116) Lactate Dehydrogenase 289 U/L (81-234) H Total Creatine Kinase 62 U/L (26-308) Troponin I 0.001 ng/mL (0.000-0.056) Pro-B-Type Natriuretic Peptide 49 pg/mL (0-125) Total Protein 7.1 G/DL (6.4-8.2) Albumin 3.9 G/DL (3.4-5.0) Globulin 3.2 g/dL Albumin/Globulin Ratio 1.2 (1.0-2.7) EKG Diagnostic Results Rate: normal Rhythm: NSR ST Segments: no acute changes Rhythm Strip Diag. Results EP Interpretation: yes Rhythm: NSR, no PVC's, no ectopy Chest X-Ray Diagnostic Results Chest X-Ray Diagnostic Results : Chest X-Ray Ordered: Yes # of Views/Limited/Complete: 1 View Indication: Other EP Interpretation: Yes Interpretation: no consolidation, no effusion, no pneumothorax, other - Slight cardiomegaly Impression: Other Electronically Signed by: Electronically signed by Uziel Ruggiero MD CT/MRI/US Diagnostic Results CT/MRI/US Diagnostic Results : Imaging Test Ordered: u/s Impression no DVT or RUE Last Vital Signs Date Time Temp Pulse Resp B/P (MAP) Pulse Ox O2 Delivery O2 Flow Rate FiO2 02/26/18 16:21 97.8 02/26/18 16:13 90 18 114/68 100 Room Air Status: improved Disposition: XFER SHT-TRM HOSP Condition: Serious Referrals: [facility] (PCP) Uziel Ruggiero M.D. Feb 26, 2018 13:56
[2018-02-26 14:04] LABS: ANION GAP 9 mmol/L (5-15); BLOOD UREA NITROGEN 3 mg/dL (7-18); CALCIUM 8.8 MG/DL (8.5-10.1); CARBON DIOXIDE 27 MMOL/L (21-32); CHLORIDE 106 MMOL/L (98-107); CREATININE 0.4 MG/DL (0.55-1.30); POTASSIUM 4.3 MMOL/L (3.5-5.1); SODIUM 142 MMOL/L (136-145)
[2018-02-26 14:14] LABS: ALANINE AMINOTRANSFERASE 30 U/L (12-78); ALBUMIN 3.9 G/DL (3.4-5.0); ALBUMIN/GLOBULIN RATIO 1.2 (1.0-2.7); ALKALINE PHOSPHATASE 68 U/L (46-116); ASPARTATE AMINO TRANSFERASE 28 U/L (15-37); BILIRUBIN,TOTAL 1.3 MG/DL (0.2-1.0); CREATINE KINASE 62 U/L (26-308); LACTATE DEHYDROGENASE 289 U/L (81-234)
[2018-02-26 14:15] LABS: BILIRUBIN,DIRECT 0.3 MG/DL (0.0-0.3)
[2018-02-26 14:43] VITALS: BP 117/57
[2018-02-26] MEDS ORDERED: Ketorolac 30mg Inj IV ONE (15:15)
[2018-02-26] MEDS ORDERED: cefTRIAXone 1 GM in NS 55 ML IVPB ONE (15:15)
[2018-02-26] MEDS ORDERED: Vancomycin 1 GM in D5W 275 ML IVPB ONE (15:15)
[2018-02-26 16:13] VITALS: BP 114/68
--- NOTE | 2018-02-26 16:49 | Diagnostic Imaging Report ---
Indication: Chest pain Technique: One view of the chest Comparison: 12/02/2017 Findings: The heart is borderline enlarged. Inspiration is suboptimal. Lungs and pleural spaces are clear Impression: No acute process. Borderline cardiomegaly
--- NOTE | 2018-02-27 13:54 | Cardiology Report ---
APPROVED REPORT EKG Measurement Heart [id number] Normal sinus rhythm T wave abnormality, consider inferior ischemia Abnormal ECG
== END 2018-02-26 16:09 | disposition short-term general hospital (02) ==
LOC: EMR 13:14
DX: L03.113 Cellulitis of right upper limb (principal); D57.00 Hb-SS disease with crisis, unspecified; Z88.8 Allergy status to other drugs, medicaments and biological substances; D72.829 Elevated white blood cell count, unspecified; I51.7 Cardiomegaly
CPT/HCPCS: 36415; 71045; 80053; 81003; 81025; 82248; 82550; 83615; 83880; 84484; 85025; 85044; 85610; 85730; 93005; 93971; 99285; J0696; J1170; J1200; J1885; J1956; J2405

== ENCOUNTER 2018-03-15 07:48 | Emergency (ER) | payer OTHER ==
[~2018-03-15] VITALS: Ht 167.6 cm; Wt 58.5 kg
[2018-03-15 08:02] VITALS: BP 120/77
[2018-03-15] MEDS ORDERED: DiphenhydrAMINE 50mg/ml Inj IVP ONE (08:15)
[2018-03-15] MEDS ORDERED: Morphine Sulfate 10mg/ml Inj IVP ONE (08:15)
--- NOTE | 2018-03-15 08:17 | Emergency Room Report ---
History of Present Illness General Chief Complaint: Pain Source: Patient Present Illness HPI Patient is a 28-year-old female who presented after increased the bilateral upper and lower extremity pain. The patient prior history of sickle cell disease. Patient reported having aching pain. She is followed by Dr. Baker. The patient stated that she had been having increased pain for one day. Patient had previously been taking hydroxyurea as well as folic acid. She denies any fever. She denies any dysuria. Allergies: Coded Allergies: KETAMINE (Verified Allergy, Unknown, 02/16/18) Patient History Last Menstrual Period: 02/18/18 Now: No : 0 Para: 0 Reviewed Nursing Documentation: PMH: Agreed; PSxH: Agreed Nursing Documentation-PMH Past Medical History: No History, Except For Hx Hypertension: No Hx Pacemaker: No Hx Cancer: No Hx Gastrointestinal Problems: No Hx Neurological Problems: No Hx Cerebrovascular Accident: No Hx Transient Ischemic Attacks: No Hx Dementia: No Hx Alzheimer's Disease: No Hx Parkinson's Disease: No Hx Meningitis: No Hx Encephalitis: No Hx Seizures: No Hx Epilepsy: No Hx Multiple Sclerosis: No Hx Cerebral Palsy: No Hx Amyotrophic Lat Sclerosis: No Hx Guillian-[place] Syndrome: No Hx Paralysis: No Hx Peripheral Neuropathy: No Hx Spinal Cord Injury: No Hx Head Trauma: No Hx Traumatic Brain Injury: No Hx Memory Loss: No Hx Concentration Difficulty: No Hx Speech Problem: No Hx Tremors: No Hx Vertigo: No Hx Dizziness: No Hx Syncope: No Hx Headaches: No Hx Aphasia: No Hx Dysphasia: No Hx Numbness: No Hx Weakness: No Hx Fatigue: No Hx Neurologic Surgery: No Hx Brain Shunt: No Review of Systems All Other Systems: negative except mentioned in HPI Physical Exam Vital Signs Date Time Temp Pulse Resp B/P (MAP) Pulse Ox O2 Delivery O2 Flow Rate FiO2 03/15/18 07:52 98.2 92 16 120/77 95 Room Air 98.2 Sp02 EP Interpretation: reviewed, normal General Appearance: normal inspection, well appearing, no apparent distress, alert, GCS 15, Chronically Ill Head: atraumatic ENT: normal ENT inspection, hearing grossly normal, normal voice Neck: normal inspection, full range of motion, supple, no bony tend Respiratory: normal inspection, lungs clear, normal breath sounds, no respiratory distress, no retraction, no wheezing Cardiovascular #1: regular rate, rhythm, no edema Gastrointestinal: normal inspection, normal bowel sounds, non tender, soft, no guarding, no hernia Genitourinary: no CVA tenderness Musculoskeletal: normal inspection, back normal, normal range of motion Neurologic: normal inspection, alert, responsive, speech normal Psychiatric: normal inspection, judgement/insight normal, mood/affect normal Skin: normal inspection, normal color, no rash Medical Decision Making Diagnostic Impression: Primary Impression: Sickle cell anemia ER Course Patient presented for sickle cell pain. Differential diagnosis included but was not limited to have sickle cell pain crisis, aplastic crisis, sequestration , osteomyelitis, acute chest syndrome among others. Because of complexity of patient's case laboratory testing and imaging studies were ordered.Laboratory testing was unremarkable. Patient was noted to have improvement in her symptoms after pain medications. Patient was advised follow-up with her primary care physician for reexamination medications.The patient is advised to follow up with primary care doctor in 1-2 days. Patient is advised to return if any worsening condition or if any changes in status that are concerning. This report is dictated with [employer]etoOnetext plug grower software which may occasionally lead to discrepancies related to use of this software. Labs Test 03/15/18 08:15 03/15/18 09:55 White Blood Count 15.1 K/UL (4.8-10.8) Red Blood Count 2.74 M/UL (4.20-5.40) Hemoglobin 8.9 G/DL (12.0-16.0) Hematocrit 26.9 % (37.0-47.0) Mean Corpuscular Volume 98 FL (80-99) Mean Corpuscular Hemoglobin 32.4 PG (27.0-31.0) Mean Corpuscular Hemoglobin Concent 33.0 G/DL (32.0-36.0) Red Cell Distribution Width 16.3 % (11.6-14.8) Platelet Count 469 K/UL (150-450) Mean Platelet Volume 6.2 FL (6.5-10.1) Neutrophils (%) (Auto) 51.9 % (45.0-75.0) Lymphocytes (%) (Auto) 40.1 % (20.0-45.0) Monocytes (%) (Auto) 4.1 % (1.0-10.0) Eosinophils (%) (Auto) 3.1 % (0.0-3.0) Basophils (%) (Auto) 0.8 % (0.0-2.0) Reticulocyte Count 9.1 % (0.0-2.0) Sodium Level 139 MMOL/L (136-145) Potassium Level 3.8 MMOL/L (3.5-5.1) Chloride Level 106 MMOL/L (98-107) Carbon Dioxide Level 25 MMOL/L (21-32) Anion Gap 8 mmol/L (5-15) Blood Urea Nitrogen 3 mg/dL (7-18) Creatinine 0.4 MG/DL (0.55-1.30) Estimat Glomerular Filtration Rate > 60 mL/min (>60) Glucose Level 89 MG/DL (74-106) Calcium Level 8.6 MG/DL (8.5-10.1) Total Bilirubin 1.8 MG/DL (0.2-1.0) Direct Bilirubin 0.4 MG/DL (0.0-0.3) Aspartate Amino Transf (AST/SGOT) 35 U/L (15-37) Alanine Aminotransferase (ALT/SGPT) 26 U/L (12-78) Alkaline Phosphatase 73 U/L (46-116) Total Protein 7.6 G/DL (6.4-8.2) Albumin 4.3 G/DL (3.4-5.0) Globulin 3.3 g/dL Albumin/Globulin Ratio 1.3 (1.0-2.7) Urine Color Pale yellow Urine Appearance Clear Urine pH 7 (4.5-8.0) Urine Specific [place] 1.005 (1.005-1.035) Urine Protein Negative (NEGATIVE) Urine Glucose (UA) Negative (NEGATIVE) Urine Ketones Negative (NEGATIVE) Urine Occult Blood Negative (NEGATIVE) Urine Nitrite Negative (NEGATIVE) Urine Bilirubin Negative (NEGATIVE) Urine Urobilinogen Normal MG/DL (0.0-1.0) Urine Leukocyte Esterase Negative (NEGATIVE) Urine HCG, Qualitative Negative (NEGATIVE) Last Vital Signs Date Time Temp Pulse Resp B/P (MAP) Pulse Ox O2 Delivery O2 Flow Rate FiO2 03/15/18 08:02 98.2 92 16 120/77 95 Room Air 98.2 Status: improved Disposition: HOME, SELF-CARE Condition: Stable Referrals: [facility] (PCP) Jr Kim MD Mar 15, 2018 08:17
[2018-03-15 08:30] LABS: BASOPHILS % (AUTO) 0.8 % (0.0-2.0); EOSINOPHILS % (AUTO) 3.1 % (0.0-3.0); HEMATOCRIT 26.9 % (37.0-47.0); HEMOGLOBIN 8.9 G/DL (12.0-16.0); LYMPHOCYTES % (AUTO) 40.1 % (20.0-45.0); MEAN CORPUSCULAR VOLUME 98 FL (80-99); MONOCYTES % (AUTO) 4.1 % (1.0-10.0); NEUTROPHILS % (AUTO) 51.9 % (45.0-75.0); PLATELET COUNT 469 K/UL (150-450); RED BLOOD COUNT 2.74 M/UL (4.20-5.40); RED CELL DISTRIBUTION WIDTH 16.3 % (11.6-14.8); WHITE BLOOD COUNT 15.1 K/UL (4.8-10.8)
[2018-03-15 08:38] LABS: ANION GAP 8 mmol/L (5-15); BLOOD UREA NITROGEN 3 mg/dL (7-18); CALCIUM 8.6 MG/DL (8.5-10.1); CARBON DIOXIDE 25 MMOL/L (21-32); CHLORIDE 106 MMOL/L (98-107); CREATININE 0.4 MG/DL (0.55-1.30); POTASSIUM 3.8 MMOL/L (3.5-5.1); SODIUM 139 MMOL/L (136-145)
[2018-03-15 08:49] LABS: ALANINE AMINOTRANSFERASE 26 U/L (12-78); ALBUMIN 4.3 G/DL (3.4-5.0); ALBUMIN/GLOBULIN RATIO 1.3 (1.0-2.7); ALKALINE PHOSPHATASE 73 U/L (46-116); ASPARTATE AMINO TRANSFERASE 35 U/L (15-37); BILIRUBIN,TOTAL 1.8 MG/DL (0.2-1.0)
[2018-03-15 08:51] LABS: BILIRUBIN,DIRECT 0.4 MG/DL (0.0-0.3)
[2018-03-15] MEDS ORDERED: Morphine Sulfate 4mg/ml Inj IVP ONE (10:00)
[2018-03-15 10:02] LABS: BILIRUBIN, URINE NEGATIVE (NEGATIVE); COLOR,URINE PALE YELLOW; GLUCOSE, URINE (UA) NEGATIVE (NEGATIVE); KETONES,URINE NEGATIVE (NEGATIVE); LEUKOCYTE ESTERASE ,URINE NEGATIVE (NEGATIVE); NITRITE,URINE NEGATIVE (NEGATIVE); PH,URINE 7 (4.5-8.0); PROTEIN,URINE NEGATIVE (NEGATIVE); UROBILINOGEN,URINE NORMAL MG/DL (0.0-1.0)
[2018-03-15 10:04] VITALS: BP 112/53
[2018-03-15 10:04] LABS: APPEARANCE,URINE CLEAR
[2018-03-15 10:54] VITALS: BP 112/53
== END 2018-03-15 10:54 | disposition home or self-care (01) ==
LOC: EMR 08:08
DX: D57.1 Sickle-cell disease without crisis (principal)
CPT/HCPCS: 36415; 80053; 81003; 81025; 82248; 85025; 85044; 86850; 86900; 86901; 96361; 96374; 96375; 99284; J1200; J2270; 96360

== ENCOUNTER 2018-04-09 00:55 | Emergency (ER) | payer MEDICAID, OTHER ==
[~2018-04-09] VITALS: Ht 167.6 cm; Wt 58.5 kg
[2018-04-09 01:05] VITALS: BP 115/74
[2018-04-09] MEDS ORDERED: Morphine Sulfate 4mg/ml Inj (IV USE ONLY) IVP ONE (02:00)
[2018-04-09] MEDS ORDERED: DiphenhydrAMINE 50mg/ml Inj IVP ONE (02:00)
[2018-04-09 02:09] LABS: BASOPHILS % (AUTO) 1.5 % (0.0-2.0); EOSINOPHILS % (AUTO) 4.2 % (0.0-3.0); HEMATOCRIT 25.5 % (37.0-47.0); HEMOGLOBIN 8.8 G/DL (12.0-16.0); LYMPHOCYTES % (AUTO) 40.4 % (20.0-45.0); MEAN CORPUSCULAR VOLUME 100 FL (80-99); MONOCYTES % (AUTO) 5.5 % (1.0-10.0); NEUTROPHILS % (AUTO) 48.4 % (45.0-75.0); PLATELET COUNT 348 K/UL (150-450); RED BLOOD COUNT 2.56 M/UL (4.20-5.40); RED CELL DISTRIBUTION WIDTH 18.6 % (11.6-14.8); WHITE BLOOD COUNT 8.8 K/UL (4.8-10.8)
[2018-04-09 02:19] LABS: ANION GAP 8 mmol/L (5-15); BLOOD UREA NITROGEN 4 mg/dL (7-18); CALCIUM 8.7 MG/DL (8.5-10.1); CARBON DIOXIDE 30 MMOL/L (21-32); CHLORIDE 104 MMOL/L (98-107); CREATININE 0.5 MG/DL (0.55-1.30); POTASSIUM 3.7 MMOL/L (3.5-5.1); SODIUM 142 MMOL/L (136-145)
[2018-04-09 02:32] LABS: INR 1.1 (0.9-1.1)
[2018-04-09 02:33] LABS: ALANINE AMINOTRANSFERASE 126 U/L (12-78); ALBUMIN 4.2 G/DL (3.4-5.0); ALBUMIN/GLOBULIN RATIO 1.2 (1.0-2.7); ALKALINE PHOSPHATASE 117 U/L (46-116); ASPARTATE AMINO TRANSFERASE 109 U/L (15-37); BILIRUBIN,TOTAL 1.7 MG/DL (0.2-1.0); CKMB < 0.5 NG/ML (0.0-3.6); CREATINE KINASE 45 U/L (26-308); LACTATE DEHYDROGENASE 428 U/L (81-234)
[2018-04-09 02:38] LABS: BILIRUBIN,DIRECT 0.4 MG/DL (0.0-0.3)
[2018-04-09 02:40] VITALS: BP 112/68
[2018-04-09 04:08] VITALS: BP 110/8
[2018-04-09 05:58] VITALS: BP 100/66
--- NOTE | 2018-04-09 06:12 | Emergency Room Report ---
History of Present Illness General Chief Complaint: Pain Source: Patient Present Illness HPI Patient presents with sickle cell pain. R leg. States constant and rated 10/ 10. No fevers. She feels this is her usual exacerbation pain. No chest pain, cough, dyspnea, calf pain, edema, back pain, NVD, dysuria. No rashes. She has dilaudid at home and took this without help. Recent blood transfusion. Has had menses with bleeding 2 weeks in the middle or her cycle. Not sexually active. Was on blood thinners in the hospital. She was transferred and hospitalized 02/26 for R arm cellulitis. She states this is better. Allergies: Coded Allergies: KETAMINE (Verified Allergy, Unknown, 02/16/18) Patient History Past Medical History: see triage record Social History: Denies: smoking, alcohol use, drug use Social History Narrative working at [employer], nights Last Menstrual Period: March 24 Now: No Nursing Documentation-PMH Hx Hypertension: No Hx Pacemaker: No Hx Cancer: No Hx Gastrointestinal Problems: No Hx Neurological Problems: No Hx Cerebrovascular Accident: No Hx Transient Ischemic Attacks: No Hx Dementia: No Hx Alzheimer's Disease: No Hx Parkinson's Disease: No Hx Meningitis: No Hx Encephalitis: No Hx Seizures: No Hx Epilepsy: No Hx Multiple Sclerosis: No Hx Cerebral Palsy: No Hx Amyotrophic Lat Sclerosis: No Hx Guillian-[place] Syndrome: No Hx Paralysis: No Hx Peripheral Neuropathy: No Hx Spinal Cord Injury: No Hx Head Trauma: No Hx Traumatic Brain Injury: No Hx Memory Loss: No Hx Concentration Difficulty: No Hx Speech Problem: No Hx Tremors: No Hx Vertigo: No Hx Dizziness: No Hx Syncope: No Hx Headaches: No Hx Aphasia: No Hx Dysphasia: No Hx Numbness: No Hx Weakness: No Hx Fatigue: No Hx Neurologic Surgery: No Hx Brain Shunt: No Review of Systems All Other Systems: negative except mentioned in HPI Physical Exam Vital Signs Date Time Temp Pulse Resp B/P (MAP) Pulse Ox O2 Delivery O2 Flow Rate FiO2 04/09/18 01:02 98.6 101 18 109/67 99 Room Air 98.6 Sp02 EP Interpretation: reviewed, normal General Appearance: well appearing, no apparent distress, GCS 15 Head: normocephalic Eyes: bilateral eye PERRL, bilateral eye conjunctivae pale, bilateral eye scleral icterus ENT: moist mucus membranes Neck: supple Respiratory: lungs clear, normal breath sounds Cardiovascular #1: regular rate, rhythm Cardiovascular #2: 2+ radial (R) Gastrointestinal: normal inspection, normal bowel sounds, non tender, no mass, non-distended Musculoskeletal: back normal, gait/station normal, normal range of motion, other - reported tenderness Neurologic: alert, oriented x3, grossly normal Psychiatric: mood/affect normal Skin: warm/dry, pallor Medical Decision Making Diagnostic Impression: Primary Impression: Sickle-cell disease with pain Additional Impressions: UTI (urinary tract infection) Qualified Codes: N30.00 - Acute cystitis without hematuria Irregular menstrual bleeding ER Course Patient presents with alleged sickle cell pain. DDX: sickle cell crisis, exacerbation of chronic pain, drug seek/dependence, occult infection, exacerbation of anemia amongst others. Evaluation with CXR, labs. Treated with IV hydration and analgesics. Labs with anemia and normal WBC (usually elevated). Elevated LDH and retic and LFTS. UA with pyuria. Anemia (usual Hgb - gets transfused when < 7). Antibiotics begun. Awakened -- stated then that still with significant pain. I discussed that I can't give large doses of analgesics to patients who are sleeping. Given percocet and discussed follow up and continued treatment. Patient stable for outpatient observation and treatment Laboratory Tests Test 04/09/18 01:40 04/09/18 06:35 White Blood Count 8.8 K/UL (4.8-10.8) Red Blood Count 2.56 M/UL (4.20-5.40) L Hemoglobin 8.8 G/DL (12.0-16.0) L Hematocrit 25.5 % (37.0-47.0) L Mean Corpuscular Volume 100 FL (80-99) H Mean Corpuscular Hemoglobin 34.6 PG (27.0-31.0) H Mean Corpuscular Hemoglobin Concent 34.7 G/DL (32.0-36.0) Red Cell Distribution Width 18.6 % (11.6-14.8) H Platelet Count 348 K/UL (150-450) Mean Platelet Volume 6.6 FL (6.5-10.1) Neutrophils (%) (Auto) 48.4 % (45.0-75.0) Lymphocytes (%) (Auto) 40.4 % (20.0-45.0) Monocytes (%) (Auto) 5.5 % (1.0-10.0) Eosinophils (%) (Auto) 4.2 % (0.0-3.0) H Basophils (%) (Auto) 1.5 % (0.0-2.0) Reticulocyte Count 6.5 % (0.0-2.0) H Prothrombin Time 11.9 SEC (9.30-11.50) H Prothrombin Time INR 1.1 (0.9-1.1) PTT 24 SEC (23-33) Sodium Level 142 MMOL/L (136-145) Potassium Level 3.7 MMOL/L (3.5-5.1) Chloride Level 104 MMOL/L (98-107) Carbon Dioxide Level 30 MMOL/L (21-32) Anion Gap 8 mmol/L (5-15) Blood Urea Nitrogen 4 mg/dL (7-18) L Creatinine 0.5 MG/DL (0.55-1.30) L Estimate Glomerular Filtration Rate > 60 mL/min (>60) Glucose Level 88 MG/DL (74-106) Calcium Level 8.7 MG/DL (8.5-10.1) Total Bilirubin 1.7 MG/DL (0.2-1.0) H Direct Bilirubin 0.4 MG/DL (0.0-0.3) H Aspartate Amino Transferase (AST) 109 U/L (15-37) H Alanine Aminotransferase (ALT) 126 U/L (12-78) H Alkaline Phosphatase 117 U/L (46-116) H Lactate Dehydrogenase 428 U/L (81-234) H Total Creatine Kinase 45 U/L (26-308) Creatine Kinase MB < 0.5 NG/ML (0.0-3.6) Creatine Kinase MB Relative Index 1.1 Troponin I 0.002 ng/mL (0.000-0.056) Total Protein 7.8 G/DL (6.4-8.2) Albumin 4.2 G/DL (3.4-5.0) Globulin 3.6 g/dL Albumin/Globulin Ratio 1.2 (1.0-2.7) Urine Color Yellow Urine Appearance Clear Urine pH 8 (4.5-8.0) Urine Specific [place] 1.010 (1.005-1.035) Urine Protein 2+ (NEGATIVE) H Urine Glucose (UA) Negative (NEGATIVE) Urine Ketones Negative (NEGATIVE) Urine Occult Blood 5+ (NEGATIVE) H Urine Nitrite Negative (NEGATIVE) Urine Bilirubin Negative (NEGATIVE) Urine Urobilinogen 4 MG/DL (0.0-1.0) H Urine Leukocyte Esterase 3+ (NEGATIVE) H Urine RBC 5-10 /HPF (0 - 2) H Urine WBC 5-10 /HPF (0 - 2) H Urine Squamous Epithelial Cells Moderate /LPF (NONE/OCC) H Urine Bacteria Moderate /HPF (NONE) H Urine HCG, Qualitative Negative (NEGATIVE) Urine Opiates Screen Positive (NEGATIVE) H Urine Barbiturates Screen Negative (NEGATIVE) Phencyclidine (PCP) Screen Negative (NEGATIVE) Urine Amphetamines Screen Negative (NEGATIVE) Urine Benzodiazepines Screen Negative (NEGATIVE) Urine Cocaine Screen Negative (NEGATIVE) Urine Marijuana (THC) Screen Negative (NEGATIVE) Chest X-Ray Diagnostic Results Chest X-Ray Diagnostic Results : Chest X-Ray Ordered: Yes # of Views/Limited/Complete: 1 View Indication: Other EP Interpretation: Yes Interpretation: no consolidation, no effusion, no pneumothorax, no acute cardiopulmonary disease Impression: No acute disease Electronically Signed by: Uziel Ruggiero MD Last Vital Signs Date Time Temp Pulse Resp B/P (MAP) Pulse Ox O2 Delivery O2 Flow Rate FiO2 04/09/18 07:45 98.2 68 18 104/68 98 Room Air 98.2 Status: improved Disposition: HOME, SELF-CARE Condition: Improved Scripts Nitrofurantoin Monohyd/M-Cryst* (MACROBID 100 MG*) 100 Mg Capsule 100 MG ORAL EVERY 12 HOURS, #14 CAP Prov: Uziel Ruggiero M.D. 04/09/18 Referrals: [facility] (PCP) Uziel Ruggiero M.D. Apr 09, 2018 06:12
[2018-04-09] MEDS ORDERED: oxyCODONE HCL/Acetaminophen 5/325mg ORAL ONE (06:15)
[2018-04-09 06:46] LABS: APPEARANCE,URINE CLEAR; BILIRUBIN, URINE NEGATIVE (NEGATIVE); COLOR,URINE YELLOW; GLUCOSE, URINE (UA) NEGATIVE (NEGATIVE); KETONES,URINE NEGATIVE (NEGATIVE); LEUKOCYTE ESTERASE ,URINE 3+ (NEGATIVE); NITRITE,URINE NEGATIVE (NEGATIVE); PH,URINE 8 (4.5-8.0); PROTEIN,URINE 2+ (NEGATIVE); UROBILINOGEN,URINE 4 MG/DL (0.0-1.0)
[2018-04-09 06:58] VITALS: BP 104/68
[2018-04-09] MEDS ORDERED: NITROFURANTOIN100 M2 ORAL (07:31)
[2018-04-09 07:45] VITALS: BP 104/68
--- NOTE | 2018-04-09 12:21 | Diagnostic Imaging Report ---
Indication: Chest pain Technique: One view of the chest Comparison: 02/26/2018 Findings: Lungs and pleural spaces are clear. Heart size is upper limits normal . No significant interim change Impression: No acute process
--- NOTE | 2018-04-13 16:28 | Cardiology Report ---
APPROVED REPORT EKG Measurement Heart [id number] [place] [id number] [id number] Normal sinus rhythm Normal ECG
== END 2018-04-09 07:45 | disposition home or self-care (01) ==
LOC: EMR 01:30
DX: N30.00 Acute cystitis without hematuria (principal); D57.1 Sickle-cell disease without crisis; Z88.8 Allergy status to other drugs, medicaments and biological substances
CPT/HCPCS: 36415; 71045; 80053; 80307; 81003; 81025; 82248; 82550; 82553; 83615; 84484; 85025; 85044; 85610; 85730; 87086; 87181; 93005; 99283; J1200; J2270

== ENCOUNTER 2018-06-02 15:41 | Emergency (ER) | payer MEDICAID ==
[~2018-06-02] VITALS: Ht 167.6 cm; Wt 58.5 kg
[2018-06-02 15:49] VITALS: BP 124/64
--- NOTE | 2018-06-02 16:24 | Emergency Room Report ---
History of Present Illness General Chief Complaint: Skin Rash/Abscess Source: Patient Present Illness HPI Ruby is a pleasant 28 yo female with hx of Hgb SS disease who presents with rash on right elbow, right hand, right ankle. Swelling and inflammation is pain concern. Achy. No itching. No known trauma. Allergies: Coded Allergies: KETAMINE (Verified Allergy, Unknown, 06/02/18) Patient History Past Medical History: see triage record Last Menstrual Period: may 05, 2018 Now: No Nursing Documentation-PMH Past Medical History: No History, Except For Hx Cardiac Problems: Yes - Sickle cell anemia Hx Hypertension: No Hx Pacemaker: No Hx Cancer: No Hx Gastrointestinal Problems: No Hx Neurological Problems: No Hx Cerebrovascular Accident: No Hx Transient Ischemic Attacks: No Hx Dementia: No Hx Alzheimer's Disease: No Hx Parkinson's Disease: No Hx Meningitis: No Hx Encephalitis: No Hx Seizures: No Hx Epilepsy: No Hx Multiple Sclerosis: No Hx Cerebral Palsy: No Hx Amyotrophic Lat Sclerosis: No Hx Guillian-[place] Syndrome: No Hx Paralysis: No Hx Peripheral Neuropathy: No Hx Spinal Cord Injury: No Hx Head Trauma: No Hx Traumatic Brain Injury: No Hx Memory Loss: No Hx Concentration Difficulty: No Hx Speech Problem: No Hx Tremors: No Hx Vertigo: No Hx Dizziness: No Hx Syncope: No Hx Headaches: No Hx Aphasia: No Hx Dysphasia: No Hx Numbness: No Hx Weakness: No Hx Fatigue: No Hx Neurologic Surgery: No Hx Brain Shunt: No Review of Systems Constitutional: Denies: fever, malaise Gastrointestinal: Denies: abdominal pain Skin: Reports: rash, change in color Physical Exam Vital Signs Date Time Temp Pulse Resp B/P (MAP) Pulse Ox O2 Delivery O2 Flow Rate FiO2 06/02/18 15:44 98.1 96 16 124/64 95 Room Air 98.1 Sp02 EP Interpretation: reviewed, normal General Appearance: normal inspection, well appearing, no apparent distress, alert, GCS 15, non-toxic Eyes: bilateral eye normal inspection ENT: hearing grossly normal, normal pharynx, no angioedema, normal voice Neck: full range of motion, supple Respiratory: no respiratory distress Psychiatric: normal inspection, judgement/insight normal, memory normal Skin: rash - medial right elbow 3 cm patch of mild erythema right ankle red papule with surrounding erythema right hand dorsal mild erythema Medical Decision Making Diagnostic Impression: Primary Impression: Rash and other nonspecific skin eruption Additional Impression: Cellulitis ER Course Rash involving elbow, hand, ankle DDx: cellulitis, insect bites, contact dermatitis rx: prednisone and bactrim patient has appt with PCP on Monday in 2 days Last Vital Signs Date Time Temp Pulse Resp B/P (MAP) Pulse Ox O2 Delivery O2 Flow Rate FiO2 06/02/18 15:49 98.1 96 16 124/64 95 Room Air 98.1 Debbie Ho MD Jun 02, 2018 16:24
[2018-06-02] MEDS ORDERED: BACTRIM DS TAB1 EAC1 ORAL (16:26)
[2018-06-02] MEDS ORDERED: PREDNISONE20 MG ORAL (16:26)
[2018-06-02] MEDS ORDERED: Ketorolac 30mg Inj IM ONE (16:30)
[2018-06-02 16:38] VITALS: BP 124/64
== END 2018-06-02 16:38 | disposition home or self-care (01) ==
LOC: EMR 16:35
DX: L03.113 Cellulitis of right upper limb (principal)
CPT/HCPCS: 96372; 99283; J1885; J7512

== ENCOUNTER 2018-10-17 21:22 | Emergency (ER) | payer MEDICAID ==
[~2018-10-17] VITALS: Ht 167.6 cm; Wt 59.0 kg
[2018-10-17] MEDS ORDERED: DiphenhydrAMINE 50mg/ml Inj IVP ONE (21:45)
[2018-10-17] MEDS ORDERED: HYDROmorphone 1mg/ml Carpuject IVP ONE (21:45)
[2018-10-17 22:25] VITALS: BP 101/52
--- NOTE | 2018-10-17 22:40 | NUR ---
ED Nurse Note: pt walked in c/o sickle cell crisis since monday, pt reports generalized pain 05/04. pt aa&xo4,gcs=15, skin warm and dry, resp even and unlabored, -n/v/d, ambulates w/ steady gait will cont monitor. nsr. vss.
--- NOTE | 2018-10-17 22:40 | Emergency Room Report ---
History of Present Illness General Chief Complaint: Pain Source: Patient Present Illness HPI Patient presents with exacerbation of sickle cell pain. The majority the pain is in her back and legs. She's been taking medication at home. This includes hydroxyurea. She denies any productive cough or chest pain at this time. She was last transfused in July. Pain is rated 8-10/10, aching, lower extremities and low back without radiation. There is no calf pain or swelling. No fevers, chills, chest pain, palpitations, nausea, vomiting, diarrhea, dysuria , abdominal pain, shortness of breath, depression, visual changes, headache. Last year she was treated for cellulitis of the right arm and this is resolved. 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 Last Menstrual Period: 09/27/18 Now: No : 0 Reviewed Nursing Documentation: PMH: Agreed; PSxH: Agreed Nursing Documentation-PMH Past Medical History: No Stated History Hx Cardiac Problems: Yes - Sickle cell anemia Hx Hypertension: No Hx Pacemaker: No Hx Cancer: No Hx Gastrointestinal Problems: No Hx Neurological Problems: No Hx Cerebrovascular Accident: No Hx Transient Ischemic Attacks: No Hx Dementia: No Hx Alzheimer's Disease: No Hx Parkinson's Disease: No Hx Meningitis: No Hx Encephalitis: No Hx Seizures: No Hx Epilepsy: No Hx Multiple Sclerosis: No Hx Cerebral Palsy: No Hx Amyotrophic Lat Sclerosis: No Hx Guillian-[place] Syndrome: No Hx Paralysis: No Hx Peripheral Neuropathy: No Hx Spinal Cord Injury: No Hx Head Trauma: No Hx Traumatic Brain Injury: No Hx Memory Loss: No Hx Concentration Difficulty: No Hx Speech Problem: No Hx Tremors: No Hx Vertigo: No Hx Dizziness: No Hx Syncope: No Hx Headaches: No Hx Aphasia: No Hx Dysphasia: No Hx Numbness: No Hx Weakness: No Hx Fatigue: No Hx Neurologic Surgery: No Hx Brain Shunt: No Review of Systems All Other Systems: negative except mentioned in HPI Physical Exam Vital Signs Date Time Temp Pulse Resp B/P (MAP) Pulse Ox O2 Delivery O2 Flow Rate FiO2 10/17/18 21:27 98.4 101 17 117/75 94 Room Air Sp02 EP Interpretation: reviewed, abnormal - Interpreted as low by me General Appearance: well appearing, no apparent distress, GCS 15 Head: normocephalic Eyes: bilateral eye PERRL, bilateral eye conjunctivae pale ENT: moist mucus membranes Neck: supple Respiratory: chest non-tender, lungs clear, normal breath sounds Cardiovascular #1: regular rate, rhythm Cardiovascular #2: 2+ radial (R) Gastrointestinal: normal inspection, normal bowel sounds, non tender, no mass, non-distended Genitourinary: no CVA tenderness Musculoskeletal: back normal, digits/nails normal, gait/station normal, normal range of motion, no calf tenderness, pelvis stable, tender - Lower extremities Neurologic: alert, oriented x3, grossly normal Psychiatric: mood/affect normal Skin: normal inspection, warm/dry, other - Tattoos Medical Decision Making Diagnostic Impression: Primary Impression: Sickle-cell disease with pain ER Course Patient with history of sickle cell anemia presents with exacerbation of sickle cell pain. Differential includes bone marrow failure, occult infection, sickle cell crisis, significant anemia amongst others. Patient will be evaluated with labs, EKG and chest x-ray. The patient will be treated with IV hydration and analgesia. Labs with elevated white count and anemia. This is not to the point where she needs blood transfusions which is less than 7. CMP unremarkable. Reticulocyte count is elevated. Urinalysis without evidence of infection. Chest x-ray clear. EKG without injury. Patient required 1 other dose of Dilaudid. Improved with treatment. Patient feels well enough to be returning to home and to follow-up with her own private physician. No medical emergency at this time. Patient stable for outpatient observation and treatment. Laboratory Tests Test 10/17/18 20:15 White Blood Count 13.9 K/UL (4.8-10.8) H Red Blood Count 2.52 M/UL (4.20-5.40) L Hemoglobin 8.4 G/DL (12.0-16.0) L Hematocrit 24.6 % (37.0-47.0) L Mean Corpuscular Volume 98 FL (80-99) Mean Corpuscular Hemoglobin 33.5 PG (27.0-31.0) H Mean Corpuscular Hemoglobin Concent 34.4 G/DL (32.0-36.0) Red Cell Distribution Width 15.4 % (11.6-14.8) H Platelet Count 373 K/UL (150-450) Mean Platelet Volume 6.1 FL (6.5-10.1) L Neutrophils (%) (Auto) 48.9 % (45.0-75.0) Lymphocytes (%) (Auto) 41.3 % (20.0-45.0) Monocytes (%) (Auto) 4.9 % (1.0-10.0) Eosinophils (%) (Auto) 3.2 % (0.0-3.0) H Basophils (%) (Auto) 1.6 % (0.0-2.0) Reticulocyte Count 4.2 % (0.0-2.0) H Prothrombin Time 11.9 SEC (9.30-11.50) H Prothrombin Time INR 1.1 (0.9-1.1) PTT 22 SEC (23-33) L Urine Color Pale yellow Urine Appearance Clear Urine pH 8 (4.5-8.0) Urine Specific [place] 1.010 (1.005-1.035) Urine Protein 2+ (NEGATIVE) H Urine Glucose (UA) Negative (NEGATIVE) Urine Ketones Negative (NEGATIVE) Urine Blood 1+ (NEGATIVE) H Urine Nitrite Negative (NEGATIVE) Urine Bilirubin Negative (NEGATIVE) Urine Urobilinogen 1 MG/DL (0.0-1.0) H Urine Leukocyte Esterase 2+ (NEGATIVE) H Urine RBC 2-4 /HPF (0 - 2) H Urine WBC 2-4 /HPF (0 - 2) Urine Squamous Epithelial Cells Few /LPF (NONE/OCC) Urine Bacteria Few /HPF (NONE) Urine HCG, Qualitative Negative (NEGATIVE) Sodium Level 139 MMOL/L (136-145) Potassium Level 3.6 MMOL/L (3.5-5.1) Chloride Level 104 MMOL/L (98-107) Carbon Dioxide Level 24 MMOL/L (21-32) Anion Gap 11 mmol/L (5-15) Blood Urea Nitrogen 8 mg/dL (7-18) Creatinine 0.5 MG/DL (0.55-1.30) L Estimate Glomerular Filtration Rate > 60 mL/min (>60) Glucose Level 103 MG/DL (74-106) Calcium Level 8.8 MG/DL (8.5-10.1) Total Bilirubin 1.8 MG/DL (0.2-1.0) H Direct Bilirubin 0.4 MG/DL (0.0-0.3) H Aspartate Amino Transferase (AST) 44 U/L (15-37) H Alanine Aminotransferase (ALT) 45 U/L (12-78) Alkaline Phosphatase 87 U/L (46-116) Lactate Dehydrogenase 339 U/L (81-234) H Total Creatine Kinase 31 U/L (26-308) Troponin I 0.002 ng/mL (0.000-0.056) Pro-B-Type Natriuretic Peptide 25 pg/mL (0-125) Total Protein 7.9 G/DL (6.4-8.2) Albumin 4.1 G/DL (3.4-5.0) Globulin 3.8 g/dL Albumin/Globulin Ratio 1.1 (1.0-2.7) Urine Opiates Screen Negative (NEGATIVE) Urine Barbiturates Screen Negative (NEGATIVE) Phencyclidine (PCP) Screen Negative (NEGATIVE) Urine Amphetamines Screen Negative (NEGATIVE) Urine Benzodiazepines Screen Negative (NEGATIVE) Urine Cocaine Screen Negative (NEGATIVE) Urine Marijuana (THC) Screen Negative (NEGATIVE) EKG Diagnostic Results Rate: normal Rhythm: NSR ST Segments: no acute changes - Nonspecific ST-T wave changes and prolonged QT interval Rhythm Strip Diag. Results EP Interpretation: yes Rhythm: NSR, no PVC's, no ectopy Chest X-Ray Diagnostic Results Chest X-Ray Diagnostic Results : Chest X-Ray Ordered: Yes # of Views/Limited/Complete: 1 View Indication: Other EP Interpretation: Yes Interpretation: no consolidation, no effusion, no pneumothorax, other - inc cor Impression: No acute disease Electronically Signed by: Electronically signed by Uziel Ruggiero MD Last Vital Signs Date Time Temp Pulse Resp B/P (MAP) Pulse Ox O2 Delivery O2 Flow Rate FiO2 10/18/18 02:45 98.4 68 16 99/68 98 Room Air Status: improved Disposition: HOME, SELF-CARE Condition: Improved Uziel Ruggiero MD Oct 17, 2018 22:40
[2018-10-17 23:01] LABS: BASOPHILS % (AUTO) 1.6 % (0.0-2.0); EOSINOPHILS % (AUTO) 3.2 % (0.0-3.0); HEMATOCRIT 24.6 % (37.0-47.0); HEMOGLOBIN 8.4 G/DL (12.0-16.0); LYMPHOCYTES % (AUTO) 41.3 % (20.0-45.0); MEAN CORPUSCULAR VOLUME 98 FL (80-99); MONOCYTES % (AUTO) 4.9 % (1.0-10.0); NEUTROPHILS % (AUTO) 48.9 % (45.0-75.0); PLATELET COUNT 373 K/UL (150-450); RED BLOOD COUNT 2.52 M/UL (4.20-5.40); RED CELL DISTRIBUTION WIDTH 15.4 % (11.6-14.8); WHITE BLOOD COUNT 13.9 K/UL (4.8-10.8)
[2018-10-17 23:07] LABS: APPEARANCE,URINE CLEAR; BILIRUBIN, URINE NEGATIVE (NEGATIVE); COLOR,URINE PALE YELLOW; GLUCOSE, URINE (UA) NEGATIVE (NEGATIVE); KETONES,URINE NEGATIVE (NEGATIVE); LEUKOCYTE ESTERASE ,URINE 2+ (NEGATIVE); NITRITE,URINE NEGATIVE (NEGATIVE); PH,URINE 8 (4.5-8.0); PROTEIN,URINE 2+ (NEGATIVE); UROBILINOGEN,URINE 1 MG/DL (0.0-1.0)
[2018-10-17 23:08] LABS: ANION GAP 11 mmol/L (5-15); BLOOD UREA NITROGEN 8 mg/dL (7-18); CALCIUM 8.8 MG/DL (8.5-10.1); CARBON DIOXIDE 24 MMOL/L (21-32); CHLORIDE 104 MMOL/L (98-107); CREATININE 0.5 MG/DL (0.55-1.30); POTASSIUM 3.6 MMOL/L (3.5-5.1); SODIUM 139 MMOL/L (136-145)
[2018-10-17 23:12] LABS: INR 1.1 (0.9-1.1)
[2018-10-17 23:18] LABS: ALANINE AMINOTRANSFERASE 45 U/L (12-78); ALBUMIN 4.1 G/DL (3.4-5.0); ALBUMIN/GLOBULIN RATIO 1.1 (1.0-2.7); ALKALINE PHOSPHATASE 87 U/L (46-116); ASPARTATE AMINO TRANSFERASE 44 U/L (15-37); BILIRUBIN,TOTAL 1.8 MG/DL (0.2-1.0); CREATINE KINASE 31 U/L (26-308); LACTATE DEHYDROGENASE 339 U/L (81-234)
[2018-10-17 23:19] LABS: BILIRUBIN,DIRECT 0.4 MG/DL (0.0-0.3)
[2018-10-17 23:25] VITALS: BP 96/50
--- NOTE | 2018-10-17 23:50 | NUR ---
ED Nurse Note: extra blanket and juice and crackers provided verified w/ermd. pt resting comfortably will cont monitor. pt reports pain is still there, ermd notified.
[2018-10-18] MEDS ORDERED: HYDROmorphone 1mg/ml Carpuject IVP ONE (00:15)
[2018-10-18] MEDS ORDERED: DiphenhydrAMINE 50mg/ml Inj IVP ONE (00:15)
[2018-10-18 00:25] VITALS: BP 91/45
[2018-10-18 01:25] VITALS: BP 98/50
[2018-10-18 02:45] VITALS: BP 99/68
--- NOTE | 2018-10-18 02:45 | NUR ---
ED Nurse Note: pt discharge instruction provided, pt education done via discussion and hand out, wristband removed, pt advised to follow up with pcp or return to ed if s/s worsen or new s/s develop, pt verbalized understanding and agrees with plan.
--- NOTE | 2018-10-18 11:10 | Diagnostic Imaging Report ---
Indication: Chest pain Technique: One view of the chest Comparison: 04/09/2018 Findings: Lungs and pleural spaces are clear. Heart size is normal . No significant interim change Impression: No acute process
--- NOTE | 2018-10-21 11:17 | Cardiology Report ---
APPROVED REPORT EKG Measurement Heart [id number] Normal sinus rhythm Nonspecific T wave abnormality Prolonged QT Abnormal ECG
== END 2018-10-18 02:45 | disposition home or self-care (01) ==
LOC: EMR 21:45
DX: D57.00 Hb-SS disease with crisis, unspecified (principal)
CPT/HCPCS: 36415; 71045; 80053; 80307; 81003; 81025; 82248; 82550; 83615; 83880; 84484; 85025; 85044; 85610; 85730; 93005; 96361; 96374; 96375; 96376; 99284; J1170; J1200; J2405

== ENCOUNTER 2018-11-17 10:53 | Emergency (ER) | payer MEDICAID ==
[~2018-11-17] VITALS: Ht 167.6 cm; Wt 60.8 kg
[2018-11-17] MEDS ORDERED: Morphine Sulfate 10mg/ml Inj IVP ONE (11:15)
[2018-11-17] MEDS ORDERED: DiphenhydrAMINE 50mg/ml Inj IVP ONE (11:15)
[2018-11-17 11:36] LABS: APPEARANCE,URINE SLIGHTLY CLOUDY; BASOPHILS % (AUTO) 1.4 % (0.0-2.0); BILIRUBIN, URINE NEGATIVE (NEGATIVE); EOSINOPHILS % (AUTO) 1.3 % (0.0-3.0); GLUCOSE, URINE (UA) NEGATIVE (NEGATIVE); KETONES,URINE NEGATIVE (NEGATIVE); LEUKOCYTE ESTERASE ,URINE 3+ (NEGATIVE); LYMPHOCYTES % (AUTO) 31.4 % (20.0-45.0); MEAN CORPUSCULAR VOLUME 98 FL (80-99); NEUTROPHILS % (AUTO) 57.9 % (45.0-75.0); NITRITE,URINE NEGATIVE (NEGATIVE); PH,URINE 7 (4.5-8.0); PLATELET COUNT 388 K/UL (150-450); PROTEIN,URINE 3+ (NEGATIVE); RED BLOOD COUNT 2.34 M/UL (4.20-5.40); RED CELL DISTRIBUTION WIDTH 17.1 % (11.6-14.8); UROBILINOGEN,URINE 1 MG/DL (0.0-1.0); WHITE BLOOD COUNT 17.3 K/UL (4.8-10.8)
[2018-11-17 11:45] VITALS: BP 122/65
[2018-11-17 11:46] LABS: COLOR,URINE YELLOW
[2018-11-17 11:51] LABS: ANION GAP 10 mmol/L (5-15); BLOOD UREA NITROGEN 4 mg/dL (7-18); CALCIUM 9.3 MG/DL (8.5-10.1); CARBON DIOXIDE 25 MMOL/L (21-32); CHLORIDE 105 MMOL/L (98-107); CREATININE 0.5 MG/DL (0.55-1.30); POTASSIUM 3.6 MMOL/L (3.5-5.1); SODIUM 140 MMOL/L (136-145)
[2018-11-17] MEDS ORDERED: cefTRIAXone 1 GM in NS 55 ML IVPB ONE (12:00)
[2018-11-17 12:04] LABS: ALANINE AMINOTRANSFERASE 37 U/L (12-78); ALBUMIN 4.2 G/DL (3.4-5.0); ALBUMIN/GLOBULIN RATIO 1.2 (1.0-2.7); ALKALINE PHOSPHATASE 85 U/L (46-116); ASPARTATE AMINO TRANSFERASE 48 U/L (15-37); BILIRUBIN,TOTAL 2.2 MG/DL (0.2-1.0)
--- NOTE | 2018-11-17 12:09 | Emergency Room Report ---
History of Present Illness General Chief Complaint: Pain Source: Patient Present Illness HPI Patient is a 28-year-old female presented after increased generalized body pain. Patient had a prior history of sickle cell disease. She had multiple prior ER visits for similar symptoms in the past. She reports having pain in the location which she normally has pain. She denies any fever. She reports having menses approximately 1 week ago. She denies any vomiting or abdominal discomfort. She reports having generalized body aches. She denies any fever or cough. Patient reports taking her hydroxyurea. Allergies: Coded Allergies: KETAMINE (Verified Allergy, Unknown, 06/02/18) Patient History Now: No Reviewed Nursing Documentation: PMH: Agreed; PSxH: Agreed Nursing Documentation-PMH Past Medical History: No History, Except For Hx Cardiac Problems: Yes - Sickle cell anemia Hx Hypertension: No Hx Pacemaker: No Hx Cancer: No Hx Gastrointestinal Problems: No Hx Neurological Problems: No Hx Cerebrovascular Accident: No Hx Transient Ischemic Attacks: No Hx Dementia: No Hx Alzheimer's Disease: No Hx Parkinson's Disease: No Hx Meningitis: No Hx Encephalitis: No Hx Seizures: No Hx Epilepsy: No Hx Multiple Sclerosis: No Hx Cerebral Palsy: No Hx Amyotrophic Lat Sclerosis: No Hx Guillian-[place] Syndrome: No Hx Paralysis: No Hx Peripheral Neuropathy: No Hx Spinal Cord Injury: No Hx Head Trauma: No Hx Traumatic Brain Injury: No Hx Memory Loss: No Hx Concentration Difficulty: No Hx Speech Problem: No Hx Tremors: No Hx Vertigo: No Hx Dizziness: No Hx Syncope: No Hx Headaches: No Hx Aphasia: No Hx Dysphasia: No Hx Numbness: No Hx Weakness: No Hx Fatigue: No Hx Neurologic Surgery: No Hx Brain Shunt: No Physical Exam Vital Signs Date Time Temp Pulse Resp B/P (MAP) Pulse Ox O2 Delivery O2 Flow Rate FiO2 11/17/18 10:58 99.1 100 17 118/73 93 Room Air Sp02 EP Interpretation: reviewed, normal General Appearance: normal inspection, well appearing, no apparent distress, alert, GCS 15 Head: atraumatic ENT: normal ENT inspection, hearing grossly normal, normal voice Neck: normal inspection, full range of motion, supple, no bony tend Respiratory: normal inspection, lungs clear, normal breath sounds, no respiratory distress, no retraction, no wheezing Cardiovascular #1: regular rate, rhythm, no edema Gastrointestinal: normal inspection, normal bowel sounds, non tender, soft, no guarding, no hernia Genitourinary: no CVA tenderness Musculoskeletal: normal inspection, back normal, normal range of motion Neurologic: normal inspection, alert, oriented x3, responsive, senior engineer III-XII nml as tested, speech normal Psychiatric: normal inspection, judgement/insight normal, mood/affect normal Skin: normal inspection, normal color, no rash Medical Decision Making Diagnostic Impression: Primary Impression: Opiate dependence Additional Impressions: Sickle-cell disease with pain UTI (urinary tract infection) ER Course Patient presented for generalized body pain. Patient had prior history of sickle cell disease and has opiate dependence. Patient was given pain medications as well as IV fluids. She was started on IV antibiotics for mild urinary infection. Patient does not appear to be septic or toxic. Patient was advised to follow-up with her primary care physician for recheck after IV fluids. The patient is advised to follow up with primary care doctor in 1-2 days. Patient is advised to return if any worsening condition or if any changes in status that are concerning. This report is dictated with [employer] science editor software which may occasionally lead to discrepancies related to use of this software. Labs Test 11/17/18 11:20 White Blood Count 17.3 K/UL (4.8-10.8) Red Blood Count 2.34 M/UL (4.20-5.40) Hemoglobin 8.0 G/DL (12.0-16.0) Hematocrit 23.0 % (37.0-47.0) Mean Corpuscular Volume 98 FL (80-99) Mean Corpuscular Hemoglobin 34.1 PG (27.0-31.0) Mean Corpuscular Hemoglobin Concent 34.8 G/DL (32.0-36.0) Red Cell Distribution Width 17.1 % (11.6-14.8) Platelet Count 388 K/UL (150-450) Mean Platelet Volume 6.1 FL (6.5-10.1) Neutrophils (%) (Auto) 57.9 % (45.0-75.0) Lymphocytes (%) (Auto) 31.4 % (20.0-45.0) Monocytes (%) (Auto) 8.0 % (1.0-10.0) Eosinophils (%) (Auto) 1.3 % (0.0-3.0) Basophils (%) (Auto) 1.4 % (0.0-2.0) Reticulocyte Count 16.4 % (0.0-2.0) Urine Color Yellow Urine Appearance Slightly cloudy Urine pH 7 (4.5-8.0) Urine Specific [place] 1.010 (1.005-1.035) Urine Protein 3+ (NEGATIVE) Urine Glucose (UA) Negative (NEGATIVE) Urine Ketones Negative (NEGATIVE) Urine Blood 2+ (NEGATIVE) Urine Nitrite Negative (NEGATIVE) Urine Bilirubin Negative (NEGATIVE) Urine Urobilinogen 1 MG/DL (0.0-1.0) Urine Leukocyte Esterase 3+ (NEGATIVE) Urine RBC 2-4 /HPF (0 - 2) Urine WBC 5-10 /HPF (0 - 2) Urine Squamous Epithelial Cells Moderate /LPF (NONE/OCC) Urine Bacteria Few /HPF (NONE) Urine HCG, Qualitative Negative (NEGATIVE) Sodium Level 140 MMOL/L (136-145) Potassium Level 3.6 MMOL/L (3.5-5.1) Chloride Level 105 MMOL/L (98-107) Carbon Dioxide Level 25 MMOL/L (21-32) Anion Gap 10 mmol/L (5-15) Blood Urea Nitrogen 4 mg/dL (7-18) Creatinine 0.5 MG/DL (0.55-1.30) Estimat Glomerular Filtration Rate > 60 mL/min (>60) Glucose Level 92 MG/DL (74-106) Calcium Level 9.3 MG/DL (8.5-10.1) Last Vital Signs Date Time Temp Pulse Resp B/P (MAP) Pulse Ox O2 Delivery O2 Flow Rate FiO2 11/17/18 11:45 98.8 80 17 122/65 96 Room Air Status: improved Disposition: HOME, SELF-CARE Condition: Stable Scripts Cephalexin* (KEFLEX*) 500 Mg Capsule 500 MG ORAL EVERY 6 HOURS, #28 CAP Prov: Jr Kim MD 11/17/18 Referrals: [facility] (PCP) Jr Kim MD Nov 17, 2018 12:09
[2018-11-17] MEDS ORDERED: HYDROmorphone 1mg/ml Carpuject IVP ONE (12:15)
[2018-11-17 12:20] LABS: BILIRUBIN,DIRECT 0.4 MG/DL (0.0-0.3)
[2018-11-17] MEDS ORDERED: CEPHALEXIN500 MG ORAL (12:40)
[2018-11-17 12:56] VITALS: BP 116/82
== END 2018-11-17 12:58 | disposition home or self-care (01) ==
LOC: EMR 11:40
DX: F11.20 Opioid dependence, uncomplicated (principal); D57.00 Hb-SS disease with crisis, unspecified; N39.0 Urinary tract infection, site not specified
CPT/HCPCS: 36415; 80053; 81001; 81025; 82248; 85025; 85044; 96361; 96365; 96375; 99284; J0696; J1170; J1200; J2270

== ENCOUNTER 2018-12-16 17:58 | Emergency (ER) | payer MEDICAID ==
[~2018-12-16] VITALS: Ht 167.6 cm; Wt 59.9 kg
[~2018-12-16 17:58] MED LIST changes: +CEPHALEXIN500 MG ORAL
[2018-12-16 18:04] VITALS: BP 125/73
--- NOTE | 2018-12-16 18:07 | NUR ---
ED Nurse Note: Patient walked into ED c/o sickle cell crisis generalized pain started 0600. a/o x4, ambulatory.
--- NOTE | 2018-12-16 18:17 | NUR ---
ED Nurse Note: patient eloped
--- NOTE | 2018-12-16 18:17 | NUR ---
ELOPEMENT: patient walked out of ED RN tried to explain that she is leaving against medical advice and RN tried to take the ID band out at least, but patient refused to stop and listen, patient just left without stopping. Dr. Ann made aware.
--- NOTE | 2018-12-16 18:18 | Emergency Room Report ---
History of Present Illness General Chief Complaint: Pain Source: Patient Present Illness HPI Patient presents with complaints of 'sickle cell crisis' Reports that she is having significant right upper shoulder pain 10 out of 10 Denies any chest pain or shortness of breath denies any vomiting She does have some increased nausea denies any abdominal pain she does also have diffuse body ache in the bilateral upper shoulders and hip area Denies any dysuria frequency Allergies: Coded Allergies: KETAMINE (Verified Allergy, Unknown, 06/02/18) Patient History Past Medical History: see triage record Pertinent Family History: none Now: No Reviewed Nursing Documentation: PMH: Agreed; PSxH: Agreed Nursing Documentation-PMH Hx Cardiac Problems: Yes - Sickle cell anemia Hx Hypertension: No Hx Pacemaker: No Hx Cancer: No Hx Gastrointestinal Problems: No Hx Neurological Problems: No Hx Cerebrovascular Accident: No Hx Transient Ischemic Attacks: No Hx Dementia: No Hx Alzheimer's Disease: No Hx Parkinson's Disease: No Hx Meningitis: No Hx Encephalitis: No Hx Seizures: No Hx Epilepsy: No Hx Multiple Sclerosis: No Hx Cerebral Palsy: No Hx Amyotrophic Lat Sclerosis: No Hx Guillian-[place] Syndrome: No Hx Paralysis: No Hx Peripheral Neuropathy: No Hx Spinal Cord Injury: No Hx Head Trauma: No Hx Traumatic Brain Injury: No Hx Memory Loss: No Hx Concentration Difficulty: No Hx Speech Problem: No Hx Tremors: No Hx Vertigo: No Hx Dizziness: No Hx Syncope: No Hx Headaches: No Hx Aphasia: No Hx Dysphasia: No Hx Numbness: No Hx Weakness: No Hx Fatigue: No Hx Neurologic Surgery: No Hx Brain Shunt: No Review of Systems All Other Systems: negative except mentioned in HPI Physical Exam Vital Signs Date Time Temp Pulse Resp B/P (MAP) Pulse Ox O2 Delivery O2 Flow Rate FiO2 12/16/18 18:04 98.2 91 19 125/73 95 Room Air Sp02 EP Interpretation: reviewed, normal General Appearance: no apparent distress Head: normocephalic, atraumatic Eyes: bilateral eye PERRL ENT: normal pharynx, no angioedema Neck: supple Respiratory: lungs clear, no retraction, no accessory muscle use Cardiovascular #1: regular rate, rhythm Gastrointestinal: non tender, soft Musculoskeletal: normal inspection Neurologic: alert, oriented x3 Skin: no rash, warm/dry Lymphatic: no adenopathy Medical Decision Making Diagnostic Impression: Primary Impression: Sickle cell disease Additional Impression: Opiate dependence ER Course Given the patient's history and presentation Blood work was initiated along with reticulocyte count IV hydration and nausea medicine provided After discussing that initial opiate medication is being held Patient essentially started from the [facility] and walked out of the emergency room Patient did not appear in any acute distress Presentation and demeanor is extremely concerning Last Vital Signs Date Time Temp Pulse Resp B/P (MAP) Pulse Ox O2 Delivery O2 Flow Rate FiO2 12/16/18 18:04 98.2 91 19 125/73 95 Room Air Status: unchanged Disposition: ELOPED Condition: Unknown Shivani Ann DO Dec 16, 2018 18:18
[2018-12-16 18:19] VITALS: BP 125/73
[2018-12-16] MEDS ORDERED: DiphenhydrAMINE 50mg/ml Inj IVP ONE (18:30)
== END 2018-12-16 19:00 | disposition left against medical advice (07) ==
LOC: EMR 18:38
DX: D57.00 Hb-SS disease with crisis, unspecified (principal); F11.20 Opioid dependence, uncomplicated
CPT/HCPCS: 99282

== ENCOUNTER 2019-01-15 23:09 | Emergency (ER) | payer MEDICAID ==
[~2019-01-15] VITALS: Ht 167.6 cm; Wt 59.0 kg
[2019-01-15] MEDS ORDERED: VENLAFAXINE HCL25 MG ORAL (23:17)
--- NOTE | 2019-01-15 23:21 | NUR ---
ED Nurse Note: Patient walk in c/o sickle cell crisis for 2 days. AO4. NAD. VSS.
--- NOTE | 2019-01-15 23:30 | NUR ---
ED Nurse Note: IV ACCESS ESTABLISHED. BLOOD COLLECTED; SENT DOWN TO LAB.
--- NOTE | 2019-01-15 23:35 | Emergency Room Report ---
History of Present Illness General Chief Complaint: Pain Source: Patient Present Illness HPI This is a 28-year-old female with history sickle cell disease. She presents with chief complaint of sickle cell pain. This is a similar recurrent issue. She is out of her pain medication. No nausea no vomiting. Pain is 10 out of 10. Affected multiple joints and back. No fever chills but no nausea no vomiting. Onset for last 2 days. Allergies: Coded Allergies: KETAMINE (Verified Allergy, Unknown, 06/02/18) Patient History Past Medical History: see triage record, old chart reviewed Past Surgical History: other Pertinent Family History: none Social History: Denies: smoking Last Menstrual Period: 01/08/2019 Now: No Immunizations: other Reviewed Nursing Documentation: PMH: Agreed; PSxH: Agreed Nursing Documentation-PMH Past Medical History: No History, Except For Hx Cardiac Problems: Yes - Sickle cell anemia Hx Hypertension: No Hx Pacemaker: No Hx Cancer: No Hx Gastrointestinal Problems: No Hx Neurological Problems: No Hx Cerebrovascular Accident: No Hx Transient Ischemic Attacks: No Hx Dementia: No Hx Alzheimer's Disease: No Hx Parkinson's Disease: No Hx Meningitis: No Hx Encephalitis: No Hx Seizures: No Hx Epilepsy: No Hx Multiple Sclerosis: No Hx Cerebral Palsy: No Hx Amyotrophic Lat Sclerosis: No Hx Guillian-[place] Syndrome: No Hx Paralysis: No Hx Peripheral Neuropathy: No Hx Spinal Cord Injury: No Hx Head Trauma: No Hx Traumatic Brain Injury: No Hx Memory Loss: No Hx Concentration Difficulty: No Hx Speech Problem: No Hx Tremors: No Hx Vertigo: No Hx Dizziness: No Hx Syncope: No Hx Headaches: No Hx Aphasia: No Hx Dysphasia: No Hx Numbness: No Hx Weakness: No Hx Fatigue: No Hx Neurologic Surgery: No Hx Brain Shunt: No Review of Systems Eye: Denies: eye pain, blurred vision ENT: Denies: ear pain, nose congestion, throat swelling Respiratory: Denies: cough, shortness of breath Cardiovascular: Denies: chest pain, palpitations Gastrointestinal: Denies: abdominal pain, diarrhea, nausea, vomiting Musculoskeletal: Reports: back pain, joint pain Skin: Denies: rash Neurological: Denies: headache, numbness Endocrine: Denies: increased thirst, increased urine Hematologic/Lymphatic: Denies: easy bruising All Other Systems: negative except mentioned in HPI Physical Exam Vital Signs Date Time Temp Pulse Resp B/P (MAP) Pulse Ox O2 Delivery O2 Flow Rate FiO2 01/15/19 23:14 99.0 111 16 125/75 90 Room Air vitals with tachycardia. Repeat pulse ox 97% on room air Sp02 EP Interpretation: reviewed, normal General Appearance: well appearing, no apparent distress, alert Head: normocephalic, atraumatic Eyes: bilateral eye PERRL, bilateral eye EOMI ENT: hearing grossly normal, normal pharynx Neck: full range of motion, supple, no meningismus Respiratory: chest non-tender, lungs clear, normal breath sounds Cardiovascular #1: regular rate, rhythm, no murmur Gastrointestinal: normal bowel sounds, non tender, no mass, no organomegaly, no bruit, non-distended Musculoskeletal: back normal, gait/station normal, normal range of motion Psychiatric: mood/affect normal Skin: warm/dry Medical Decision Making Diagnostic Impression: Primary Impression: Sickle cell anemia Qualified Codes: D57.00 - Hb-SS disease with crisis, unspecified Additional Impression: Sickle cell crisis ER Course Patient presents with sickle cell pain with Pretty crisis. Her hemoglobin is 8.9. This is good for her. No evidence of an acute chest syndrome, aplastic crisis or other infectious cause. We'll discharge home. Last Vital Signs Date Time Temp Pulse Resp B/P (MAP) Pulse Ox O2 Delivery O2 Flow Rate FiO2 01/15/19 23:14 99.0 111 16 125/75 90 Room Air Status: improved Disposition: HOME, SELF-CARE Condition: Stable Scripts Hydrocodone/Acetaminophen 5-325* (HYDROCODONE/ACETAMINOPHEN 5-325*) 1 Each Tablet 1 TAB ORAL Q6H PRN for For Pain, #10 TAB 0 Refills Prov: Emmanuel Malloy MD 01/16/19 Additional Instructions: Follow-up with your DrBrown on Monday for refill your medication. Return if symptom worsen. Emmanuel Malloy MD Jan 15, 2019 23:35
[2019-01-15 23:57] LABS: BASOPHILS % (AUTO) 1.1 % (0.0-2.0); EOSINOPHILS % (AUTO) 3.2 % (0.0-3.0); HEMATOCRIT 25.6 % (37.0-47.0); HEMOGLOBIN 8.9 G/DL (12.0-16.0); LYMPHOCYTES % (AUTO) 45.9 % (20.0-45.0); MEAN CORPUSCULAR VOLUME 97 FL (80-99); NEUTROPHILS % (AUTO) 45.7 % (45.0-75.0); PLATELET COUNT 336 K/UL (150-450); RED BLOOD COUNT 2.64 M/UL (4.20-5.40); RED CELL DISTRIBUTION WIDTH 15.6 % (11.6-14.8); WHITE BLOOD COUNT 14.7 K/UL (4.8-10.8)
[2019-01-16 00:05] VITALS: BP 125/75
[2019-01-16 00:07] LABS: ANION GAP 10 mmol/L (5-15); BLOOD UREA NITROGEN 5 mg/dL (7-18); CALCIUM 8.9 MG/DL (8.5-10.1); CARBON DIOXIDE 25 MMOL/L (21-32); CHLORIDE 103 MMOL/L (98-107); CREATININE 0.3 MG/DL (0.55-1.30); SODIUM 138 MMOL/L (136-145)
[2019-01-16] MEDS ORDERED: HYDROCODON-ACE1 EA15 ORAL (00:17)
[2019-01-16 00:20] VITALS: BP 125/75
--- NOTE | 2019-01-16 00:20 | NUR ---
ER DISCHARGE NOTE: Patient is cleared to be discharged per ERMD, pt is aox4, on room air, with stable vital signs. pt was given dc and prescription instructions, pt was able to verbalize understanding, pt id band and iv site removed without complications. pt is able to ambulate with steady gait. pt took all belongings.
== END 2019-01-16 00:20 | disposition home or self-care (01) ==
LOC: EMR 23:28
DX: D57.00 Hb-SS disease with crisis, unspecified (principal); Z88.8 Allergy status to other drugs, medicaments and biological substances
CPT/HCPCS: 36415; 80048; 85025; 85044; 96374; 96375; 99284; J1170; J2405

== ENCOUNTER 2019-02-13 01:14 | Emergency (ER) | payer MEDICAID ==
[~2019-02-13] VITALS: Ht 167.6 cm; Wt 59.0 kg
[~2019-02-13 01:14] MED LIST changes: +VENLAFAXINE HCL25 MG ORAL
[2019-02-13 01:42] VITALS: BP 101/61
--- NOTE | 2019-02-13 01:44 | NUR ---
ED Nurse Note: Patient walked in to ER c/o aching pain all over the body. AAO x4, VSS at this time, skin is dry, intact. Per patient she has sickle cell anemia, and her body aching since Monday.
[2019-02-13] MEDS ORDERED: DiphenhydrAMINE 50mg/ml Inj IVP ONE (02:00)
[2019-02-13] MEDS ORDERED: Morphine Sulfate 10mg/ml Inj IVP ONE (02:00)
[2019-02-13 03:04] LABS: HEMOGLOBIN 7.9 G/DL (12.0-16.0); MEAN CORPUSCULAR VOLUME 99 FL (80-99); PLATELET COUNT 415 K/UL (150-450); RED BLOOD COUNT 2.31 M/UL (4.20-5.40); RED CELL DISTRIBUTION WIDTH 17.8 % (11.6-14.8); WHITE BLOOD COUNT 14.6 K/UL (4.8-10.8)
--- NOTE | 2019-02-13 04:26 | Emergency Room Report ---
History of Present Illness General Chief Complaint: Pain Present Illness HPI Patient is a 29-year-old female presented after increased extremity pain. Patient prior history of sickle cell disease. Patient states she ran out of her medications approximately 3 days ago. Patient had multiple prior ER visits for similar symptoms. She denies any fever. She reports similar episodes in the past. She states that she had not been having any hematemesis or bloody stools. She reports having a mild sore throat. Allergies: Coded Allergies: KETAMINE (Verified Allergy, Unknown, 06/02/18) Patient History Past Medical History: see triage record Last Menstrual Period: Jan 27 2019 Now: No Reviewed Nursing Documentation: PMH: Agreed; PSxH: Agreed Nursing Documentation-PMH Hx Cardiac Problems: Yes - Sickle cell anemia Hx Hypertension: No Hx Pacemaker: No Hx Cancer: No Hx Gastrointestinal Problems: No Hx Neurological Problems: No Hx Cerebrovascular Accident: No Hx Transient Ischemic Attacks: No Hx Dementia: No Hx Alzheimer's Disease: No Hx Parkinson's Disease: No Hx Meningitis: No Hx Encephalitis: No Hx Seizures: No Hx Epilepsy: No Hx Multiple Sclerosis: No Hx Cerebral Palsy: No Hx Amyotrophic Lat Sclerosis: No Hx Guillian-[place] Syndrome: No Hx Paralysis: No Hx Peripheral Neuropathy: No Hx Spinal Cord Injury: No Hx Head Trauma: No Hx Traumatic Brain Injury: No Hx Memory Loss: No Hx Concentration Difficulty: No Hx Speech Problem: No Hx Tremors: No Hx Vertigo: No Hx Dizziness: No Hx Syncope: No Hx Headaches: No Hx Aphasia: No Hx Dysphasia: No Hx Numbness: No Hx Weakness: No Hx Fatigue: No Hx Neurologic Surgery: No Hx Brain Shunt: No Review of Systems All Other Systems: negative except mentioned in HPI Physical Exam Vital Signs Date Time Temp Pulse Resp B/P (MAP) Pulse Ox O2 Delivery O2 Flow Rate FiO2 02/13/19 01:24 98.2 76 18 95 Room Air 02/13/19 01:42 101/61 Sp02 EP Interpretation: reviewed, normal General Appearance: normal inspection, well appearing, no apparent distress, alert, GCS 15 Head: atraumatic ENT: normal ENT inspection, hearing grossly normal, normal voice Neck: normal inspection, full range of motion, supple, no bony tend Respiratory: normal inspection, lungs clear, normal breath sounds, no respiratory distress, no retraction, no wheezing Cardiovascular #1: regular rate, rhythm, no edema Gastrointestinal: normal inspection, normal bowel sounds, non tender, soft, no guarding, no hernia Genitourinary: no CVA tenderness Musculoskeletal: normal inspection, back normal, normal range of motion Neurologic: normal inspection, alert, oriented x3, responsive, home health caregiver III-XII nml as tested, speech normal Psychiatric: normal inspection, judgement/insight normal, mood/affect normal Skin: normal inspection, normal color, no rash Medical Decision Making Diagnostic Impression: Primary Impression: Sickle-cell disease with pain ER Course Patient presented for sickle cell pain. Differential diagnosis included but was not limited to have sickle cell pain crisis, aplastic crisis, sequestration , osteomyelitis, acute chest syndrome among others. Patient was noted to have laboratory testing which is not significantly different from previous visits. Patient was started on IV pain medications. She was noted to have improvement in her discomfort. Patient was discharged home. She was advised to follow-up with her pain management physicians for further management of outpatient medications. Labs Test 02/13/19 02:50 White Blood Count 14.6 K/UL (4.8-10.8) Red Blood Count 2.31 M/UL (4.20-5.40) Hemoglobin 7.9 G/DL (12.0-16.0) Hematocrit 23.0 % (37.0-47.0) Mean Corpuscular Volume 99 FL (80-99) Mean Corpuscular Hemoglobin 34.2 PG (27.0-31.0) Mean Corpuscular Hemoglobin Concent 34.4 G/DL (32.0-36.0) Red Cell Distribution Width 17.8 % (11.6-14.8) Platelet Count 415 K/UL (150-450) Mean Platelet Volume 6.3 FL (6.5-10.1) Neutrophils (%) (Auto) % (45.0-75.0) Lymphocytes (%) (Auto) % (20.0-45.0) Monocytes (%) (Auto) % (1.0-10.0) Eosinophils (%) (Auto) % (0.0-3.0) Basophils (%) (Auto) % (0.0-2.0) Differential Total Cells Counted 100 Neutrophils % (Manual) 46 % (45-75) Lymphocytes % (Manual) 41 % (20-45) Monocytes % (Manual) 7 % (1-10) Eosinophils % (Manual) 4 % (0-3) Basophils % (Manual) 1 % (0-2) Band Neutrophils 1 % (0-8) Platelet Estimate Adequate Platelet Morphology Normal Polychromasia 1+ Hypochromasia 1+ Anisocytosis 2+ Sickle Cells 2+ Reticulocyte Count 9.7 % (0.5-2.0) Last Vital Signs Date Time Temp Pulse Resp B/P (MAP) Pulse Ox O2 Delivery O2 Flow Rate FiO2 02/13/19 03:29 98.2 02/13/19 01:42 18 101/61 95 Room Air 02/13/19 01:24 76 Status: improved Disposition: HOME, SELF-CARE Condition: Stable Referrals: [facility] (PCP) Jr Kim MD February 13, 2019 04:26
[2019-02-13 04:33] VITALS: BP 101/61
--- NOTE | 2019-02-13 04:34 | NUR ---
ED Nurse Note: Pt cleared by health care Provider for discharge. DC instructions/prescription was given and explained to pt and verbalized understanding of teachings. All medical deviecs such as ID band removed. Pt is AAO x4, ambulatory and left with all personal belongings.
== END 2019-02-13 04:34 | disposition home or self-care (01) ==
LOC: EMR 02:00
DX: D57.00 Hb-SS disease with crisis, unspecified (principal); R07.0 Pain in throat
CPT/HCPCS: 36415; 85007; 85025; 85044; 86850; 86900; 86901; 96374; 96375; 99284; J1200; J2270

== ENCOUNTER 2019-05-26 00:12 | Emergency (ER) | payer MEDICAID ==
[~2019-05-26] VITALS: Ht 167.6 cm; Wt 59.0 kg
--- NOTE | 2019-05-26 00:30 | NUR ---
ED Nurse Note: patient ambulated to ed c/o sickle cell pain. ao4. nad. vss
--- NOTE | 2019-05-26 00:50 | NUR ---
ED Nurse Note: iv access established. blood and urine collected; sent down to lab.
[2019-05-26 00:57] VITALS: BP 119/78
[2019-05-26 01:02] LABS: BASOPHILS % (AUTO) 1.5 % (0.0-2.0); EOSINOPHILS % (AUTO) 3.2 % (0.0-3.0); HEMATOCRIT 26.2 % (37.0-47.0); HEMOGLOBIN 8.9 G/DL (12.0-16.0); LYMPHOCYTES % (AUTO) 49.4 % (20.0-45.0); MEAN CORPUSCULAR VOLUME 98 FL (80-99); MONOCYTES % (AUTO) 5.9 % (1.0-10.0); NEUTROPHILS % (AUTO) 39.9 % (45.0-75.0); PLATELET COUNT 242 K/UL (150-450); RED BLOOD COUNT 2.68 M/UL (4.20-5.40); RED CELL DISTRIBUTION WIDTH 17.8 % (11.6-14.8)
--- NOTE | 2019-05-26 01:25 | Emergency Room Report ---
History of Present Illness General Chief Complaint: Pain Source: Patient, Medical Record Present Illness HPI Disclaimer: Please note that this report is being documented using [employer] technology. This can lead to erroneous entry secondary to incorrect interpretation by the dictating instrument. HPI: 29-year-old male with a history of sickle cell SC type presents for evaluation of joint pain. Patient states she has had multiple pain crises in the past which typically present with pain in the upper and lower extremities. She denies pain in the chest, shortness of breath, cough or in the hips. Pain began yesterday morning and she took her 4 mg Dilaudid approximate 8 AM and another 4 mg oral Dilaudid approximately 6 PM. No significant improvement in her symptoms. She states she gets transfused sometimes. She has had multiple emergency department visits with similar presentation. Denies ever having acute chest crisis but recently did have pneumonia. PMH: Sickle cell SC PSH: Denies Allergies: Ketamine Social Hx: Denies drug or alcohol abuse Allergies: Coded Allergies: KETAMINE (Verified Allergy, Unknown, 06/02/18) Patient History Last Menstrual Period: 05/19/19 Now: No Nursing Documentation-PMH Past Medical History: No History, Except For Hx Cardiac Problems: Yes - Sickle cell anemia Hx Hypertension: No Hx Pacemaker: No Hx Cancer: No Hx Gastrointestinal Problems: No Hx Neurological Problems: No Hx Cerebrovascular Accident: No Hx Transient Ischemic Attacks: No Hx Dementia: No Hx Alzheimer's Disease: No Hx Parkinson's Disease: No Hx Meningitis: No Hx Encephalitis: No Hx Seizures: No Hx Epilepsy: No Hx Multiple Sclerosis: No Hx Cerebral Palsy: No Hx Amyotrophic Lat Sclerosis: No Hx Guillian-[place] Syndrome: No Hx Paralysis: No Hx Peripheral Neuropathy: No Hx Spinal Cord Injury: No Hx Head Trauma: No Hx Traumatic Brain Injury: No Hx Memory Loss: No Hx Concentration Difficulty: No Hx Speech Problem: No Hx Tremors: No Hx Vertigo: No Hx Dizziness: No Hx Syncope: No Hx Headaches: No Hx Aphasia: No Hx Dysphasia: No Hx Numbness: No Hx Weakness: No Hx Fatigue: No Hx Neurologic Surgery: No Hx Brain Shunt: No Review of Systems All Other Systems: negative except mentioned in HPI Physical Exam Vital Signs Date Time Temp Pulse Resp B/P (MAP) Pulse Ox O2 Delivery O2 Flow Rate FiO2 05/26/19 00:14 98.8 94 18 119/78 (92) 95 Room Air General: Awake and alert, mildly uncomfortable HEENT: NC/AT. EOMI. Cardiovascular: RRR. S1 and S2 normal. No murmur appreciated Resp: Normal work of breathing. No cough, wheezing or crackles appreciated Abdomen: Abdomen is soft, nondistended. Nontender Skin: Intact. No abrasions, laceration or rash over the exposed skin MSK: Normal tone and bulk. Moving all extremities. No obvious deformity. Tender palpation over the biceps, triceps, forearms and thighs bilaterally. No deformity. No tenderness in the hips Neuro: Awake and alert. Mentating appropriately. Medical Decision Making Diagnostic Impression: Primary Impression: Sickle-cell disease with pain Additional Impression: Sickle cell anemia ER Course 29-year-old female with sickle cell presents for evaluation of body wide pain. We will start IV fluids, check CBC, reticulocyte count to determine need for transfusion. Will give IV pain medication. She has had multiple emergency department visits for similar presentations. Also obtain a chest x-ray in the light of her recent pneumonia Laboratory Tests Test 05/26/19 00:50 White Blood Count 12.0 K/UL (4.8-10.8) H Red Blood Count 2.68 M/UL (4.20-5.40) L Hemoglobin 8.9 G/DL (12.0-16.0) L Hematocrit 26.2 % (37.0-47.0) L Mean Corpuscular Volume 98 FL (80-99) Mean Corpuscular Hemoglobin 33.3 PG (27.0-31.0) H Mean Corpuscular Hemoglobin Concent 34.0 G/DL (32.0-36.0) Red Cell Distribution Width 17.8 % (11.6-14.8) H Platelet Count 242 K/UL (150-450) Mean Platelet Volume 6.5 FL (6.5-10.1) Neutrophils (%) (Auto) 39.9 % (45.0-75.0) L Lymphocytes (%) (Auto) 49.4 % (20.0-45.0) H Monocytes (%) (Auto) 5.9 % (1.0-10.0) Eosinophils (%) (Auto) 3.2 % (0.0-3.0) H Basophils (%) (Auto) 1.5 % (0.0-2.0) Reticulocyte Count 6.8 % (0.5-2.0) H Reevaluation Time: 03:05 Last Vital Signs Date Time Temp Pulse Resp B/P (MAP) Pulse Ox O2 Delivery O2 Flow Rate FiO2 05/26/19 00:57 98.8 71 18 119/78 95 Room Air Status: improved Reevaluation Impression Hemoglobin is stable, no need for transfusion. Reticulocyte is slightly elevated though below previous levels. Patient's pain is improved after receiving IV pain medication. Chest x-ray shows no evidence of infiltrate to suggest acute chest syndrome or pneumonia. She is requesting discharge home to follow-up with her cook fast food. She is stable and appropriate for outpatient follow-up. We discussed reasons to return to the emergency department. She understands and agrees with treatment plan. Disposition: HOME, SELF-CARE Condition: Improved Referrals: NON PHYSICIAN (PCP) Vinod Poole MD May 26, 2019 01:25
[2019-05-26] MEDS ORDERED: Hydromorphone 0.5mg/0.5ml inj IVP ONE ×2 (01:30→02:15)
--- NOTE | 2019-05-26 02:00 | Diagnostic Imaging Report ---
EXAM: XR Chest, 1 View CLINICAL HISTORY: PAIN TECHNIQUE: Frontal view of the chest. COMPARISON: 10/17/18 FINDINGS: Lungs: Unremarkable. No consolidation. Pleural space: Unremarkable. No pneumothorax. Heart: Unremarkable. No cardiomegaly. Mediastinum: Unremarkable. Bones/joints: Unremarkable. IMPRESSION: Normal chest x-ray.
[2019-05-26 03:14] VITALS: BP 119/78
== END 2019-05-26 03:14 | disposition home or self-care (01) ==
LOC: EMR 01:05
DX: D57.1 Sickle-cell disease without crisis (principal)
CPT/HCPCS: 36415; 71045; 85025; 85044; 96361; 96374; 99284; J1170

== ENCOUNTER 2019-06-06 05:24 | Emergency (ER) | payer MEDICAID ==
[~2019-06-06] VITALS: Ht 167.6 cm; Wt 59.4 kg
[2019-06-06 05:27] VITALS: BP 118/72
--- NOTE | 2019-06-06 05:27 | NUR ---
ED Nurse Note: Walk-in patient presents with complaints of generalized pain from sickle cell crisis.
[2019-06-06] MEDS ORDERED: DiphenhydrAMINE 50mg/ml Inj IVP ONE (06:00)
[2019-06-06] MEDS ORDERED: HYDROmorphone 1mg/ml Carpuject IVP ONE (06:00)
[2019-06-06 06:18] LABS: BASOPHILS % (AUTO) 2.7 % (0.0-2.0); EOSINOPHILS % (AUTO) 2.8 % (0.0-3.0); HEMATOCRIT 24.5 % (37.0-47.0); HEMOGLOBIN 8.3 G/DL (12.0-16.0); LYMPHOCYTES % (AUTO) 44.8 % (20.0-45.0); MEAN CORPUSCULAR VOLUME 99 FL (80-99); MONOCYTES % (AUTO) 4.9 % (1.0-10.0); NEUTROPHILS % (AUTO) 44.8 % (45.0-75.0); PLATELET COUNT 524 K/UL (150-450); RED BLOOD COUNT 2.47 M/UL (4.20-5.40); RED CELL DISTRIBUTION WIDTH 18.4 % (11.6-14.8); WHITE BLOOD COUNT 12.5 K/UL (4.8-10.8)
--- NOTE | 2019-06-06 06:20 | NUR ---
ED Nurse Note: Patient tolerated medication well. Patient is resting comfortably on O2 monitor watching a movie on her phone. Blood collected and sent to lab. Will wait for void to collect urine sample. 1L MS knight. Will continue to monitor.
[2019-06-06 06:31] LABS: ANION GAP 9 mmol/L (5-15); BLOOD UREA NITROGEN 3 mg/dL (7-18); CALCIUM 8.3 MG/DL (8.5-10.1); CARBON DIOXIDE 24 MMOL/L (21-32); CHLORIDE 112 MMOL/L (98-107); CREATININE 0.5 MG/DL (0.55-1.30); POTASSIUM 3.4 MMOL/L (3.5-5.1); SODIUM 145 MMOL/L (136-145)
[2019-06-06 06:42] LABS: ALANINE AMINOTRANSFERASE 22 U/L (12-78); ALBUMIN 3.7 G/DL (3.4-5.0); ALBUMIN/GLOBULIN RATIO 1.2 (1.0-2.7); ALKALINE PHOSPHATASE 70 U/L (46-116); ASPARTATE AMINO TRANSFERASE 25 U/L (15-37); BILIRUBIN,TOTAL 1.4 MG/DL (0.2-1.0)
[2019-06-06 06:43] LABS: BILIRUBIN,DIRECT 0.3 MG/DL (0.0-0.3)
--- NOTE | 2019-06-06 07:06 | NUR ---
HAND-OFF: Report given to Martín AVERY.
--- NOTE | 2019-06-06 07:10 | Emergency Room Report ---
History of Present Illness General Chief Complaint: Pain Source: Patient (Ildefonso Holt MD) Present Illness HPI 29-year-old female presents ED for evaluation. Complaining of generalized body pain. History of sickle cell disease. States that she was seen here recently for treatment of her pain. States that at the end of April she was admitted to [place] for pneumonia. States she is completed antibiotics since. Denies any chest pain or shortness of breath. Denies any cough. Pain is dull, 9 out of 10, nonradiating. No other aggravating relieving factors. Denies any other associated symptoms (Ildefonso Holt MD) Allergies: Coded Allergies: KETAMINE (Verified Allergy, Unknown, 06/02/18) Patient History Past Medical History: other - sickle cell disease Past Surgical History: none Pertinent Family History: none Social History: Denies: smoking, alcohol use, drug use Last Menstrual Period: current Now: No Immunizations: UTD Reviewed Nursing Documentation: PMH: Agreed; PSxH: Agreed (Ildefonso Holt MD) Nursing Documentation-PMH Hx Cardiac Problems: Yes - Sickle cell anemia Hx Hypertension: No Hx Pacemaker: No Hx Cancer: No Hx Gastrointestinal Problems: No Hx Neurological Problems: No Hx Cerebrovascular Accident: No Hx Transient Ischemic Attacks: No Hx Dementia: No Hx Alzheimer's Disease: No Hx Parkinson's Disease: No Hx Meningitis: No Hx Encephalitis: No Hx Seizures: No Hx Epilepsy: No Hx Multiple Sclerosis: No Hx Cerebral Palsy: No Hx Amyotrophic Lat Sclerosis: No Hx Guillian-[place] Syndrome: No Hx Paralysis: No Hx Peripheral Neuropathy: No Hx Spinal Cord Injury: No Hx Head Trauma: No Hx Traumatic Brain Injury: No Hx Memory Loss: No Hx Concentration Difficulty: No Hx Speech Problem: No Hx Tremors: No Hx Vertigo: No Hx Dizziness: No Hx Syncope: No Hx Headaches: No Hx Aphasia: No Hx Dysphasia: No Hx Numbness: No Hx Weakness: No Hx Fatigue: No Hx Neurologic Surgery: No Hx Brain Shunt: No (Ildefonso Holt MD) Review of Systems All Other Systems: negative except mentioned in HPI (Ildefonso Holt MD) Physical Exam Vital Signs Date Time Temp Pulse Resp B/P (MAP) Pulse Ox O2 Delivery O2 Flow Rate FiO2 06/06/19 05:27 98.1 87 18 118/72 97 Room Air Sp02 EP Interpretation: reviewed, normal General Appearance: no apparent distress, alert, GCS 15, non-toxic Head: normocephalic, atraumatic Eyes: bilateral eye normal inspection, bilateral eye PERRL ENT: hearing grossly normal, normal pharynx, no angioedema, normal voice Neck: full range of motion, supple/symm/no masses Respiratory: chest non-tender, lungs clear, normal breath sounds, speaking full sentences Cardiovascular #1: regular rate, rhythm, no edema Cardiovascular #2: 2+ carotid (R), 2+ carotid (L), 2+ radial (R), 2+ radial (L) , 2+ dorsalis pedis (R), 2+ dorsalis pedis (L) Gastrointestinal: normal bowel sounds, non tender, soft, non-distended, no guarding, no rebound Rectal: deferred Genitourinary: normal inspection, no CVA tenderness Musculoskeletal: back normal, gait/station normal, normal range of motion, non- tender Neurologic: alert, oriented x3, responsive, motor strength/tone normal, sensory intact, speech normal Psychiatric: judgement/insight normal, memory normal, mood/affect normal, no suicidal/homicidal ideation Reflexes: 3+ bicep (R), 3+ bicep (L), 3+ tricep (R), 3+ tricep (L), 3+ knee (R) , 3+ knee (L) Lymphatic: no adenopathy (Ildefonso Holt MD) Medical Decision Making Diagnostic Impression: Primary Impression: Sickle-cell disease with pain Laboratory Tests Test 06/06/19 06:00 06/06/19 07:15 White Blood Count 12.5 K/UL (4.8-10.8) H Red Blood Count 2.47 M/UL (4.20-5.40) L Hemoglobin 8.3 G/DL (12.0-16.0) L Hematocrit 24.5 % (37.0-47.0) L Mean Corpuscular Volume 99 FL (80-99) Mean Corpuscular Hemoglobin 33.7 PG (27.0-31.0) H Mean Corpuscular Hemoglobin Concent 34.0 G/DL (32.0-36.0) Red Cell Distribution Width 18.4 % (11.6-14.8) H Platelet Count 524 K/UL (150-450) H Mean Platelet Volume 5.6 FL (6.5-10.1) L Neutrophils (%) (Auto) 44.8 % (45.0-75.0) L Lymphocytes (%) (Auto) 44.8 % (20.0-45.0) Monocytes (%) (Auto) 4.9 % (1.0-10.0) Eosinophils (%) (Auto) 2.8 % (0.0-3.0) Basophils (%) (Auto) 2.7 % (0.0-2.0) H Reticulocyte Count 8.2 % (0.5-2.0) H Sodium Level 145 MMOL/L (136-145) Potassium Level 3.4 MMOL/L (3.5-5.1) L Chloride Level 112 MMOL/L (98-107) H Carbon Dioxide Level 24 MMOL/L (21-32) Anion Gap 9 mmol/L (5-15) Blood Urea Nitrogen 3 mg/dL (7-18) L Creatinine 0.5 MG/DL (0.55-1.30) L Estimate Glomerular Filtration Rate > 60 mL/min (>60) Glucose Level 150 MG/DL (74-106) H Calcium Level 8.3 MG/DL (8.5-10.1) L Total Bilirubin 1.4 MG/DL (0.2-1.0) H Direct Bilirubin 0.3 MG/DL (0.0-0.3) Aspartate Amino Transferase (AST) 25 U/L (15-37) Alanine Aminotransferase (ALT) 22 U/L (12-78) Alkaline Phosphatase 70 U/L (46-116) Total Protein 6.9 G/DL (6.4-8.2) Albumin 3.7 G/DL (3.4-5.0) Globulin 3.2 g/dL Albumin/Globulin Ratio 1.2 (1.0-2.7) Human Chorionic Gonadotropin, Qual Negative (NEGATIVE) Urine Color Pale yellow Urine Appearance Clear Urine pH 7 (4.5-8.0) Urine Specific Richards 1.010 (1.005-1.035) Urine Protein 1+ (NEGATIVE) H Urine Glucose (UA) Negative (NEGATIVE) Urine Ketones Negative (NEGATIVE) Urine Blood 5+ (NEGATIVE) H Urine Nitrite Negative (NEGATIVE) Urine Bilirubin Negative (NEGATIVE) Urine Urobilinogen Normal MG/DL (0.0-1.0) Urine Leukocyte Esterase Negative (NEGATIVE) Urine RBC 20-30 /HPF (0 - 2) H Urine WBC 0-2 /HPF (0 - 2) Urine Squamous Epithelial Cells Moderate /LPF (NONE/OCC) H Urine Bacteria Few /HPF (NONE) (Vinod Poole MD) Chest X-Ray Diagnostic Results Chest X-Ray Diagnostic Results : # of Views/Limited/Complete: 1 View Indication: Chest Pain Interpretation: no consolidation, no effusion, no pneumothorax Impression: No acute disease Electronically Signed by: Electronically signed by Dr. Vinod Poole (Vinod Poole MD) Last Vital Signs Date Time Temp Pulse Resp B/P (MAP) Pulse Ox O2 Delivery O2 Flow Rate FiO2 06/06/19 06:38 98.1 06/06/19 05:27 80 18 118/72 (87) 97 Room Air (Ildefonso Holt MD) Reevaluation Time: 10:00 Status: improved Reevaluation Impression Assumed care of the patient at approximately 8 AM. The patient's vital signs are stable, she required another dose of pain medication but now is adequately pain control. Chest x-ray shows no evidence of infiltrate to suggest an acute chest crisis. She has received IV fluids, labs are stable, anemia is at baseline, no indication for transfusion at this time. The patient is safe and stable for discharge and follow-up as an outpatient with her lead scientist. She is to continue her current medication regimen. We discussed reasons to return to the emergency department. She understands and agrees with this treatment plan. (Vinod Poole MD) Disposition: HOME, SELF-CARE Condition: Improved Referrals: [facility] (PCP) Ildefonso Holt MD Jun 06, 2019 07:10 Vinod Poole MD Jun 06, 2019 09:35
--- NOTE | 2019-06-06 07:30 | NUR ---
ED Nurse Note: REPORT RECEIVED FROM BENNIE LOUIS. PT LAYING PEACEFULLY IN BED IN NAD. AOX4. PT CALM AND COOPERATIVE BUT CONTINUES TO C/O PAIN. PM RN UNABLE TO PLACE IV AND PT REQUESTING EJ. DR VALVERDE NOTIFIED FOR EJ PLACEMENT.
[2019-06-06 07:34] LABS: APPEARANCE,URINE CLEAR; BILIRUBIN, URINE NEGATIVE (NEGATIVE); COLOR,URINE PALE YELLOW; GLUCOSE, URINE (UA) NEGATIVE (NEGATIVE); KETONES,URINE NEGATIVE (NEGATIVE); LEUKOCYTE ESTERASE ,URINE NEGATIVE (NEGATIVE); NITRITE,URINE NEGATIVE (NEGATIVE); PH,URINE 7 (4.5-8.0); PROTEIN,URINE 1+ (NEGATIVE); UROBILINOGEN,URINE NORMAL MG/DL (0.0-1.0)
[2019-06-06] MEDS ORDERED: Hydromorphone 0.5mg/0.5ml inj IVP ONE (07:45)
--- NOTE | 2019-06-06 10:07 | NUR ---
ED Nurse Note: PT LAYING PEACEFULLY IN BED IN NAD. AOX4. DISCHARGE PAPERWORK EXPLAINED TO PT. PT VERBALIZES UNDERSTANDING AND ALL QUESTIONS ANSWERED. DISCHARGE PAPERWORK GIVEN TO PT AND ID WRISTBAND REMOVED. PT WALKED OUT OF ER WITH STEADY GAIT AND ALL BELONGINGS. VSS.
[2019-06-06 10:08] VITALS: BP 122/76
--- NOTE | 2019-06-06 11:27 | Diagnostic Imaging Report ---
Indication: Chest and abdominal pain Comparison: 05/26/2019 A single view chest radiograph was obtained. Findings: Cardiac silhouette is abnormally enlarged. This could be due to underlying cardiomyopathy or pericardial effusion. The lungs are clear. Costophrenic angles are sharp. No pleural effusion seen. Bones are unremarkable. IMPRESSION: Prominent cardiac silhouette. Pericardial effusion versus cardiomyopathy.
== END 2019-06-06 10:09 | disposition home or self-care (01) ==
LOC: EMR 06:13
DX: D57.00 Hb-SS disease with crisis, unspecified (principal); Z88.8 Allergy status to other drugs, medicaments and biological substances; R07.9 Chest pain, unspecified
CPT/HCPCS: 36415; 71045; 80053; 81003; 82248; 84703; 85025; 85044; 96361; 96374; 96375; 96376; J1170; J1200; Z7502; 99284

== ENCOUNTER 2019-10-23 23:07 | Emergency (ER) | payer MEDICAID ==
[~2019-10-23] VITALS: Ht 167.6 cm; Wt 59.0 kg
--- NOTE | 2019-10-23 23:10 | NUR ---
ED Nurse Note: PT WALKED IN C/O ERNANDEZ SINCE AM. PT STATES FRONT HEAD PAIN /. PT STATES ERNANDEZ ONSET WHEN H&H IS LOW D/T SICKLE CELL CRISIS. VSS, NAD. ERMD AT BEDSIDE, FAMILY AT BEDSIDE. WILL CONTINUE TO MONITOR PATIENT.
[2019-10-23 23:23] VITALS: BP 118/73
--- NOTE | 2019-10-23 23:30 | NUR ---
ED Nurse Note: PATIENT REQUESTED TO LEAVE. ERMD NOTIFIED.
[2019-10-23] MEDS ORDERED: IBUPROFEN600 MG ORAL (23:31)
--- NOTE | 2019-10-23 23:31 | Emergency Room Report ---
History of Present Illness General Chief Complaint: Headache Source: Patient Present Illness HPI This a 29-year-old female well-known to me. She has a history of sickle cell disease with frequent crisis and ER visit. She had not been here in a while. She usually go to [place] now. She presents with chief complaint of headache and congestion. Onset for 1 day. She is worried that she may have the coronavirus [place] No nausea no vomiting. No fever or chills. Does have some sore throat. Has body pain that is 7 out of 10. She said this is not her sickle cell crisis. She was admitted to [place] 2 weeks ago with a hemoglobin of 6 and had 2 units of blood. She was discharged the next day. Allergies: Coded Allergies: AZITHROMYCIN (Verified Allergy, Unknown, 10/23/19) KETAMINE (Verified Allergy, Unknown, 06/02/18) Patient History Past Medical History: see triage record, old chart reviewed, other Past Surgical History: other Pertinent Family History: none Social History: Denies: smoking Last Menstrual Period: 09/2019 Now: No Immunizations: other Reviewed Nursing Documentation: PMH: Agreed; PSxH: Agreed Nursing Documentation-PMH Hx Cardiac Problems: Yes - Sickle cell anemia Hx Hypertension: No Hx Pacemaker: No Hx Cancer: No Hx Gastrointestinal Problems: No Hx Neurological Problems: No Hx Cerebrovascular Accident: No Hx Transient Ischemic Attacks: No Hx Dementia: No Hx Alzheimer's Disease: No Hx Parkinson's Disease: No Hx Meningitis: No Hx Encephalitis: No Hx Seizures: No Hx Epilepsy: No Hx Multiple Sclerosis: No Hx Cerebral Palsy: No Hx Amyotrophic Lat Sclerosis: No Hx Gu[place] Syndrome: No Hx Paralysis: No Hx Peripheral Neuropathy: No Hx Spinal Cord Injury: No Hx Head Trauma: No Hx Traumatic Brain Injury: No Hx Memory Loss: No Hx Concentration Difficulty: No Hx Speech Problem: No Hx Tremors: No Hx Vertigo: No Hx Dizziness: No Hx Syncope: No Hx Headaches: No Hx Aphasia: No Hx Dysphasia: No Hx Numbness: No Hx Weakness: No Hx Fatigue: No Hx Neurologic Surgery: No Hx Brain Shunt: No Review of Systems Eye: Denies: eye pain, blurred vision ENT: Reports: throat pain; Denies: ear pain, nose congestion, throat swelling Respiratory: Denies: cough, shortness of breath Cardiovascular: Denies: chest pain, palpitations Gastrointestinal: Denies: abdominal pain, diarrhea, nausea, vomiting Musculoskeletal: Denies: back pain, joint pain Skin: Denies: rash Neurological: Reports: headache; Denies: numbness Endocrine: Denies: increased thirst, increased urine Hematologic/Lymphatic: Denies: easy bruising All Other Systems: negative except mentioned in HPI Physical Exam Vital Signs Date Time Temp Pulse Resp B/P (MAP) Pulse Ox O2 Delivery O2 Flow Rate FiO2 10/23/19 23:09 98.1 91 16 120/76 (91) 95 Room Air Vitals normal Sp02 EP Interpretation: reviewed, normal General Appearance: well appearing, no apparent distress, alert Head: normocephalic, atraumatic Eyes: bilateral eye PERRL, bilateral eye EOMI ENT: hearing grossly normal, normal pharynx Neck: full range of motion, supple, no meningismus Respiratory: chest non-tender, lungs clear, normal breath sounds Cardiovascular #1: regular rate, rhythm, no murmur Gastrointestinal: normal bowel sounds, non tender, no mass, no organomegaly, no bruit, non-distended Musculoskeletal: back normal, normal range of motion, gait/station normal Psychiatric: mood/affect normal Medical Decision Making Diagnostic Impression: Primary Impression: Upper respiratory infection, viral ER Course Patient with a viral syndrome. She looks well. No fever. No distress. No respiratory distress. Explained to the patient that at this moment in time, we do not have any rapid testing for coronavirus. She does not meet criteria for admission or transfer to [facility]. Because of her sickle cell in anemia from it, I offered to do blood work to check her hemoglobin. She refused. Will discharge home. Last Vital Signs Date Time Temp Pulse Resp B/P (MAP) Pulse Ox O2 Delivery O2 Flow Rate FiO2 10/23/19 23:23 98.0 80 18 118/73 98 Room Air Status: unchanged Disposition: HOME, SELF-CARE Condition: Stable Scripts Ibuprofen* (MOTRIN*) 600 Mg Tablet 600 MG ORAL THREE TIMES A DAY, #30 TAB 0 Refills Prov: Emmanuel Malloy MD 10/23/19 Additional Instructions: Follow-up with your doctor in 7 days. Return for fever or respiratory distress. Return if worse. Emmanuel Malloy MD Oct 23, 2019 23:31
[2019-10-23 23:35] VITALS: BP 127/81
--- NOTE | 2019-10-23 23:35 | NUR ---
ER DISCHARGE NOTE: Patient is cleared to be discharged per ERMD, pt is aox4, on room air, with stable vital signs. pt was given dc and prescription instructions, pt was able to verbalize understanding, pt id band removed without complications. pt is able to ambulate with steady gait. pt took all belongings accompanied by friend.
== END 2019-10-23 23:35 | disposition home or self-care (01) ==
LOC: EMR 23:35
DX: J06.9 Acute upper respiratory infection, unspecified (principal); Z88.8 Allergy status to other drugs, medicaments and biological substances
CPT/HCPCS: 99282